=== PATIENT | female | born 1950 | race Caucasian/White ===

== ENCOUNTER → 2020-10-28 | Outpatient (CLI) | payer MEDICARE ==
--- NOTE | 2020-10-29 11:07 | MM ---
Reason for exam: screening (asymptomatic). Last mammogram was performed 16 years and 1 month ago. History: Patient is postmenopausal and history of endometrial cancer. Physical Findings: A clinical breast exam by your physician is recommended on an annual basis and results should be correlated with mammographic findings. MG 3D Screening Mammo W/Cad Bilateral CC and MLO view(s) were taken. No prior studies available for comparison. The breast tissue is heterogeneously dense. This may lower the sensitivity of mammography. There is no discrete abnormality. No significant changes when compared with prior studies. ASSESSMENT: Negative, BI-RAD 1 RECOMMENDATION: Routine screening mammogram of both breasts in 1 year.
== END | disposition home or self-care (01) ==
LOC: RADMAMWWP 13:59
PROVIDERS: ATTEND Family Medicine
DX: Z12.31 Encounter for screening mammogram for malignant neoplasm of breast (principal); Z78.0 Asymptomatic menopausal state
CPT/HCPCS: 77063; 77067

== ENCOUNTER 2021-10-07 08:41 | Emergency (ER) | payer MEDICARE ==
[2021-10-07 08:51] VITALS: BP 156/72; PULSE 71; RESP 20; TEMP 97.8
[2021-10-07] MEDS ORDERED: predniSONE 20 MG TAB PO STA (11:52)
[2021-10-07] MEDS ORDERED: KETOROLAC 15 MG/ML 1 ML VIAL IM STA (11:52)
[2021-10-07] MEDS ORDERED: HYDROmorphone 1 MG/ML 1 ML SYRINGE IM STA (11:52)
--- NOTE | 2021-10-07 12:18 | XR ---
Lumbosacral spine HISTORY: Back pain, trauma 6 views of the lumbosacral spine Comparisons There is a slight spinal curvature convex left centered at L3. Multilevel spondylosis is present. The re is no evident spondylolysis. Lumbar vertebral bodies show preserved height. Bone mineralization is reduced. There is anterolisthesis grade 1 L4-5. Sclerosis is present posterior elements of the lumba r spine. Loss of disc height is greatest at L4-5, L5-S1. Atherosclerotic calcifications present in th e aorta iliac distribution. IMPRESSION: Degenerative disc disease, facet arthropathy, osteopenia, additional findings above
--- NOTE | 2021-10-07 13:00 | ED ---
Back Pain HPI - General Chief Complaint: Back Pain/Injury Stated Complaint: trouble walking Time Seen by Provider: 10/07/21 11:45 Source: patient Limitations: no limitations - History of Present Illness Initial Comments: 71-year-old female presents to the emergency department with back pain. States is going on for the past week. Originally started after she was gardening and doing a lot of lifting and bending. States that the pain was originally on the right side of her lumbar spine. The pain has now progressed and extends into the posterior aspect of her right back and into her thigh. Pain is worse with movement and better with rest. She felt a primary care physician who placed her on Flexeril, Tylenol and Motrin. She denies any relief with the medications. Denies any bowel or bladder incontinence. No saddle anesthesia. No fevers. Denies any additional trauma. No history of previous back surgery. No alleviating, precipitating or modifying factors - Related Data Previous Rx's Medication Instructions Recorded HYDROcodone/APAP 7.5-325MG [[place] 1 tab PO Q4HR PRN 3 Days #18 tab 10/07/21 7.5-325] predniSONE [Deltasone] 20 mg PO BID #10 tab 10/07/21 Allergies Allergy/AdvReac Type Severity Reaction Status Date / Time No Known Allergies Allergy Verified 10/07/21 08:51 Review of Systems ROS Statement: Those systems with pertinent positive or pertinent negative responses have been documented in the HPI. ROS Other: All systems not noted in ROS Statement are negative. Past Medical History Past Medical History: No Reported History History of Any Multi-Drug Resistant Organisms: None Reported Past Surgical History: No Surgical Hx Reported Past Psychological History: No Psychological Hx Reported Smoking Status: Former smoker Past Alcohol Use History: Occasional Past Drug Use History: None Reported General Exam Limitations: no limitations General appearance: alert, in no apparent distress Head exam: Present: atraumatic, normocephalic, normal inspection Eye exam: Present: normal appearance, PERRL, EOMI. Absent: scleral icterus, conjunctival injection, periorbital swelling ENT exam: Present: normal exam, mucous membranes moist Neck exam: Present: normal inspection. Absent: tenderness, meningismus, lymphadenopathy Respiratory exam: Present: normal lung sounds bilaterally. Absent: respiratory distress, wheezes, rales, rhonchi, stridor Cardiovascular Exam: Present: regular rate, normal rhythm, normal heart sounds. Absent: systolic murmur, diastolic murmur, rubs, gallop, clicks GI/Abdominal exam: Present: soft, normal bowel sounds. Absent: distended, tenderness, guarding, rebound, rigid Extremities exam: Present: normal inspection, full ROM, normal capillary refill, other (5/5 muscle strength b/l le). Absent: tenderness, pedal edema, joint swelling, calf tenderness Back exam: Present: other (tenderness right SI joint) Neurological exam: Present: alert, oriented X3, CN II-XII intact Psychiatric exam: Present: normal affect, normal mood Skin exam: Present: warm, dry, intact, normal color. Absent: rash Course Vital Signs 10/07/21 08:48 Temperature 97.8 F Pulse Rate 71 Respiratory 20 Rate Blood Pressure 156/72 O2 Sat by Pulse 97 Oximetry Medical Decision Making - Medical Decision Making Upon arrival the patient is placed into room 31. A thorough history and physical exam was performed. Patient was given 15 mg of IM Toradol, 1 mg of Dilaudid. Lumbar spine x-ray is performed which demonstrates degenerative disc disease facet arthropathy osteopenia. Patient is reevaluated and feels improved in her symptoms. Did discuss changing her treatment from her current regiment over to [place] and prednisone. Patient does agree to this plan. She is given 60 mg of prednisone in the emergency room. Instructed to not take Motrin while taking the steroids. She'll stop taking the muscle relaxer and substitute for the [place]. She is to follow-up with her primary care doctor in 2-4 days and ret urn for any worsening symptoms she was discharged in stable condition Disposition Clinical Impression: Sciatica Disposition: HOME SELF-CARE Condition: Stable Instructions (If sedation given, give patient instructions): Sciatica (ED) Additional Instructions: Please take the [place] and steroids as directed. Follow up with your primary care doctor in 2-4 days and return for any new or worsening symptoms Prescriptions: predniSONE [Deltasone] 20 mg PO BID #10 tab HYDROcodone/APAP 7.5-325MG [[place] 7.5-325] 1 tab PO Q4HR PRN 3 Days #18 tab PRN Reason: Pain Is patient prescribed a controlled substance at d/c from ED?: Yes When asked, does pt state using other controlled substances?: No If prescribed controlled substance>3 days was MAPS reviewed?: Prescribed <3 Days If opioid is for acute pain is fill amount 7 days or less?: Yes Referrals: Lady Briseno MD [Primary Care Provider] - 1-2 days Devon Patel DO [Doctor of Osteopathic Medicine] - 1-2 days Time of Disposition: 13:00
== END 2021-10-07 13:16 | disposition home or self-care (01) ==
LOC: EC 08:41
DX: M54.41 Lumbago with sciatica, right side (principal); Z87.891 Personal history of nicotine dependence
CPT/HCPCS: 72110; 99283; 96372; J1170; J1885; J7512

== ENCOUNTER 2021-11-10 19:21 | Inpatient (IN) | payer MEDICARE, OTHER ==
[2021-11-10] MEDS ORDERED: SODIUM CHLORIDE 0.9% 1,000 ML IV STA ×2 (19:48→20:46)
[2021-11-10] MEDS ORDERED: HYDROmorphone 0.5 MG/0.5 ML SYRINGE IVP STA (19:50)
[2021-11-10] MEDS ORDERED: ONDANSETRON 4 MG/2 ML VIAL IVP STA (19:50)
[2021-11-10 20:04] LABS: Basophils # (A) 0.1 k/uL (0-0.2); Basophils % (A) 0 %; Eosinophils # (A) 0.1 k/uL (0-0.7); Eosinophils % (A) 1 %; HGB 12.2 gm/dL (11.4-16.0); Lymphocytes # (A) 0.5 k/uL (1.0-4.8); Lymphocytes % (A) 3 %; MCH 29.4 pg (25.0-35.0); MCHC 34.9 g/dL (31.0-37.0); Mean Platelet Volume 8.1; Monocytes % (A) 5 %; Neutrophils # (A) 18.2 k/uL (1.3-7.7); Neutrophils % (A) 91 %; Platelet Count 392 k/uL (150-450); RBC 4.16 m/uL (3.80-5.40); RDW 13.4 % (11.5-15.5); WBC 19.9 k/uL (3.8-10.6)
--- NOTE | 2021-11-10 20:16 | XR ---
EXAMINATION TYPE: XR chest 2V DATE OF EXAM: 11/10/2021 COMPARISON: NONE HISTORY: Short of breath TECHNIQUE: 2 views FINDINGS: Heart and mediastinum are normal. Lungs are clear. Diaphragm is normal. Bony thorax is inta ct. Thoracic aorta is atheromatous. IMPRESSION: No active cardiopulmonary disease. Normal heart.
[2021-11-10 20:17] LABS: ALT 15 U/L (4-34); AST 27 U/L (14-36); African American GFR (CKD) 9 (>60 ml/min/1.73 sqM); Albumin 3.5 g/dL (3.5-5.0); Alkaline Phosphatase 121 U/L (38-126); Chloride 99 mmol/L (98-107); Glucose 88 mg/dL (74-99); Magnesium 1.8 mg/dL (1.6-2.3); Non-African American GFR(CKD) 8 (>60 ml/min/1.73 sqM); Potassium 2.9 mmol/L (3.5-5.1); Sodium 130 mmol/L (137-145); Total Bilirubin 0.3 mg/dL (0.2-1.3); Total Protein 6.2 g/dL (6.3-8.2)
[2021-11-10 20:18] LABS: INR 1.2 (<1.2); Partial Thromboplastin Time 29.4 sec (22.0-30.0); Prothrombin Time 12.7 sec (9.0-12.0)
--- NOTE | 2021-11-10 20:20 | ED ---
General Adult HPI - General Source: patient, family, EMS, RN notes reviewed Mode of arrival: EMS Limitations: no limitations <Fallon Haque - Last Filed: 11/11/21 04:54> <Floresita Le - Last Filed: 11/12/21 22:21> - General Chief complaint: Shortness of Breath Stated complaint: Weakness, SOB Time Seen by Provider: 11/10/21 19:43 - History of Present Illness Initial comments: 71-year-old female presents to the emergency department via EMS for evaluation of increasing weakness and shortness of breath, onset today. Patient's spouse explains that patient developed low back pain 2 weeks ago and was diagnosed with a compression fracture at L3 that was likely due to presence of the tumor with concern for metastatic disease. Patient's spouse states they have been giving her [place] 10/325 for pain, but she has become so weak he is unable to transfer her from the bed to the bathroom. He also states she has complained of shortness of breath that has worsened over the past 2 days. Reports lack of appetite and decreased oral intake. Denies fever, chills, chest pain, cough, abdominal pain, nausea, vomiting, diarrhea, dysuria, hematuria, incontinence, or saddle anesthesia. According to her , patient has a PET scan scheduled for Wednesday. She is scheduled to see Dr. Patel next week and is waiting a call back from the oncologist for an appointment. (Fallon Haque) - Related Data Home Medications Medication Instructions Recorded Confirmed HYDROcodone/APAP 10-325MG [[place] 1 tab PO TID PRN 11/10/21 11/10/21 10-325] Ibuprofen [Motrin] 800 mg PO TID PRN 11/11/21 11/11/21 Allergies Allergy/AdvReac Type Severity Reaction Status Date / Time No Known Allergies Allergy Verified 11/10/21 21:17 Review of Systems ROS Other: All systems not noted in ROS Statement are negative. <Fallon Haque - Last Filed: 11/11/21 04:54> ROS Other: All systems not noted in ROS Statement are negative. <Floresita Le - Last Filed: 11/12/21 22:21> ROS Statement: Those systems with pertinent positive or pertinent negative responses have been documented in the HPI. Past Medical History Past Medical History: No Reported History History of Any Multi-Drug Resistant Organisms: None Reported Past Surgical History: No Surgical Hx Reported Past Psychological History: No Psychological Hx Reported Smoking Status: Former smoker Past Alcohol Use History: Occasional Past Drug Use History: None Reported - Past Family History Mother Family Medical History: No Reported History Father Family Medical History: Cancer Additional Family Medical History / Comment(s): skin Brother(s) Family Medical History: No Reported History <Fallon Haque - Last Filed: 11/11/21 04:54> General Exam Limitations: no limitations (Well-developed, well-nourished female in no acute distress.) General appearance: alert, in no apparent distress Head exam: Present: atraumatic, normocephalic, normal inspection Eye exam: Present: normal appearance, PERRL, EOMI. Absent: scleral icterus, conjunctival injection, periorbital swelling ENT exam: Present: mucous membranes dry Neck exam: Present: normal inspection, full ROM. Absent: tenderness, meningismus Respiratory exam: Present: normal lung sounds bilaterally. Absent: respiratory distress, wheezes, rales, rhonchi, stridor, chest wall tenderness Cardiovascular Exam: Present: regular rate, normal rhythm, normal heart sounds. Absent: systolic murmur, diastolic murmur, rubs, gallop, clicks GI/Abdominal exam: Present: soft, normal bowel sounds. Absent: distended, tend erness, guarding, rebound, rigid Right Hip exam: Present: normal inspection Upper Leg exam: Present: normal inspection, tenderness (tenderness upon palpation of the right anteromedial aspect of the mid upper leg; non-localized). Absent: swelling, ecchymosis, deformity, erythema Neurovascular tendon exam: Present: no vascular compromise Gait: unable to bear weight (due to generalized weakness) Back exam: Present: paraspinal tenderness (right sided lumbar spine tenderness upon palption). Absent: vertebral tenderness Neurological exam: Present: alert, oriented X3 Psychiatric exam: Present: flat affect Skin exam: Present: warm, dry, intact, normal color. Absent: rash <Fallon Haque - Last Filed: 11/11/21 04:54> Course <Fallon Haque - Last Filed: 11/11/21 04:54> <Floresita Le - Last Filed: 11/12/21 22:21> Vital Signs 11/10/21 11/10/21 11/10/21 19:25 19:41 20:38 Temperature 97.2 F L Pulse Rate 84 86 Respiratory 22 22 22 Rate Blood Pressure 126/94 110/97 O2 Sat by Pulse 100 99 Oximetry 11/10/21 11/10/21 11/10/21 21:13 21:34 21:45 Temperature Pulse Rate 84 90 92 Respiratory 20 17 19 Rate Blood Pressure 93/74 93/74 94/46 O2 Sat by Pulse 99 100 99 Oximetry 11/10/21 11/10/21 11/10/21 22:00 22:15 22:30 Temperature Pulse Rate 89 87 Respiratory 18 14 Rate Blood Pressure 63/44 75/50 71/49 O2 Sat by Pulse 99 100 Oximetry 11/10/21 11/10/21 11/10/21 23:00 23:15 23:30 Temperature Pulse Rate 89 87 87 Respiratory 20 18 20 Rate Blood Pressure 129/62 123/61 123/90 O2 Sat by Pulse 100 Oximetry 11/10/21 11/11/21 11/11/21 23:45 00:00 00:10 Temperature Pulse Rate 90 88 90 Respiratory 16 15 17 Rate Blood Pressure 138/73 126/76 106/79 O2 Sat by Pulse Oximetry 11/11/21 11/11/21 11/11/21 00:15 00:30 00:45 Temperature Pulse Rate 89 89 90 Respiratory 16 17 16 Rate Blood Pressure 106/79 119/79 113/56 O2 Sat by Pulse Oximetry 11/11/21 11/11/21 11/11/21 01:00 01:15 01:30 Temperature Pulse Rate 91 88 87 Respiratory 20 19 19 Rate Blood Pressure 111/67 106/67 107/64 O2 Sat by Pulse Oximetry 11/11/21 11/11/21 11/11/21 01:45 02:00 02:15 Temperature Pulse Rate 89 89 88 Respiratory 12 15 20 Rate Blood Pressure 114/69 122/52 115/63 O2 Sat by Pulse Oximetry 11/11/21 02:30 Temperature Pulse Rate Respiratory Rate Blood Pressure 108/51 O2 Sat by Pulse Oximetry - Reevaluation(s) Reevaluation #1: 11/10/21 21:00 Notified of several critical labs. I spoke with my attending, Dr. Le, who will assume this patient's care. (Fallon Haque) 11/10/21 23:[address] Obando who would like the patient on a bicarbonate drip. 80 meq kcl. 2 gram calcium gluconate. Labs in the morning (Floresita Le) Reevaluation #2: Spoke with Dr. Sanchez. States that Dr. Patel can consult on the patient tomorrow 11/10/21 23:11 (Floresita Le) Reevaluation #3: Spoke with Dr. Allen 11/10/21 23:17 (Floresita Le) Reevaluation #4: Spoke with Dr. Moya 11/10/21 23:18 (Floresita Le) Medical Decision Making - Lab Data Result diagrams: 11/10/21 19:54 11/10/21 19:54 - EKG Data EKG shows normal: sinus rhythm Rate: normal - Radiology Data Radiology results: report reviewed, image reviewed <GarlandFallon esposito - Last Filed: 11/11/21 04:54> - Lab Data Result diagrams: 11/12/21 03:49 11/12/21 03:49 <Floresita Le - Last Filed: 11/12/21 22:21> - Medical Decision Making Upon arrival patient was placed into room 18. She was originally seen by the PA. Laboratory studies returned and the patient is moved up to room 6 and I do take over care of the patient. Patient sent for CT of her abdomen and pelvis which is done without contrast due to her renal failure which demonstrates multiple lytic lesions concerning for myeloma. Patient was given a 2 L bolus of normal saline. She is also given 2 amp of bicarb. Patient does have potassium replaced. 20 mEq is originally ordered however after speaking with nephrology the patient will be given 80 mEq total to start. Magnesium is replaced. Nephrology also recommends 2 amp of calcium gluconate. Ionized calcium was obtained prior to replacement. CT the head does not demonstrate any concerning lesions. I did call and speak with Dr. Moya, Dr. Sanchez, Dr. Eckert and Dr. Obando. Patient will be admitted to the ICU on a bicarb drip. Patient and family aware of the critical condition. Jean was placed for renal failure and the patient does have immediate output of 800 mL of urine. Patient awaiting a bed on the floor (Floresita Le) - Lab Data Lab Results 11/10/21 11/10/21 11/10/21 Range/Units 19:54 19:54 19:54 WBC 19.9 H (3.8-10.6) k/uL RBC 4.16 (3.80-5.40) m/uL Hgb 12.2 (11.4-16.0) gm/dL Hct 35.0 (34.0-46.0) % MCV 84.0 (80.0-100.0) fL MCH 29.4 (25.0-35.0) pg MCHC 34.9 (31.0-37.0) g/dL RDW 13.4 (11.5-15.5) % Plt Count 392 (150-450) k/uL MPV 8.1 Neutrophils % 91 % Lymphocytes % 3 % Monocytes % 5 % Eosinophils % 1 % Basophils % 0 % Neutrophils # 18.2 H (1.3-7.7) k/uL Lymphocytes # 0.5 L (1.0-4.8) k/uL Monocytes # 1.0 (0-1.0) k/uL Eosinophils # 0.1 (0-0.7) k/uL Basophils # 0.1 (0-0.2) k/uL PT 12.7 H (9.0-12.0) sec INR 1.2 H (<1.2) APTT 29.4 (22.0-30.0) sec D-Dimer 4.28 H (<0.60) mg/L FEU Sodium 130 L (137-145) mmol/L Potassium 2.9 L (3.5-5.1) mmol/L Chloride 99 (98-107) mmol/L Carbon Dioxide <5 L* (22-30) mmol/L Anion Gap mmol/L BUN 166 H* (7-17) mg/dL Creatinine 5.36 H (0.52-1.04) mg/dL Est GFR (CKD-EPI)AfAm 9 (>60 ml/min/1.73 sqM) Est GFR (CKD-EPI)NonAf 8 (>60 ml/min/1.73 sqM) Glucose 88 (74-99) mg/dL Calcium 6.4 L* (8.4-10.2) mg/dL Magnesium 1.8 (1.6-2.3) mg/dL Total Bilirubin 0.3 (0.2-1.3) mg/dL AST 27 (14-36) U/L ALT 15 (4-34) U/L Alkaline Phosphatase 121 (38-126) U/L Troponin I (0.000-0.034) ng/mL NT-Pro-B Natriuret Pep pg/mL Total Protein 6.2 L (6.3-8.2) g/dL Albumin 3.5 (3.5-5.0) g/dL Urine Color Urine Appearance (Clear) Urine pH (5.0-8.0) Ur Specific [place] (1.001-1.035) Urine Protein (Negative) Urine Glucose (UA) (Negative) Urine Ketones (Negative) Urine Blood (Negative) Urine Nitrite (Negative) Urine Bilirubin (Negative) Urine Urobilinogen (<2.0) mg/dL Ur Leukocyte Esterase (Negative) Urine RBC (0-5) /hpf Urine WBC (0-5) /hpf Urine Bacteria (None) /hpf Hyaline Casts (0-2) /lpf Urine Mucus (None) /hpf 11/10/21 11/10/21 11/10/21 Range/Units 19:54 19:54 22:30 WBC (3.8-10.6) k/uL RBC (3.80-5.40) m/uL Hgb (11.4-16.0) gm/dL Hct (34.0-46.0) % MCV (80.0-100.0) fL MCH (25.0-35.0) pg MCHC (31.0-37.0) g/dL RDW (11.5-15.5) % Plt Count (150-450) k/uL MPV Neutrophils % % Lymphocytes % % Monocytes % % Eosinophils % % Basophils % % Neutrophils # (1.3-7.7) k/uL Lymphocytes # (1.0-4.8) k/uL Monocytes # (0-1.0) k/uL Eosinophils # (0-0.7) k/uL Basophils # (0-0.2) k/uL PT (9.0-12.0) sec INR (<1.2) APTT (22.0-30.0) sec D-Dimer (<0.60) mg/L FEU Sodium (137-145) mmol/L Potassium (3.5-5.1) mmol/L Chloride (98-107) mmol/L Carbon Dioxide (22-30) mmol/L Anion Gap mmol/L BUN (7-17) mg/dL Creatinine (0.52-1.04) mg/dL Est GFR (CKD-EPI)AfAm (>60 ml/min/1.73 sqM) Est GFR (CKD-EPI)NonAf (>60 ml/min/1.73 sqM) Glucose (74-99) mg/dL Calcium (8.4-10.2) mg/dL Magnesium (1.6-2.3) mg/dL Total Bilirubin (0.2-1.3) mg/dL AST (14-36) U/L ALT (4-34) U/L Alkaline Phosphatase (38-126) U/L Troponin I <0.012 (0.000-0.034) ng/mL NT-Pro-B Natriuret Pep 1190 pg/mL Total Protein (6.3-8.2) g/dL Albumin (3.5-5.0) g/dL Urine Color Yellow Urine Appearance Clear (Clear) Urine pH 5.5 (5.0-8.0) Ur Specific [place] 1.012 (1.001-1.035) Urine Protein 1+ H (Negative) Urine Glucose (UA) Negative (Negative) Urine Ketones Negative (Negative) Urine Blood Trace H (Negative) Urine Nitrite Negative (Negative) Urine Bilirubin Negative (Negative) Urine Urobilinogen <2.0 (<2.0) mg/dL Ur Leukocyte Esterase Negative (Negative) Urine RBC 2 (0-5) /hpf Urine WBC 4 (0-5) /hpf Urine Bacteria Rare H (None) /hpf Hyaline Casts 7 H (0-2) /lpf Urine Mucus Rare H (None) /hpf - EKG Data EKG Comments: EKG obtained at 2023 shows sinus rhythm with ST deviation and moderate T wave abnormality. Ventricular rate 87, [place] interval 150, QRS duration 104, QT/QTC 369/414. Interpretation abnormal ECG. (Fallon Haque) - Radiology Data Two-view chest x-ray was obtained. Report was reviewed in its entirety. Impression per Dr. Yan is no active cardiopulmonary disease. Normal heart. (Fallon Haque) Critical Care Time Critical Care Time: Yes <Floresita Le - Last Filed: 11/12/21 22:21> Critical Care Time: 32 minutes (Floresita Le) Disposition <Fallon Haque - Last Filed: 11/11/21 04:54> Is patient prescribed a controlled substance at d/c from ED?: No Time of Disposition: 23:45 Decision to Admit Reason: Admit from EC Decision Date: 11/10/21 Decision Time: 23:45 <Floresita Le - Last Filed: 11/12/21 22:21> Clinical Impression: Compression fracture of L3 vertebra, Lytic bone lesions on xray, Hyponatremia, BEBETO (acute kidney injury), Hypokalemia, Acidosis Disposition: ADMITTED IP TO THIS [facility] Condition: Serious
[2021-11-10 20:28] LABS: Calcium 6.4 mg/dL (8.4-10.2); Carbon Dioxide <5 mmol/L (22-30)
[2021-11-10 20:31] LABS: Blood Urea Nitrogen 166 mg/dL (7-17)
[2021-11-10] MEDS ORDERED: HEPARIN SODIUM 1,000 UN/ML (10ML VL) IV ONE (20:34)
[2021-11-10] MEDS ORDERED: HEPARIN SODIUM 1,000 UN/ML (10ML VL) IV PRN (20:34)
[2021-11-10] MEDS ORDERED: HEPARIN SOD,PORK IN 0.45% NACL 25,000 UNIT in 0.45% NACL 1 250ML.BAG IV SCH (20:45)
[2021-11-10] MEDS ORDERED: SODIUM CHLORIDE 0.9% 1,000 ML IV ONE (20:59)
[2021-11-10] MEDS ORDERED: SODIUM BICARB 8.4% 50 ML SYR (1 MEQ/ML) IV STA (21:02)
[2021-11-10] MEDS ORDERED: MAGNESIUM SULFATE-D5W PMX 1 GM in DEXTROSE/WATER 1 100ML.BAG IVPB ONE (21:03)
[2021-11-10] MEDS ORDERED: POTASSIUM CHLORIDE 20 MEQ in WATER FOR INJECTION 1 100ML.BAG IVPB ONE ×2 (21:15→23:40)
--- NOTE | 2021-11-10 22:49 | CT ---
EXAMINATION TYPE: CT ChestAbdPelvis wo con DATE OF EXAM: 11/10/2021 COMPARISON: None HISTORY: c/o body aches, hypotention, difficulty breathing CT DLP: 558.5 mGycm Automated exposure control for dose reduction was used. Images obtained from the thoracic inlet through the floor of the pelvis with no contrast. The lungs are clear of infiltrate. No pleural effusion. Mild subsegmental atelectasis or scarring at the right lung base. Heart size is normal. No pericardial effusion. There is no mediastinal adenopath y. Thoracic aorta is atheromatous. There are no hilar masses. There is dense coronary artery calcific ation. Liver spleen pancreas stomach appear intact. There is large gallbladder that measures 4.2 cm. There i s irregular 2 cm cyst in the inferior right lobe of the liver. There is no adrenal mass. Kidneys have normal size and contour. No hydronephrosis. Ureters are not di lated. Appendix is posterior and appears normal. Urinary bladder is empty. There is Jean catheter in the bladder. No inguinal hernia. No free fluid in the pelvis. No pelvic mass. There are sigmoid dive rticula. No diverticulitis. No mesenteric edema. No ascites or free air. No sign of a bowel obstructi on. There is mild compression fracture of L3 vertebra with some destructive changes in the left-sided pedicle. The sternum is intact. There is severe spinal stenosis at L4-5 due to facet arthropathy and L4-5 mild subluxation. There is severe spinal stenosis at L2-3 related to disc bulging and facet arthropathy. There is probably also some tumor encroachment of the spinal canal on the left side. The shoulder joints are intact. There are destructive lesions in soft tissue mass density involving the posterior left ilium and the lateral aspect left iliac crest. There is a fracture of the left lateral second rib that could be a l ytic lesion. There is fracture posterior left eighth rib that could be a lytic lesion. There is a lyt ic lesion involving the right transverse process of T10. IMPRESSION: Large gallbladder that could relate to gallbladder dysfunction or cholecystitis. Normal appendix. Destructive lesion in the L3 vertebral body suggestive of tumor. Follow-up is recommended. There is m oderately severe spinal stenosis at L2-3 and L4-5. There is a large destructive lesion also in the posterior left iliac bone. There is 2 cm destructive lesion lateral aspect of the left iliac bone. Multiple rib lesions. Right T2 transverse process serafin dong. I would consider myeloma.
--- NOTE | 2021-11-10 22:56 | CT ---
EXAMINATION TYPE: CT brain ruthine wo con DATE OF EXAM: 11/10/2021 COMPARISON: None HISTORY: c/o body aches, hypotention, difficulty breathing CT DLP: 1309.8 mGycm Automated exposure control for dose reduction was used. Images obtained of the brain and cervical spine with no contrast. Ventricles have normal size. There is no mass effect or midline shift. No sign of intracranial hemorr dash. The calvarium is intact. Skull base is intact. The cervical vertebra have normal alignment. No compression fracture. There is degenerative disc spac e narrowing from C5 to T1 with spurring of the endplates. No compression fracture. Prevertebral soft tissues are intact. There is lytic lesion of the right transverse process of t2 vertebra and also fracture of the posteri or right second rib with lytic changes. IMPRESSION: Negative CT scan of the brain. Spondylotic changes in the cervical spine. No fracture. Lytic lesion in the T2 vertebra on the right side consistent with myeloma.
[2021-11-10 23:14] LABS: Appearance,Urine Clear (Clear); Bacteria,Urine Rare /hpf; Bilirubin,Urine Negative (Negative); Blood,Urine Trace (Negative); Color,Urine Yellow; Glucose,Urine (UA) Negative (Negative); Hyaline Casts,Urine 7 /lpf (0-2); Ketones,Urine Negative (Negative); Leukocyte Esterase,Urine Negative (Negative); Mucus,Urine Rare /hpf; Nitrite,Urine Negative (Negative); PH, Urine 5.5 (5.0-8.0); Protein,Urine 1+ (Negative); RBC,Urine 2 /hpf (0-5); Specific Gravity,Urine 1.012 (1.001-1.035); Urobilinogen,Urine <2.0 mg/dL (<2.0); WBC,Urine 4 /hpf (0-5)
[2021-11-10] MEDS ORDERED: POTASSIUM CHLORIDE ER 20 MEQ TAB.ER PO STA (23:40)
[2021-11-10] MEDS ORDERED: CALCIUM GLUCONATE IN NACL 2 GM in SALINE 1 100ML.BAG IVPB ONE (23:43)
[2021-11-10] MEDS ORDERED: ACETAMINOPHEN TAB 325 MG TAB PO PRN (23:45)
[2021-11-10] MEDS ORDERED: NALOXONE 0.4 MG/ML 1 ML VIAL IV PRN (23:45)
[2021-11-10] MEDS ORDERED: ONDANSETRON 4 MG/2 ML VIAL IVP PRN (23:45)
[2021-11-11 02:44] LABS: Glucose,Whole Blood 86 mg/dL (70-110)
[2021-11-11] MEDS: DEXTROSE 5% IN WATER 1,000 ML with SODIUM BICARB (1 MEQ/ML) 150 ML IV SCH ×3 (03:55→13:36)
[2021-11-11 05:32] LABS: Basophils % (A) 0 %; Eosinophils # (A) 0.1 k/uL (0-0.7); Eosinophils % (A) 0 %; HCT 35.2 % (34.0-46.0); HGB 12.1 gm/dL (11.4-16.0); Lymphocytes # (A) 0.4 k/uL (1.0-4.8); Lymphocytes % (A) 3 %; MCH 30.1 pg (25.0-35.0); MCHC 34.3 g/dL (31.0-37.0); MCV 87.8 fL (80.0-100.0); Mean Platelet Volume 7.7; Monocytes # (A) 0.7 k/uL (0-1.0); Monocytes % (A) 4 %; Neutrophils # (A) 14.6 k/uL (1.3-7.7); Neutrophils % (A) 92 %; Platelet Count 339 k/uL (150-450); RBC 4.01 m/uL (3.80-5.40); RDW 14.1 % (11.5-15.5); WBC 15.9 k/uL (3.8-10.6)
[2021-11-11 05:57] LABS: Albumin 3.1 g/dL (3.5-5.0); Calcium 6.6 mg/dL (8.4-10.2); Magnesium 2.1 mg/dL (1.6-2.3); Potassium 3.3 mmol/L (3.5-5.1); Total Bilirubin 0.3 mg/dL (0.2-1.3); Total Protein 5.5 g/dL (6.3-8.2)
[2021-11-11] MEDS ORDERED: CALCIUM GLUCONATE IN NACL 2 GM in SALINE 1 100ML.BAG IVPB ONE (06:56)
[2021-11-11] MEDS ORDERED: POTASSIUM CHLORIDE ER 20 MEQ TAB.ER PO STA (06:56)
[2021-11-11] MEDS: HYDROmorphone 1 MG/ML 1 ML SYRINGE IVP PRN ×3 (07:12→19:46)
[2021-11-11] MEDS: PANTOPRAZOLE 40 MG TABLET PO SCH (07:14)
[2021-11-11] MEDS ORDERED: POTASSIUM CHLORIDE ER 20 MEQ TAB.ER PO ONE (08:00)
[2021-11-11] MEDS ORDERED: SODIUM BICARB 8.4% 50 ML SYR (1 MEQ/ML) IV STA (08:17)
[2021-11-11] MEDS: HEPARIN SODIUM,PORCINE/PF 5,000 UNIT/0.5 ML SYRINGE SQ SCH ×3 (08:33→23:24)
--- NOTE | 2021-11-11 09:26 | P.NPCON ---
History of Present Illness - Reason for Consult acute renal failure - History of Present Illness Reason for consultation: Acute kidney injury and acidosis History of present illness: Vision is a 71-year-old female seen in renal consultation for acute kidney injury and it frightened balance. Patient is resting in bed and is not a reliable historian. Patient presented to the hospital with generalized weakness and poor intake. From the records, it is noted that patient had developed back pain about 2 weeks prior to admission and was noted to have L3 compression fracture. She was also scheduled to get a PET scan done later this week. However the patient felt progressively weaker and short of breath and came to the hospital. No fever or chills. I do see ibuprofen and her home medication list but unsure as to how frequently she was taking this. Patient's baseline creatinine is near 1 from October 2020. His creatinine was elevated at 5.36 on admission and is 3.93 today. She was noted to be severely acidotic with a bicarb level of less than 5 on admission and it is up to 7 this morning. She's currently receiving bicarbonate drip at 1 25 mL an hour. Patient is nonoliguric. Blood pressure was low in the systolic 60s to 70s on admission but improved with IV hydration. She is not on any vasopressor support. Vital signs are stable. General: Awake. HEENT: Head exam is unremarkable. LUNGS: Breath sounds decreased. HEART: Rate and Rhythm are regular. ABDOMEN: Soft, no distention. EXTREMITITES: No edema. Past Medical History Past Medical History: No Reported History History of Any Multi-Drug Resistant Organisms: None Reported Past Surgical History: No Surgical Hx Reported Additional Past Surgical History / Comment(s): cataract surgery Past Psychological History: No Psychological Hx Reported Smoking Status: Former smoker Past Alcohol Use History: Occasional Past Drug Use History: None Reported - Past Family History Mother Family Medical History: No Reported History Father Family Medical History: Cancer Additional Family Medical History / Comment(s): skin Brother(s) Family Medical History: No Reported History Medications and Allergies Home Medications Medication Instructions Recorded Confirmed Type HYDROcodone/APAP 10-325MG [[place] 1 tab PO TID PRN 11/10/21 11/10/21 History 10-325] Ibuprofen [Motrin] 800 mg PO TID PRN 11/11/21 11/11/21 History Allergies Allergy/AdvReac Type Severity Reaction Status Date / Time No Known Allergies Allergy Verified 11/10/21 21:17 Physical Exam Vitals: Vital Signs Temp Pulse Resp BP Pulse Ox 11/11/21 09:00 86 20 116/51 99 11/11/21 08:00 97.6 F 81 20 115/57 99 11/11/21 07:00 89 22 114/76 100 11/11/21 06:00 85 12 124/77 100 11/11/21 05:00 89 14 126/66 99 11/11/21 04:00 90 13 127/56 100 11/11/21 03:09 98 F 89 22 117/49 99 11/11/21 02:30 108/51 11/11/21 02:15 88 20 115/63 11/11/21 02:00 89 15 122/52 11/11/21 01:45 89 12 114/69 11/11/21 01:30 87 19 107/64 11/11/21 01:15 88 19 106/67 11/11/21 01:00 91 20 111/67 11/11/21 00:45 90 16 113/56 11/11/21 00:30 89 17 119/79 11/11/21 00:15 89 16 106/79 11/11/21 00:10 90 17 106/79 11/11/21 00:00 88 15 126/76 11/10/21 23:45 90 16 138/73 11/10/21 23:30 87 20 123/90 11/10/21 23:15 87 18 123/61 11/10/21 23:00 89 20 129/62 100 11/10/21 22:30 87 14 71/49 100 11/10/21 22:15 75/50 11/10/21 22:00 89 18 63/44 99 11/10/21 21:45 92 19 94/46 99 11/10/21 21:34 90 17 93/74 100 11/10/21 21:13 84 20 93/74 99 11/10/21 20:38 86 22 110/97 99 11/10/21 19:41 97.2 F L 84 22 126/94 100 11/10/21 19:25 22 Intake and Output 11/10/21 11/11/21 11/11/21 22:59 06:59 14:59 Intake Total 500 250 Output Total 600 430 575 Balance -600 70 -325 Intake: IV 500 250 Dextrose 5% in Water 1, 500 250 000 ml @ 125 mls/hr IV . Q9H12M AMANDA with Sodium Bicarb (1 Meq/ml) 150 ml Rx#:[id number] Output: Urine 600 430 575 Uretheral (Jean) 600 Other: Voiding Method Indwelling Catheter Weight 67.132 kg 67.585 kg Results - Lab Results Most recent lab results Calcium 6.6 mg/dL (8.4-10.2) L 11/11/21 05:06 Phosphorus 8.0 mg/dL (2.5-4.5) H 11/11/21 05:06 Magnesium 2.1 mg/dL (1.6-2.3) 11/11/21 05:06 11/11/21 05:06 11/11/21 05:06 Assessment and Plan Plan: Assessment: 1. Acute kidney injury mostly prerenal secondary to hypovolemia and ?NSAIDs. Creatinine was 5.36 on admission and is 3.93 today. Creatinine October 2020 was near 1. No hydronephrosis noted on CAT scan. 2. Hypovolemic hyponatremia improved with IV hydration. 3. Metabolic acidosis secondary to acute kidney injury. 4. Pathologic fractures/destructive lesions in the vertebrae and left iliac bone. 5. Hypokalemia from poor intake and intracellular shifting from IV bicarb. Magnesium normal. 6. Hyperphosphatemia secondary to acute kidney injury. Expect improvement with improving renal function. 7. Hypocalcemia secondary to acute kidney injury. Plan: Maintain bicarb drip. Replace potassium. Replace calcium. 4 A of sodium bicarb IV push now. Continue to monitor renal function and urine output. Oncology consulted for possible myeloma. Avoid nephrotoxins. Repeat BMP this evening. Thank you for the consultation. I will continue to follow the patient with you during her hospital stay.
[2021-11-11 11:32] LABS: Appearance,Urine Clear (Clear); Bacteria,Urine Rare /hpf; Bilirubin,Urine Negative (Negative); Blood,Urine Small (Negative); Color,Urine Light Yellow; Glucose,Urine (UA) Negative (Negative); Hyaline Casts,Urine 3 /lpf (0-2); Ketones,Urine Trace (Negative); Leukocyte Esterase,Urine Trace (Negative); Mucus,Urine Rare /hpf; Nitrite,Urine Negative (Negative); Protein,Urine Trace (Negative); RBC,Urine 9 /hpf (0-5); Specific Gravity,Urine 1.012 (1.001-1.035); Urobilinogen,Urine <2.0 mg/dL (<2.0); WBC,Urine 5 /hpf (0-5)
[2021-11-11 11:41] LABS: Creatinine,Urine Random 34.2 mg/dL; Protein/Creatinine Ratio,Urine 0.643
[2021-11-11 13:24] LABS: Uric Acid 11.7 mg/dL (3.7-7.4)
--- NOTE | 2021-11-11 13:39 | P.CNOR ---
History of Present Illness - [facility] Consult date: 11/11/21 Requesting physician: Floresita Le Consult reason: low back pain, other (Evaluate metastatic disease; L3 osseous a bnormality) History of present illness: Patient is a very pleasant 71-year-old female who is seen and examined the bedside for further evaluation of her lumbar spine. She is seen with her family present with her. She is currently undergoing workup for possible metastatic disease. She is previously seen by Dr. Lopez in pain management in the outpatient setting for further evaluation. 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 She was fitted with an LSO brace. Her last appointment was on 11/07/2021. She was scheduled for further evaluation with us in the outpatient setting. Prior to this appointment, she became increasingly weak with shortness of breath over the weekend. She denies specific lower extremity weakness but feels she has significant difficulty with trying to ambulate or perform other regular activities of daily living due to her wea kness. She is brought to [facility] via EMS for further evaluation. Since her admission to the hospital she has undergone multiple imaging modalities. She is currently being seen by multiple medical fibers with multiple providers on consult as well including oncology, pulmonology, medicine, and nephrology. She is currently in the ICU. Patient denies any injuries. She denies any specific lower extremity radicular pain. She does have some lumbar pain. She's currently on a bedpan. She has a Jean catheter and intact. Patient has been discussed in detail with oncology today who is planning to see the patient. We have discussed the possibility of biopsy for diagnosis. She is currently undergoing further evaluation to obtain a diagnosis. She is known to have other degenerative changes in her lumbar spine as well. Family states patient was scheduled for a PET scan. Oncology is planning to obtain thoracic MRI imaging. She denies any difficulty with urination or bowel movements prior to her admission to the hospital. She feels that she has been becoming gener ally weaker over the past several days. Past Medical History Past Medical History: No Reported History History of Any Multi-Drug Resistant Organisms: None Reported Past Surgical History: No Surgical Hx Reported Additional Past Surgical History / Comment(s): cataract surgery Past Psychological History: No Psychological Hx Reported Smoking Status: Former smoker Past Alcohol Use History: Occasional Past Drug Use History: None Reported - Past Family History Mother Family Medical History: No Reported History Father Family Medical History: Cancer Additional Family Medical History / Comment(s): skin Brother(s) Family Medical History: No Reported History Medications and Allergies Home Medications Medication Instructions Recorded Confirmed Type HYDROcodone/APAP 10-325MG [[place] 1 tab PO TID PRN 11/10/21 11/10/21 History 10-325] Ibuprofen [Motrin] 800 mg PO TID PRN 11/11/21 11/11/21 History Allergies Allergy/AdvReac Type Severity Reaction Status Date / Time No Known Allergies Allergy Verified 11/10/21 21:17 Physical Examination Physical exam: Patient is awake, alert, and oriented 3 Vital signs stable Good chest excursion with deep inspiration and expiration Patient is currently lying flat in bed on a bedpan Jean catheter intact Dorsiflexion, plantarflexion, and extensor hallucis longus positive sustained bilaterally Patient does have difficulty performing hip flexion and knee flexion bilaterally and is generally weaker Patellar reflex 2+ bilaterally +3 beats of clonus bilateral lower extremities Straight leg test negative bilateral lower extremities Negative Lasegue's test bilaterally No signs or symptoms of DVT; no calf pain No pain with internal and external rotation of the hips bilaterally Neurovascularly intact Evidence of tattoos or the ankles Results Pertinent studies: CT of the chest, abdomen, and pelvis taken on 11/10/2021: Destructive lesion in the L3 vertebral body with destructive changes to the left pedicle suggestive of tumor; large destructive lesion in the posterior and lateral left iliac bone; multiple rib lesion; right T10 transverse process lesion; L2-3 disc bulging and facet arthropathy and possibly some tumor encroachment resulting in spinal stenosis; L4-5 spondylolisthesis and facet arthropathy resulting in severe spinal stenosis MRI of the lumbar spine taken at [facility] on 10/29/2021: Mild to moderate superior endplate compression fracture at L3 with edema with well-defined signal abnormality within the posterior aspect of the vertebral body with outward bowing of the posterior cortex with retropulsion with extension into the pedicles bilaterally; T1 and T2 signal change within the spinous process of L2; Bony lesions at T12, L1, and L2; Partially visualized lesion within the left ilium with smaller lesions in the right ilium; T12-L1 degenerative disc disease; L1-2 mild bilateral facet arthropathy; L2 to S3 moderate facet arthropathy with right neural foraminal narrowing and some mass effect to the descending right L3 nerve root; L3-4 moderate amount of bilateral facet arthropathy and ligamentum flavum hypertrophy resulting in 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; L4-5 spondylolisthesis, severe bilateral facet arthropathy, ligamentum flavum hypertrophy, and from his disc bulge resulting in severe spinal canal stenosis and moderate right and mild left neural foraminal stenosis; L5-S1 facet arthropathy without significant stenosis; T2 bright lesions within the liver which are incompletely characterized - Labs Labs: Abnormal Lab Results - Last 24 Hours (Table) 11/10/21 11/10/21 11/10/21 Range/Units 19:54 19:54 19:54 WBC 19.9 H (3.8-10.6) k/uL Neutrophils # 18.2 H (1.3-7.7) k/uL Lymphocytes # 0.5 L (1.0-4.8) k/uL PT 12.7 H (9.0-12.0) sec INR 1.2 H (<1.2) D-Dimer 4.28 H (<0.60) mg/L FEU Sodium 130 L (137-145) mmol/L Potassium 2.9 L (3.5-5.1) mmol/L Chloride (98-107) mmol/L Carbon Dioxide <5 L* (22-30) mmol/L BUN 166 H* (7-17) mg/dL Creatinine 5.36 H (0.52-1.04) mg/dL Osmolality (280-301) mosm/kg Calcium 6.4 L* (8.4-10.2) mg/dL Ionized Calcium Ximena (4.5-5.3) mg/dL Phosphorus (2.5-4.5) mg/dL Total Protein 6.2 L (6.3-8.2) g/dL Albumin (3.5-5.0) g/dL Urine Protein (Negative) Urine Ketones (Negative) Urine Blood (Negative) Ur Leukocyte Esterase (Negative) Urine RBC (0-5) /hpf Urine Bacteria (None) /hpf Hyaline Casts (0-2) /lpf Urine Mucus (None) /hpf 11/10/21 11/11/21 11/11/21 Range/Units 22:30 00:40 05:06 WBC 15.9 H (3.8-10.6) k/uL Neutrophils # 14.6 H (1.3-7.7) k/uL Lymphocytes # 0.4 L (1.0-4.8) k/uL PT (9.0-12.0) sec INR (<1.2) D-Dimer (<0.60) mg/L FEU Sodium (137-145) mmol/L Potassium (3.5-5.1) mmol/L Chloride (98-107) mmol/L Carbon Dioxide (22-30) mmol/L BUN (7-17) mg/dL Creatinine (0.52-1.04) mg/dL Osmolality (280-301) mosm/kg Calcium (8.4-10.2) mg/dL Ionized Calcium Ximena 3.5 L* (4.5-5.3) mg/dL Phosphorus (2.5-4.5) mg/dL Total Protein (6.3-8.2) g/dL Albumin (3.5-5.0) g/dL Urine Protein 1+ H (Negative) Urine Ketones (Negative) Urine Blood Trace H (Negative) Ur Leukocyte Esterase (Negative) Urine RBC (0-5) /hpf Urine Bacteria Rare H (None) /hpf Hyaline Casts 7 H (0-2) /lpf Urine Mucus Rare H (None) /hpf 11/11/21 11/11/21 11/11/21 Range/Units 05:06 10:00 12:11 WBC (3.8-10.6) k/uL Neutrophils # (1.3-7.7) k/uL Lymphocytes # (1.0-4.8) k/uL PT (9.0-12.0) sec INR (<1.2) D-Dimer (<0.60) mg/L FEU Sodium (137-145) mmol/L Potassium 3.3 L (3.5-5.1) mmol/L Chloride 109 H (98-107) mmol/L Carbon Dioxide 7 L* (22-30) mmol/L BUN 152 H* (7-17) mg/dL Creatinine 3.93 H (0.52-1.04) mg/dL Osmolality 342 H* (280-301) mosm/kg Calcium 6.6 L (8.4-10.2) mg/dL Ionized Calcium Ximena (4.5-5.3) mg/dL Phosphorus 8.0 H (2.5-4.5) mg/dL Total Protein 5.5 L (6.3-8.2) g/dL Albumin 3.1 L (3.5-5.0) g/dL Urine Protein Trace H (Negative) Urine Ketones Trace H (Negative) Urine Blood Small H (Negative) Ur Leukocyte Esterase Trace H (Negative) Urine RBC 9 H (0-5) /hpf Urine Bacteria Rare H (None) /hpf Hyaline Casts 3 H (0-2) /lpf Urine Mucus Rare H (None) /hpf H & H 11/10/21 11/11/21 Range/Units 19:54 05:06 Hgb 12.2 12.1 (11.4-16.0) gm/dL Hct 35.0 35.2 (34.0-46.0) % Coagulation 11/10/21 Range/Units 19:54 INR 1.2 H (<1.2) Result Diagrams: 11/11/21 05:06 11/11/21 05:06 Assessment and Plan Assessment: Assessment: Low back pain L3 superior endplate pathologic compression fracture deformity with abnormal signal extending into the pedicles bilaterally T1 and T2 signal change within the spinous process of L2 Bony lesions at T12, L1, and L2 Partially visualized lesion within the left ilium with smaller lesions in the right ilium Multiple rib lesions Right T10 transverse process lesion Likely osseous metastatic disease Shortness of breath Generalized weakness Acidosis Hyponatremia Hypokalemia Hypocalcemia Hyperphosphatemia Acute kidney injury L4-5 spondylolisthesis L4-5 severe spinal stenosis and severe bilateral facet arthropathy L4-5 degenerative disc disease L2-3 spinal stenosis and facet arthropathy Lumbar facet arthropathy Lumbar spinal stenosis T12-L1 degenerative disc disease T2 bright lesions within the liver which are incompletely characterized (1) Pathologic fracture Current Visit: Yes Status: Acute Code(s): M84.40XA - PATHOLOGICAL FRACTURE, UNSP SITE, INIT ENCNTR FOR FRACTURE SNOMED Code(s): 191431629 (2) Shortness of breath Current Visit: Yes Status: Acute Code(s): R06.02 - SHORTNESS OF BREATH SNOMED Code(s): 900761936 (3) Generalized weakness Current Visit: Yes Status: Acute Code(s): R53.1 - WEAKNESS SNOMED Code(s): 29890749 (4) Spondylolisthesis at L4-L5 level Current Visit: Yes Status: Acute Code(s): M43.16 - SPONDYLOLISTHESIS, LUMBAR REGION SNOMED Code(s): 948591901666674 (5) Lumbar stenosis Current Visit: Yes Status: Acute Code(s): M48.061 - SPINAL STENOSIS, LUMBAR REGION WITHOUT NEUROGENIC DAVID SNOMED Code(s): 25248439 (6) Lumbar facet arthropathy Current Visit: Yes Status: Acute Code(s): M47.816 - SPONDYLOSIS W/O MYELOPATHY OR RADICULOPATHY, LUMBAR REGION SNOMED Code(s): 958493671 (7) Lumbar degenerative disc disease Current Visit: Yes Status: Acute Code(s): M51.36 - OTHER INTERVERTEBRAL DISC DEGENERATION, LUMBAR REGION SNOMED Code(s): 06480448 (8) BEBETO (acute kidney injury) Current Visit: Yes Status: Acute Code(s): N17.9 - ACUTE KIDNEY FAILURE, UNSPECIFIED SNOMED Code(s): 84137686 (9) Abnormal MRI, lumbar spine Current Visit: Yes Status: Acute Code(s): R93.7 - ABNORMAL FINDINGS ON DIAGN OSTIC IMAGING OF PRT MS SYS SNOMED Code(s): 646273713 (10) Acidosis Current Visit: Yes Status: Acute Code(s): E87.2 - ACIDOSIS SNOMED Code(s): 90301026 (11) Compression fracture of L3 vertebra Current Visit: Yes Status: Acute Code(s): S32.030A - WEDGE COMPRESSION FRACTURE OF THIRD LUMBAR VERTEBRA, INIT SNOMED Code(s): 997427175 (12) Hypocalcemia Current Visit: Yes Status: Acute Code(s): E83.51 - HYPOCALCEMIA SNOMED Code(s): 9311174 (13) Hypokalemia Current Visit: Yes Status: Acute Code(s): E87.6 - HYPOKALEMIA SNOMED Code(s): 05202219 (14) Hyponatremia Current Visit: Yes Status: Acute Code(s): E87.1 - HYPO-OSMOLALITY AND HYPONATREMIA SNOMED Code(s): 39314486 Plan: Plan: 1. Patient is a very pleasant 71-year-old female who is seen and examined at the bedside for further evaluation regards to her lumbar spine. She has undergone multiple imaging modalities with MRI and CT imaging showing s ignificant osseous change compatible with metastatic disease most significant at L3. There is also involvement at the ilium greater on the left than the right, spinous processes of L2, bony lesions at T12, L1, and L2, right T10 transverse process involvement, and multiple rib involvement. We had ordered a nuclear medicine whole body bone scan for further evaluation of possible metastatic disease. MRI of the thoracic spine has been ordered by oncology. Patient is currently undergoing further evaluation to obtain a diagnosis. She is being seen and examined multiple medical providers including oncology, pulmonology, nephrology, and medicine. Laboratory testing has shown multiple abnormalities including hyponatremia, hypokalemia, hypocalcemia, hyperphosphatemia, and acidosis. We did discuss she should continue with further workup and evaluation by multiple medical providers. We did discuss she could be a candidate for an L3 kyphoplasty with biopsy for pain control as well as for diagnosis of her osseous changes. This has been discussed in detail with the patient as well as oncology. Oncology is planning to further evaluate the patient as well. We will currently plan to schedule the patient for an L3 kyphoplasty with biopsy for tomorrow, 11/12/2021. Patient will be nothing by mouth status starting at midnight in anticipation for surgical intervention tomorrow. She is currently lying in bed. We did discuss she may transfer to a bedside commode. She was prescribed an LSO brace which is with her. We did discuss when sitting upright, working with physical therapy, or ambulating farther than a bedside commode she should keep his LSO brace intact. We did discuss her other degenerative changes in her lumbar spine most significant at L4-5. Currently based on her ot her medical lab testing and imaging results, we will plan to focus at L3. We also discussed patient must be cleared by multiple other medical providers prior to surgical intervention. This was discussed in detail with the patient's nurse. We will continue to follow the patient closely. 2. Patient will continue to be seen and examined by multiple other medical providers for further treatment and evaluation Time with Patient: Greater than 30 (Including obtaining history, physical examination, reviewing of imaging, and dictation.)
--- NOTE | 2021-11-11 14:28 | P.CNPUL ---
History of Present Illness Consult date: 11/11/21 Requesting physician: Lisbeth Moya Reason for consult: other (ICU management) Chief complaint: Weakness and low back pain History of present illness: This is a 71-year-old female, with 3 week history of low back pain, patient [facility] on consultation, and she had workup revealing L3 compression fracture, the patient was scheduled to have a PET scan later this week. However over the last few weeks, the patient has been getting weaker and weaker, and should be developing pain in the low back as well as right hip. Patient presented to the ER, and she was noted to have significant metabolic abnormalities and abnormal labs. Her labs revealed leukocytosis with WBC count of 19.9, hemoglobin of 12.2. She had elevated d-dimer of 4.28. Low sodium of 130 potassium of 2.9 bicarb less than 5 anion gap of 21 elevated BUN of 166 elevated creatinine of 5.36, low calcium of 6.4, ionized calcium of 3.5 slightly elevated BNP and low albumin of 3.1. CT of abdomen and pelvis showed this to selective lesion in the L3 vertebral body suggestive of malignancy. And there was moderate severe spinal stenosis L2-L3, and L4-L5. There was also a destructive lesion in the posterior left iliac bone with to see him destructive lesion lateral aspect of the left the bone. Multiple rib lesions were noted. And the differential diagnoses was multiple myeloma on leftover otherwise. Considering the multiple abnormalities and severe anion gap metabolic acidosis as well as acute kidney injury, patient was admitted to the ICU, and this consult was initiated. So far the patient was seen by nephrology on consultation, and the recommendation is to continue bicarb, replace potassium and calcium as per protocol, and to consult oncology for possible myeloma. Patient WAS also seen by orthopedics on consultation, and the recommendation was to continue medical consultations, and the patient will need to be cleared for any surgical intervention. Workup for multiple myeloma is pending and oncology consultation is now pending Review of Systems Constitutional: Weakness fatigue malaise HEENT: Negative Pulmonary: Negative Cardiac: Negative GI: Negative Musculoskeletal: As noted in HPI Hematologic: Negative Neurologic: Negative Psychiatric: Negative Endocrine: Negative Skin: Negative Past Medical History Past Medical History: No Reported History History of Any Multi-Drug Resistant Organisms: None Reported Past Surgical History: No Surgical Hx Reported Additional Past Surgical History / Comment(s): cataract surgery Past Psychological History: No Psychological Hx Reported Smoking Status: Former smoker Past Alcohol Use History: Occasional Past Drug Use History: None Reported - Past Family History Mother Family Medical History: No Reported History Father Family Medical History: Cancer Additional Family Medical History / Comment(s): skin Brother(s) Family Medical History: No Reported History Medications and Allergies Home Medications Medication Instructions Recorded Confirmed Type HYDROcodone/APAP 10-325MG [[place] 1 tab PO TID PRN 11/10/21 11/10/21 History 10-325] Ibuprofen [Motrin] 800 mg PO TID PRN 11/11/21 11/11/21 History Allergies Allergy/AdvReac Type Severity Reaction Status Date / Time No Known Allergies Allergy Verified 11/10/21 21:17 Physical Exam Vitals: Vital Signs Temp Pulse Resp BP Pulse Ox 11/11/21 13:00 86 22 117/51 98 11/11/21 12:00 86 27 H 118/88 97 11/11/21 11:00 87 16 116/61 99 11/11/21 10:00 87 16 114/49 100 11/11/21 09:00 86 20 116/51 99 11/11/21 08:00 97.6 F 81 16 115/57 100 11/11/21 07:00 89 22 114/76 100 11/11/21 06:00 85 12 124/77 100 11/11/21 05:00 89 14 126/66 99 11/11/21 04:00 90 13 127/56 100 11/11/21 03:09 98 F 89 22 117/49 99 11/11/21 02:30 108/51 11/11/21 02:15 88 20 115/63 11/11/21 02:00 89 15 122/52 11/11/21 01:45 89 12 114/69 11/11/21 01:30 87 19 107/64 11/11/21 01:15 88 19 106/67 11/11/21 01:00 91 20 111/67 11/11/21 00:45 90 16 113/56 11/11/21 00:30 89 17 119/79 11/11/21 00:15 89 16 106/79 11/11/21 00:10 90 17 106/79 11/11/21 00:00 88 15 126/76 11/10/21 23:45 90 16 138/73 11/10/21 23:30 87 20 123/90 11/10/21 23:15 87 18 123/61 11/10/21 23:00 89 20 129/62 100 11/10/21 22:30 87 14 71/49 100 11/10/21 22:15 75/50 11/10/21 22:00 89 18 63/44 99 11/10/21 21:45 92 19 94/46 99 11/10/21 21:34 90 17 93/74 100 11/10/21 21:13 84 20 93/74 99 11/10/21 20:38 86 22 110/97 99 11/10/21 19:41 97.2 F L 84 22 126/94 100 11/10/21 19:25 22 Intake and Output 11/10/21 11/11/21 11/11/21 22:59 06:59 14:59 Intake Total 500 950 Output Total 618 279 5083 Balance -600 70 -225 Intake: IV 500 750 Dextrose 5% in Water 1, 500 750 000 ml @ 125 mls/hr IV . Q9H12M AMANDA with Sodium Bicarb (1 Meq/ml) 150 ml Rx#:[id number] Oral 200 Output: Urine 349 470 5557 Uretheral (Jean) 600 Other: Voiding Method Indwelling Catheter Indwelling Catheter # Bowel Movements 1 Weight 67.132 kg 67.585 kg 67.585 kg Physical Exam: Revealed a 71-year-old female in no distress Head: Atraumatic, normocephalic. HEENT:[Neck is supple.] [No neck masses.] [No thyromegaly.] [No JVD.] Chest: [Clear throughout, no crackles, no rhonchi, no wheezes.] Cardiac Exam: [Normal S1 and S2, no S3 gallop, no murmur.] Abdomen: [Soft, nontender, no megaly, no rebound, no guarding, normal bowel sounds.] Extremities: [No clubbing, no edema, no cyanosis.] Neurological Exam: [No focal neurologic deficit.] Alert and oriented 3 Psychiatric: Normal mood affect and normal mental status examination. Skin: No rashes. Musculoskeletal: No deformities and no limitation in range of motion. Results - Laboratory Findings CBC and BMP: 11/11/21 05:06 11/11/21 05:06 PT/INR, D-dimer PT 12.7 sec (9.0-12.0) H 11/10/21 19:54 INR 1.2 (<1.2) H 11/10/21 19:54 D-Dimer 4.28 mg/L FEU (<0.60) H 11/10/21 19:54 Abnormal lab findings: Abnormal Labs 11/10/21 11/10/21 11/10/21 19:54 19:54 19:54 WBC 19.9 H Neutrophils # 18.2 H Lymphocytes # 0.5 L PT 12.7 H INR 1.2 H D-Dimer 4.28 H Sodium 130 L Potassium 2.9 L Chloride Carbon Dioxide <5 L* BUN 166 H* Creatinine 5.36 H Osmolality Uric Acid Calcium 6.4 L* Ionized Calcium Ximena Phosphorus Lactate Dehydrogenase Total Protein 6.2 L Albumin Urine Protein Urine Ketones Urine Blood Ur Leukocyte Esterase Urine RBC Urine Bacteria Hyaline Casts Urine Mucus 11/10/21 11/11/21 11/11/21 22:30 00:40 05:06 WBC 15.9 H Neutrophils # 14.6 H Lymphocytes # 0.4 L PT INR D-Dimer Sodium Potassium Chloride Carbon Dioxide BUN Creatinine Osmolality Uric Acid Calcium Ionized Calcium Ximena 3.5 L* Phosphorus Lactate Dehydrogenase Total Protein Albumin Urine Protein 1+ H Urine Ketones Urine Blood Trace H Ur Leukocyte Esterase Urine RBC Urine Bacteria Rare H Hyaline Casts 7 H Urine Mucus Rare H 11/11/21 11/11/21 11/11/21 05:06 10:00 12:11 WBC Neutrophils # Lymphocytes # PT INR D-Dimer Sodium Potassium 3.3 L Chloride 109 H Carbon Dioxide 7 L* BUN 152 H* Creatinine 3.93 H Osmolality 342 H* Uric Acid 11.7 H Calcium 6.6 L Ionized Calcium Ximena Phosphorus 8.0 H Lactate Dehydrogenase 1115 H Total Protein 5.5 L Albumin 3.1 L Urine Protein Trace H Urine Ketones Trace H Urine Blood Small H Ur Leukocyte Esterase Trace H Urine RBC 9 H Urine Bacteria Rare H Hyaline Casts 3 H Urine Mucus Rare H - Diagnostic Findings Additional studies: CT of the abdomen and pelvis and CT of the cervical spine as noted in HPI Assessment and Plan Assessment: Impression: Acute kidney injury, suspect multiple myeloma Acute hypovolemic hyponatremia Acute metabolic acidosis secondary to acute kidney injury Pathological fracture of L3 and left iliac bone, suggestive of malignancy/multiple myeloma Electrolytes imbalance including hyponatremia and hypokalemia as well as hypocalcemia Hyperphosphatemia secondary to acute kidney injury Recommendation: Continue bicarb drip Continue to address and monitor electrolytes accordingly and treat as per protocol replaced as per protocol Continue to monitor renal status Oncology to see her on consultation Avoid nephrotoxins We'll continue to monitor in the ICU for the next 24 hours Prognosis is guarded at this point. Time with Patient: Greater than 30
--- NOTE | 2021-11-11 14:59 | NM ---
EXAMINATION TYPE: NM bone scan whole body DATE OF EXAM: 11/11/2021 COMPARISON: NONE HISTORY: Static disease Delayed whole-body scanning was performed following the injection of 24.6 mCi Tc 99m MDP. Images acq uired 3 hours post injection. FINDINGS: Enteric there is intense radiotracer accumulation noted to involve the L3 vertebral segment, the ster num, posterior left rib #8 as well as patchy uptake seen within the bilateral ribs. There is also an area of abnormal uptake about the left ilium. Patchy uptake is seen about the proximal femora bilater ally right greater than left. There is also increased uptake noted to involve the upper thoracic spin e. IMPRESSION: Findings as discussed compatible with metastatic disease.
[2021-11-11 18:32] LABS: Calcium 7.3 mg/dL (8.4-10.2)
[2021-11-11 18:45] LABS: Potassium 2.5 mmol/L (3.5-5.1)
[2021-11-11] MEDS: SODIUM CHLORIDE 0.9% 1,000 ML IV SCH (19:03)
[2021-11-11] MEDS: POTASSIUM CHLORIDE ER 20 MEQ TAB.ER PO SCH ×4 (19:05→23:24)
--- NOTE | 2021-11-11 19:52 | P.CONS ---
History of Present Illness - Reason for Consult Consult date: 11/11/21 Concern for myeloma Requesting physician: Floresita Le - History of Present Illness Mrs. Loaiza is a 71 year old female presenting to [facility] and for increasing weakness and shortness of breath, which had apparently started suddenly. She was found to be in Acute Renal Failure, creatinine greater than 5. She is acidotic, leukocytosis with neutrophilia primarily, and hypocalcemia. No fevers however with hypocalcemia and neutrophilia a septic picture must be work-up up. She was seen by ortho spine in office for back pain and MRI of Lumbar spine was performed . Patient's spouse explains that patient developed low back pain 2 weeks ago and was diagnosed with a compression fracture at L3 that was likely due to presence of the tumor with concern for metastatic disease. Patient's spouse states they have been giving her [place] 10/325 for pain, but she has become so weak he is unable to transfer her from the bed to the bathroom. He also states she has complained of shortness of breath that has worsened over the past 2 days. Reports lack of appetite and decreased oral intake. Denies fever, chills, chest pain, cough, abdominal pain, nausea, vomiting, diarrhea, dysuria, hematuria, incontinence, or saddle anesthesia. According to her , patient has a PET scan scheduled for Wednesday. She is scheduled to see Dr. Patel next week and is waiting a call back from the oncologist for an appointment. (Fallon Haque) MRI of Lumbar spine, without contrast. T12-L1 - Small left central disc protrusion with flattening of keft ventral thecal sac. Concern of osseous spinal mets, woth pathologic compressure fracture at L3. ? hypertense lesion in liver. A CT Chest/Abd/Pelvis was performed on admission without obstructive uropathy, hydronephrosis, or renal mass. Re-demonstration of spine lesions, with a left posterior illiac destructive lesion. Imaging without contrast for renal failure. nephrology following. She is currently in care of ICU, sodium bicarb drop CO2 7. Review of Systems ROS unobtainable: due to mental status All systems: negative Past Medical History Past Medical History: No Reported History History of Any Multi-Drug Resistant Organisms: None Reported Past Surgical History: No Surgical Hx Reported Additional Past Surgical History / Comment(s): cataract surgery Past Psychological History: No Psychological Hx Reported Smoking Status: Former smoker Past Alcohol Use History: Occasional Past Drug Use History: None Reported - Past Family History Mother Family Medical History: No Reported History Father Family Medical History: Cancer Additional Family Medical History / Comment(s): skin Brother(s) Family Medical History: No Reported History Medications and Allergies Home Medications Medication Instructions Recorded Confirmed Type HYDROcodone/APAP 10-325MG [[place] 1 tab PO TID PRN 11/10/21 11/10/21 History 10-325] Ibuprofen [Motrin] 800 mg PO TID PRN 11/11/21 11/11/21 History Allergies Allergy/AdvReac Type Severity Reaction Status Date / Time No Known Allergies Allergy Verified 11/10/21 21:17 Physical Exam Vitals: Vital Signs Temp Pulse Resp BP Pulse Ox 11/11/21 10:00 87 16 114/49 100 11/11/21 09:00 86 20 116/51 99 11/11/21 08:00 97.6 F 81 20 115/57 99 11/11/21 07:00 89 22 114/76 100 11/11/21 06:00 85 12 124/77 100 11/11/21 05:00 89 14 126/66 99 11/11/21 04:00 90 13 127/56 100 11/11/21 03:09 98 F 89 22 117/49 99 11/11/21 02:30 108/51 11/11/21 02:15 88 20 115/63 11/11/21 02:00 89 15 122/52 11/11/21 01:45 89 12 114/69 11/11/21 01:30 87 19 107/64 11/11/21 01:15 88 19 106/67 11/11/21 01:00 91 20 111/67 11/11/21 00:45 90 16 113/56 11/11/21 00:30 89 17 119/79 11/11/21 00:15 89 16 106/79 11/11/21 00:10 90 17 106/79 11/11/21 00:00 88 15 126/76 11/10/21 23:45 90 16 138/73 11/10/21 23:30 87 20 123/90 11/10/21 23:15 87 18 123/61 11/10/21 23:00 89 20 129/62 100 11/10/21 22:30 87 14 71/49 100 11/10/21 22:15 75/50 11/10/21 22:00 89 18 63/44 99 11/10/21 21:45 92 19 94/46 99 11/10/21 21:34 90 17 93/74 100 11/10/21 21:13 84 20 93/74 99 11/10/21 20:38 86 22 110/97 99 11/10/21 19:41 97.2 F L 84 22 126/94 100 11/10/21 19:25 22 Intake and Output 11/10/21 11/11/21 11/11/21 22:59 06:59 14:59 Intake Total 500 475 Output Total 600 430 750 Balance -600 70 -275 Intake: IV 500 375 Dextrose 5% in Water 1, 500 375 000 ml @ 125 mls/hr IV . Q9H12M AMANDA with Sodium Bicarb (1 Meq/ml) 150 ml Rx#:[id number] Oral 100 Output: Urine 600 430 750 Uretheral (Jean) 600 Other: Voiding Method Indwelling Catheter Weight 67.132 kg 67.585 kg Poor historian NAD Diminished Reg irr BLE Mild edema Results CBC & Chem 7: 11/11/21 05:06 11/11/21 17:31 Labs: Abnormal Lab Results - Last 24 Hours (Table) 11/10/21 11/10/21 11/10/21 Range/Units 19:54 19:54 19:54 WBC 19.9 H (3.8-10.6) k/uL Neutrophils # 18.2 H (1.3-7.7) k/uL Lymphocytes # 0.5 L (1.0-4.8) k/uL PT 12.7 H (9.0-12.0) sec INR 1.2 H (<1.2) D-Dimer 4.28 H (<0.60) mg/L FEU Sodium 130 L (137-145) mmol/L Potassium 2.9 L (3.5-5.1) mmol/L Chloride (98-107) mmol/L Carbon Dioxide <5 L* (22-30) mmol/L BUN 166 H* (7-17) mg/dL Creatinine 5.36 H (0.52-1.04) mg/dL Calcium 6.4 L* (8.4-10.2) mg/dL Ionized Calcium Ximena (4.5-5.3) mg/dL Phosphorus (2.5-4.5) mg/dL Total Protein 6.2 L (6.3-8.2) g/dL Albumin (3.5-5.0) g/dL Urine Protein (Negative) Urine Blood (Negative) Urine Bacteria (None) /hpf Hyaline Casts (0-2) /lpf Urine Mucus (None) /hpf 11/10/21 11/11/21 11/11/21 Range/Units 22:30 00:40 05:06 WBC 15.9 H (3.8-10.6) k/uL Neutrophils # 14.6 H (1.3-7.7) k/uL Lymphocytes # 0.4 L (1.0-4.8) k/uL PT (9.0-12.0) sec INR (<1.2) D-Dimer (<0.60) mg/L FEU Sodium (137-145) mmol/L Potassium (3.5-5.1) mmol/L Chloride (98-107) mmol/L Carbon Dioxide (22-30) mmol/L BUN (7-17) mg/dL Creatinine (0.52-1.04) mg/dL Calcium (8.4-10.2) mg/dL Ionized Calcium Ximena 3.5 L* (4.5-5.3) mg/dL Phosphorus (2.5-4.5) mg/dL Total Protein (6.3-8.2) g/dL Albumin (3.5-5.0) g/dL Urine Protein 1+ H (Negative) Urine Blood Trace H (Negative) Urine Bacteria Rare H (None) /hpf Hyaline Casts 7 H (0-2) /lpf Urine Mucus Rare H (None) /hpf 11/11/21 Range/Units 05:06 WBC (3.8-10.6) k/uL Neutrophils # (1.3-7.7) k/uL Lymphocytes # (1.0-4.8) k/uL PT (9.0-12.0) sec INR (<1.2) D-Dimer (<0.60) mg/L FEU Sodium (137-145) mmol/L Potassium 3.3 L (3.5-5.1) mmol/L Chloride 109 H (98-107) mmol/L Carbon Dioxide 7 L* (22-30) mmol/L BUN 152 H* (7-17) mg/dL Creatinine 3.93 H (0.52-1.04) mg/dL Calcium 6.6 L (8.4-10.2) mg/dL Ionized Calcium Ximena (4.5-5.3) mg/dL Phosphorus 8.0 H (2.5-4.5) mg/dL Total Protein 5.5 L (6.3-8.2) g/dL Albumin 3.1 L (3.5-5.0) g/dL Urine Protein (Negative) Urine Blood (Negative) Urine Bacteria (None) /hpf Hyaline Casts (0-2) /lpf Urine Mucus (None) /hpf CT scan - abdomen: report reviewed CT scan - chest: report reviewed CT scan - pelvis: report reviewed Assessment and Plan (1) Leukocytosis Narrative/Plan: As per hypocalcemia Current Visit: Yes Status: Acute Code(s): D72.829 - ELEVATED WHITE BLOOD CELL COUNT, UNSPECIFIED SNOMED Code(s): 878092129 (2) Hypocalcemia Narrative/Plan: - More concerning in conjunction with leukocytosis for infectious picture. - Blood cultres x2 - Hypocalcemia work-up pending Current Visit: Yes Status: Acute Code(s): E83.51 - HYPOCALCEMIA SNOMED Code(s): 8875208 (3) Abnormal MRI, lumbar spine Narrative/Plan: - Reviewed with ortho spine, performed last week and more consistent with osseous malignancy, less likely myeloma picture. Further imaging of thoracic to confirm absent cord involvement. - Hope is for tissue biopsy prior to initiation of steroids, as corticosteroids can alter results in patients with malignancies of a hematological nature. Current Visit: Yes Status: Acute Code(s): R93.7 - ABNORMAL FINDINGS ON DIAGNOSTIC IMAGING OF PRT MS SYS SNOMED Code(s): 721150410 (4) BEBETO (acute kidney injury) Narrative/Plan: - Sudden onset renal injury - CT without obvious obstructiove etiology and no hydronephrosis identified. - Nephrology is following - IVF and Bicarb for acisosis per ICU and Nephrology Current Visit: Yes Status: Acute Code(s): N17.9 - ACUTE KIDNEY FAILURE, UNSPECIFIED SNOMED Code(s): 62440814 (5) Acidosis Current Visit: Yes Status: Acute Code(s): E87.2 - ACIDOSIS SNOMED Code(s): 34304975 (6) Compression fracture of L3 vertebra Current Visit: Yes Status: Acute Code(s): S32.030A - WEDGE COMPRESSION FRACTURE OF THIRD LUMBAR VERTEBRA, INIT SNOMED Code(s): 786259298 Plan: We have been consulted for question of multiple myeloma, although clinical findings are concerning for a metastatic picture, less likely MM. Discussed with Ortho spine and MRI Thorax ordered, await infectious work-up, hold off on corticosteroids unless urgent, tissue biopsy needed for deficnitive diagnosis, if unable to obtain with ortho spine, then left iliac destructive lesion with IR. There is a concerning finding that appears to extend near spinal cord, possible spinal mass. This would be best, if a tissue mass, for diagnostic purposes, awit patient to stabilize and await further diagnostic. Discussed with ortho spine agree with procedure plan tomorrow
[2021-11-11] MEDS ORDERED: RASBURICASE 6 MG in SODIUM CHLORIDE 0.9% 46 ML IV ONE (21:00)
[2021-11-11 23:31] LABS: Protein, Total 5.4 g/dL (6.2-8.2)
[2021-11-12] MEDS: HYDROmorphone 1 MG/ML 1 ML SYRINGE IVP PRN ×6 (01:12→21:33)
[2021-11-12 04:19] LABS: Albumin 2.6 g/dL (3.5-5.0); Calcium 6.8 mg/dL (8.4-10.2); Magnesium 1.7 mg/dL (1.6-2.3); Potassium 3.1 mmol/L (3.5-5.1); Total Bilirubin 0.3 mg/dL (0.2-1.3); Total Protein 4.8 g/dL (6.3-8.2)
[2021-11-12 04:42] LABS: Basophils # (A) 0.1 k/uL (0-0.2); Basophils % (A) 0 %; Eosinophils # (A) 0.1 k/uL (0-0.7); Eosinophils % (A) 1 %; HCT 28.6 % (34.0-46.0); HGB 10.2 gm/dL (11.4-16.0); Lymphocytes # (A) 0.8 k/uL (1.0-4.8); Lymphocytes % (A) 7 %; MCH 29.3 pg (25.0-35.0); MCHC 35.6 g/dL (31.0-37.0); Mean Platelet Volume 7.8; Monocytes # (A) 0.6 k/uL (0-1.0); Monocytes % (A) 6 %; Neutrophils # (A) 9.5 k/uL (1.3-7.7); Neutrophils % (A) 86 %; Platelet Count 295 k/uL (150-450); RBC 3.47 m/uL (3.80-5.40); RDW 13.9 % (11.5-15.5); WBC 11.2 k/uL (3.8-10.6)
[2021-11-12 04:47] LABS: MCV 82.5 fL (80.0-100.0)
[2021-11-12] MEDS: SODIUM CHLORIDE 0.9% 1,000 ML IV SCH (05:04)
[2021-11-12] MEDS ORDERED: MAGNESIUM SULFATE-D5W PMX 1 GM in DEXTROSE/WATER 1 100ML.BAG IVPB ONE (05:45)
[2021-11-12] MEDS: POTASSIUM CHLORIDE 10 MEQ in WATER FOR INJECTION 1 100ML.BAG IVPB SCH ×6 (05:47→22:35)
[2021-11-12] MEDS ORDERED: CALCIUM GLUCONATE IN NACL 1 GM in SALINE 1 100ML.BAG IVPB ONE (06:00)
[2021-11-12] MEDS: HEPARIN SODIUM,PORCINE/PF 5,000 UNIT/0.5 ML SYRINGE SQ SCH ×2 (08:51→16:37)
[2021-11-12] MEDS: PANTOPRAZOLE 40 MG TABLET PO SCH (08:51)
[2021-11-12] MEDS: SODIUM CHLORIDE 0.45% 1,000 ML IV SCH (08:53)
--- NOTE | 2021-11-12 09:07 | P.PN ---
Subjective Patient is seen in follow-up for acute kidney injury. Renal function improving with IV fluids. More awake and alert today. present at bedside. No active complaints. Vital signs are stable. General: Awake. No acute distress. HEENT: Head exam is unremarkable. LUNGS: Breath sounds decreased. HEART: Rate and Rhythm are regular. ABDOMEN: Soft, no distention. EXTREMITITES: No edema. Objective - Vital Signs Vital signs: Vital Signs Temp 98.2 F 11/12/21 04:00 Pulse 83 11/12/21 07:00 Resp 14 11/12/21 07:00 BP 102/66 11/12/21 07:00 Pulse Ox 96 11/12/21 07:00 FiO2 Intake & Output 11/11/21 11/12/21 11/12/21 18:59 06:59 18:59 Intake Total 1695 1591 100 Output Total 1925 865 225 Balance -230 726 -125 Weight 67.585 kg 67 kg Intake: IV 1375 1425 100 Dextrose 5% in Water 1, 1375 125 000 ml @ 125 mls/hr IV . Q9H12M AMANDA with Sodium Bicarb (1 Meq/ml) 150 ml Rx#:[id number] Magnesium Sulfate-D5w Pmx 100 0 1 gm In Dextrose/Water 1 100ml.bag @ 100 mls/hr IVPB ONCE ONE Rx#: [id number] Potassium Chloride 10 meq 100 In Water For Injection 1 100ml.bag @ 100 mls/hr IVPB Q1HR AMANDA Rx#: [id number] Sodium Chloride 0.9% 1, 1100 100 000 ml @ 100 mls/hr IV . Q10H AMANDA Rx#:[id number] Intake, IV Titration 46 Amount Rasburicase 6 mg In 46 Sodium Chloride 0.9% 46 ml @ 100 mls/hr IV ONCE ONE Rx#:[id number] Oral 320 120 Output: Urine 1925 865 225 Other: Voiding Method Indwelling Catheter Indwelling Catheter # Bowel Movements 1 - Labs CBC & Chem 7: 11/12/21 03:49 11/12/21 03:49 Labs: Abnormal Lab Results - Last 24 Hours (Table) 11/11/21 11/11/21 11/11/21 Range/Units 10:00 12:11 12:11 WBC (3.8-10.6) k/uL RBC (3.80-5.40) m/uL Hgb (11.4-16.0) gm/dL Hct (34.0-46.0) % Neutrophils # (1.3-7.7) k/uL Lymphocytes # (1.0-4.8) k/uL Potassium (3.5-5.1) mmol/L Chloride (98-107) mmol/L BUN (7-17) mg/dL Creatinine (0.52-1.04) mg/dL Glucose (74-99) mg/dL Osmolality 342 H* (280-301) mosm/kg Uric Acid 11.7 H (3.7-7.4) mg/dL Calcium (8.4-10.2) mg/dL Lactate Dehydrogenase 1115 H (313-618) U/L Total Protein (6.3-8.2) g/dL Total Protein (PEP) (6.2-8.2) g/dL Albumin (3.5-5.0) g/dL Urine Protein Trace H (Negative) Urine Ketones Trace H (Negative) Urine Blood Small H (Negative) Ur Leukocyte Esterase Trace H (Negative) Urine RBC 9 H (0-5) /hpf Urine Bacteria Rare H (None) /hpf Hyaline Casts 3 H (0-2) /lpf Urine Mucus Rare H (None) /hpf IgG 554.0 L (700.0-1600.0) mg/dL 11/11/21 11/11/21 11/12/21 Range/Units 17:31 17:31 03:49 WBC (3.8-10.6) k/uL RBC (3.80-5.40) m/uL Hgb (11.4-16.0) gm/dL Hct (34.0-46.0) % Neutrophils # (1.3-7.7) k/uL Lymphocytes # (1.0-4.8) k/uL Potassium 2.5 L* 3.1 L (3.5-5.1) mmol/L Chloride 109 H (98-107) mmol/L BUN 131 H* 107 H* (7-17) mg/dL Creatinine 2.61 H 1.99 H (0.52-1.04) mg/dL Glucose 176 H 109 H (74-99) mg/dL Osmolality (280-301) mosm/kg Uric Acid (3.7-7.4) mg/dL Calcium 7.3 L 6.8 L (8.4-10.2) mg/dL Lactate Dehydrogenase (313-618) U/L Total Protein 4.8 L (6.3-8.2) g/dL Total Protein (PEP) 5.4 L (6.2-8.2) g/dL Albumin 2.6 L (3.5-5.0) g/dL Urine Protein (Negative) Urine Ketones (Negative) Urine Blood (Negative) Ur Leukocyte Esterase (Negative) Urine RBC (0-5) /hpf Urine Bacteria (None) /hpf Hyaline Casts (0-2) /lpf Urine Mucus (None) /hpf IgG (700.0-1600.0) mg/dL 11/12/21 Range/Units 03:49 WBC 11.2 H (3.8-10.6) k/uL RBC 3.47 L (3.80-5.40) m/uL Hgb 10.2 L (11.4-16.0) gm/dL Hct 28.6 L (34.0-46.0) % Neutrophils # 9.5 H (1.3-7.7) k/uL Lymphocytes # 0.8 L (1.0-4.8) k/uL Potassium (3.5-5.1) mmol/L Chloride (98-107) mmol/L BUN (7-17) mg/dL Creatinine (0.52-1.04) mg/dL Glucose (74-99) mg/dL Osmolality (280-301) mosm/kg Uric Acid (3.7-7.4) mg/dL Calcium (8.4-10.2) mg/dL Lactate Dehydrogenase (313-618) U/L Total Protein (6.3-8.2) g/dL Total Protein (PEP) (6.2-8.2) g/dL Albumin (3.5-5.0) g/dL Urine Protein (Negative) Urine Ketones (Negative) Urine Blood (Negative) Ur Leukocyte Esterase (Negative) Urine RBC (0-5) /hpf Urine Bacteria (None) /hpf Hyaline Casts (0-2) /lpf Urine Mucus (None) /hpf IgG (700.0-1600.0) mg/dL Assessment and Plan Plan: Assessment: 1. Acute kidney injury mostly prerenal secondary to hypovolemia and NSAIDs. Patient states she was taking 800 mg IV Profen up to 4 times a day prior to admission. Creatinine was 5.36 on admission and is 1.99 today. Creatinine October 2020 was near 1. No hydronephrosis noted on CAT scan. 2. Hypovolemic hyponatremia improved with IV hydration. 3. Metabolic acidosis secondary to acute kidney injury. Improved. 4. Pathologic fractures/destructive lesions in the vertebrae and left iliac bone. ?Malignant versus myeloma. 5. Hypokalemia from poor intake and intracellular shifting from IV bicarb. Magnesium normal. Being replaced. 6. Hyperphosphatemia secondary to acute kidney injury. Expect improvement with improving renal function. 7. Hypocalcemia secondary to acute kidney injury. Replaced. Better. Plan: Change normal saline to half normal saline to be run at 100 mL an hour. Potassium, magnesium and calcium being replaced. Continue to monitor renal function and urine output. Avoid nephrotoxins. Scheduled for L3 kyphoplasty with biopsy today.
--- NOTE | 2021-11-12 10:05 | P.HPIM ---
History of Present Illness H&P Date: 11/11/21 Amy Ontiveros, is a 71-year-old female who presented to [facility] emergency room with a chief complaint of generalized weakness, shortness of breath and poor oral intake. Patient started having severe back pain 2 weeks ago, outpatient evaluation revealed evidence of compression fracture at L3, possibility of metastatic disease and pathological fracture was raised, patient was scheduled to have a PET scan and appointment with neurosurgery and oncology, however her clinical condition continued to worsen she started having severe weakness with inability to transfer, she had very poor appetite with very low oral intake and started to have worsening shortness of breath, patient decided to come to emergency room. She was evaluated in the emergency room vital examination on presentation revealed a temperature of 97.2 pulse 84 respiration 22 blood pressure 126/94 pulse ox 100% on room air Laboratory data revealed a white blood count of 19.9 hemoglobin 12.2 platelet count 392 sodium 1:30 potassium 2.9 chloride 99 CO2 less then 5 BUN 166 creatinine 5.36 calcium 6.4 Testing in the emergency room revealed chest x-ray done in the emergency room revealed no active cardiopulmonary disease normal heart, computed tomography scan of the abdomen and pelvis done in the emergency room without contrast revealed large gallbladder that could be related to gallbladder dysfunction or cholecystitis, destructive lesion in the L3 vertebral body suggestive of tumor, moderately severe spinal stenosis at L2-3 and L4-5, large destructive lesion in the posterior left iliac bone, and multiple rib lesions. Computed tomography scan of the head and cervical spine done in the emergency room without contrast, revealed no acute brain abnormality, and a lytic lesion in the T2 vertebral. Patient was admitted to ICU for further evaluation and treatment. Consultation for critical care, oncology, nephrology and neurosurgery were initiated in the emergency room. Past Medical History Past Medical History: No Reported History History of Any Multi-Drug Resistant Organisms: None Reported Past Surgical History: No Surgical Hx Reported Additional Past Surgical History / Comment(s): cataract surgery Past Psychological History: No Psychological Hx Reported Smoking Status: Former smoker Past Alcohol Use History: Occasional Past Drug Use History: None Reported - Past Family History Mother Family Medical History: No Reported History Father Family Medical History: Cancer Additional Family Medical History / Comment(s): skin Brother(s) Family Medical History: No Reported History Medications and Allergies Home Medications Medication Instructions Recorded Confirmed Type HYDROcodone/APAP 10-325MG [Crawford 1 tab PO TID PRN 11/10/21 11/10/21 History 10-325] Ibuprofen [Motrin] 800 mg PO TID PRN 11/11/21 11/11/21 History Allergies Allergy/AdvReac Type Severity Reaction Status Date / Time No Known Allergies Allergy Verified 11/10/21 21:17 Physical Exam Vitals: Vital Signs Temp Pulse Resp BP Pulse Ox 11/11/21 09:00 86 20 116/51 99 11/11/21 08:00 97.6 F 81 20 115/57 99 11/11/21 07:00 89 22 114/76 100 11/11/21 06:00 85 12 124/77 100 11/11/21 05:00 89 14 126/66 99 11/11/21 04:00 90 13 127/56 100 11/11/21 03:09 98 F 89 22 117/49 99 11/11/21 02:30 108/51 11/11/21 02:15 88 20 115/63 11/11/21 02:00 89 15 122/52 11/11/21 01:45 89 12 114/69 11/11/21 01:30 87 19 107/64 11/11/21 01:15 88 19 106/67 11/11/21 01:00 91 20 111/67 11/11/21 00:45 90 16 113/56 11/11/21 00:30 89 17 119/79 11/11/21 00:15 89 16 106/79 11/11/21 00:10 90 17 106/79 11/11/21 00:00 88 15 126/76 11/10/21 23:45 90 16 138/73 11/10/21 23:30 87 20 123/90 11/10/21 23:15 87 18 123/61 11/10/21 23:00 89 20 129/62 100 11/10/21 22:30 87 14 71/49 100 11/10/21 22:15 75/50 11/10/21 22:00 89 18 63/44 99 11/10/21 21:45 92 19 94/46 99 11/10/21 21:34 90 17 93/74 100 11/10/21 21:13 84 20 93/74 99 11/10/21 20:38 86 22 110/97 99 11/10/21 19:41 97.2 F L 84 22 126/94 100 11/10/21 19:25 22 Intake and Output 11/10/21 11/11/21 11/11/21 22:59 06:59 14:59 Intake Total 500 250 Output Total 600 430 575 Balance -600 70 -325 Intake: IV 500 250 Dextrose 5% in Water 1, 500 250 000 ml @ 125 mls/hr IV . Q9H12M AMANDA with Sodium Bicarb (1 Meq/ml) 150 ml Rx#:[id number] Output: Urine 600 430 575 Uretheral (Jean) 600 Other: Voiding Method Indwelling Catheter Weight 67.132 kg 67.585 kg In general patient is alert and oriented ?-3 in no distress HEENT head normocephalic and atraumatic Neck is supple no JVD no goiter no lymphadenopathy no carotid bruit Chest examination is clear to auscultation no crackles no wheezing Cardiac exam reveals regular heart sounds S1 and S2 no gallops no murmurs Abdomen is soft nontender no organomegaly with normal bowel sounds Extremity exam reveals no edema no cyanosis or clubbing Neurological examination reveals no gross focal deficits Results CBC & Chem 7: 11/11/21 05:06 11/11/21 05:06 Labs: Abnormal Lab Results - Last 24 Hours (Table) 11/10/21 11/10/21 11/10/21 Range/Units 19:54 19:54 19:54 WBC 19.9 H (3.8-10.6) k/uL Neutrophils # 18.2 H (1.3-7.7) k/uL Lymphocytes # 0.5 L (1.0-4.8) k/uL PT 12.7 H (9.0-12.0) sec INR 1.2 H (<1.2) D-Dimer 4.28 H (<0.60) mg/L FEU Sodium 130 L (137-145) mmol/L Potassium 2.9 L (3.5-5.1) mmol/L Chloride (98-107) mmol/L Carbon Dioxide <5 L* (22-30) mmol/L BUN 166 H* (7-17) mg/dL Creatinine 5.36 H (0.52-1.04) mg/dL Calcium 6.4 L* (8.4-10.2) mg/dL Ionized Calcium Ximena (4.5-5.3) mg/dL Phosphorus (2.5-4.5) mg/dL Total Protein 6.2 L (6.3-8.2) g/dL Albumin (3.5-5.0) g/dL Urine Protein (Negative) Urine Blood (Negative) Urine Bacteria (None) /hpf Hyaline Casts (0-2) /lpf Urine Mucus (None) /hpf 11/10/21 11/11/21 11/11/21 Range/Units 22:30 00:40 05:06 WBC 15.9 H (3.8-10.6) k/uL Neutrophils # 14.6 H (1.3-7.7) k/uL Lymphocytes # 0.4 L (1.0-4.8) k/uL PT (9.0-12.0) sec INR (<1.2) D-Dimer (<0.60) mg/L FEU Sodium (137-145) mmol/L Potassium (3.5-5.1) mmol/L Chloride (98-107) mmol/L Carbon Dioxide (22-30) mmol/L BUN (7-17) mg/dL Creatinine (0.52-1.04) mg/dL Calcium (8.4-10.2) mg/dL Ionized Calcium Ximena 3.5 L* (4.5-5.3) mg/dL Phosphorus (2.5-4.5) mg/dL Total Protein (6.3-8.2) g/dL Albumin (3.5-5.0) g/dL Urine Protein 1+ H (Negative) Urine Blood Trace H (Negative) Urine Bacteria Rare H (None) /hpf Hyaline Casts 7 H (0-2) /lpf Urine Mucus Rare H (None) /hpf 11/11/21 Range/Units 05:06 WBC (3.8-10.6) k/uL Neutrophils # (1.3-7.7) k/uL Lymphocytes # (1.0-4.8) k/uL PT (9.0-12.0) sec INR (<1.2) D-Dimer (<0.60) mg/L FEU Sodium (137-145) mmol/L Potassium 3.3 L (3.5-5.1) mmol/L Chloride 109 H (98-107) mmol/L Carbon Dioxide 7 L* (22-30) mmol/L BUN 152 H* (7-17) mg/dL Creatinine 3.93 H (0.52-1.04) mg/dL Calcium 6.6 L (8.4-10.2) mg/dL Ionized Calcium Ximena (4.5-5.3) mg/dL Phosphorus 8.0 H (2.5-4.5) mg/dL Total Protein 5.5 L (6.3-8.2) g/dL Albumin 3.1 L (3.5-5.0) g/dL Urine Protein (Negative) Urine Blood (Negative) Urine Bacteria (None) /hpf Hyaline Casts (0-2) /lpf Urine Mucus (None) /hpf Thrombosis Risk Factor Assmnt - Choose All That Apply Any of the Below Risk Factors Present?: No Each Risk Factor Represents 2 Points: Age 61-74 years, Malignancy Other congenital or acquired thrombophilia - If yes, enter type in comment: No Thrombosis Risk Factor Assessment Total Risk Factor Score: 4 Thrombosis Risk Factor Assessment Level: Moderate Risk Assessment and Plan Plan: Acute kidney injury, likely related to dehydration related to poor oral intake, and use of ibuprofen Severe hypovolemia, related to poor oral intake Electrolyte imbalance with hyponatremia and hypokalemia Acute metabolic acidosis Shortness of breath, no evidence of cardiopulmonary disease on chest x-ray Leukocytosis, possibly related to dehydration, will monitor closely, findings related to gallbladder on computed tomography scan without clinical evidence of acute cholecystitis there is no abdominal tenderness, blood culture were ordered Will monitor closely. Severe back pain with evidence of L3 vertebral fracture Multiple vertebral, iliac bone, and ribs lytic lesions, possibly related to multiple myeloma At this time patient is admitted to intensive care units IV fluid and electrolytes correction initiated in the emergency room Consultation for critical care, oncology, nephrology and neurosurgery initiated in the emergency room For DVT prophylaxis patient started on subcu heparin, for GI prophylaxis patient started on Protonix Will follow closely, prognosis is guarded.
[2021-11-12] MEDS ORDERED: LORazepam 1 MG/0.5 ML VIAL IV STA (11:01)
[2021-11-12 11:04] LABS: Glucose,Whole Blood 111 mg/dL (70-110)
[2021-11-12] MEDS ORDERED: PHENYLEPHRINE-0.9% NACL SYG 1,000 MCG/10 ML SYRINGE ONE (11:45)
[2021-11-12] MEDS ORDERED: SUCCINYLCHOLINE CHLORIDE 100 MG/5 ML SYR IV ONE (11:45)
[2021-11-12] MEDS ORDERED: VASOPRESSIN 20 UNIT/ML 1 ML VIAL ONE (11:45)
[2021-11-12] MEDS ORDERED: MIDAZOLAM 2 MG/2 ML VIAL ONE (11:45)
[2021-11-12] MEDS ORDERED: LIDOCAINE 2% INJ 20 MG/ML (2 ML VIAL) ONE (11:45)
[2021-11-12] MEDS ORDERED: ETOMIDATE 2 MG/ML 10 ML VIAL ONE (11:45)
[2021-11-12] MEDS ORDERED: LIDOCAINE 0.5%-EPI 1:200,000 50 ML VIAL SQ ONE (11:50)
[2021-11-12] MEDS ORDERED: IOPAMIDOL M200 10 ML VIAL MISCELLANE ONE (11:50)
[2021-11-12] MEDS ORDERED: SODIUM CHLORIDE 0.9% 1,000 ML IV ONE (11:50)
[2021-11-12] MEDS ORDERED: SODIUM CHLORIDE 0.9% 50 ML with ceFAZolin 2,000 MG IV ONE ×2 (12:37)
[2021-11-12] MEDS ORDERED: LACTATED RINGERS 1,000 ML IV ONE (12:40)
--- NOTE | 2021-11-12 12:58 | P.PN ---
Subjective Progress Note Date: 11/12/21 Principal diagnosis: Acute kidney injury with hypovolemic hyponatremia, and L3 compression fracture This is a 71-year-old female, with 3 week history of low back pain, patient [facility] consultation, and she had workup revealing L3 compression fracture, the patient was scheduled to have a PET scan later this week. However over the last few weeks, the patient has been getting weaker and weaker, and should be developing pain in the low back as well as right hip. Patient presented to the ER, and she was noted to have significant metabolic abnormalities and abnormal labs. Her labs revealed leukocytosis with WBC count of 19.9, hemoglobin of 12.2. She had elevated d-dimer of 4.28. Low sodium of 130 potassium of 2.9 bicarb less than 5 anion gap of 21 elevated BUN of 166 elevated creatinine of 5.36, low calcium of 6.4, ionized calcium of 3.5 slightly elevated BNP and low albumin of 3.1. CT of abdomen and pelvis showed this to selective lesion in the L3 vertebral body suggestive of malignancy. And there was moderate severe spinal stenosis L2-L3, and L4-L5. There was also a destructive lesion in the posterior left iliac bone with to see him destructive lesion lateral aspect of the left the bone. Multiple rib lesions were noted. And the differential diagnoses was multiple myeloma on leftover otherwise. Considering the multiple abnormalities and severe anion gap metabolic acidosis as well as acute kidney injury, patient was admitted to the ICU, and this consult was initiated. So far the patient was seen by nephrology on consul tation, and the recommendation is to continue bicarb, replace potassium and calcium as per protocol, and to consult oncology for possible myeloma. Patient WAS also seen by orthopedics on consultation, and the recommendation was to continue medical consultations, and the patient will need to be cleared for any surgical intervention. Workup for multiple myeloma is pending and oncology consultation is now pending Reevaluated today on 11/13/19, patient remains in the ICU, scheduled to undergo kyphoplasty and biopsy of L3 vertebral body by orthopedics today. In the meantime the patient is doing well, she is on 2 L nasal cannula, O2 sats is 96%, she is on IV fluid in the form of 0.45 at 100 mL per hour. CBC is relatively unremarkable hemoglobin is 10.2, electrolytes are improving with potassium of 3.1 today. Renal profile is much per her today BUN is down to 107 creatinine is down to 1.99. Her admission creatinine was 5.36, and apparently the patient has been taking significant amount of ibuprofen. Patient is obviously improving with hydration. And her metabolic acidosis secondary to acute kidney injury is also improving. Workup for malignancy is in progress, and the patient will likely L3 biopsy/kyphoplasty today. In the meantime on keeping the patient in the ICU for the next 24 hours until after her surgery. Objective - Vital Signs Vital signs: Vital Signs Temp 97.8 F 11/12/21 08:00 Pulse 82 11/12/21 10:00 Resp 17 11/12/21 11:00 BP 112/86 11/12/21 11:00 Pulse Ox 100 11/12/21 11:00 FiO2 Intake & Output 11/11/21 11/12/21 11/12/21 18:59 06:59 18:59 Intake Total 1695 1591 1350 Output Total 1925 865 635 Balance -230 726 715 Weight 67.585 kg 67 kg Intake: IV 1375 1425 1050 Dextrose 5% in Water 1, 1375 125 000 ml @ 125 mls/hr IV . Q9H12M AMANDA with Sodium Bicarb (1 Meq/ml) 150 ml Rx#:[id number] Magnesium Sulfate-D5w Pmx 100 0 1 gm In Dextrose/Water 1 100ml.bag @ 100 mls/hr IVPB ONCE ONE Rx#: [id number] Potassium Chloride 10 meq 100 100 In Water For Injection 1 100ml.bag @ 100 mls/hr IVPB Q1HR AMANDA Rx#: [id number] Sodium Chloride 0.9% 1, 1100 200 000 ml @ 100 mls/hr IV . Q10H AAMNDA Rx#:[id number] Intake, IV Titration 46 300 Amount Rasburicase 6 mg In 46 Sodium Chloride 0.9% 46 ml @ 100 mls/hr IV ONCE ONE Rx#:[id number] Sodium Chloride 0.45% 1, 300 000 ml @ 100 mls/hr IV . Q10H AMANDA Rx#:[id number] Oral 320 120 Output: Urine 1925 865 635 Other: Voiding Method Indwelling Catheter Indwelling Catheter # Bowel Movements 1 - Exam Physical Exam: Revealed a 71-year-old female in no distress Head: Atraumatic, normocephalic. HEENT:[Neck is supple.] [No neck masses.] [No thyromegaly.] [No JVD.] Chest: [Clear throughout, no crackles, no rhonchi, no wheezes.] Cardiac Exam: [Normal S1 and S2, no S3 gallop, no murmur.] Abdomen: [Soft, nontender, no megaly, no rebound, no guarding, normal bowel sounds.] Extremities: [No clubbing, no edema, no cyanosis.] Neurological Exam: [No focal neurologic deficit.] Alert and oriented 3 Psychiatric: Normal mood affect and normal mental status examination. Skin: No rashes. Musculoskeletal: No deformities and no limitation in range of motion. - Labs CBC & Chem 7: 11/12/21 03:49 11/12/21 03:49 Labs: Abnormal Lab Results - Last 24 Hours (Table) 11/11/21 11/11/21 11/11/21 Range/Units 12:11 12:11 17:31 WBC (3.8-10.6) k/uL RBC (3.80-5.40) m/uL Hgb (11.4-16.0) gm/dL Hct (34.0-46.0) % Neutrophils # (1.3-7.7) k/uL Lymphocytes # (1.0-4.8) k/uL Potassium 2.5 L* (3.5-5.1) mmol/L Chloride (98-107) mmol/L BUN 131 H* (7-17) mg/dL Creatinine 2.61 H (0.52-1.04) mg/dL Glucose 176 H (74-99) mg/dL POC Glucose (mg/dL) (70-110) mg/dL Osmolality 342 H* (280-301) mosm/kg Uric Acid 11.7 H (3.7-7.4) mg/dL Calcium 7.3 L (8.4-10.2) mg/dL Lactate Dehydrogenase 1115 H (313-618) U/L Total Protein (6.3-8.2) g/dL Total Protein (PEP) (6.2-8.2) g/dL Albumin (3.5-5.0) g/dL IgG 554.0 L (700.0-1600.0) mg/dL 11/11/21 11/12/21 11/12/21 Range/Units 17:31 03:49 03:49 WBC 11.2 H (3.8-10.6) k/uL RBC 3.47 L (3.80-5.40) m/uL Hgb 10.2 L (11.4-16.0) gm/dL Hct 28.6 L (34.0-46.0) % Neutrophils # 9.5 H (1.3-7.7) k/uL Lymphocytes # 0.8 L (1.0-4.8) k/uL Potassium 3.1 L (3.5-5.1) mmol/L Chloride 109 H (98-107) mmol/L BUN 107 H* (7-17) mg/dL Creatinine 1.99 H (0.52-1.04) mg/dL Glucose 109 H (74-99) mg/dL POC Glucose (mg/dL) (70-110) mg/dL Osmolality (280-301) mosm/kg Uric Acid (3.7-7.4) mg/dL Calcium 6.8 L (8.4-10.2) mg/dL Lactate Dehydrogenase (313-618) U/L Total Protein 4.8 L (6.3-8.2) g/dL Total Protein (PEP) 5.4 L (6.2-8.2) g/dL Albumin 2.6 L (3.5-5.0) g/dL IgG (700.0-1600.0) mg/dL 11/12/21 Range/Units 11:03 WBC (3.8-10.6) k/uL RBC (3.80-5.40) m/uL Hgb (11.4-16.0) gm/dL Hct (34.0-46.0) % Neutrophils # (1.3-7.7) k/uL Lymphocytes # (1.0-4.8) k/uL Potassium (3.5-5.1) mmol/L Chloride (98-107) mmol/L BUN (7-17) mg/dL Creatinine (0.52-1.04) mg/dL Glucose (74-99) mg/dL POC Glucose (mg/dL) 111 H (70-110) mg/dL Osmolality (280-301) mosm/kg Uric Acid (3.7-7.4) mg/dL Calcium (8.4-10.2) mg/dL Lactate Dehydrogenase (313-618) U/L Total Protein (6.3-8.2) g/dL Total Protein (PEP) (6.2-8.2) g/dL Albumin (3.5-5.0) g/dL IgG (700.0-1600.0) mg/dL Assessment and Plan Assessment: Impression: Acute kidney injury, most likely secondary to profound dehydration and hypovolemia upon her initial presentation Acute hypovolemic hyponatremia Acute metabolic acidosis secondary to acute kidney injury Pathological fracture of L3 and left iliac bone, suggestive of malignancy/multiple myeloma, patient is scheduled to undergo kyphoplasty and possibly L3 biopsy for tissue diagnosis Electrolytes imbalance including hyponatremia and hypokalemia as well as hypocalcemia, all are likely related to hypovolemia and acute kidney injury. Hyperphosphatemia secondary to acute kidney injury Recommendation: Continue to monitor in the ICU for now Awaiting tissue diagnosis hopefully from L3 which would be done by orthopedics today. Continue to monitor renal status Avoid nephrotoxins We'll continue to monitor in the ICU for the next 24 hours Prognosis remains guarded Time with Patient: Less than 30
--- NOTE | 2021-11-12 13:09 | P.OP ---
Date of Procedure: 11/12/21 Preoperative Diagnosis: L3 pathologic vertebral compression fracture Low back pain L4 5 spondylolisthesis Postoperative Diagnosis: Same Anesthesia: GETA Pathology: other (L3 vertebral body biopsy sent to pathology, L3 bone marrow as pirate sent) Condition: stable Disposition: ICU Description of Procedure: BRIEF OPERATIVE NOTE Preoperative Diagnosis: L3 pathological compression fracture, low back pain, L3 osteolytic lesion Postoperative Diagnosis: Same Procedure: Kyphoplasty of L3 Vertebral body biopsy of L3 Bone marrow aspirate from L3 vertebral body Use of biplanar fluoroscopic guidance Surgeon: Dr. Patel Injection Molding Operator: Anthony ENRIQUEZ Anesthesia: General anesthesia Estimated blood loss: Less than 10 mL Specimen: Vertebral body biopsy of L3 sent to pathology in formalin, bone marrow aspirate from L3 possibly a 10 mL sent to pathology Complications: None apparent Components implanted: Bone cement approximately 4-1/2 mL Disposition: To recovery room in good stable condition. OPERATIVE INDICATIONS The patient has been having issues in their back over the past several weeks. Patient initially had x-rays without any major findings and presented to pain management for further evaluation. She had further imaging was found have evidence of pathologic change at the L3 vertebral body with evidence of pathologic compression fracture. She also had evidence of spondylolisthesis L4 5 and degenerative changes. The patient and further plans for continued workup for the possible metastasis and pathology at L3 and started conservative treatment for the fracture. However the patient had worsening of her symptoms and some difficulty breathing and presented to the hospital. She had further medical workup and had to be admitted to intensive care unit as she had significantly altered electrolytes and her difficulty breathing. We were involved in the case due to the L3 pathologic compression fracture and her low back pain. She did not have a diagnosis of any cancers or metastasis prior to this admission. We ordered further imaging and a bone scan which showed other multiple areas of bony signal indicative of metastasis. Oncology was also involved in discussions with them as well as with medicine. There are hopeful to get obtain a tissue biopsy particularly at the L3. We felt that we can obtain this and also potentially gives patient some pain relief with cement augmentation. We would be able to get a vertebral body biopsy, bony aspirate and perform cement augmentation of the L3 vertebrae. This may help us with diagnosis as well as treatment. We discussed various treatment options including surgery, and the patient wishes to proceed with surgery We discussed the risk, patient's alternatives and benefits of surgery including but not limited to, risk of bleeding risk of infection, risk of need for further surgery, risk of decreased, loss of motion, loss of function, cement extravasation, nerve damage, paralysis, heart attack, blindness and . OPERATIVE SUMMARY After discussing all the risks, patient alternatives and benefits at length, the patient elected to proceed with surgical intervention, signed informed consent, and presented for their procedure. The patient was seen and examined in the preoperative holding area and the surgical site was marked. The patient was given antibiotics and brought to the operating room. The patient was sedated and intubated by anesthesia in standard fashion. The patient was positioned on to the operating room table in a prone position on the appropriate well-padded and well molded bilateral chest rolls. We were careful to pad any bony prominences and pressure points. We were careful to maintain the patient's cervical spine and good neutral alignment and position throughout. We used 2 C-arm machines to establish biplanar fluoroscopic guidance in AP and lateral positions. We were able to localize the fractures appropriately at L3. The patient was prepped and draped in a normal standard fashion. An appropriate timeout and keystone protocol performed. We were able to proceed with the surgery. The local wound area was infiltrated with local anesthetic. An incision was made over the lateral aspect of the pedicle over the appropriate levels with a small 2 mm stab incision. Intraoperative fluoroscopy was taken which showed a marker at the appropriate level of L3. With the appropriate level positively confirmed, I was able to position a sharp trocar over the lateral aspect of the pedicle. As able to advance the trocar into the pedicle and into the posterior aspect of vertebral body being careful to avoid penetration cephalad caudad or medially. The trocar was placed appropriately into the posterior aspect of vertebral body at the appropriate levels at L3. This was confirmed with C-arm guidance. With the trocar intact I was then able to take a bone biopsy with a biopsy punch or a bony drill. The biopsy specimen was passed off to be sent to pathology in formalin. We also took approximately 10 mL of bone marrow aspirate to be sent to pathology as well. I was then able to place the kyphoplasty balloon within the vertebral body. The position was checked on C-arm. I was able to inflate the balloon under low pressure and visualization with C-arm. The balloon was well enclosed within the vertebral body. The cement was prepared. With the cement at appropriate working condition the balloons were deflated and removed. I was able to place bony cement with trocar with the cement delivery device under low pressure. It had good fill within the vertebral body. There is no evidence of any extravasation of the cement posteriorly toward the canal. The cement was well contained at the appropriate levels. The cement was allowed to cure appropriately. The trochars removed and final images were taken on C-arm. This showed the cement at the appropriate levels at L3 approximately 4-1/2 mL. We were able to proceed with closure. The wound was cleaned and dried and dressed with the appropriate dressing. The drapes were broken down. The patient was gently rolled back onto their hospital bed being careful to maintain their cervical spine and good neutral alignment and position. They were woken up by anesthesia, extubated, and brought to the recovery room in good stable condition. The patient will be admitted to the hospital for observation and for appropriate postoperative care, medical management and monitoring. We will continue to follow them closely about the postoperative course.
[2021-11-12] MEDS ORDERED: HYDROmorphone 0.5 MG/0.5 ML SYRINGE IVP ONE (13:22)
--- NOTE | 2021-11-12 13:48 | FL ---
Fluoroscopy HISTORY: Pain 47 seconds fluoroscopy time supplied to the referring clinician. 3 intraoperative C-arm images docum ent the procedure. See dictated report from orthopedic surgery.
[2021-11-12] MEDS: DEXMEDETOMIDINE/0.9% NACL(PMX) 400 MCG in EMPTY BAG 1 BAG IV SCH (14:11)
[2021-11-12 14:28] LABS: Albumin 2.76 g/dL (3.80-4.90); Gamma Globulin 0.61 g/dL (0.70-1.50)
--- NOTE | 2021-11-12 14:34 | XR ---
Limited lumbar spine HISTORY: Kyphoplasty Single intraoperative C-arm image documents the procedure.
--- NOTE | 2021-11-12 15:34 | CT ---
EXAMINATION TYPE: CT brain wo con DATE OF EXAM: 11/12/2021 COMPARISON: CT 11/10/2021 HISTORY: ams post-op spinal sx CT DLP: 1247.4 mGycm Automated exposure control for dose reduction was used. Helical imaging through the brain. FINDINGS: Some inflammatory changes present within the ethmoid air cells. There is some motion on the exam. Orb its show symmetric appearance. There is no hemorrhage or hydrocephalus. Brain density is stable. Basa l ganglia calcifications are present. IMPRESSION: NO ACUTE BRAIN ABNORMALITIES EVIDENT. BRAIN MRI MAY BE OF BENEFIT
[2021-11-12 15:47] LABS: Free Kappa Lt Chain Qnt, Serum 2.94 mg/dL (0.33-1.94); Free Lambda Lt Chain Qnt, Seru 2.94 mg/dL (0.57-2.63)
--- NOTE | 2021-11-12 17:34 | P.PN ---
Subjective Progress Note Date: 11/12/21 Amy Ontiveros, is a 71-year-old female who presented to [facility] emergency room with a chief complaint of generalized weakness, shortness of breath and poor oral intake. Patient started having severe back pain 2 weeks ago, outpatient evaluation revealed evidence of compression frac ture at L3, possibility of metastatic disease and pathological fracture was raised, patient was scheduled to have a PET scan and appointment with neurosurgery and oncology, however her clinical condition continued to worsen she started having severe weakness with inability to transfer, she had very poor appetite with very low oral intake and started to have worsening shortness of breath, patient decided to come to emergency room. She was evaluated in the emergency room vital examination on presentation revealed a temperature of 97.2 pulse 84 respiration 22 blood pressure 126/94 pulse ox 100% on room air Laboratory data revealed a white blood count of 19.9 hemoglobin 12.2 platelet count 392 sodium 1:30 potassium 2.9 chloride 99 CO2 less then 5 BUN 166 creatinine 5.36 calcium 6.4 Testing in the emergency room revealed chest x-ray done in the emergency room revealed no active cardiopulmonary disease normal heart, computed tomography scan of the abdomen and pelvis done in the emergency room without contrast revealed large gallbladder that could be related to gallbladder dysfunction or cholecystitis, destructive lesion in the L3 vertebral body suggestive of tumor, moderately severe spinal stenosis at L2-3 and L4-5, large destructive lesion in the posterior left iliac bone, and multiple rib lesions. Computed tomography scan of the head and cervical spine done in the emergency room without contrast, revealed no acute brain abnormality, and a lytic lesion in the T2 vertebral. Patient was admitted to ICU for further evaluation and treatment. Consultation for critical care, oncology, nephrology and neurosurgery were initiated in the emergency room. On 11/12/2021 patient was seen and examined in the ICU she is alert and oriented 3 in no apparent distress there is no fever or chills no headache or dizziness no chest pain no shortness of breath no cough no nausea or vomiting no abdominal pain no diarrhea and no urinary symptoms. She underwent kyphoplasty of L3 with vertebral body biopsy of L3 today by Dr. Patel Objective - Vital Signs Vital signs: Vital Signs Temp 97.8 F 11/12/21 08:00 Pulse 82 11/12/21 09:00 Resp 19 11/12/21 09:00 BP 124/48 11/12/21 09:00 Pulse Ox 97 11/12/21 09:00 FiO2 Intake & Output 11/11/21 11/12/21 11/12/21 18:59 06:59 18:59 Intake Total 1695 1591 100 Output Total 1925 865 225 Balance -230 726 -125 Weight 67.585 kg 67 kg Intake: IV 1375 1425 100 Dextrose 5% in Water 1, 1375 125 000 ml @ 125 mls/hr IV . Q9H12M AMANDA with Sodium Bicarb (1 Meq/ml) 150 ml Rx#:[id number] Magnesium Sulfate-D5w Pmx 100 0 1 gm In Dextrose/Water 1 100ml.bag @ 100 mls/hr IVPB ONCE ONE Rx#: [id number] Potassium Chloride 10 meq 100 In Water For Injection 1 100ml.bag @ 100 mls/hr IVPB Q1HR AMANDA Rx#: [id number] Sodium Chloride 0.9% 1, 1100 100 000 ml @ 100 mls/hr IV . Q10H AMANDA Rx#:[id number] Intake, IV Titration 46 Amount Rasburicase 6 mg In 46 Sodium Chloride 0.9% 46 ml @ 100 mls/hr IV ONCE ONE Rx#:[id number] Oral 320 120 Output: Urine 1925 865 225 Other: Voiding Method Indwelling Catheter Indwelling Catheter # Bowel Movements 1 - Exam In general patient is alert and oriented x 3 in no distress HEENT head normocephalic and atraumatic Neck is supple no JVD no goiter no lymphadenopathy no carotid bruit Chest examination is clear to auscultation no crackles no wheezing Cardiac exam reveals regular heart sounds S1 and S2 no gallops no murmurs Abdomen is soft nontender no organomegaly with normal bowel sounds Extremity exam reveals no edema no cyanosis or clubbing Neurological examination reveals no gross focal deficits - Labs CBC & Chem 7: 11/12/21 03:49 11/12/21 03:49 Labs: Abnormal Lab Results - Last 24 Hours (Table) 11/11/21 11/11/21 11/11/21 Range/Units 10:00 12:11 12:11 WBC (3.8-10.6) k/uL RBC (3.80-5.40) m/uL Hgb (11.4-16.0) gm/dL Hct (34.0-46.0) % Neutrophils # (1.3-7.7) k/uL Lymphocytes # (1.0-4.8) k/uL Potassium (3.5-5.1) mmol/L Chloride (98-107) mmol/L BUN (7-17) mg/dL Creatinine (0.52-1.04) mg/dL Glucose (74-99) mg/dL Osmolality 342 H* (280-301) mosm/kg Uric Acid 11.7 H (3.7-7.4) mg/dL Calcium (8.4-10.2) mg/dL Lactate Dehydrogenase 1115 H (313-618) U/L Total Protein (6.3-8.2) g/dL Total Protein (PEP) (6.2-8.2) g/dL Albumin (3.5-5.0) g/dL Urine Protein Trace H (Negative) Urine Ketones Trace H (Negative) Urine Blood Small H (Negative) Ur Leukocyte Esterase Trace H (Negative) Urine RBC 9 H (0-5) /hpf Urine Bacteria Rare H (None) /hpf Hyaline Casts 3 H (0-2) /lpf Urine Mucus Rare H (None) /hpf IgG 554.0 L (700.0-1600.0) mg/dL 11/11/21 11/11/21 11/12/21 Range/Units 17:31 17:31 03:49 WBC (3.8-10.6) k/uL RBC (3.80-5.40) m/uL Hgb (11.4-16.0) gm/dL Hct (34.0-46.0) % Neutrophils # (1.3-7.7) k/uL Lymphocytes # (1.0-4.8) k/uL Potassium 2.5 L* 3.1 L (3.5-5.1) mmol/L Chloride 109 H (98-107) mmol/L BUN 131 H* 107 H* (7-17) mg/dL Creatinine 2.61 H 1.99 H (0.52-1.04) mg/dL Glucose 176 H 109 H (74-99) mg/dL Osmolality (280-301) mosm/kg Uric Acid (3.7-7.4) mg/dL Calcium 7.3 L 6.8 L (8.4-10.2) mg/dL Lactate Dehydrogenase (313-618) U/L Total Protein 4.8 L (6.3-8.2) g/dL Total Protein (PEP) 5.4 L (6.2-8.2) g/dL Albumin 2.6 L (3.5-5.0) g/dL Urine Protein (Negative) Urine Ketones (Negative) Urine Blood (Negative) Ur Leukocyte Esterase (Negative) Urine RBC (0-5) /hpf Urine Bacteria (None) /hpf Hyaline Casts (0-2) /lpf Urine Mucus (None) /hpf IgG (700.0-1600.0) mg/dL 11/12/21 Range/Units 03:49 WBC 11.2 H (3.8-10.6) k/uL RBC 3.47 L (3.80-5.40) m/uL Hgb 10.2 L (11.4-16.0) gm/dL Hct 28.6 L (34.0-46.0) % Neutrophils # 9.5 H (1.3-7.7) k/uL Lymphocytes # 0.8 L (1.0-4.8) k/uL Potassium (3.5-5.1) mmol/L Chloride (98-107) mmol/L BUN (7-17) mg/dL Creatinine (0.52-1.04) mg/dL Glucose (74-99) mg/dL Osmolality (280-301) mosm/kg Uric Acid (3.7-7.4) mg/dL Calcium (8.4-10.2) mg/dL Lactate Dehydrogenase (313-618) U/L Total Protein (6.3-8.2) g/dL Total Protein (PEP) (6.2-8.2) g/dL Albumin (3.5-5.0) g/dL Urine Protein (Negative) Urine Ketones (Negative) Urine Blood (Negative) Ur Leukocyte Esterase (Negative) Urine RBC (0-5) /hpf Urine Bacteria (None) /hpf Hyaline Casts (0-2) /lpf Urine Mucus (None) /hpf IgG (700.0-1600.0) mg/dL Assessment and Plan Plan: Acute kidney injury, likely related to dehydration related to poor oral intake, and use of ibuprofen Severe hypovolemia, related to poor oral intake Electrolyte imbalance with hyponatremia and hypokalemia Acute metabolic acidosis Shortness of breath, no evidence of cardiopulmonary disease on chest x-ray Leukocytosis, possibly related to dehydration, will monitor closely, findings related to gallbladder on computed tomography scan without clinical evidence of acute cholecystitis there is no abdominal tenderness, blood culture were ordered Will monitor closely. Severe back pain with evidence of L3 vertebral fracture Multiple vertebral, iliac bone, and ribs lytic lesions, possibly related to multiple myeloma At this time patient is admitted to intensive care units IV fluid and electrolytes correction initiated in the emergency room Consultation for critical care, oncology, nephrology and neurosurgery initiated in the emergency room For DVT prophylaxis patient started on subcu heparin, for GI prophylaxis patient started on Protonix Will follow closely, prognosis is guarded.
--- NOTE | 2021-11-12 19:59 | P.PN ---
Subjective Progress Note Date: 11/12/21 Principal diagnosis: abnormal bone lesions Patient is status post L3 Kyphoplasty with biopsy, discussed with ortho spine. Will request NGS testing from our office to further identify any targetable mutations. Objective - Vital Signs Vital signs: Vital Signs Temp 97.6 F 11/12/21 16:00 Pulse 82 11/12/21 19:00 Resp 11 L 11/12/21 19:00 BP 101/56 11/12/21 19:00 Pulse Ox 98 11/12/21 19:13 FiO2 Intake & Output 11/12/21 11/12/21 11/13/21 06:59 18:59 06:59 Intake Total 1591 2656.616 200 Output Total 865 3135 85 Balance 726 -478.384 115 Weight 67 kg Intake: IV 1425 1850 100 Dextrose 5% in Water 1, 125 000 ml @ 125 mls/hr IV . Q9H12M AMANDA with Sodium Bicarb (1 Meq/ml) 150 ml Rx#:[id number] Magnesium Sulfate-D5w Pmx 100 0 1 gm In Dextrose/Water 1 100ml.bag @ 100 mls/hr IVPB ONCE ONE Rx#: [id number] Potassium Chloride 10 meq 100 200 100 In Water For Injection 1 100ml.bag @ 100 mls/hr IVPB Q1HR AMANDA Rx#: [id number] Sodium Chloride 0.9% 1, 1100 200 000 ml @ 100 mls/hr IV . Q10H AMANDA Rx#:[id number] Intake, IV Titration 46 806.616 100 Amount Dexmedetomidine/0.9% NaCl 6.616 (Pmx) 400 mcg In Empty Bag 1 bag @ 0.2 MCG/KG/HR 3.35 mls/hr IV .Q24H AMANDA Rx#:[id number] Rasburicase 6 mg In 46 Sodium Chloride 0.9% 46 ml @ 100 mls/hr IV ONCE ONE Rx#:[id number] Sodium Chloride 0.45% 1, 800 100 000 ml @ 100 mls/hr IV . Q10H AMANDA Rx#:[id number] Oral 120 Output: Urine 865 3125 85 Estimated Blood Loss 10 Other: Voiding Method Indwelling Catheter Indwelling Catheter - Exam Poor historian NAD Diminished Reg irr BLE Mild edema - Labs CBC & Chem 7: 11/12/21 03:49 11/12/21 03:49 Labs: Abnormal Lab Results - Last 24 Hours (Table) 11/11/21 11/12/21 11/12/21 Range/Units 17:31 03:49 03:49 WBC 11.2 H (3.8-10.6) k/uL RBC 3.47 L (3.80-5.40) m/uL Hgb 10.2 L (11.4-16.0) gm/dL Hct 28.6 L (34.0-46.0) % Neutrophils # 9.5 H (1.3-7.7) k/uL Lymphocytes # 0.8 L (1.0-4.8) k/uL Potassium 3.1 L (3.5-5.1) mmol/L Chloride 109 H (98-107) mmol/L BUN 107 H* (7-17) mg/dL Creatinine 1.99 H (0.52-1.04) mg/dL Glucose 109 H (74-99) mg/dL POC Glucose (mg/dL) (70-110) mg/dL Calcium 6.8 L (8.4-10.2) mg/dL Total Protein 4.8 L (6.3-8.2) g/dL Total Protein (PEP) 5.4 L (6.2-8.2) g/dL Albumin 2.6 L (3.5-5.0) g/dL Albumin (PEP) 2.76 L (3.80-4.90) g/dL Lynbt-7-Dscvmgufj 0.50 H (0.10-0.40) g/dL Gamma Globulins 0.61 L (0.70-1.50) g/dL Free [place] LC, Quant 2.94 H (0.33-1.94) mg/dL Free Lambda LC, Quant 2.94 H (0.57-2.63) mg/dL 11/12/21 Range/Units 11:03 WBC (3.8-10.6) k/uL RBC (3.80-5.40) m/uL Hgb (11.4-16.0) gm/dL Hct (34.0-46.0) % Neutrophils # (1.3-7.7) k/uL Lymphocytes # (1.0-4.8) k/uL Potassium (3.5-5.1) mmol/L Chloride (98-107) mmol/L BUN (7-17) mg/dL Creatinine (0.52-1.04) mg/dL Glucose (74-99) mg/dL POC Glucose (mg/dL) 111 H (70-110) mg/dL Calcium (8.4-10.2) mg/dL Total Protein (6.3-8.2) g/dL Total Protein (PEP) (6.2-8.2) g/dL Albumin (3.5-5.0) g/dL Albumin (PEP) (3.80-4.90) g/dL Aekip-4-Lavvrwfpz (0.10-0.40) g/dL Gamma Globulins (0.70-1.50) g/dL Free Denio LC, Quant (0.33-1.94) mg/dL Free Lambda LC, Quant (0.57-2.63) mg/dL Microbiology - Last 24 Hours (Table) 11/11/21 12:11 Blood Culture - Preliminary Blood No Growth after 24 hours 11/11/21 12:11 Blood Culture - Preliminary Blood No Growth after 24 hours Assessment and Plan (1) Leukocytosis Narrative/Plan: As per hypocalcemia Current Visit: Yes Status: Acute Code(s): D72.829 - ELEVATED WHITE BLOOD CELL COUNT, UNSPECIFIED SNOMED Code(s): 748129705 (2) Hypocalcemia Narrative/Plan: - More concerning in conjunction with leukocytosis for infectious picture. - Blood cultres x2 - Hypocalcemia work-up pending Current Visit: Yes Status: Acute Code(s): E83.51 - HYPOCALCEMIA SNOMED Code(s): 4571509 (3) Abnormal MRI, lumbar spine Narrative/Plan: - Reviewed with ortho spine, performed last week and more consistent with osseous malignancy, less likely myeloma picture. Further imaging of thoracic to confirm absent cord involvement. - Hope is for tissue biopsy prior to initiation of steroids, as corticosteroids can alter results in patients with malignancies of a hematological nature. Current Visit: Yes Status: Acute Code(s): R93.7 - ABNORMAL FINDINGS ON DIAGNOSTIC IMAGING OF PRT MS SYS SNOMED Code(s): 222803939 (4) BEBETO (acute kidney injury) Narrative/Plan: - Sudden onset renal injury - CT without obvious obstructiove etiology and no hydronephrosis identified. - Nephrology is following - IVF and Bicarb for acisosis per ICU and Nephrology Current Visit: Yes Status: Acute Code(s): N17.9 - ACUTE KIDNEY FAILURE, UNSPECIFIED SNOMED Code(s): 46898521 (5) Acidosis Narrative/Plan: Uric Acid 11.7 - Status post dose Rasburicase Current Visit: Yes Status: Acute Code(s): E87.2 - ACIDOSIS SNOMED Code(s): 64932444 (6) Compression fracture of L3 vertebra Narrative/Plan: Status post kyphplasty today L3 and biopsy NGS will be requested Current Visit: Yes Status: Acute Code(s): S32.030A - WEDGE COMPRESSION FRACTURE OF THIRD LUMBAR VERTEBRA, INIT SNOMED Code(s): 084843881 Plan: We have been consulted for question of multiple myeloma, although clinical findings are concerning for a metastatic picture, less likely MM. There is a concerning finding that appears to extend near spinal cord, possible spinal mass. Discussed with ortho spine Mental status appeared to worsen post op CT without contrast neg. will await improvement in renal functon and further assess with MRI Brain
[2021-11-12] MEDS ORDERED: POTASSIUM CHLORIDE 10 MEQ in WATER FOR INJECTION 1 100ML.BAG IVPB SCH (23:00)
[2021-11-13] MEDS: HEPARIN SODIUM,PORCINE/PF 5,000 UNIT/0.5 ML SYRINGE SQ SCH ×3 (00:37→16:26)
[2021-11-13] MEDS: HYDROmorphone 1 MG/ML 1 ML SYRINGE IVP PRN ×5 (00:38→18:51)
[2021-11-13] MEDS: SODIUM CHLORIDE 0.45% 1,000 ML IV SCH ×3 (00:48→14:11)
[2021-11-13] MEDS: DEXMEDETOMIDINE/0.9% NACL(PMX) 400 MCG in EMPTY BAG 1 BAG IV SCH ×3 (02:18→18:16)
[2021-11-13] MEDS: PANTOPRAZOLE 40 MG TABLET PO SCH (06:42)
[2021-11-13 07:13] LABS: Basophils % (A) 0 %; Eosinophils # (A) 0.2 k/uL (0-0.7); Eosinophils % (A) 2 %; HCT 28.9 % (34.0-46.0); Lymphocytes # (A) 0.7 k/uL (1.0-4.8); Lymphocytes % (A) 6 %; MCHC 34.6 g/dL (31.0-37.0); MCV 86.7 fL (80.0-100.0); Mean Platelet Volume 8.1; Monocytes # (A) 0.6 k/uL (0-1.0); Monocytes % (A) 5 %; Neutrophils % (A) 86 %; Platelet Count 221 k/uL (150-450); RBC 3.34 m/uL (3.80-5.40); RDW 13.8 % (11.5-15.5); WBC 10.5 k/uL (3.8-10.6)
[2021-11-13 07:27] LABS: Calcium 7.8 mg/dL (8.4-10.2); Magnesium 1.6 mg/dL (1.6-2.3); Potassium 3.6 mmol/L (3.5-5.1)
[2021-11-13 07:52] LABS: Ionized Calcium 4.9 mg/dL (4.5-5.3)
[2021-11-13] MEDS ORDERED: Magnesium Replacement Protocol 1 EACH MISC MISCELLANE PRN (08:06)
[2021-11-13] MEDS ORDERED: Potassium Replacement Protocol 1 EACH MISC MISCELLANE PRN (08:06)
--- NOTE | 2021-11-13 08:20 | P.PN ---
Progress Note - Text Progress Note Date: 11/13/21 Postoperative day #1 Patient is seen and examined today at bedside. The patient has some pain around the surgical site as expected. Pain is being controlled with medication. She is slightly confused today but she is cooperative. Physical Exam Afebrile with stable vital signs Abdomen is soft nontender. Chest has good excursion deep and space expiration The incision site is clean dry and intact. No erythema there is no purulence. There is no active drainage. Extremities have not had neurologic change from prior to surgery. She has good motion in her ankle. Toes Calves and thighs were soft nontender without evidence of DVT. Assessment/Plan Postoperative day #1 status post L3 vertebral body biopsy and kyphoplasty Patient is progressing as expected from the surgery. The site appears stable and it is okay for the patient to mobilize and ambulate to tolerance. Surgical site is doing well and she should continue with her dressing for the next 48 hours. It is okay for her to get the area wet and it will be okay to remove the dressing completely after Wednesday. he pathology reports will be pending. Microbiology reports do not show any gross swelling We will continue to increase the patient's mobilization with therapy. We will continue pain control with oral or IV medications. From a spine standpoint the area is stable and she may continue with medical management and mobilization
[2021-11-13] MEDS: MAGNESIUM SULFATE-D5W PMX 1 GM in DEXTROSE/WATER 1 100ML.BAG IVPB SCH ×2 (08:37→11:05)
[2021-11-13] MEDS: POTASSIUM CHLORIDE 10 MEQ in WATER FOR INJECTION 1 100ML.BAG IVPB SCH ×4 (08:42→14:11)
--- NOTE | 2021-11-13 09:31 | P.PN ---
Subjective Patient is seen in follow-up for acute kidney injury. Renal function improving with IV fluids. Receiving IV fluids. Oral intake fair. Hemodynamically stable. Vital signs are stable. General: Awake. No acute distress. HEENT: Head exam is unremarkable. LUNGS: Breath sounds decreased. HEART: Rate and Rhythm are regular. ABDOMEN: Soft, no distention. EXTREMITITES: No edema. Objective - Vital Signs Vital signs: Vital Signs Temp 97.6 F 11/13/21 08:00 Pulse 78 11/13/21 08:00 Resp 21 11/13/21 08:00 BP 130/62 11/13/21 08:00 Pulse Ox 97 11/13/21 08:00 FiO2 Intake & Output 11/12/21 11/13/21 11/13/21 18:59 06:59 18:59 Intake Total 2656.616 1613.819 147.877 Output Total 3135 1060 Balance -478.384 553.819 147.877 Weight 69.2 kg Intake: IV 1850 1300 100 Magnesium Sulfate-D5w Pmx 0 1 gm In Dextrose/Water 1 100ml.bag @ 100 mls/hr IVPB ONCE ONE Rx#: [id number] Potassium Chloride 10 meq 200 200 In Water For Injection 1 100ml.bag @ 100 mls/hr IVPB Q1HR AMANDA Rx#: [id number] Sodium Chloride 0.45% 1, 1100 100 000 ml @ 100 mls/hr IV . Q10H AMANDA Rx#:[id number] Sodium Chloride 0.9% 1, 200 000 ml @ 100 mls/hr IV . Q10H AMANDA Rx#:[id number] Intake, IV Titration 806.616 313.819 47.877 Amount Dexmedetomidine/0.9% NaCl 6.616 113.819 47.877 (Pmx) 400 mcg In Empty Bag 1 bag @ 0.2 MCG/KG/HR 3.35 mls/hr IV .Q24H AMANDA Rx#:[id number] Sodium Chloride 0.45% 1, 800 100 000 ml @ 100 mls/hr IV . Q10H AMANDA Rx#:[id number] ceFAZolin 2 gm In Sodium 100 Chloride 0.9% 50 ml @ 100 mls/hr IVPB Q8HR AMANDA Rx# :[id number] Output: Urine 3125 1060 Estimated Blood Loss 10 Other: Voiding Method Indwelling Catheter Incontinent - Labs CBC & Chem 7: 11/13/21 06:36 11/13/21 06:36 Labs: Abnormal Lab Results - Last 24 Hours (Table) 11/11/21 11/12/21 11/13/21 Range/Units 17:31 11:03 06:36 RBC 3.34 L (3.80-5.40) m/uL Hgb 10.0 L (11.4-16.0) gm/dL Hct 28.9 L (34.0-46.0) % Neutrophils # 9.0 H (1.3-7.7) k/uL Lymphocytes # 0.7 L (1.0-4.8) k/uL Chloride (98-107) mmol/L BUN (7-17) mg/dL Creatinine (0.52-1.04) mg/dL Glucose (74-99) mg/dL POC Glucose (mg/dL) 111 H (70-110) mg/dL Calcium (8.4-10.2) mg/dL Albumin (PEP) 2.76 L (3.80-4.90) g/dL Rscss-2-Vddmzdyfs 0.50 H (0.10-0.40) g/dL Gamma Globulins 0.61 L (0.70-1.50) g/dL Free [place] LC, Quant 2.94 H (0.33-1.94) mg/dL Free Lambda LC, Quant 2.94 H (0.57-2.63) mg/dL 11/13/21 Range/Units 06:36 RBC (3.80-5.40) m/uL Hgb (11.4-16.0) gm/dL Hct (34.0-46.0) % Neutrophils # (1.3-7.7) k/uL Lymphocytes # (1.0-4.8) k/uL Chloride 113 H (98-107) mmol/L BUN 60 H (7-17) mg/dL Creatinine 1.09 H (0.52-1.04) mg/dL Glucose 107 H (74-99) mg/dL POC Glucose (mg/dL) (70-110) mg/dL Calcium 7.8 L (8.4-10.2) mg/dL Albumin (PEP) (3.80-4.90) g/dL Ncnki-1-Nhgyaheqq (0.10-0.40) g/dL Gamma Globulins (0.70-1.50) g/dL Free [place] LC, Quant (0.33-1.94) mg/dL Free Lambda LC, Quant (0.57-2.63) mg/dL Microbiology - Last 24 Hours (Table) 11/11/21 12:11 Blood Culture - Preliminary Blood No Growth after 24 hours 11/11/21 12:11 Blood Culture - Preliminary Blood No Growth after 24 hours Assessment and Plan Plan: Assessment: 1. Acute kidney injury mostly prerenal secondary to hypovolemia and NSAIDs. Patient states she was taking 800 mg IV Profen up to 4 times a day prior to admission. Creatinine was 5.36 on admission and is 1.09 today. Creatinine October 2020 was near 1. No hydronephrosis noted on CAT scan. 2. Hypovolemic hyponatremia improved with IV hydration. 3. Metabolic acidosis secondary to acute kidney injury. Improved. 4. Pathologic fractures/destructive lesions in the vertebrae and left iliac bone. ?Malignant versus myeloma. Status post L3 kyphoplasty with biopsy 11/12/2021. 5. Hypokalemia from poor intake. Being replaced. 6. Hyperphosphatemia secondary to acute kidney injury. Expect improvement with improving renal function. Phosphorus level III.0 dated 11/13/2021. 7. Hypocalcemia secondary to acute kidney injury. Replaced. Better. 8. Hypomagnesemia from poor intake. Plan: Maintain half-normal saline. Encouraged oral intake. Replace potassium and magnesium. Continue to monitor renal function and urine output. Avoid nephrotoxins.
[2021-11-13] MEDS: QUEtiapine 25 MG TAB PO SCH ×2 (10:39→21:46)
[2021-11-13 11:24] LABS: Glucose,Whole Blood 130 mg/dL (70-110)
--- NOTE | 2021-11-13 12:14 | P.PN ---
Subjective Progress Note Date: 11/13/21 Principal diagnosis: Acute kidney injury with hypovolemic hyponatremia, and L3 compression fracture This is a 71-year-old female, with 3 week history of low back pain, [facility], and she had workup revealing L3 compression fracture, the patient was scheduled to have a PET scan later this week. However over the last few weeks, the patient has been getting weaker and weaker, and should be developing pain in the low back as well as right hip. Patient presented to the ER, and she was noted to have significant metabolic abnormalities and abnormal labs. Her labs revealed leukocytosis with WBC count of 19.9, hemoglobin of 12.2. She had elevated d-dimer of 4.28. Low sodium of 130 potassium of 2.9 bicarb less than 5 anion gap of 21 elevated BUN of 166 elevated creatinine of 5.36, low calcium of 6.4, ionized calcium of 3.5 slightly elevated BNP and low albumin of 3.1. CT of abdomen and pelvis showed this to selective lesion in the L3 vertebral body suggestive of malignancy. And there was moderate severe spinal stenosis L2-L3, and L4-L5. There was also a destructive lesion in the posterior left iliac bone with to see him destructive lesion lateral aspect of the left the bone. Multiple rib lesions were noted. And the differential diagnoses was multiple myeloma on leftover otherwise. Considering the multiple abnormalities and severe anion gap metabolic acidosis as well as acute kidney injury, patient was admitted to the ICU, and this consult was initiated. So far the patient was seen by nephrology on consul tation, and the recommendation is to continue bicarb, replace potassium and calcium as per protocol, and to consult oncology for possible myeloma. Patient WAS also seen by orthopedics on consultation, and the recommendation was to continue medical consultations, and the patient will need to be cleared for any surgical intervention. Workup for multiple myeloma is pending and oncology consultation is now pending Reevaluated today on 11/13/19, patient remains in the ICU, scheduled to undergo kyphoplasty and biopsy of L3 vertebral body by orthopedics today. In the meantime the patient is doing well, she is on 2 L nasal cannula, O2 sats is 96%, she is on IV fluid in the form of 0.45 at 100 mL per hour. CBC is relatively unremarkable hemoglobin is 10.2, electrolytes are improving with potassium of 3.1 today. Renal profile is much per her today BUN is down to 107 creatinine is down to 1.99. Her admission creatinine was 5.36, and apparently the patient has been taking significant amount of ibuprofen. Patient is obviously improving with hydration. And her metabolic acidosis secondary to acute kidney injury is also improving. Workup for malignancy is in progress, and the patient will likely L3 biopsy/kyphoplasty today. In the meantime on keeping the patient in the ICU for the next 24 hours until after her surgery. Reevaluated today on 11/13/2021, patient remains in the ICU, on 2 L nasal cannula with O2 sat showed 97%. Post surgery the patient came back to the ICU and she was quite agitated and restless, and I recommended starting the patient on Precedex. Remains on Precedex, she is on IV fluid at 100 mL of 0.9 normal saline an hour. Patient is calm, cooperative, and I went ahead and recommended stopping the Precedex and starting the patient on Seroquel 25 mg orally twice a day. CT of the brain done yesterday was negative for any metastatic lesions, however the patient will eventually require MRI of the brain. Patient underwent uneventful kyphoplasty of L3 vertebral body, and biopsy. This was done by Dr. Patel. Biopsy report is pending. Labs today showed relatively normal CBC hemoglobin is 10 electrolytes are normal BUN is 60 down from 107 yesterday, and creatinine is down to 1.09 from 1.99 yesterday. Patient had elevated free kappa and lambda chains. No monoclonal paraprotein recognize Objective - Vital Signs Vital signs: Vital Signs Temp 97.6 F 11/13/21 08:00 Pulse 85 11/13/21 11:00 Resp 19 11/13/21 11:00 BP 131/63 11/13/21 11:00 Pulse Ox 96 11/13/21 11:00 FiO2 Intake & Output 11/12/21 11/13/21 11/13/21 18:59 06:59 18:59 Intake Total 2656.616 1613.819 578.139 Output Total 3135 1060 450 Balance -478.384 553.819 128.139 Weight 69.2 kg Intake: IV 1850 1300 500 Magnesium Sulfate-D5w Pmx 0 1 gm In Dextrose/Water 1 100ml.bag @ 100 mls/hr IVPB ONCE ONE Rx#: [id number] Potassium Chloride 10 meq 200 200 In Water For Injection 1 100ml.bag @ 100 mls/hr IVPB Q1HR AMANDA Rx#: [id number] Sodium Chloride 0.45% 1, 1100 500 000 ml @ 100 mls/hr IV . Q10H AMANDA Rx#:[id number] Sodium Chloride 0.9% 1, 200 000 ml @ 100 mls/hr IV . Q10H AMANDA Rx#:[id number] Intake, IV Titration 806.616 313.819 78.139 Amount Dexmedetomidine/0.9% NaCl 6.616 113.819 78.139 (Pmx) 400 mcg In Empty Bag 1 bag @ 0.2 MCG/KG/HR 3.35 mls/hr IV .Q24H AMANDA Rx#:[id number] Sodium Chloride 0.45% 1, 800 100 000 ml @ 100 mls/hr IV . Q10H AMANDA Rx#:[id number] ceFAZolin 2 gm In Sodium 100 Chloride 0.9% 50 ml @ 100 mls/hr IVPB Q8HR AMANDA Rx# :[id number] Output: Urine 3125 1060 450 Estimated Blood Loss 10 Other: Voiding Method Indwelling Catheter Incontinent - Exam Physical Exam: Revealed a 71-year-old female in no distress, on 2 L nasal cannula and she is on Precedex drip at present Head: Atraumatic, normocephalic. HEENT:[Neck is supple.] [No neck masses.] [No thyromegaly.] [No JVD.] Chest: [Clear throughout, no crackles, no rhonchi, no wheezes.] Cardiac Exam: [Normal S1 and S2, no S3 gallop, no murmur.] Abdomen: [Soft, nontender, no megaly, no rebound, no guarding, normal bowel so unds.] Extremities: [No clubbing, no edema, no cyanosis.] Neurological Exam: [No focal neurologic deficit.] Alert and oriented 3 Psychiatric: Normal mood affect and normal mental status examination. Skin: No rashes. Musculoskeletal: No deformities and no limitation in range of motion. - Labs CBC & Chem 7: 11/13/21 06:36 11/13/21 06:36 Labs: Abnormal Lab Results - Last 24 Hours (Table) 07/05/22 07/07/22 07/07/22 Range/Units 17:31 06:36 06:36 RBC 3.34 L (3.80-5.40) m/uL Hgb 10.0 L (11.4-16.0) gm/dL Hct 28.9 L (34.0-46.0) % Neutrophils # 9.0 H (1.3-7.7) k/uL Lymphocytes # 0.7 L (1.0-4.8) k/uL Chloride 113 H (98-107) mmol/L BUN 60 H (7-17) mg/dL Creatinine 1.09 H (0.52-1.04) mg/dL Glucose 107 H (74-99) mg/dL POC Glucose (mg/dL) (70-110) mg/dL Calcium 7.8 L (8.4-10.2) mg/dL Albumin (PEP) 2.76 L (3.80-4.90) g/dL Csbjw-1-Dgaxjeede 0.50 H (0.10-0.40) g/dL Gamma Globulins 0.61 L (0.70-1.50) g/dL Free [place] LC, Quant 2.94 H (0.33-1.94) mg/dL Free Lambda LC, Quant 2.94 H (0.57-2.63) mg/dL 11/13/21 Range/Units 11:24 RBC (3.80-5.40) m/uL Hgb (11.4-16.0) gm/dL Hct (34.0-46.0) % Neutrophils # (1.3-7.7) k/uL Lymphocytes # (1.0-4.8) k/uL Chloride (98-107) mmol/L BUN (7-17) mg/dL Creatinine (0.52-1.04) mg/dL Glucose (74-99) mg/dL POC Glucose (mg/dL) 130 H (70-110) mg/dL Calcium (8.4-10.2) mg/dL Albumin (PEP) (3.80-4.90) g/dL Jjbgu-5-Kubgoeccc (0.10-0.40) g/dL Gamma Globulins (0.70-1.50) g/dL Free [place] LC, Quant (0.33-1.94) mg/dL Free Lambda LC, Quant (0.57-2.63) mg/dL Microbiology - Last 24 Hours (Table) 11/11/21 12:11 Blood Culture - Preliminary Blood No Growth after 24 hours 11/11/21 12:11 Blood Culture - Preliminary Blood No Growth after 24 hours Assessment and Plan Assessment: Impression: Acute kidney injury, most likely secondary to profound dehydration and hypovolemia upon her initial presentation, her renal profile is improving and her electrolytes are improving since admission. Acute hypovolemic hyponatremia, improving Acute metabolic acidosis secondary to acute kidney injury Pathological fracture of L3 and left iliac bone, suggestive of malignancy/multiple myeloma, report on L3 biopsy is pending Electrolytes imbalance including hyponatremia and hypokalemia as well as hypocalcemia, all are likely related to hypovolemia and acute kidney injury. Hyperphosphatemia secondary to acute kidney injury Recommendation: Discontinue Precedex Start patient on Seroquel Consider transfer to oncology Final pathology is pending Continue to monitor renal status Avoid nephrotoxins Prognosis remains guarded Time with Patient: Less than 30
[2021-11-13] MEDS: HYDROcodone/APAP 5-325MG 1 EACH TAB PO PRN ×2 (14:47→22:01)
[2021-11-14] MEDS: HEPARIN SODIUM,PORCINE/PF 5,000 UNIT/0.5 ML SYRINGE SQ SCH ×4 (00:46→23:31)
[2021-11-14] MEDS: SODIUM CHLORIDE 0.45% 1,000 ML IV SCH (00:50)
[2021-11-14] MEDS: HYDROcodone/APAP 5-325MG 1 EACH TAB PO PRN (03:30)
[2021-11-14 06:07] LABS: HCT 29.9 % (34.0-46.0); HGB 9.9 gm/dL (11.4-16.0); MCH 29.3 pg (25.0-35.0); MCHC 33.2 g/dL (31.0-37.0); MCV 88.2 fL (80.0-100.0); Mean Platelet Volume 8.1; Platelet Count 197 k/uL (150-450); RBC 3.39 m/uL (3.80-5.40); RDW 13.6 % (11.5-15.5); WBC 13.4 k/uL (3.8-10.6)
[2021-11-14 06:35] LABS: Calcium 8.4 mg/dL (8.4-10.2); Magnesium 1.7 mg/dL (1.6-2.3); Potassium 4.1 mmol/L (3.5-5.1)
[2021-11-14] MEDS: PANTOPRAZOLE 40 MG TABLET PO SCH (07:01)
[2021-11-14] MEDS: HYDROcodone/APAP 7.5-325MG 1 EACH TAB PO PRN ×4 (08:15→23:34)
--- NOTE | 2021-11-14 09:10 | P.PN ---
Progress Note - Text Progress Note Date: 11/14/21 Orthopedic spine: History of present illness: Patient is a very pleasant 71-year-old female who is seen and examined at bedside for follow up evaluation of her lumbar spine. She is status post L3 kyphoplasty with biopsy performed on 11/12/2021. Pathology reports continued to be pending. Patient states in regards to her lumbar spine her pain is significantly improved. She is experiencing generalized pain in her lower extremities bilaterally without specific pattern. She states his pain is present at all times and nothing specifically makes it better or worse. She was having some difficulty with medications and confusion. Nursing states patient was removing IVs yesterday as well as her Jean catheter. Medicine has been changed to Seroquel and the patient has had less confusion. She is having difficulty with pain control. Her oral [place] has been adjusted by medicine. She has been able to transfer to a bedside chair. She continues to be seen by multiple medical providers. She continues with workup for metastatic disease. Physical exam: Patient is awake, alert, and oriented 3 Vital signs stable Good chest excursion with deep inspiration and expiration Dorsiflexion, plantarflexion, and extensor hallucis longus positive sustained bilaterally Examination of the lumbar spine shows dressing intact at the L3 kyphoplasty surgical site with one dry spot of blood with no active drainage No significant pain with palpation over the kyphoplasty location of L3 Patient does have difficulty performing hip flexion and knee flexion bilaterally and is generally weaker Patellar reflex 2+ bilaterally +3 beats of clonus bilateral lower extremities Straight leg test negative bilateral lower extremities Negative Lasegue's test bilaterally No signs or symptoms of DVT; no calf pain No pain with internal and external rotation of the hips bilaterally Neurovascularly intact Evidence of tattoos or the ankles Pertinent studies: Nuclear medicine whole body bone scan taken on 11/11/2021: Intense radiotracer accumulation noted within the L3 vertebral segment, sternum, posterior left rib #8, patchy uptake within the bilateral ribs, abnormal uptake in the left ilium, and increased uptake in the upper thoracic spine. CT of the chest, abdomen, and pelvis taken on 11/10/2021: Destructive lesion in the L3 vertebral body with destructive changes to the left pedicle suggestive of tumor; large destructive lesion in the posterior and lateral left iliac bone; multiple rib lesion; right T10 transverse process lesion; L2-3 disc bulging and facet arthropathy and possibly some tumor encroachment resulting in spinal stenosis; L4-5 spondylolisthesis and facet arthropathy resulting in severe spinal stenosis MRI of the lumbar spine taken at [facility] on 10/29/2021: Mild to moderate superior endplate compression fracture at L3 with edema with well-defined signal abnormality within the posterior aspect of the vertebral body with outward bowing of the posterior cortex with retropulsion with extension into the pedicles bilaterally; T1 and T2 signal change within the spinous process of L2; Bony lesions at T12, L1, and L2; Partially visualized lesion within the left ilium with smaller lesions in the right ilium; T12-L1 degenerative disc disease; L1-2 mild bilateral facet arthropathy; L2 to S3 moderate facet arthropathy with right neural foraminal narrowing and some mass effect to the descending right L3 nerve root; L3-4 moderate amount of bilateral facet arthropathy and ligamentum flavum hypertrophy resulting in [id number] central stenosis on a congenital basis; L4-5 spondylolisthesis, severe bilateral facet arthropathy, ligamentum flavum hypertrophy, and from his disc bulge resulting in severe spinal canal stenosis and moderate right and mild left neural foraminal stenosis; L5-S1 facet arthropathy without significant stenosis; T2 bright lesions within the liver which are incompletely characterized Assessment: Low back pain L3 superior endplate pathologic compression fracture deformity with abnormal signal extending into the pedicles bilaterally T1 and T2 signal change within the spinous process of L2 Bony lesions at T12, L1, and L2 Partially visualized lesion within the left ilium with smaller lesions in the right ilium Multiple rib lesions Right T10 transverse process lesion Increased uptake at the sternum Likely osseous metastatic disease Shortness of breath Generalized weakness Acidosis Hyponatremia Hypokalemia Hypocalcemia Hyperphosphatemia Acute kidney injury L4-5 spondylolisthesis L4-5 severe spinal stenosis and severe bilateral facet arthropathy L4-5 degenerative disc disease L2-3 spinal stenosis and facet arthropathy Lumbar facet arthropathy Lumbar spinal stenosis T12-L1 degenerative disc disease T2 bright lesions within the liver which are incompletely characterized Plan: 1. Patient is status post L3 kyphoplasty with biopsy performed on 11/12/2021. Following surgical intervention her lumbar pain has significantly improved. She received prescribed LSO bracing. We did discuss she may wear this brace for comfort support only as needed. This brace is not currently required. She may continue to utilize a walker to aid in ambulation. She is encouraged to continue working with physical therapy to increase mobility and ambulation. She is having some generalized lower extremity leg pain which is present at all times. It is difficult to determine the exact cause of her leg pain is or is not a specific radicular pattern. We did discuss she has significant degenerative changes at L4-5 with spondylolisthesis, degenerative disc disease, facet arthropathy, and severe spinal stenosis. She is also known have some stenosis at L2-3. Currently, we will plan to continue conservative treatment in regards to her lumbar spine do not currently have any plans for further acute surgical intervention. Patient is currently undergoing extensive evaluation and treatment with multiple medical providers including oncology, pulmonology, nephrology, and medicine. We did discuss she should continue with treatment and evaluation with these other medical providers. We discussed from an orthopedic spine standpoint, patient will be cleared for discharge. We will plan to have her follow-up in the outpatient setting. Patient may follow-up with Anthony Luciano PA-C or Dr. Jarred Patel at [facility] in 2-3 weeks following discharge. 2. Continue pain control with medications as prescribed and managed by medicine
[2021-11-14] MEDS: MAGNESIUM SULFATE-D5W PMX 1 GM in DEXTROSE/WATER 1 100ML.BAG IVPB SCH ×2 (09:13→10:17)
[2021-11-14] MEDS: QUEtiapine 25 MG TAB PO SCH ×2 (09:14→20:02)
--- NOTE | 2021-11-14 09:27 | P.PN ---
Subjective Patient is seen in follow-up for acute kidney injury. Renal function improving with IV fluids. Receiving IV fluids. Oral intake fair. Hemodynamically stable. Denies any active complaints. Vital signs are stable. General: Awake. No acute distress. HEENT: Head exam is unremarkable. LUNGS: Breath sounds decreased. HEART: Rate and Rhythm are regular. ABDOMEN: Soft, no distention. EXTREMITITES: No edema. Objective - Vital Signs Vital signs: Vital Signs Temp 98.1 F 11/14/21 04:00 Pulse 85 11/14/21 07:00 Resp 14 11/14/21 07:00 BP 137/65 11/14/21 07:00 Pulse Ox 98 11/14/21 07:00 FiO2 Intake & Output 11/13/21 11/14/21 11/14/21 18:59 06:59 18:59 Intake Total 8375.031 0568.403 100 Output Total 450 1088 Balance 887.714 187.403 100 Weight 73.8 kg Intake: IV 1200 1200 100 Sodium Chloride 0.45% 1, 1200 1200 100 000 ml @ 100 mls/hr IV . Q10H AMANDA Rx#:[id number] Intake, IV Titration 137.714 75.403 Amount Dexmedetomidine/0.9% NaCl 137.714 75.403 (Pmx) 400 mcg In Empty Bag 1 bag @ 0.2 MCG/KG/HR 3.35 mls/hr IV .Q24H AMANDA Rx#:[id number] Output: Urine 450 925 Post Void Residual 163 Other: Voiding Method Bedside Commode Bedside Commode # Voids 1 1 - Labs CBC & Chem 7: 11/14/21 05:41 11/14/21 05:41 Labs: Abnormal Lab Results - Last 24 Hours (Table) 11/13/21 11/14/21 11/14/21 Range/Units 11:24 05:41 05:41 WBC 13.4 H (3.8-10.6) k/uL RBC 3.39 L (3.80-5.40) m/uL Hgb 9.9 L (11.4-16.0) gm/dL Hct 29.9 L (34.0-46.0) % Sodium 136 L (137-145) mmol/L Chloride 110 H (98-107) mmol/L BUN 37 H (7-17) mg/dL POC Glucose (mg/dL) 130 H (70-110) mg/dL Microbiology - Last 24 Hours (Table) 11/11/21 12:11 Blood Culture - Preliminary Blood No Growth after 48 hours 11/11/21 12:11 Blood Culture - Preliminary Blood No Growth after 48 hours Assessment and Plan Plan: Assessment: 1. Acute kidney injury mostly prerenal secondary to hypovolemia and NSAIDs. Patient states she was taking 800 mg ibuprofen up to 4 times a day prior to admission. Creatinine was 5.36 on admission and is 0.84 today. Creatinine October 2020 was near 1. No hydronephrosis noted on CAT scan. 2. Hypovolemic hyponatremia improved with IV hydration. Currently on half- normal saline. Sodium level 136 today. 3. Metabolic acidosis secondary to acute kidney injury and IV fluids. 4. Pathologic fractures/destructive lesions in the vertebrae and left iliac bone. ?Malignant versus myeloma. Status post L3 kyphoplasty with biopsy 11/12/2021. 5. Hypokalemia from poor intake. Replaced. Better. 6. Hyperphosphatemia secondary to acute kidney injury. Expect improvement with improving renal function. Phosphorus level 3.0 dated 11/13/2021. 7. Hypocalcemia secondary to acute kidney injury. Replaced. Better. 8. Hypomagnesemia from poor intake. Being replaced. Plan: Stop half-normal saline. Start normal saline at 50 mL an hour for maintenance fluids. Encouraged oral intake. Replace potassium and magnesium per protocol. Continue to monitor renal function and urine output. Avoid nephrotoxins. I will sign off. Please call me with any questions or concerns.
[2021-11-14] MEDS: SODIUM CHLORIDE 0.9% 1,000 ML IV SCH (10:17)
[2021-11-14 10:54] VITALS: BMI 27.1
--- NOTE | 2021-11-14 12:54 | P.PN ---
Subjective Progress Note Date: 11/14/21 Principal diagnosis: Acute kidney injury with hypovolemic hyponatremia, and L3 compression fracture This is a 71-year-old female, with 3 week history of low back pain, patient [facility] on consultation, and she had workup revealing L3 compression fracture, the patient was scheduled to have a PET scan later this week. However over the last few weeks, the patient has been getting weaker and weaker, and should be developing pain in the low back as well as right hip. Patient presented to the ER, and she was noted to have significant metabolic abnormalities and abnormal labs. Her labs revealed leukocytosis with WBC count of 19.9, hemoglobin of 12.2. She had elevated d-dimer of 4.28. Low sodium of 130 potassium of 2.9 bicarb less than 5 anion gap of 21 elevated BUN of 166 elevated creatinine of 5.36, low calcium of 6.4, ionized calcium of 3.5 slightly elevated BNP and low albumin of 3.1. CT of abdomen and pelvis showed this to selective lesion in the L3 vertebral body suggestive of malignancy. And there was moderate severe spinal stenosis L2-L3, and L4-L5. There was also a destructive lesion in the posterior left iliac bone with to see him destructive lesion lateral aspect of the left the bone. Multiple rib lesions were noted. And the differential diagnoses was multiple myeloma on leftover otherwise. Considering the multiple abnormalities and severe anion gap metabolic acidosis as well as acute kidney injury, patient was admitted to the ICU, and this consult was initiated. So far the patient was seen by nephrology on consul tation, and the recommendation is to continue bicarb, replace potassium and calcium as per protocol, and to consult oncology for possible myeloma. Patient WAS also seen by orthopedics on consultation, and the recommendation was to continue medical consultations, and the patient will need to be cleared for any surgical intervention. Workup for multiple myeloma is pending and oncology consultation is now pending Reevaluated today on 11/13/19, patient remains in the ICU, scheduled to undergo kyphoplasty and biopsy of L3 vertebral body by orthopedics today. In the meantime the patient is doing well, she is on 2 L nasal cannula, O2 sats is 96%, she is on IV fluid in the form of 0.45 at 100 mL per hour. CBC is relatively unremarkable hemoglobin is 10.2, electrolytes are improving with potassium of 3.1 today. Renal profile is much per her today BUN is down to 107 creatinine is down to 1.99. Her admission creatinine was 5.36, and apparently the patient has been taking significant amount of ibuprofen. Patient is obviously improving with hydration. And her metabolic acidosis secondary to acute kidney injury is also improving. Workup for malignancy is in progress, and the patient will likely L3 biopsy/kyphoplasty today. In the meantime on keeping the patient in the ICU for the next 24 hours until after her surgery. Reevaluated today on 11/13/2021, patient remains in the ICU, on 2 L nasal cannula with O2 sat showed 97%. Post surgery the patient came back to the ICU and she was quite agitated and restless, and I recommended starting the patient on Precedex. Remains on Precedex, she is on IV fluid at 100 mL of 0.9 normal saline an hour. Patient is calm, cooperative, and I went ahead and recommended stopping the Precedex and starting the patient on Seroquel 25 mg orally twice a day. CT of the brain done yesterday was negative for any metastatic lesions, however the patient will eventually require MRI of the brain. Patient underwent uneventful kyphoplasty of L3 vertebral body, and biopsy. This was done by Dr. Patel. Biopsy report is pending. Labs today showed relatively normal CBC hemoglobin is 10 electrolytes are normal BUN is 60 down from 107 yesterday, and creatinine is down to 1.09 from 1.99 yesterday. Patient had elevated free kappa and lambda chains. No monoclonal paraprotein noted Reevaluated today on 11/15/19, patient remains in the ICU, doing much better, has no specific complaints, she is presently actually an overflow. Intermittently the patient has been confused, but not agitated, remains off Precedex, patient is on Seroquel. CBC today is relatively normal hemoglobin 0.9. Normal renal profile is back to normal, L3 biopsy is pending. Objective - Vital Signs Vital signs: Vital Signs Temp 98.1 F 11/14/21 12:00 Pulse 89 11/14/21 12:00 Resp 42 H 11/14/21 12:00 BP 143/62 11/14/21 12:00 Pulse Ox 97 11/14/21 12:00 FiO2 Intake & Output 11/13/21 11/14/21 11/14/21 18:59 06:59 18:59 Intake Total 6900.813 5649.403 700 Output Total 450 1088 Balance 887.714 187.403 700 Weight 73.8 kg 73.8 kg Intake: IV 1200 1200 400 Sodium Chloride 0.45% 1, 1200 1200 400 000 ml @ 100 mls/hr IV . Q10H [facility] Rx#:[id number] Intake, IV Titration 137.714 75.403 300 Amount Dexmedetomidine/0.9% NaCl 137.714 75.403 (Pmx) 400 mcg In Empty Bag 1 bag @ 0.2 MCG/KG/HR 3.35 mls/hr IV .Q24H [facility] Rx#:[id number] Magnesium Sulfate-D5w Pmx 200 1 gm In Dextrose/Water 1 100ml.bag @ 100 mls/hr IVPB Q1H [facility] Rx#: [id number] Sodium Chloride 0.9% 1, 100 000 ml @ 50 mls/hr IV . Q20H [facility] Rx#:[id number] Output: Urine 450 925 Post Void Residual 163 Other: Voiding Method Bedside Commode Bedside Commode Bedside Commode # Voids 1 1 1 - Exam Physical Exam: Revealed a 71-year-old female in no distress, on room air Head: Atraumatic, normocephalic. HEENT:[Neck is supple.] [No neck masses.] [No thyromegaly.] [No JVD.] Chest: [Clear throughout, no crackles, no rhonchi, no wheezes.] Cardiac Exam: [Normal S1 and S2, no S3 gallop, no murmur.] Abdomen: [Soft, nontender, no megaly, no rebound, no guarding, normal bowel sounds.] Extremities: [No clubbing, no edema, no cyanosis.] Neurological Exam: [No focal neurologic deficit.] Alert and oriented 3 Psychiatric: Normal mood affect and normal mental status examination. Skin: No rashes. Musculoskeletal: No deformities and no limitation in range of motion. - Labs CBC & Chem 7: 11/14/21 05:41 11/14/21 05:41 Labs: Abnormal Lab Results - Last 24 Hours (Table) 11/14/21 11/14/21 Range/Units 05:41 05:41 WBC 13.4 H (3.8-10.6) k/uL RBC 3.39 L (3.80-5.40) m/uL Hgb 9.9 L (11.4-16.0) gm/dL Hct 29.9 L (34.0-46.0) % Sodium 136 L (137-145) mmol/L Chloride 110 H (98-107) mmol/L BUN 37 H (7-17) mg/dL Microbiology - Last 24 Hours (Table) 11/11/21 12:11 Blood Culture - Preliminary Blood No Growth after 48 hours 11/11/21 12:11 Blood Culture - Preliminary Blood No Growth after 48 hours Assessment and Plan Assessment: Impression: Acute kidney injury, most likely secondary to profound dehydration and hypovole vitor upon her initial presentation, renal status is back to normal Acute hypovolemic hyponatremia, resolved Acute metabolic acidosis secondary to acute kidney injury, resolved Pathological fracture of L3 and left iliac bone, suggestive of malignancy/multiple myeloma, report on L3 biopsy is pending Electrolytes imbalance including hyponatremia and hypokalemia as well as hypocalcemia, all are likely related to hypovolemia and acute kidney injury. Hyperphosphatemia secondary to acute kidney injury Recommendation: Continue Seroquel transfer to oncology Final pathology is pending Continue to monitor renal status Prognosis remains guarded Will follow as needed. Time with Patient: Less than 30
--- NOTE | 2021-11-14 14:25 | MR ---
EXAMINATION TYPE: MR brain wo con DATE OF EXAM: 11/14/2021 COMPARISON: CT brain 2 days ago HISTORY: Newly suspected neoplasm. Recent abnormal CT. Staging study. TECHNIQUE: Multiplanar, multisequence imaging of the brain and brainstem is performed without IV cont rast. FINDINGS: Diffusion weighted images demonstrate small 4 x 3 mm right frontal subcortical focus of increased sig nal on diffusion weighted images with diminished signal ADC mapping axial image 152. Acute lacunar in farct cannot be excluded. After DWI/ADC mapping and sagittal T1 sequences patient could not perform m ore evaluation. Midline structures demonstrate normal morphology. Craniocervical junction is maintain ed. Exam was terminated prior to completion. IMPRESSION: As above. Markedly suboptimal study.
--- NOTE | 2021-11-14 16:34 | P.PN ---
Subjective Progress Note Date: 11/13/21 Amy Ontiveros, is a 71-year-old female who presented to [facility] emergency room with a chief complaint of generalized weakness, shortness of breath and poor oral intake. Patient started having severe back pain 2 weeks ago, outpatient evaluation revealed evidence of compression frac ture at L3, possibility of metastatic disease and pathological fracture was raised, patient was scheduled to have a PET scan and appointment with neurosurgery and oncology, however her clinical condition continued to worsen she started having severe weakness with inability to transfer, she had very poor appetite with very low oral intake and started to have worsening shortness of breath, patient decided to come to emergency room. She was evaluated in the emergency room vital examination on presentation revealed a temperature of 97.2 pulse 84 respiration 22 blood pressure 126/94 pulse ox 100% on room air Laboratory data revealed a white blood count of 19.9 hemoglobin 12.2 platelet count 392 sodium 1:30 potassium 2.9 chloride 99 CO2 less then 5 BUN 166 creatinine 5.36 calcium 6.4 Testing in the emergency room revealed chest x-ray done in the emergency room revealed no active cardiopulmonary disease normal heart, computed tomography scan of the abdomen and pelvis done in the emergency room without contrast revealed large gallbladder that could be related to gallbladder dysfunction or cholecystitis, destructive lesion in the L3 vertebral body suggestive of tumor, moderately severe spinal stenosis at L2-3 and L4-5, large destructive lesion in the posterior left iliac bone, and multiple rib lesions. Computed tomography scan of the head and cervical spine done in the emergency room without contrast, revealed no acute brain abnormality, and a lytic lesion in the T2 vertebral. Patient was admitted to ICU for further evaluation and treatment. Consultation for critical care, oncology, nephrology and neurosurgery were initiated in the emergency room. On 11/12/2021 patient was seen and examined in the ICU she is alert and oriented 3 in no apparent distress there is no fever or chills no headache or dizziness no chest pain no shortness of breath no cough no nausea or vomiting no abdominal pain no diarrhea and no urinary symptoms. She underwent kyphoplasty of L3 with vertebral body biopsy of L3 today by Dr. Patel On 11/13/2021 patient was seen and examined in the ICU she is alert and oriented 3 in no apparent distress she is complaining of back pain otherwise she denies any complaints there is no fever or chills no headache or dizziness no chest pain no shortness of breath no cough no nausea or vomiting no abdominal pain no diarrhea and no urinary symptoms Objective - Vital Signs Vital signs: Vital Signs Temp 97.6 F 11/13/21 08:00 Pulse 70 11/13/21 09:00 Resp 12 11/13/21 09:00 BP 121/67 11/13/21 09:00 Pulse Ox 96 11/13/21 09:00 FiO2 Intake & Output 11/12/21 11/13/21 11/13/21 18:59 06:59 18:59 Intake Total 2656.616 1613.819 347.877 Output Total 3135 1060 Balance -478.384 553.819 347.877 Weight 69.2 kg Intake: IV 1850 1300 300 Magnesium Sulfate-D5w Pmx 0 1 gm In Dextrose/Water 1 100ml.bag @ 100 mls/hr IVPB ONCE ONE Rx#: [id number] Potassium Chloride 10 meq 200 200 In Water For Injection 1 100ml.bag @ 100 mls/hr IVPB Q1HR [facility] Rx#: [id number] Sodium Chloride 0.45% 1, 1100 300 000 ml @ 100 mls/hr IV . Q10H [facility] Rx#:[id number] Sodium Chloride 0.9% 1, 200 000 ml @ 100 mls/hr IV . Q10H [facility] Rx#:[id number] Intake, IV Titration 806.616 313.819 47.877 Amount Dexmedetomidine/0.9% NaCl 6.616 113.819 47.877 (Pmx) 400 mcg In Empty Bag 1 bag @ 0.2 MCG/KG/HR 3.35 mls/hr IV .Q24H [facility] Rx#:[id number] Sodium Chloride 0.45% 1, 800 100 000 ml @ 100 mls/hr IV . Q10H [facility] Rx#:[id number] ceFAZolin 2 gm In Sodium 100 Chloride 0.9% 50 ml @ 100 mls/hr IVPB Q8HR [facility] Rx# :[id number] Output: Urine 3125 1060 Estimated Blood Loss 10 Other: Voiding Method Indwelling Catheter Incontinent Incontinent - Exam In general patient is alert and oriented x 3 in no distress HEENT head normocephalic and atraumatic Neck is supple no JVD no goiter no lymphadenopathy no carotid bruit Chest examination is clear to auscultation no crackles no wheezing Cardiac exam reveals regular heart sounds S1 and S2 no gallops no murmurs Abdomen is soft nontender no organomegaly with normal bowel sounds Extremity exam reveals no edema no cyanosis or clubbing Neurological examination reveals no gross focal deficits - Labs CBC & Chem 7: 11/14/21 05:41 11/14/21 05:41 Labs: Abnormal Lab Results - Last 24 Hours (Table) 11/11/21 11/12/21 11/13/21 Range/Units 17:31 11:03 06:36 RBC 3.34 L (3.80-5.40) m/uL Hgb 10.0 L (11.4-16.0) gm/dL Hct 28.9 L (34.0-46.0) % Neutrophils # 9.0 H (1.3-7.7) k/uL Lymphocytes # 0.7 L (1.0-4.8) k/uL Chloride (98-107) mmol/L BUN (7-17) mg/dL Creatinine (0.52-1.04) mg/dL Glucose (74-99) mg/dL POC Glucose (mg/dL) 111 H (70-110) mg/dL Calcium (8.4-10.2) mg/dL Albumin (PEP) 2.76 L (3.80-4.90) g/dL [id number] 0.50 H (0.10-0.40) g/dL Gamma Globulins 0.61 L (0.70-1.50) g/dL Free Rodriguez Hevia LC, Quant 2.94 H (0.33-1.94) mg/dL Free Lambda LC, Quant 2.94 H (0.57-2.63) mg/dL 11/13/21 Range/Units 06:36 RBC (3.80-5.40) m/uL Hgb (11.4-16.0) gm/dL Hct (34.0-46.0) % Neutrophils # (1.3-7.7) k/uL Lymphocytes # (1.0-4.8) k/uL Chloride 113 H (98-107) mmol/L BUN 60 H (7-17) mg/dL Creatinine 1.09 H (0.52-1.04) mg/dL Glucose 107 H (74-99) mg/dL POC Glucose (mg/dL) (70-110) mg/dL Calcium 7.8 L (8.4-10.2) mg/dL Albumin (PEP) (3.80-4.90) g/dL Scsnx-5-Xnwrxpyhk (0.10-0.40) g/dL Gamma Globulins (0.70-1.50) g/dL Free Rodriguez Hevia LC, Quant (0.33-1.94) mg/dL Free Lambda LC, Quant (0.57-2.63) mg/dL Microbiology - Last 24 Hours (Table) 11/11/21 12:11 Blood Culture - Preliminary Blood No Growth after 24 hours 11/11/21 12:11 Blood Culture - Preliminary Blood No Growth after 24 hours Assessment and Plan Plan: Acute kidney injury, likely related to dehydration related to poor oral intake, and use of ibuprofen Severe hypovolemia, related to poor oral intake Electrolyte imbalance with hyponatremia and hypokalemia Acute metabolic acidosis Shortness of breath, no evidence of cardiopulmonary disease on chest x-ray Leukocytosis, possibly related to dehydration, will monitor closely, findings related to gallbladder on computed tomography scan without clinical evidence of acute cholecystitis there is no abdominal tenderness, blood culture were ordered Will monitor closely. Severe back pain with evidence of L3 vertebral fracture Multiple vertebral, iliac bone, and ribs lytic lesions, possibly related to multiple myeloma At this time patient is admitted to intensive care units IV fluid and electrolytes correction initiated in the emergency room Consultation for critical care, oncology, nephrology and neurosurgery initiated in the emergency room For DVT prophylaxis patient started on subcu heparin, for GI prophylaxis patient started on Protonix Will follow closely, prognosis is guarded.
--- NOTE | 2021-11-14 16:37 | P.PN ---
Subjective Progress Note Date: 11/14/21 Amy Ontiveros, is a 71-year-old female who presented to [facility] emergency room with a chief complaint of generalized weakness, shortness of breath and poor oral intake. Patient started having severe back pain 2 weeks ago, outpatient evaluation revealed evidence of compression frac ture at L3, possibility of metastatic disease and pathological fracture was raised, patient was scheduled to have a PET scan and appointment with neurosurgery and oncology, however her clinical condition continued to worsen she started having severe weakness with inability to transfer, she had very poor appetite with very low oral intake and started to have worsening shortness of breath, patient decided to come to emergency room. She was evaluated in the emergency room vital examination on presentation revealed a temperature of 97.2 pulse 84 respiration 22 blood pressure 126/94 pulse ox 100% on room air Laboratory data revealed a white blood count of 19.9 hemoglobin 12.2 platelet count 392 sodium 1:30 potassium 2.9 chloride 99 CO2 less then 5 BUN 166 creatinine 5.36 calcium 6.4 Testing in the emergency room revealed chest x-ray done in the emergency room revealed no active cardiopulmonary disease normal heart, computed tomography scan of the abdomen and pelvis done in the emergency room without contrast revealed large gallbladder that could be related to gallbladder dysfunction or cholecystitis, destructive lesion in the L3 vertebral body suggestive of tumor, moderately severe spinal stenosis at L2-3 and L4-5, large destructive lesion in the posterior left iliac bone, and multiple rib lesions. Computed tomography scan of the head and cervical spine done in the emergency room without contrast, revealed no acute brain abnormality, and a lytic lesion in the T2 vertebral. Patient was admitted to ICU for further evaluation and treatment. Consultation for critical care, oncology, nephrology and neurosurgery were initiated in the emergency room. On 11/12/2021 patient was seen and examined in the ICU she is alert and oriented 3 in no apparent distress there is no fever or chills no headache or dizziness no chest pain no shortness of breath no cough no nausea or vomiting no abdominal pain no diarrhea and no urinary symptoms. She underwent kyphoplasty of L3 with vertebral body biopsy of L3 today by Dr. Patel On 11/13/2021 patient was seen and examined in the ICU she is alert and oriented 3 in no apparent distress she is complaining of back pain otherwise she denies any complaints there is no fever or chills no headache or dizziness no chest pain no shortness of breath no cough no nausea or vomiting no abdominal pain no diarrhea and no urinary symptoms. On 11/14/2021 patient was seen and examined in the ICU, she is alert and oriented 3 in no apparent distress she is complaining of low back pain otherwise she denies any complaints there is no fever or chills no headache or dizziness no chest pain no shortness of breath no cough no nausea or vomiting no abdominal pain no diarrhea no burning with urination no frequency or urgency no hematuria, plan is to transfer to medical floor today, will continue to follow Objective - Vital Signs Vital signs: Vital Signs Temp 98.1 F 11/14/21 12:00 Pulse 93 11/14/21 13:00 Resp 17 11/14/21 13:00 BP 127/51 11/14/21 13:00 Pulse Ox 99 11/14/21 13:00 FiO2 Intake & Output 11/13/21 11/14/21 11/14/21 18:59 06:59 18:59 Intake Total 8131.668 8072.403 800 Output Total 450 1088 Balance 887.714 187.403 800 Weight 73.8 kg 73.8 kg Intake: IV 1200 1200 400 Sodium Chloride 0.45% 1, 1200 1200 400 000 ml @ 100 mls/hr IV . Q10H [facility] Rx#:[id number] Intake, IV Titration 137.714 75.403 400 Amount Dexmedetomidine/0.9% NaCl 137.714 75.403 (Pmx) 400 mcg In Empty Bag 1 bag @ 0.2 MCG/KG/HR 3.35 mls/hr IV .Q24H [facility] Rx#:[id number] Magnesium Sulfate-D5w Pmx 200 1 gm In Dextrose/Water 1 100ml.bag @ 100 mls/hr IVPB Q1H [facility] Rx#: [id number] Sodium Chloride 0.9% 1, 200 000 ml @ 50 mls/hr IV . Q20H [facility] Rx#:[id number] Output: Urine 450 925 Post Void Residual 163 Other: Voiding Method Bedside Commode Bedside Commode Bedside Commode # Voids 1 1 1 - Exam In general patient is alert and oriented x 3 in no distress HEENT head normocephalic and atraumatic Neck is supple no JVD no goiter no lymphadenopathy no carotid bruit Chest examination is clear to auscultation no crackles no wheezing Cardiac exam reveals regular heart sounds S1 and S2 no gallops no murmurs Abdomen is soft nontender no organomegaly with normal bowel sounds Extremity exam reveals no edema no cyanosis or clubbing Neurological examination reveals no gross focal deficits - Labs CBC & Chem 7: 11/14/21 05:41 11/14/21 05:41 Labs: Abnormal Lab Results - Last 24 Hours (Table) 11/14/21 11/14/21 Range/Units 05:41 05:41 WBC 13.4 H (3.8-10.6) k/uL RBC 3.39 L (3.80-5.40) m/uL Hgb 9.9 L (11.4-16.0) gm/dL Hct 29.9 L (34.0-46.0) % Sodium 136 L (137-145) mmol/L Chloride 110 H (98-107) mmol/L BUN 37 H (7-17) mg/dL Microbiology - Last 24 Hours (Table) 11/11/21 12:11 Blood Culture - Preliminary Blood No Growth after 72 hours 11/11/21 12:11 Blood Culture - Preliminary Blood No Growth after 72 hours Assessment and Plan Plan: Acute kidney injury, likely related to dehydration related to poor oral intake, and use of ibuprofen Severe hypovolemia, related to poor oral intake Electrolyte imbalance with hyponatremia and hypokalemia Acute metabolic acidosis Shortness of breath, no evidence of cardiopulmonary disease on chest x-ray Leukocytosis, possibly related to dehydration, will monitor closely, findings related to gallbladder on computed tomography scan without clinical evidence of acute cholecystitis there is no abdominal tenderness, blood culture were ordered Will monitor closely. Severe back pain with evidence of L3 vertebral fracture Multiple vertebral, iliac bone, and ribs lytic lesions, possibly related to multiple myeloma At this time patient is admitted to intensive care units IV fluid and electrolytes correction initiated in the emergency room Consultation for critical care, oncology, nephrology and neurosurgery initiated in the emergency room For DVT prophylaxis patient started on subcu heparin, for GI prophylaxis patient started on Protonix Will follow closely, prognosis is guarded.
--- NOTE | 2021-11-14 17:16 | P.PN ---
Subjective Progress Note Date: 11/14/21 Principal diagnosis: abnormal bone lesions Path is pending, Renal function improved, MRI brain ordered for staging Objective - Vital Signs Vital signs: Vital Signs Temp 97.8 F 11/14/21 08:00 Pulse 88 11/14/21 11:00 Resp 14 11/14/21 11:00 BP 149/68 11/14/21 11:00 Pulse Ox 98 11/14/21 11:00 FiO2 Intake & Output 11/13/21 11/14/21 11/14/21 18:59 06:59 18:59 Intake Total 3153.561 6433.403 700 Output Total 450 1088 Balance 887.714 187.403 700 Weight 73.8 kg 73.8 kg Intake: IV 1200 1200 400 Sodium Chloride 0.45% 1, 1200 1200 400 000 ml @ 100 mls/hr IV . Q10H [facility] Rx#:[id number] Intake, IV Titration 137.714 75.403 300 Amount Dexmedetomidine/0.9% NaCl 137.714 75.403 (Pmx) 400 mcg In Empty Bag 1 bag @ 0.2 MCG/KG/HR 3.35 mls/hr IV .Q24H [facility] Rx#:[id number] Magnesium Sulfate-D5w Pmx 200 1 gm In Dextrose/Water 1 100ml.bag @ 100 mls/hr IVPB Q1H [facility]DA Rx#: [id number] Sodium Chloride 0.9% 1, 100 000 ml @ 50 mls/hr IV . Q20H [facility]ANDA Rx#:[id number] Output: Urine 450 925 Post Void Residual 163 Other: Voiding Method Bedside Commode Bedside Commode Bedside Commode # Voids 1 1 1 - Exam Poor historian NAD Diminished Reg irr BLE Mild edema - Labs CBC & Chem 7: 11/14/21 05:41 11/14/21 05:41 Labs: Abnormal Lab Results - Last 24 Hours (Table) 11/14/21 11/14/21 Range/Units 05:41 05:41 WBC 13.4 H (3.8-10.6) k/uL RBC 3.39 L (3.80-5.40) m/uL Hgb 9.9 L (11.4-16.0) gm/dL Hct 29.9 L (34.0-46.0) % Sodium 136 L (137-145) mmol/L Chloride 110 H (98-107) mmol/L BUN 37 H (7-17) mg/dL Microbiology - Last 24 Hours (Table) 11/11/21 12:11 Blood Culture - Preliminary Blood No Growth after 48 hours 11/11/21 12:11 Blood Culture - Preliminary Blood No Growth after 48 hours Assessment and Plan (1) Leukocytosis Narrative/Plan: As per hypocalcemia Current Visit: Yes Status: Acute Code(s): D72.829 - ELEVATED WHITE BLOOD CELL COUNT, UNSPECIFIED SNOMED Code(s): 795528372 (2) Hypocalcemia Narrative/Plan: - More concerning in conjunction with leukocytosis for infectious picture. - Blood cultres x2 - Hypocalcemia work-up pending Current Visit: Yes Status: Acute Code(s): E83.51 - HYPOCALCEMIA SNOMED Code(s): 4752350 (3) Abnormal MRI, lumbar spine Narrative/Plan: - Reviewed with ortho spine, performed last week and more consistent with osseous malignancy, less likely myeloma picture. Further imaging of thoracic to confirm absent cord involvement. -Status post biopsy and path pending, discussed with ortho Current Visit: Yes Status: Acute Code(s): R93.7 - ABNORMAL FINDINGS ON DIAGNOSTIC IMAGING OF PRT MS SYS SNOMED Code(s): 605520840 (4) BEBETO (acute kidney injury) Narrative/Plan: - Sudden onset renal injury - CT without obvious obstructiove etiology and no hydronephrosis identified. - Nephrology is following - IVF and Bicarb for acisosis per ICU and Nephrology Resolved Current Visit: Yes Status: Acute Code(s): N17.9 - ACUTE KIDNEY FAILURE, UNSPECIFIED SNOMED Code(s): 70351181 (5) Acidosis Narrative/Plan: Uric Acid 11.7 - Status post dose Rasburicase on 11/11/21 This is resolving Nephrology following Current Visit: Yes Status: Acute Code(s): E87.2 - ACIDOSIS SNOMED Code(s): 52040586 (6) Compression fracture of L3 vertebra Narrative/Plan: Status post kyphplasty today L3 and biopsy NGS will be requested Current Visit: Yes Status: Acute Code(s): S32.030A - WEDGE COMPRESSION FRACTURE OF THIRD LUMBAR VERTEBRA, INIT SNOMED Code(s): 409051671 Plan: MRI pending with renal function improved Planning to move to medical floor Path pending Further recs when above are resulted
[2021-11-15] MEDS: HYDROcodone/APAP 7.5-325MG 1 EACH TAB PO PRN ×5 (03:56→20:33)
[2021-11-15] MEDS: SODIUM CHLORIDE 0.9% 1,000 ML IV SCH (05:24)
[2021-11-15] MEDS: PANTOPRAZOLE 40 MG TABLET PO SCH (08:16)
[2021-11-15] MEDS: QUEtiapine 25 MG TAB PO SCH ×2 (08:16→20:33)
[2021-11-15] MEDS: HEPARIN SODIUM,PORCINE/PF 5,000 UNIT/0.5 ML SYRINGE SQ SCH ×2 (08:17→15:58)
[2021-11-15 08:47] LABS: HCT 27.9 % (37.2-46.3); HGB 8.8 g/dL (12.0-15.0); MCH 27.6 pg (27.0-32.0); MCHC 31.5 g/dL (32.0-37.0); MCV 87.5 fL (80.0-97.0); Mean Platelet Volume 10.8 fL (9.5-12.2); NRBC Per 100 WBC 0 /100 WBCS (0.0-0.0); Platelet Count 190 X 10*3/uL (140-440); RBC 3.19 X 10*6/uL (4.10-5.20); RDW 14.3 % (11.5-14.5); WBC 16.86 X 10*3/uL (4.50-10.00)
[2021-11-15 09:28] LABS: African American GFR (CKD) 87.2 (60.0-200.0); Anion Gap 10.1 mmol/L (10.00-18.00); BUN/Creat Ratio 23.63 Ratio (12.00-20.00); Blood Urea Nitrogen 18.9 mg/dL (9.0-27.0); Calcium 8.8 mg/dL (8.7-10.3); Carbon Dioxide 22.9 mmol/L (20.0-27.5); Magnesium 1.6 mg/dL (1.5-2.4); Non-African American GFR(CKD) 75.2 (60.0-200.0); Potassium 3.8 mmol/L (3.5-5.5)
--- NOTE | 2021-11-15 11:02 | P.PN ---
Subjective Progress Note Date: 11/15/21 Principal diagnosis: Acute kidney injury, hypovolemic hyponatremia, L3 compression fracture This is a 71-year-old female, with 3 week history of low back pain, patient [facility], and she had workup revealing L3 compression fracture, the patient was scheduled to have a PET scan later this week. However over the last few weeks, the patient has been getting weaker and weaker, and should be developing pain in the low back as well as right hip. Patient presented to the ER, and she was noted to have significant metabolic abnormalities and abnormal labs. Her labs revealed leukocytosis with WBC count of 19.9, hemoglobin of 12.2. She had elevated d-dimer of 4.28. Low sodium of 130 potassium of 2.9 bicarb less than 5 anion gap of 21 elevated BUN of 166 elevated creatinine of 5.36, low calcium of 6.4, ionized calcium of 3.5 slightly elevated BNP and low albumin of 3.1. CT of abdomen and pelvis showed this to selective lesion in the L3 vertebral body suggestive of malignancy. And there was moderate severe spinal stenosis L2-L3, and L4-L5. There was also a destructive lesion in the posterior left iliac bone with to see him destructive lesion lateral aspect of the left the bone. Multiple rib lesions were noted. And the differential diagnoses was multiple myeloma on leftover otherwise. Considering the multiple abnormalities and severe anion gap metabolic acidosis as well as acute kidney injury, patient was admitted to the ICU, and this consult was initiated. So far the patient was seen by nephrology on consultation, and the recommendation is to continue bicarb, replace potassium and calcium as per protocol, and to consult oncology for possible myeloma. Patient WAS also seen by orthopedics on consultation, and the recommendation was to continue medical consultations, and the patient will need to be cleared for any surgical intervention. Workup for multiple myeloma is pending and oncology consultation is now pending Reevaluated today on 11/13/19, patient remains in the ICU, scheduled to undergo kyphoplasty and biopsy of L3 vertebral body by orthopedics today. In the meantime the patient is doing well, she is on 2 L nasal cannula, O2 sats is 96%, she is on IV fluid in the form of 0.45 at 100 mL per hour. CBC is relatively unremarkable hemoglobin is 10.2, electrolytes are improving with potassium of 3. 1 today. Renal profile is much per her today BUN is down to 107 creatinine is down to 1.99. Her admission creatinine was 5.36, and apparently the patient has been taking significant amount of ibuprofen. Patient is obviously improving with hydration. And her metabolic acidosis secondary to acute kidney injury is also improving. Workup for malignancy is in progress, and the patient will likely L3 biopsy/kyphoplasty today. In the meantime on keeping the patient in the ICU for the next 24 hours until after her surgery. Reevaluated today on 11/13/2021, patient remains in the ICU, on 2 L nasal cannula with O2 sat showed 97%. Post surgery the patient came back to the ICU and she was quite agitated and restless, and I recommended starting the patient on Precedex. Remains on Precedex, she is on IV fluid at 100 mL of 0.9 normal saline an hour. Patient is calm, cooperative, and I went ahead and recommended stopping the Precedex and starting the patient on Seroquel 25 mg orally twice a day. CT of the brain done yesterday was negative for any metastatic lesions, however the patient will eventually require MRI of the brain. Patient underwent uneventful kyphoplasty of L3 vertebral body, and biopsy. This was done by Dr. Patel. Biopsy report is pending. Labs today showed relatively normal CBC hemoglobin is 10 electrolytes are normal BUN is 60 down from 107 yesterday, and creatinine is down to 1.09 from 1.99 yesterday. Patient had elevated free kappa and lambda chains. No monoclonal paraprotein noted Reevaluated today on 11/15/19, patient remains in the ICU, doing much better, has no specific complaints, she is presently actually an overflow. Intermittently the patient has been confused, but not agitated, remains off Precedex, patient is on Seroquel. CBC today is relatively normal hemoglobin 0.9. Normal renal profile is back to normal, L3 biopsy is pending. On 11/15/2021 patient seen in follow-up on medical surgical floor, she is awake and alert, in no acute distress, breathing comfortably, no agitation or confusion, she is cooperative. She continues on Seroquel, Precedex have been discontinued, vital signs have been stable, brain MRI was completed with the possibility of an acute lacunar infarct however this was a markedly suboptimal study. A bone biopsy of the L3 vertebral body was positive for metastatic adenocarcinoma with the possibility of primary origin in the upper gastrointestinal or pancreatic or biliary tract versus lung. Medical oncology is following, CT of the abdomen and pelvis showed large gallbladder that could relate to gallbladder dysfunction or cholecystitis. Today's labs have been reviewed showing white blood cell count of 16.8, hemoglobin of 8.8, platelet count of 190, electrolytes and renal profile were unremarkable. Patient remains on IV 0.9 normal saline at a rate of 50 ML per hour. Objective - Vital Signs Vital signs: Vital Signs Temp 98.4 F 11/15/21 04:05 Pulse 96 11/15/21 04:05 Resp 18 11/15/21 04:05 BP 141/55 11/15/21 04:05 Pulse Ox 93 L 11/15/21 08:23 FiO2 Intake & Output 11/14/21 11/15/21 11/15/21 18:59 06:59 18:59 Intake Total 800 1100 Balance 800 1100 Weight 73.8 kg Intake: IV 400 Sodium Chloride 0.45% 1, 400 000 ml @ 100 mls/hr IV . Q10H [facility] Rx#:[id number] Intake, IV Titration 400 600 Amount Magnesium Sulfate-D5w Pmx 200 1 gm In Dextrose/Water 1 100ml.bag @ 100 mls/hr IVPB Q1H [facility] Rx#: [id number] Sodium Chloride 0.9% 1, 200 600 000 ml @ 50 mls/hr IV . Q20H [facility] Rx#:[id number] Oral 500 Other: Voiding Method Bedside Commode Bedside Commode Toilet # Voids 1 2 1 - Exam GENERAL EXAM: Alert, very pleasant 71-year-old white female, on room air with pulse ox of 93% comfortable in no apparent distress. HEAD: Normocephalic/atraumatic. EYES: Normal reaction of pupils, equal size. Conjunctiva pink, sclera white. NOSE: Clear with pink turbinates. THROAT: No erythema or exudates. NECK: No masses, no JVD, no thyroid enlargement, no adenopathy. CHEST: No chest wall deformity. Symmetrical expansion. LUNGS: Equal air entry with no crackles, wheeze, rhonchi or dullness. CVS: Regular rate and rhythm, normal S1 and S2, no gallops, no murmurs, no rubs ABDOMEN: Soft, nontender. No hepatosplenomegaly, normal bowel sounds, no guard ing or rigidity. EXTREMITIES: No clubbing, no edema, no cyanosis, 2+ pulses and upper and lower extremities. MUSCULOSKELETAL: Muscle strength and tone normal. SPINE: No scoliosis or deformity SKIN: No rashes CENTRAL NERVOUS SYSTEM: Alert and oriented -3. No focal deficits, tone is normal in all 4 extremities. PSYCHIATRIC: Alert and oriented -3. Appropriate affect. Intact judgment and insight. - Labs CBC & Chem 7: 11/15/21 06:25 11/15/21 06:25 Labs: Abnormal Lab Results - Last 24 Hours (Table) 11/15/21 11/15/21 Range/Units 06:25 06:25 WBC 16.86 H (4.50-10.00) X 10*3/uL RBC 3.19 L (4.10-5.20) X 10*6/uL Hgb 8.8 L (12.0-15.0) g/dL Hct 27.9 L (37.2-46.3) % MCHC 31.5 L (32.0-37.0) g/dL BUN/Creatinine Ratio 23.63 H (12.00-20.00) Ratio Microbiology - Last 24 Hours (Table) 11/11/21 12:11 Blood Culture - Preliminary Blood No Growth after 72 hours 11/11/21 12:11 Blood Culture - Preliminary Blood No Growth after 72 hours Assessment and Plan Plan: Assessment: #1. Acute kidney injury most likely related to profound dehydration and hypovolemia upon her initial presentation, and renal status has recovered and back to normal #2. Acute hypovolemic hyponatremia, resolved #3. A new diagnosis of metastatic adenocarcinoma, diagnosed via bone biopsy of the L3 vertebral body, with the possible origin of the upper GI tract or possibly lone #4. Pathologic fracture of the L3 and left iliac bone related to metastatic adenocarcinoma #5. Electrolyte imbalance including hyponatremia, hypokalemia and hypocalcemia, improved, and this was related to hypovolemia and acute kidney injury Plan: Bone biopsy results have been reviewed Clinically patient is stable, Vital signs are stable, breathing comfortably Further recommendations from medical oncology No active pulmonary/critical care issues at this time I have personally seen and examined the patient, performed the documentation and the assessment and plan as written. Number of minutes spent on the visit: [15] Time with Patient: Less than 30
[2021-11-15] MEDS ORDERED: Magnesium Replacement Protocol 1 EACH MISC MISCELLANE PRN (11:08)
[2021-11-15] MEDS ORDERED: MAGNESIUM SULFATE-D5W PMX 1 GM in DEXTROSE/WATER 1 100ML.BAG IVPB SCH (11:15)
[2021-11-15] MEDS: MAGNESIUM OXIDE 400 MG TAB PO SCH (11:37)
--- NOTE | 2021-11-15 14:54 | P.PN ---
Subjective Progress Note Date: 11/15/21 Amy Ontiveros, is a 71-year-old female who presented to [facility] emergency room with a chief complaint of generalized weakness, shortness of breath and poor oral intake. Patient started having severe back pain 2 weeks ago, outpatient evaluation revealed evidence of compression frac ture at L3, possibility of metastatic disease and pathological fracture was raised, patient was scheduled to have a PET scan and appointment with neurosurgery and oncology, however her clinical condition continued to worsen she started having severe weakness with inability to transfer, she had very poor appetite with very low oral intake and started to have worsening shortness of breath, patient decided to come to emergency room. She was evaluated in the emergency room vital examination on presentation revealed a temperature of 97.2 pulse 84 respiration 22 blood pressure 126/94 pulse ox 100% on room air Laboratory data revealed a white blood count of 19.9 hemoglobin 12.2 platelet count 392 sodium 1:30 potassium 2.9 chloride 99 CO2 less then 5 BUN 166 creatinine 5.36 calcium 6.4 Testing in the emergency room revealed chest x-ray done in the emergency room revealed no active cardiopulmonary disease normal heart, computed tomography scan of the abdomen and pelvis done in the emergency room without contrast revealed large gallbladder that could be related to gallbladder dysfunction or cholecystitis, destructive lesion in the L3 vertebral body suggestive of tumor, moderately severe spinal stenosis at L2-3 and L4-5, large destructive lesion in the posterior left iliac bone, and multiple rib lesions. Computed tomography scan of the head and cervical spine done in the emergency room without contrast, revealed no acute brain abnormality, and a lytic lesion in the T2 vertebral. Patient was admitted to ICU for further evaluation and treatment. Consultation for critical care, oncology, nephrology and neurosurgery were initiated in the emergency room. On 11/12/2021 patient was seen and examined in the ICU she is alert and oriented 3 in no apparent distress there is no fever or chills no headache or dizziness no chest pain no shortness of breath no cough no nausea or vomiting no abdominal pain no diarrhea and no urinary symptoms. She underwent kyphoplasty of L3 with vertebral body biopsy of L3 today by Dr. Patel On 11/13/2021 patient was seen and examined in the ICU she is alert and oriented 3 in no apparent distress she is complaining of back pain otherwise she denies any complaints there is no fever or chills no headache or dizziness no chest pain no shortness of breath no cough no nausea or vomiting no abdominal pain no diarrhea and no urinary symptoms. On 11/14/2021 patient was seen and examined in the ICU, she is alert and oriented 3 in no apparent distress she is complaining of low back pain otherwise she denies any complaints there is no fever or chills no headache or dizziness no chest pain no shortness of breath no cough no nausea or vomiting no abdominal pain no diarrhea no burning with urination no frequency or urgency no hematuria, plan is to transfer to medical floor today, will continue to follow On 11/15/2021 patient was seen and examined on the medical floor she is alert and oriented 3 in no apparent distress she is complaining of back pain otherwise she denies any complaints, there is no fever or chills no headache or dizziness no chest pain no shortness of breath no cough no nausea or vomiting no abdominal pain no diarrhea and no urinary symptoms. At blood count increased up to 16.86 there is evidence of urinary tract infection, urine culture ordered patient is started on IV Rocephin infectious disease consultation requested, temperature is 98.3 pulse 90 respiration 18 blood pressure 121/58 pulse ox 94% on room air blood culture 2 are negative Objective - Vital Signs Vital signs: Vital Signs Temp 98.4 F 11/15/21 04:05 Pulse 96 11/15/21 04:05 Resp 18 11/15/21 04:05 BP 141/55 11/15/21 04:05 Pulse Ox 93 L 11/15/21 08:23 FiO2 Intake & Output 11/14/21 11/15/21 11/15/21 18:59 06:59 18:59 Intake Total 800 1100 Balance 800 1100 Weight 73.8 kg Intake: IV 400 Sodium Chloride 0.45% 1, 400 000 ml @ 100 mls/hr IV . Q10H [facility]ANDA Rx#:[id number] Intake, IV Titration 400 600 Amount Magnesium Sulfate-D5w Pmx 200 1 gm In Dextrose/Water 1 100ml.bag @ 100 mls/hr IVPB Q1H [facility]ANDA Rx#: [id number] Sodium Chloride 0.9% 1, 200 600 000 ml @ 50 mls/hr IV . Q20H [facility]ANDA Rx#:[id number] Oral 500 Other: Voiding Method Bedside Commode Bedside Commode Toilet # Voids 1 2 1 - Exam In general patient is alert and oriented x 3 in no distress HEENT head normocephalic and atraumatic Neck is supple no JVD no goiter no lymphadenopathy no carotid bruit Chest examination is clear to auscultation no crackles no wheezing Cardiac exam reveals regular heart sounds S1 and S2 no gallops no murmurs Abdomen is soft nontender no organomegaly with normal bowel sounds Extremity exam reveals no edema no cyanosis or clubbing Neurological examination reveals no gross focal deficits - Labs CBC & Chem 7: 11/15/21 06:25 11/15/21 06:25 Labs: Abnormal Lab Results - Last 24 Hours (Table) 11/15/21 11/15/21 Range/Units 06:25 06:25 WBC 16.86 H (4.50-10.00) X 10*3/uL RBC 3.19 L (4.10-5.20) X 10*6/uL Hgb 8.8 L (12.0-15.0) g/dL Hct 27.9 L (37.2-46.3) % MCHC 31.5 L (32.0-37.0) g/dL BUN/Creatinine Ratio 23.63 H (12.00-20.00) Ratio Microbiology - Last 24 Hours (Table) 11/11/21 12:11 Blood Culture - Preliminary Blood No Growth after 72 hours 11/11/21 12:11 Blood Culture - Preliminary Blood No Growth after 72 hours Assessment and Plan Plan: Acute kidney injury, likely related to dehydration related to poor oral intake, and use of ibuprofen Severe hypovolemia, related to poor oral intake Electrolyte imbalance with hyponatremia and hypokalemia Acute metabolic acidosis Shortness of breath, no evidence of cardiopulmonary disease on chest x-ray Leukocytosis, possibly related to dehydration, will monitor closely, findings related to gallbladder on computed tomography scan without clinical evidence of acute cholecystitis there is no abdominal tenderness, blood culture were ordered Will monitor closely. Severe back pain with evidence of L3 vertebral fracture Multiple vertebral, iliac bone, and ribs lytic lesions, possibly related to multiple myeloma At this time patient is admitted to intensive care units IV fluid and electrolytes correction initiated in the emergency room Consultation for critical care, oncology, nephrology and neurosurgery initiated in the emergency room For DVT prophylaxis patient started on subcu heparin, for GI prophylaxis patient started on Protonix Will follow closely, prognosis is guarded.
--- NOTE | 2021-11-15 22:05 | P.PN ---
Subjective Progress Note Date: 11/15/21 Principal diagnosis: abnormal bone lesions Pathology resulted with adneocarcinoma felt to be GI pancreaobiliary. Unknown GI evaluation, have asked General surgery to further eval for primary Patient has never had colonoscopy Objective - Vital Signs Vital signs: Vital Signs Temp 98.3 F 11/15/21 11:07 Pulse 90 11/15/21 11:07 Resp 18 11/15/21 11:07 BP 121/58 11/15/21 11:07 Pulse Ox 94 L 11/15/21 11:07 FiO2 Intake & Output 11/14/21 11/15/21 11/15/21 18:59 06:59 18:59 Intake Total 800 1100 Balance 800 1100 Weight 73.8 kg Intake: IV 400 Sodium Chloride 0.45% 1, 400 000 ml @ 100 mls/hr IV . Q10H AMANDA Rx#:[id number] Intake, IV Titration 400 600 Amount Magnesium Sulfate-D5w Pmx 200 1 gm In Dextrose/Water 1 100ml.bag @ 100 mls/hr IVPB Q1H AMANDA Rx#: [id number] Sodium Chloride 0.9% 1, 200 600 000 ml @ 50 mls/hr IV . Q20H AMANDA Rx#:[id number] Oral 500 Other: Voiding Method Bedside Commode Bedside Commode Toilet # Voids 1 2 1 - Exam Poor historian NAD Diminished Reg irr BLE Mild edema - Labs CBC & Chem 7: 11/15/21 06:25 11/15/21 06:25 Labs: Abnormal Lab Results - Last 24 Hours (Table) 11/15/21 11/15/21 Range/Units 06:25 06:25 WBC 16.86 H (4.50-10.00) X 10*3/uL RBC 3.19 L (4.10-5.20) X 10*6/uL Hgb 8.8 L (12.0-15.0) g/dL Hct 27.9 L (37.2-46.3) % MCHC 31.5 L (32.0-37.0) g/dL BUN/Creatinine Ratio 23.63 H (12.00-20.00) Ratio Microbiology - Last 24 Hours (Table) 11/11/21 12:11 Blood Culture - Preliminary Blood No Growth after 96 hours 11/11/21 12:11 Blood Culture - Preliminary Blood No Growth after 96 hours Assessment and Plan (1) Leukocytosis Narrative/Plan: As per hypocalcemia Current Visit: Yes Status: Acute Code(s): D72.829 - ELEVATED WHITE BLOOD CELL COUNT, UNSPECIFIED SNOMED Code(s): 686973814 (2) Hypocalcemia Narrative/Plan: - More concerning in conjunction with leukocytosis for infectious picture. - Blood cultres x2 - Hypocalcemia work-up pending Current Visit: Yes Status: Acute Code(s): E83.51 - HYPOCALCEMIA SNOMED Code(s): 2585750 (3) Abnormal MRI, lumbar spine Narrative/Plan: - Reviewed with ortho spine, performed last week and more consistent with osseo us malignancy, less likely myeloma picture. Further imaging of thoracic to confirm absent cord involvement. -Status post biopsy and path pending, discussed with ortho Current Visit: Yes Status: Acute Code(s): R93.7 - ABNORMAL FINDINGS ON DIAGNOSTIC IMAGING OF PRT MS SYS SNOMED Code(s): 404207091 (4) BEBETO (acute kidney injury) Narrative/Plan: - Sudden onset renal injury - CT without obvious obstructiove etiology and no hydronephrosis identified. - Nephrology is following - IVF and Bicarb for acisosis per ICU and Nephrology Resolved Current Visit: Yes Status: Acute Code(s): N17.9 - ACUTE KIDNEY FAILURE, UNSPECIFIED SNOMED Code(s): 62587454 (5) Acidosis Narrative/Plan: Uric Acid 11.7 - Status post dose Rasburicase on 11/11/21 This is resolving Nephrology following Current Visit: Yes Status: Acute Code(s): E87.2 - ACIDOSIS SNOMED Code(s): 19680389 (6) Compression fracture of L3 vertebra Narrative/Plan: Status post kyphplasty today L3 and biopsy NGS will be requested Current Visit: Yes Status: Acute Code(s): S32.030A - WEDGE COMPRESSION FRACTURE OF THIRD LUMBAR VERTEBRA, INIT SNOMED Code(s): 656755208 Plan: MRI pending with renal function improved Planning to move to medical floor Path resulted with adenocarcinoma most consistent hepatobiliary versus GI GI evaluation to be performed COnsult for General Surgery Further recs when above are resulted
[2021-11-16] MEDS: HYDROcodone/APAP 7.5-325MG 1 EACH TAB PO PRN ×5 (00:44→22:01)
[2021-11-16] MEDS: HEPARIN SODIUM,PORCINE/PF 5,000 UNIT/0.5 ML SYRINGE SQ SCH ×4 (00:44→23:27)
[2021-11-16 01:21] LABS: Appearance,Urine Clear (Clear); Bacteria,Urine Rare /hpf; Bilirubin,Urine Negative (Negative); Blood,Urine Trace (Negative); Color,Urine Light Yellow; Glucose,Urine (UA) Negative (Negative); Hyaline Casts,Urine 11 /lpf (0-2); Ketones,Urine Negative (Negative); Leukocyte Esterase,Urine Large (Negative); Mucus,Urine Rare /hpf; Nitrite,Urine Negative (Negative); PH, Urine 5.5 (5.0-8.0); Protein,Urine Negative (Negative); RBC,Urine 3 /hpf (0-5); Specific Gravity,Urine 1.012 (1.001-1.035); Squamous Epithelial Cell,Urine 1 /hpf (0-4); Urobilinogen,Urine <2.0 mg/dL (<2.0); WBC,Urine 115 /hpf (0-5)
[2021-11-16] MEDS: SODIUM CHLORIDE 0.9% 1,000 ML IV SCH ×3 (02:28→20:04)
[2021-11-16] MEDS: PANTOPRAZOLE 40 MG TABLET PO SCH (07:58)
[2021-11-16] MEDS: QUEtiapine 25 MG TAB PO SCH ×2 (07:59→20:03)
[2021-11-16] MEDS: MAGNESIUM OXIDE 400 MG TAB PO SCH (07:59)
--- NOTE | 2021-11-16 08:29 | XR ---
EXAMINATION TYPE: XR chest 2V DATE OF EXAM: 11/16/2021 COMPARISON: Chest x-ray and CT November 10, 2021 HISTORY: Fever. TECHNIQUE: Frontal and lateral views of the chest are obtained. FINDINGS: There is no suspicious focal air space opacity or pneumothorax seen. The cardiac silhouet te size remains within normal limits with atherosclerotic change aortic knob. New small bilateral pl eural effusions. The osseous structures are intact. IMPRESSION: New small bilateral pleural effusions. No new focal infiltrate.
[2021-11-16] MEDS ORDERED: PEG 3350 (236 GM/BTL) + LYTES 4,000 ML BOTTLE PO ONE (09:51)
--- NOTE | 2021-11-16 09:53 | P.GSCN ---
History of Present Illness Consult date: 11/16/21 Reason for Consult: Anemia, new diagnosis of cancer History of present illness: 71-year-old female during this hospitalization found to have metastatic bony lesions. Pathology suggesting GI or hepatobiliary primary. Patient had a CT abdomen and pelvis that did not show any definite abnormalities. No prior colonoscopy. Denies rectal bleeding or melena. Patient is anemic as well. Review of Systems The patient denies any acute changes in vision or hearing, no dysphagia or odynophagia, no chest pain or shortness of breath, no dysuria or hematuria, no headache, no runny nose, no rectal bleeding or melena, no unexplained weight loss Past Medical History Past Medical History: No Reported History History of Any Multi-Drug Resistant Organisms: None Reported Past Surgical History: No Surgical Hx Reported Additional Past Surgical History / Comment(s): cataract surgery Past Psychological History: No Psychological Hx Reported Smoking Status: Former smoker Past Alcohol Use History: Occasional Past Drug Use History: None Reported - Past Family History Mother Family Medical History: No Reported History Father Family Medical History: Cancer Additional Family Medical History / Comment(s): skin Brother(s) Family Medical History: No Reported History Medications and Allergies Home Medications Medication Instructions Recorded Confirmed Type HYDROcodone/APAP 10-325MG [[place] 1 tab PO TID PRN 11/10/21 11/10/21 History 10-325] Ibuprofen [Motrin] 800 mg PO TID PRN 11/11/21 11/11/21 History Allergies Allergy/AdvReac Type Severity Reaction Status Date / Time No Known Allergies Allergy Verified 11/10/21 21:17 Surgical - Exam Vital Signs Resp 22 11/10/21 19:25 Physical exam: General: Well-developed, well-nourished HEENT: Normocephalic, sclerae nonicteric Abdomen: Nontender, nondistended Extremities: No edema Neuro: Alert and oriented Results - Labs 11/15/21 06:25 11/15/21 06:25 Abnormal Lab Results - Last 24 Hours (Table) 11/16/21 Range/Units 00:36 Urine Blood Trace H (Negative) Ur Leukocyte Esterase Large H (Negative) Urine WBC 115 H (0-5) /hpf Urine WBC Clumps Occasional H (None) /hpf Urine Bacteria Rare H (None) /hpf Hyaline Casts 11 H (0-2) /lpf Urine Mucus Rare H (None) /hpf Microbiology - Last 24 Hours (Table) 11/15/21 13:00 Urine Culture - Preliminary Urine,Clean Catch 11/11/21 12:11 Blood Culture - Preliminary Blood No Growth after 96 hours 11/11/21 12:11 Blood Culture - Preliminary Blood No Growth after 96 hours Assessment and Plan (1) Metastatic adenocarcinoma Narrative/Plan: 71-year-old female with metastatic malignancy. We'll proceed with upper and lower endoscopy tomorrow. Begin bowel prep today. Current Visit: Yes Status: Acute Code(s): C79.9 - SECONDARY MALIGNANT NEOPLASM OF UNSPECIFIED SITE SNOMED Code(s): 639636862622947
[2021-11-16 09:54] LABS: Basophils # (A) 0.06 X 10*3/uL (0.00-0.10); Basophils % (A) 0.4 %; Eosinophils # (A) 0.19 X 10*3/uL (0.04-0.35); Eosinophils % (A) 1.1 %; HCT 29.2 % (37.2-46.3); HGB 9.1 g/dL (12.0-15.0); Immature Grans, Automated 4.2 %; Lymphocytes # (A) 1.63 X 10*3/uL (0.90-5.00); Lymphocytes % (A) 9.7 %; MCH 27.8 pg (27.0-32.0); MCHC 31.2 g/dL (32.0-37.0); MCV 89.3 fL (80.0-97.0); Mean Platelet Volume 11.2 fL (9.5-12.2); Monocytes # (A) 1.28 X 10*3/uL (0.20-1.00); Monocytes % (A) 7.6 %; NRBC Per 100 WBC 0 /100 WBCS (0.0-0.0); Platelet Count 162 X 10*3/uL (140-440); RBC 3.27 X 10*6/uL (4.10-5.20); RDW 14.4 % (11.5-14.5); WBC 16.77 X 10*3/uL (4.50-10.00)
[2021-11-16 11:13] LABS: C Reactive Protein 9.8 mg/dL (0.00-0.80); Magnesium 1.2 mg/dL (1.5-2.4)
[2021-11-16 11:20] LABS: African American GFR (CKD) 97.6 (60.0-200.0); Albumin 2.2 g/dL (3.8-4.9); Albumin/Globulin Ratio 1.16 (1.60-3.17); Anion Gap 9.8 mmol/L (10.00-18.00); BUN/Creat Ratio 20.16 Ratio (12.00-20.00); Blood Urea Nitrogen 14.7 mg/dL (9.0-27.0); Calcium 8.8 mg/dL (8.7-10.3); Carbon Dioxide 23.6 mmol/L (20.0-27.5); Globulin 1.9 g/dL (1.6-3.3); Non-African American GFR(CKD) 84.2 (60.0-200.0); Potassium 3.7 mmol/L (3.5-5.5); Total Bilirubin 0.2 mg/dL (0.30-1.20); Total Protein 4.1 g/dL (6.2-8.2)
[2021-11-16] MEDS ORDERED: MAGNESIUM SULFATE-D5W PMX 1 GM in DEXTROSE/WATER 1 100ML.BAG IVPB ONE (15:20)
--- NOTE | 2021-11-16 15:36 | P.PN ---
Subjective Progress Note Date: 11/16/21 Amy Ontiveros, is a 71-year-old female who presented to [facility] emergency room with a chief complaint of generalized weakness, shortness of breath and poor oral intake. Patient started having severe back pain 2 weeks ago, outpatient evaluation revealed evidence of compression frac ture at L3, possibility of metastatic disease and pathological fracture was raised, patient was scheduled to have a PET scan and appointment with neurosurgery and oncology, however her clinical condition continued to worsen she started having severe weakness with inability to transfer, she had very poor appetite with very low oral intake and started to have worsening shortness of breath, patient decided to come to emergency room. She was evaluated in the emergency room vital examination on presentation revealed a temperature of 97.2 pulse 84 respiration 22 blood pressure 126/94 pulse ox 100% on room air Laboratory data revealed a white blood count of 19.9 hemoglobin 12.2 platelet count 392 sodium 1:30 potassium 2.9 chloride 99 CO2 less then 5 BUN 166 creatinine 5.36 calcium 6.4 Testing in the emergency room revealed chest x-ray done in the emergency room revealed no active cardiopulmonary disease normal heart, computed tomography scan of the abdomen and pelvis done in the emergency room without contrast revealed large gallbladder that could be related to gallbladder dysfunction or cholecystitis, destructive lesion in the L3 vertebral body suggestive of tumor, moderately severe spinal stenosis at L2-3 and L4-5, large destructive lesion in the posterior left iliac bone, and multiple rib lesions. Computed tomography scan of the head and cervical spine done in the emergency room without contrast, revealed no acute brain abnormality, and a lytic lesion in the T2 vertebral. Patient was admitted to ICU for further evaluation and treatment. Consultation for critical care, oncology, nephrology and neurosurgery were initiated in the emergency room. On 11/12/2021 patient was seen and examined in the ICU she is alert and oriented 3 in no apparent distress there is no fever or chills no headache or dizziness no chest pain no shortness of breath no cough no nausea or vomiting no abdominal pain no diarrhea and no urinary symptoms. She underwent kyphoplasty of L3 with vertebral body biopsy of L3 today by Dr. Patel On 11/13/2021 patient was seen and examined in the ICU she is alert and oriented 3 in no apparent distress she is complaining of back pain otherwise she denies any complaints there is no fever or chills no headache or dizziness no chest pain no shortness of breath no cough no nausea or vomiting no abdominal pain no diarrhea and no urinary symptoms. On 11/14/2021 patient was seen and examined in the ICU, she is alert and oriented 3 in no apparent distress she is complaining of low back pain otherwise she denies any complaints there is no fever or chills no headache or dizziness no chest pain no shortness of breath no cough no nausea or vomiting no abdominal pain no diarrhea no burning with urination no frequency or urgency no hematuria, plan is to transfer to medical floor today, will continue to follow On 11/15/2021 patient was seen and examined on the medical floor she is alert and oriented 3 in no apparent distress she is complaining of back pain otherwise she denies any complaints, there is no fever or chills no headache or dizziness no chest pain no shortness of breath no cough no nausea or vomiting no abdominal pain no diarrhea and no urinary symptoms. At blood count increased up to 16.86 there is evidence of urinary tract infection, urine culture ordered patient is started on IV Rocephin infectious disease consultation requested, temperature is 98.3 pulse 90 respiration 18 blood pressure 121/58 pulse ox 94% on room air blood culture 2 are negative On 11/16/2021 patient was seen and examined in the ICU, she is alert and oriented 3 in no apparent distress she is complaining of low back pain, improving gradually, otherwise she denies any complaints there is no fever or chills no headache or dizziness no chest pain no shortness of breath no cough no nausea or vomiting no abdominal pain no diarrhea no burning with urination no frequency or urgency no hematuria, plan is to transfer to medical floor today, will continue to follow Objective - Vital Signs Vital signs: Vital Signs Temp 98.4 F 11/16/21 11:20 Pulse 91 11/16/21 11:20 Resp 16 11/16/21 11:20 BP 141/65 11/16/21 11:20 Pulse Ox 93 L 11/16/21 11:20 FiO2 Intake & Output 11/15/21 11/16/21 11/16/21 18:59 06:59 18:59 Intake Total 3230 600 Balance 3230 600 Intake: Intake, IV Titration 650 600 Amount Magnesium Sulfate-D5w Pmx 600 1 gm In Dextrose/Water 1 100ml.bag @ 100 mls/hr IVPB Q1H [facility] Rx#: [id number] Sodium Chloride 0.9% 1, 600 000 ml @ 50 mls/hr IV . Q20H [facility] Rx#:[id number] cefTRIAXone 1 gm In 50 Sodium Chloride 0.9% 50 ml @ 100 mls/hr IVPB Q24HR [facility] Rx#:[id number] Oral 2580 Other: Voiding Method Toilet Toilet Toilet # Voids 1 1 - Exam In general patient is alert and oriented x 3 in no distress HEENT head normocephalic and atraumatic Neck is supple no JVD no goiter no lymphadenopathy no carotid bruit Chest examination is clear to auscultation no crackles no wheezing Cardiac exam reveals regular heart sounds S1 and S2 no gallops no murmurs Abdomen is soft nontender no organomegaly with normal bowel sounds Extremity exam reveals no edema no cyanosis or clubbing Neurological examination reveals no gross focal deficits - Labs CBC & Chem 7: 11/16/21 05:47 11/16/21 05:47 Labs: Abnormal Lab Results - Last 24 Hours (Table) 11/16/21 11/16/21 11/16/21 Range/Units 00:36 05:47 05:47 WBC 16.77 H (4.50-10.00) X 10*3/uL RBC 3.27 L (4.10-5.20) X 10*6/uL Hgb 9.1 L (12.0-15.0) g/dL Hct 29.2 L (37.2-46.3) % MCHC 31.2 L (32.0-37.0) g/dL Immature Gran # 0.71 H (0.00-0.04) X 10*3/uL Neutrophils # 12.90 H (1.80-7.70) X 10*3/uL Monocytes # 1.28 H (0.20-1.00) X 10*3/uL Anion Gap (10.00-18.00) mmol/L BUN/Creatinine Ratio (12.00-20.00) Ratio Magnesium (1.5-2.4) mg/dL Total Bilirubin (0.30-1.20) mg/dL C-Reactive Protein (0.00-0.80) mg/dL Total Protein (6.2-8.2) g/dL Albumin (3.8-4.9) g/dL Albumin/Globulin Ratio (1.60-3.17) g/dL Procalcitonin 0.34 H (0.02-0.09) ng/mL Urine Blood Trace H (Negative) Ur Leukocyte Esterase Large H (Negative) Urine WBC 115 H (0-5) /hpf Urine WBC Clumps Occasional H (None) /hpf Urine Bacteria Rare H (None) /hpf Hyaline Casts 11 H (0-2) /lpf Urine Mucus Rare H (None) /hpf 11/16/21 Range/Units 05:47 WBC (4.50-10.00) X 10*3/uL RBC (4.10-5.20) X 10*6/uL Hgb (12.0-15.0) g/dL Hct (37.2-46.3) % MCHC (32.0-37.0) g/dL Immature Gran # (0.00-0.04) X 10*3/uL Neutrophils # (1.80-7.70) X 10*3/uL Monocytes # (0.20-1.00) X 10*3/uL Anion Gap 9.80 L (10.00-18.00) mmol/L BUN/Creatinine Ratio 20.16 H (12.00-20.00) Ratio Magnesium 1.2 L (1.5-2.4) mg/dL Total Bilirubin 0.20 L (0.30-1.20) mg/dL C-Reactive Protein 9.80 H (0.00-0.80) mg/dL Total Protein 4.1 L (6.2-8.2) g/dL Albumin 2.2 L (3.8-4.9) g/dL Albumin/Globulin Ratio 1.16 L (1.60-3.17) g/dL Procalcitonin (0.02-0.09) ng/mL Urine Blood (Negative) Ur Leukocyte Esterase (Negative) Urine WBC (0-5) /hpf Urine WBC Clumps (None) /hpf Urine Bacteria (None) /hpf Hyaline Casts (0-2) /lpf Urine Mucus (None) /hpf Microbiology - Last 24 Hours (Table) 11/11/21 12:11 Blood Culture - Preliminary Blood No Growth after 120 hours 11/11/21 12:11 Blood Culture - Preliminary Blood No Growth after 120 hours 11/15/21 13:00 Urine Culture - Preliminary Urine,Clean Catch Gram Neg Bacilli Assessment and Plan Plan: Acute kidney injury, likely related to dehydration related to poor oral intake, and use of ibuprofen Severe hypovolemia, related to poor oral intake Electrolyte imbalance with hyponatremia and hypokalemia Acute metabolic acidosis Shortness of breath, no evidence of cardiopulmonary disease on chest x-ray Leukocytosis, possibly related to dehydration, will monitor closely, findings related to gallbladder on computed tomography scan without clinical evidence of acute cholecystitis there is no abdominal tenderness, blood culture were ordered Will monitor closely. Severe back pain with evidence of L3 vertebral fracture Multiple vertebral, iliac bone, and ribs lytic lesions, possibly related to multiple myeloma At this time patient is admitted to intensive care units IV fluid and electrolytes correction initiated in the emergency room Consultation for critical care, oncology, nephrology and neurosurgery initiated in the emergency room For DVT prophylaxis patient started on subcu heparin, for GI prophylaxis patient started on Protonix Will follow closely, prognosis is guarded.
--- NOTE | 2021-11-16 23:24 | P.CONS ---
History of Present Illness - Reason for Consult Consult date: 11/16/21 - History of Present Illness Patient is a 71-year female presented to the hospital 11/10/2021 for evaluation of increasing weakness and shortness of breath patient also complaining of worsening low back pain getting worse for 2 weeks and this patient apparently did have a compression fracture at L3 that was likely due to metastatic disease patient has been evaluated by oncology and orthopedic surgery and the patient did have a biopsy obtained on 11/12/2021 that was positive for metastatic adenocarcinoma patient has been afebrile throughout her hospital stay, patient did have white count of 19.9 initially on admission and subsequent normalized however white count has been trending up over the last 3 days and t hat has prompted this infectious disease consultation, patient mention feeling slightly better patient denies having any URI symptoms no chest pain or shortness of breath or cough no abdominal pain no diarrhea patient mentioned her lower back pain seem to improve however now complaining of pain in the lower extremity but no bowel or bladder problem patient did have a UA and there was positive with large ascites that is 115 WBC cultures are showing gram-negative patient has been started on Rocephin infectious he was consulted for further management of antibiotic given mild elevated white count patient did have a chest x-ray new small bilateral effusion no focal infiltrate, general surgery has been consulted for upper and lower GI Past Medical History Past Medical History: No Reported History History of Any Multi-Drug Resistant Organisms: None Reported Past Surgical History: No Surgical Hx Reported Additional Past Surgical History / Comment(s): cataract surgery Past Psychological History: No Psychological Hx Reported Smoking Status: Former smoker Past Alcohol Use History: Occasional Past Drug Use History: None Reported - Past Family History Mother Family Medical History: No Reported History Father Family Medical History: Cancer Additional Family Medical History / Comment(s): skin Brother(s) Family Medical History: No Reported History Medications and Allergies Home Medications Medication Instructions Recorded Confirmed Type HYDROcodone/APAP 10-325MG [[place] 1 tab PO TID PRN 11/10/21 11/10/21 History 10-325] Ibuprofen [Motrin] 800 mg PO TID PRN 11/11/21 11/11/21 History Allergies Allergy/AdvReac Type Severity Reaction Status Date / Time No Known Allergies Allergy Verified 11/10/21 21:17 Physical Exam Vitals: Vital Signs Temp Pulse Resp BP BP Pulse Ox 11/16/21 11:20 98.4 F 91 16 141/65 93 L 11/16/21 05:00 98.5 F 69 16 154/69 93 L 11/15/21 19:19 98.9 F 91 16 149/72 93 L Intake and Output 11/16/21 11/16/21 11/16/21 06:59 14:59 22:59 Intake Total 600 Balance 600 Intake: Intake, IV Titration 600 Amount Magnesium Sulfate-D5w Pmx 600 1 gm In Dextrose/Water 1 100ml.bag @ 100 mls/hr IVPB Q1H [facility] Rx#: [id number] Other: Voiding Method Toilet # Voids 1 1 # Bowel Movements 1 Results CBC & Chem 7: 11/16/21 05:47 11/16/21 05:47 Labs: Abnormal Lab Results - Last 24 Hours (Table) 11/16/21 11/16/21 11/16/21 Range/Units 00:36 05:47 05:47 WBC 16.77 H (4.50-10.00) X 10*3/uL RBC 3.27 L (4.10-5.20) X 10*6/uL Hgb 9.1 L (12.0-15.0) g/dL Hct 29.2 L (37.2-46.3) % MCHC 31.2 L (32.0-37.0) g/dL Immature Gran # 0.71 H (0.00-0.04) X 10*3/uL Neutrophils # 12.90 H (1.80-7.70) X 10*3/uL Monocytes # 1.28 H (0.20-1.00) X 10*3/uL Anion Gap (10.00-18.00) mmol/L BUN/Creatinine Ratio (12.00-20.00) Ratio Magnesium (1.5-2.4) mg/dL Total Bilirubin (0.30-1.20) mg/dL C-Reactive Protein (0.00-0.80) mg/dL Total Protein (6.2-8.2) g/dL Albumin (3.8-4.9) g/dL Albumin/Globulin Ratio (1.60-3.17) g/dL Procalcitonin 0.34 H (0.02-0.09) ng/mL Urine Blood Trace H (Negative) Ur Leukocyte Esterase Large H (Negative) Urine WBC 115 H (0-5) /hpf Urine WBC Clumps Occasional H (None) /hpf Urine Bacteria Rare H (None) /hpf Hyaline Casts 11 H (0-2) /lpf Urine Mucus Rare H (None) /hpf 11/16/21 Range/Units 05:47 WBC (4.50-10.00) X 10*3/uL RBC (4.10-5.20) X 10*6/uL Hgb (12.0-15.0) g/dL Hct (37.2-46.3) % MCHC (32.0-37.0) g/dL Immature Gran # (0.00-0.04) X 10*3/uL Neutrophils # (1.80-7.70) X 10*3/uL Monocytes # (0.20-1.00) X 10*3/uL Anion Gap 9.80 L (10.00-18.00) mmol/L BUN/Creatinine Ratio 20.16 H (12.00-20.00) Ratio Magnesium 1.2 L (1.5-2.4) mg/dL Total Bilirubin 0.20 L (0.30-1.20) mg/dL C-Reactive Protein 9.80 H (0.00-0.80) mg/dL Total Protein 4.1 L (6.2-8.2) g/dL Albumin 2.2 L (3.8-4.9) g/dL Albumin/Globulin Ratio 1.16 L (1.60-3.17) g/dL Procalcitonin (0.02-0.09) ng/mL Urine Blood (Negative) Ur Leukocyte Esterase (Negative) Urine WBC (0-5) /hpf Urine WBC Clumps (None) /hpf Urine Bacteria (None) /hpf Hyaline Casts (0-2) /lpf Urine Mucus (None) /hpf Microbiology - Last 24 Hours (Table) 11/11/21 12:11 Blood Culture - Preliminary Blood No Growth after 120 hours 11/11/21 12:11 Blood Culture - Preliminary Blood No Growth after 120 hours 11/15/21 13:00 Urine Culture - Preliminary Urine,Clean Catch Gram Neg Bacilli Assessment and Plan Plan: 1patient with a leukocytosis in this patient presented to hospital with a low back pain and has been diagnosed with a metastatic adenocarcinoma patient did not have any fever during this admission did have a positive UA concerning for possible symptomatic UTI versus reactive to her underlying malignancy. 2patient to continue with the Rocephin while waiting for the culture to finalize. 3we will check inflammatory markers. We will follow on clinical condition and cultures to further adjust medication if needed Thank you for this consultation will follow this patient along with you Time with Patient: Greater than 30
[2021-11-17] MEDS: HYDROcodone/APAP 7.5-325MG 1 EACH TAB PO PRN ×5 (02:58→21:17)
[2021-11-17] MEDS: QUEtiapine 25 MG TAB PO SCH ×2 (08:59→19:42)
[2021-11-17] MEDS: PANTOPRAZOLE 40 MG TABLET PO SCH (08:59)
[2021-11-17] MEDS: MAGNESIUM OXIDE 400 MG TAB PO SCH (08:59)
[2021-11-17] MEDS: HEPARIN SODIUM,PORCINE/PF 5,000 UNIT/0.5 ML SYRINGE SQ SCH ×3 (09:01→23:47)
[2021-11-17 10:39] LABS: Basophils # (A) 0.08 X 10*3/uL (0.00-0.10); Basophils % (A) 0.5 %; Eosinophils # (A) 0.19 X 10*3/uL (0.04-0.35); Eosinophils % (A) 1.3 %; HCT 27.3 % (37.2-46.3); HGB 8.5 g/dL (12.0-15.0); Lymphocytes # (A) 1.39 X 10*3/uL (0.90-5.00); Lymphocytes % (A) 9.2 %; MCH 28.1 pg (27.0-32.0); MCHC 31.1 g/dL (32.0-37.0); MCV 90.1 fL (80.0-97.0); Mean Platelet Volume 11.6 fL (9.5-12.2); Monocytes # (A) 1.09 X 10*3/uL (0.20-1.00); Monocytes % (A) 7.2 %; NRBC Per 100 WBC 0 /100 WBCS (0.0-0.0); Neutrophils % (A) 77.8 %; Platelet Count 156 X 10*3/uL (140-440); RBC 3.03 X 10*6/uL (4.10-5.20); RDW 14.1 % (11.5-14.5); WBC 15.16 X 10*3/uL (4.50-10.00)
[2021-11-17 10:53] LABS: ALT 20 U/L (8-44); AST 39 U/L (13-35); African American GFR (CKD) 104.6 (60.0-200.0); Albumin 2.1 g/dL (3.8-4.9); Albumin/Globulin Ratio 1.14 (1.60-3.17); Alkaline Phosphatase 131 U/L (41-126); BUN/Creat Ratio 14.35 Ratio (12.00-20.00); Blood Urea Nitrogen 9.4 mg/dL (9.0-27.0); Calcium 8.7 mg/dL (8.7-10.3); Carbon Dioxide 26.6 mmol/L (20.0-27.5); Chloride 106 mmol/L (96-109); Globulin 1.9 g/dL (1.6-3.3); Glucose 73 mg/dL (70-110); Non-African American GFR(CKD) 90.2 (60.0-200.0); Potassium 3.9 mmol/L (3.5-5.5); Sodium 142 mmol/L (135-145); Total Bilirubin <0.15 mg/dL (0.30-1.20)
--- NOTE | 2021-11-17 12:55 | P.PN ---
Subjective Progress Note Date: 11/17/21 Principal diagnosis: abnormal bone lesions Plan for GI evaluation I have also sent patho for NGS and PDL1 through office Objective - Vital Signs Vital signs: Vital Signs Temp 98.6 F 11/17/21 11:37 Pulse 89 11/17/21 11:37 Resp 16 11/17/21 11:37 BP 142/57 11/17/21 11:37 Pulse Ox 93 L 11/17/21 11:37 FiO2 Intake & Output 11/16/21 11/17/21 11/17/21 18:59 06:59 18:59 Intake Total 750 Balance 750 Intake: Intake, IV Titration 650 Amount Magnesium Sulfate-D5w Pmx 100 1 gm In Dextrose/Water 1 100ml.bag @ 100 mls/hr IVPB [facility] Rx#: [id number] Sodium Chloride 0.9% 1, 500 000 ml @ 50 mls/hr IV . Q20H [facility] Rx#:[id number] cefTRIAXone 1 gm In 50 Sodium Chloride 0.9% 50 ml @ 100 mls/hr IVPB Q24HR [facility] Rx#:[id number] Oral 100 Other: Voiding Method Toilet Toilet # Voids 0 1 1 # Bowel Movements 1 4 - Exam Poor historian NAD Diminished Reg irr BLE Mild edema - Labs CBC & Chem 7: 11/17/21 05:55 11/17/21 05:55 Labs: Abnormal Lab Results - Last 24 Hours (Table) 11/15/21 11/17/21 11/17/21 Range/Units 06:25 05:55 05:55 WBC 15.16 H (4.50-10.00) X 10*3/uL RBC 3.03 L (4.10-5.20) X 10*6/uL Hgb 8.5 L (12.0-15.0) g/dL Hct 27.3 L (37.2-46.3) % MCHC 31.1 L (32.0-37.0) g/dL Immature Gran # 0.61 H (0.00-0.04) X 10*3/uL Neutrophils # 11.80 H (1.80-7.70) X 10*3/uL Monocytes # 1.09 H (0.20-1.00) X 10*3/uL Anion Gap 9.70 L (10.00-18.00) mmol/L Total Bilirubin <0.15 L (0.30-1.20) mg/dL AST 39 H (13-35) U/L Alkaline Phosphatase 131 H (41-126) U/L C-Reactive Protein 8.50 H (0.00-0.80) mg/dL Total Protein 4.0 L (6.2-8.2) g/dL Albumin 2.1 L (3.8-4.9) g/dL Albumin/Globulin Ratio 1.14 L (1.60-3.17) g/dL Carcinoembryonic Ag 523.0 H (0.0-4.9) ng/mL CA 19-9 Antigen 366.0 H (0.0-34.9) U/mL Procalcitonin (0.02-0.09) ng/mL 11/17/21 Range/Units 05:55 WBC (4.50-10.00) X 10*3/uL RBC (4.10-5.20) X 10*6/uL Hgb (12.0-15.0) g/dL Hct (37.2-46.3) % MCHC (32.0-37.0) g/dL Immature Gran # (0.00-0.04) X 10*3/uL Neutrophils # (1.80-7.70) X 10*3/uL Monocytes # (0.20-1.00) X 10*3/uL Anion Gap (10.00-18.00) mmol/L Total Bilirubin (0.30-1.20) mg/dL AST (13-35) U/L Alkaline Phosphatase (41-126) U/L C-Reactive Protein (0.00-0.80) mg/dL Total Protein (6.2-8.2) g/dL Albumin (3.8-4.9) g/dL Albumin/Globulin Ratio (1.60-3.17) g/dL Carcinoembryonic Ag (0.0-4.9) ng/mL CA 19-9 Antigen (0.0-34.9) U/mL Procalcitonin 0.24 H (0.02-0.09) ng/mL Microbiology - Last 24 Hours (Table) 11/15/21 13:00 Urine Culture - Final Urine,Clean Catch Escherichia coli 11/11/21 12:11 Blood Culture - Preliminary Blood No Growth after 120 hours 11/11/21 12:11 Blood Culture - Preliminary Blood No Growth after 120 hours Assessment and Plan (1) Leukocytosis Narrative/Plan: As per hypocalcemia Current Visit: Yes Status: Acute Code(s): D72.829 - ELEVATED WHITE BLOOD CELL COUNT, UNSPECIFIED SNOMED Code(s): 546245249 (2) Hypocalcemia Narrative/Plan: - More concerning in conjunction with leukocytosis for infectious picture. - Blood cultres x2 - Hypocalcemia work-up pending Current Visit: Yes Status: Acute Code(s): E83.51 - HYPOCALCEMIA SNOMED Code(s): 5396368 (3) Abnormal MRI, lumbar spine Narrative/Plan: - Reviewed with ortho spine, performed last week and more consistent with osseous malignancy, less likely myeloma picture. Further imaging of thoracic to confirm absent cord involvement. -Status post biopsy and path pending, discussed with ortho Current Visit: Yes Status: Acute Code(s): R93.7 - ABNORMAL FINDINGS ON DIAGNOSTIC IMAGING OF PRT MS SYS SNOMED Code(s): 487456564 (4) BEBETO (acute kidney injury) Narrative/Plan: - Sudden onset renal injury - CT without obvious obstructiove etiology and no hydronephrosis identified. - Nephrology is following - IVF and Bicarb for acisosis per ICU and Nephrology Resolved Current Visit: Yes Status: Acute Code(s): N17.9 - ACUTE KIDNEY FAILURE, UNSPECIFIED SNOMED Code(s): 94693403 (5) Acidosis Narrative/Plan: Uric Acid 11.7 - Status post dose Rasburicase on 11/11/21 This is resolving Nephrology following Current Visit: Yes Status: Acute Code(s): E87.2 - ACIDOSIS SNOMED Code(s): 56524232 (6) Compression fracture of L3 vertebra Narrative/Plan: Status post kyphplasty today L3 and biopsy NGS will be requested Current Visit: Yes Status: Acute Code(s): S32.030A - WEDGE COMPRESSION FRACTURE OF THIRD LUMBAR VERTEBRA, INIT SNOMED Code(s): 812031537 Plan: MRI dano Brain without obvious metastatic disease Adenocarcinoma possiblt Pancreat or GI Ed Hector has seen patient and plan on GI eval
[2021-11-17] MEDS ORDERED: PROPOFOL 10 MG/ML 20 ML VIAL IV ONE (14:11)
[2021-11-17] MEDS ORDERED: LIDOCAINE 2% INJ 20 MG/ML (2 ML VIAL) ONE (14:11)
[2021-11-17] MEDS ORDERED: KETAMINE 10 MG/ML 20 ML VIAL ONE (14:11)
[2021-11-17] MEDS ORDERED: SODIUM CHLORIDE 0.9% 100 ML IV ONE (14:14)
--- NOTE | 2021-11-17 14:24 | P.OP ---
Date of Procedure: 11/17/21 Preoperative Diagnosis: Anemia Postoperative Diagnosis: Antral gastritis Procedure(s) Performed: EGD Anesthesia: MAC Surgeon: Alejandro Shah Pathology: other (Antrum) Condition: stable Disposition: PACU Description of Procedure: The patient's placed on the endoscopy table in the lateral position. She received IV sedation. The gastro-/oropharynx passed in the esophagus and the stomach. Scope some placed through the pylorus. The first second portion of the duodenum appeared normal. Scope was then brought back the antrum this. Mildly inflamed. A biopsies performed. Scope was then retroflexed and the remainder the stomach appeared normal. There is no significant hiatal hernia. The GE junction was at 40 cm. The distal esophagus appeared normal. The proximal esophagus. Normal. Scope withdrawn for patient. There is no incision any GI bleed. His presumed patient may have had some bleeding from gastritis.
[2021-11-17] MEDS ORDERED: ALPRAZolam 0.5 MG TAB PO PRN (16:43)
--- NOTE | 2021-11-17 16:47 | P.PN ---
Subjective Progress Note Date: 11/17/21 Amy Ontiveros, is a 71-year-old female who presented to [facility] emergency room with a chief complaint of generalized weakness, shortness of breath and poor oral intake. Patient started having severe back pain 2 weeks ago, outpatient evaluation revealed evidence of compression frac ture at L3, possibility of metastatic disease and pathological fracture was raised, patient was scheduled to have a PET scan and appointment with neurosurgery and oncology, however her clinical condition continued to worsen she started having severe weakness with inability to transfer, she had very poor appetite with very low oral intake and started to have worsening shortness of breath, patient decided to come to emergency room. She was evaluated in the emergency room vital examination on presentation revealed a temperature of 97.2 pulse 84 respiration 22 blood pressure 126/94 pulse ox 100% on room air Laboratory data revealed a white blood count of 19.9 hemoglobin 12.2 platelet count 392 sodium 1:30 potassium 2.9 chloride 99 CO2 less then 5 BUN 166 creatinine 5.36 calcium 6.4 Testing in the emergency room revealed chest x-ray done in the emergency room revealed no active cardiopulmonary disease normal heart, computed tomography scan of the abdomen and pelvis done in the emergency room without contrast revealed large gallbladder that could be related to gallbladder dysfunction or cholecystitis, destructive lesion in the L3 vertebral body suggestive of tumor, moderately severe spinal stenosis at L2-3 and L4-5, large destructive lesion in the posterior left iliac bone, and multiple rib lesions. Computed tomography scan of the head and cervical spine done in the emergency room without contrast, revealed no acute brain abnormality, and a lytic lesion in the T2 vertebral. Patient was admitted to ICU for further evaluation and treatment. Consultation for critical care, oncology, nephrology and neurosurgery were initiated in the emergency room. On 11/12/2021 patient was seen and examined in the ICU she is alert and oriented 3 in no apparent distress there is no fever or chills no headache or dizziness no chest pain no shortness of breath no cough no nausea or vomiting no abdominal pain no diarrhea and no urinary symptoms. She underwent kyphoplasty of L3 with vertebral body biopsy of L3 today by Dr. Patel On 11/13/2021 patient was seen and examined in the ICU she is alert and oriented 3 in no apparent distress she is complaining of back pain otherwise she denies any complaints there is no fever or chills no headache or dizziness no chest pain no shortness of breath no cough no nausea or vomiting no abdominal pain no diarrhea and no urinary symptoms. On 11/14/2021 patient was seen and examined in the ICU, she is alert and oriented 3 in no apparent distress she is complaining of low back pain otherwise she denies any complaints there is no fever or chills no headache or dizziness no chest pain no shortness of breath no cough no nausea or vomiting no abdominal pain no diarrhea no burning with urination no frequency or urgency no hematuria, plan is to transfer to medical floor today, will continue to follow On 11/15/2021 patient was seen and examined on the medical floor she is alert and oriented 3 in no apparent distress she is complaining of back pain otherwise she denies any complaints, there is no fever or chills no headache or dizziness no chest pain no shortness of breath no cough no nausea or vomiting no abdominal pain no diarrhea and no urinary symptoms. At blood count increased up to 16.86 there is evidence of urinary tract infection, urine culture ordered patient is started on IV Rocephin infectious disease consultation requested, temperature is 98.3 pulse 90 respiration 18 blood pressure 121/58 pulse ox 94% on room air blood culture 2 are negative On 11/16/2021 patient was seen and examined in the ICU, she is alert and oriented 3 in no apparent distress she is complaining of low back pain, improving gradually, otherwise she denies any complaints there is no fever or chills no headache or dizziness no chest pain no shortness of breath no cough no nausea or vomiting no abdominal pain no diarrhea no burning with urination no frequency or urgency no hematuria, plan is to transfer to medical floor today, will continue to follow On 11/17/2021 patient was seen and examined on the medical floor she is alert and oriented 3 in no distress she is complaining of anxiety she wants to be discharged home however, she is undergoing evaluation for cancer, she is still having significant leukocytosis, and is maintained on IV antibiotics, she was counseled that it is not hobbs to be discharged home at this time. Xanax 0.5 mg 4 times daily when necessary was added to her regimen in regards to anxiety, patient underwent EGD today, we are awaiting further evaluation by oncology and infectious disease. Otherwise patient denies any symptoms there is no fever or chills no headache or dizziness no chest pain no shortness of breath no cough no nausea or vomiting no abdominal pain no diarrhea and no urinary symptoms. She has evidence of urinary tract infection, she is maintained on IV Rocephin, urine culture from 11/15/2021 was positive for E. coli, white blood count is slightly down today to 15,000 Objective - Vital Signs Vital signs: Vital Signs Temp 98.2 F 11/17/21 05:00 Pulse 87 11/17/21 05:00 Resp 18 11/17/21 05:00 BP 148/72 11/17/21 05:00 Pulse Ox 92 L 11/17/21 05:00 FiO2 Intake & Output 11/16/21 11/17/21 11/17/21 18:59 06:59 18:59 Intake Total 750 Balance 750 Intake: Intake, IV Titration 650 Amount Magnesium Sulfate-D5w Pmx 100 1 gm In Dextrose/Water 1 100ml.bag @ 100 mls/hr IVPB ONCE ONE Rx#: [id number] Sodium Chloride 0.9% 1, 500 000 ml @ 50 mls/hr IV . Q20H [facility] Rx#:[id number] cefTRIAXone 1 gm In 50 Sodium Chloride 0.9% 50 ml @ 100 mls/hr IVPB Q24HR [facility] Rx#:[id number] Oral 100 Other: Voiding Method Toilet Toilet # Voids 0 1 # Bowel Movements 1 4 - Exam In general patient is alert and oriented x 3 in no distress HEENT head normocephalic and atraumatic Neck is supple no JVD no goiter no lymphadenopathy no carotid bruit Chest examination is clear to auscultation no crackles no wheezing Cardiac exam reveals regular heart sounds S1 and S2 no gallops no murmurs Abdomen is soft nontender no organomegaly with normal bowel sounds Extremity exam reveals no edema no cyanosis or clubbing Neurological examination reveals no gross focal deficits - Labs CBC & Chem 7: 11/17/21 05:55 11/17/21 05:55 Labs: Abnormal Lab Results - Last 24 Hours (Table) 11/15/21 11/16/21 11/16/21 Range/Units 06:25 05:47 05:47 Anion Gap 9.80 L (10.00-18.00) mmol/L BUN/Creatinine Ratio 20.16 H (12.00-20.00) Ratio Magnesium 1.2 L (1.5-2.4) mg/dL Total Bilirubin 0.20 L (0.30-1.20) mg/dL C-Reactive Protein 9.80 H (0.00-0.80) mg/dL Total Protein 4.1 L (6.2-8.2) g/dL Albumin 2.2 L (3.8-4.9) g/dL Albumin/Globulin Ratio 1.16 L (1.60-3.17) g/dL Carcinoembryonic Ag 523.0 H (0.0-4.9) ng/mL CA 19-9 Antigen 366.0 H (0.0-34.9) U/mL Procalcitonin 0.34 H (0.02-0.09) ng/mL Microbiology - Last 24 Hours (Table) 11/15/21 13:00 Urine Culture - Final Urine,Clean Catch Escherichia coli 11/11/21 12:11 Blood Culture - Preliminary Blood No Growth after 120 hours 11/11/21 12:11 Blood Culture - Preliminary Blood No Growth after 120 hours Assessment and Plan Plan: Acute kidney injury, likely related to dehydration related to poor oral intake, and use of ibuprofen Severe hypovolemia, related to poor oral intake Electrolyte imbalance with hyponatremia and hypokalemia Acute metabolic acidosis Shortness of breath, no evidence of cardiopulmonary disease on chest x-ray Leukocytosis, possibly related to dehydration, will monitor closely, findings related to gallbladder on computed tomography scan without clinical evidence of acute cholecystitis there is no abdominal tenderness, blood culture were ordered Will monitor closely. Severe back pain with evidence of L3 vertebral fracture Multiple vertebral, iliac bone, and ribs lytic lesions, possibly related to multiple myeloma At this time patient is admitted to intensive care units IV fluid and electrolytes correction initiated in the emergency room Consultation for critical care, oncology, nephrology and neurosurgery initiated in the emergency room For DVT prophylaxis patient started on subcu heparin, for GI prophylaxis patient started on Protonix Will follow closely, prognosis is guarded.
[2021-11-17] MEDS ORDERED: Magnesium Replacement Protocol 1 EACH MISC MISCELLANE PRN (17:07)
[2021-11-17] MEDS: SODIUM CHLORIDE 0.9% 1,000 ML IV SCH (17:50)
[2021-11-17] MEDS: MAGNESIUM SULFATE-D5W PMX 1 GM in DEXTROSE/WATER 1 100ML.BAG IVPB SCH ×3 (17:51→21:00)
[2021-11-18] MEDS: HYDROcodone/APAP 7.5-325MG 1 EACH TAB PO PRN ×4 (03:14→15:06)
[2021-11-18] MEDS: QUEtiapine 25 MG TAB PO SCH (07:18)
[2021-11-18] MEDS: PANTOPRAZOLE 40 MG TABLET PO SCH (07:18)
[2021-11-18] MEDS: HEPARIN SODIUM,PORCINE/PF 5,000 UNIT/0.5 ML SYRINGE SQ SCH ×2 (07:19→16:15)
[2021-11-18] MEDS: MAGNESIUM OXIDE 400 MG TAB PO SCH (07:19)
--- NOTE | 2021-11-18 07:22 | P.PN ---
Subjective Progress Note Date: 11/17/21 Principal diagnosis: Leukocytosis Patient is a 71 year old female presented to the hospital worsening low back pain with evidence of compression fracture status post biopsy of the L3 vertebra positive for metastatic adenocarcinoma. On today's evaluation that is 11/17/2021, patient denies having any fever or chills, the patient is breathing comfortably no chest pain shortness of breath or cough no abdominal pain or any worsening pain to the Lower back Objective - Vital Signs Vital signs: Vital Signs Temp 98.6 F 11/17/21 11:37 Pulse 89 11/17/21 11:37 Resp 16 11/17/21 11:37 BP 142/57 11/17/21 11:37 Pulse Ox 93 L 11/17/21 11:37 FiO2 Intake & Output 11/16/21 11/17/21 11/17/21 18:59 06:59 18:59 Intake Total 750 Balance 750 Intake: Intake, IV Titration 650 Amount Magnesium Sulfate-D5w Pmx 100 1 gm In Dextrose/Water 1 100ml.bag @ 100 mls/hr IVPB ONCE ONE Rx#: [id number] Sodium Chloride 0.9% 1, 500 000 ml @ 50 mls/hr IV . Q20H [facility] Rx#:[id number] cefTRIAXone 1 gm In 50 Sodium Chloride 0.9% 50 ml @ 100 mls/hr IVPB Q24HR [facility] Rx#:[id number] Oral 100 Other: Voiding Method Toilet Toilet # Voids 0 1 1 # Bowel Movements 1 4 - Exam GENERAL DESCRIPTION: An elderly female lying in bed in no distress RESPIRATORY SYSTEM: Unlabored breathing , decreased breath sounds at bases HEART: S1 S2 regular rate and rhythm , ABDOMEN: Soft , no tenderness EXTREMITIES: No edema feet - Labs CBC & Chem 7: 11/17/21 05:55 11/17/21 05:55 Labs: Abnormal Lab Results - Last 24 Hours (Table) 11/15/21 11/17/21 11/17/21 Range/Units 06:25 05:55 05:55 WBC 15.16 H (4.50-10.00) X 10*3/uL RBC 3.03 L (4.10-5.20) X 10*6/uL Hgb 8.5 L (12.0-15.0) g/dL Hct 27.3 L (37.2-46.3) % MCHC 31.1 L (32.0-37.0) g/dL Immature Gran # 0.61 H (0.00-0.04) X 10*3/uL Neutrophils # 11.80 H (1.80-7.70) X 10*3/uL Monocytes # 1.09 H (0.20-1.00) X 10*3/uL Anion Gap 9.70 L (10.00-18.00) mmol/L Total Bilirubin <0.15 L (0.30-1.20) mg/dL AST 39 H (13-35) U/L Alkaline Phosphatase 131 H (41-126) U/L C-Reactive Protein 8.50 H (0.00-0.80) mg/dL Total Protein 4.0 L (6.2-8.2) g/dL Albumin 2.1 L (3.8-4.9) g/dL Albumin/Globulin Ratio 1.14 L (1.60-3.17) g/dL Carcinoembryonic Ag 523.0 H (0.0-4.9) ng/mL CA 19-9 Antigen 366.0 H (0.0-34.9) U/mL Procalcitonin (0.02-0.09) ng/mL 11/17/21 Range/Units 05:55 WBC (4.50-10.00) X 10*3/uL RBC (4.10-5.20) X 10*6/uL Hgb (12.0-15.0) g/dL Hct (37.2-46.3) % MCHC (32.0-37.0) g/dL Immature Gran # (0.00-0.04) X 10*3/uL Neutrophils # (1.80-7.70) X 10*3/uL Monocytes # (0.20-1.00) X 10*3/uL Anion Gap (10.00-18.00) mmol/L Total Bilirubin (0.30-1.20) mg/dL AST (13-35) U/L Alkaline Phosphatase (41-126) U/L C-Reactive Protein (0.00-0.80) mg/dL Total Protein (6.2-8.2) g/dL Albumin (3.8-4.9) g/dL Albumin/Globulin Ratio (1.60-3.17) g/dL Carcinoembryonic Ag (0.0-4.9) ng/mL CA 19-9 Antigen (0.0-34.9) U/mL Procalcitonin 0.24 H (0.02-0.09) ng/mL Microbiology - Last 24 Hours (Table) 11/15/21 13:00 Urine Culture - Final Urine,Clean Catch Escherichia coli 11/11/21 12:11 Blood Culture - Preliminary Blood No Growth after 120 hours 11/11/21 12:11 Blood Culture - Preliminary Blood No Growth after 120 hours Assessment and Plan (1) Leukocytosis Current Visit: Yes Status: Acute Code(s): D72.829 - ELEVATED WHITE BLOOD CELL COUNT, UNSPECIFIED SNOMED Code(s): 427099689 Plan: 1patient with a leukocytosis in this patient presented to hospital with a low back pain and has been diagnosed with a metastatic adenocarcinoma patient did not have any fever during this admission did have a positive UA concerning for possible symptomatic UTI versus reactive to her underlying malignancy. 2patient to continue with the Rocephin while waiting for the culture to finalize. 3 CRP and pro-calcitonin mildly elevated and trending down Time with Patient: Less than 30
[2021-11-18 10:41] LABS: Basophils # (A) 0.06 X 10*3/uL (0.00-0.10); Basophils % (A) 0.4 %; Eosinophils # (A) 0.16 X 10*3/uL (0.04-0.35); Eosinophils % (A) 1.1 %; HCT 28.1 % (37.2-46.3); HGB 8.7 g/dL (12.0-15.0); Lymphocytes # (A) 1.21 X 10*3/uL (0.90-5.00); Lymphocytes % (A) 8.5 %; MCH 28.1 pg (27.0-32.0); MCV 90.6 fL (80.0-97.0); Monocytes # (A) 0.94 X 10*3/uL (0.20-1.00); Monocytes % (A) 6.6 %; NRBC Per 100 WBC 0 /100 WBCS (0.0-0.0); Neutrophils # (A) 11.63 X 10*3/uL (1.80-7.70); Neutrophils % (A) 81.4 %; Platelet Count 158 X 10*3/uL (140-440); WBC 14.28 X 10*3/uL (4.50-10.00)
[2021-11-18 11:02] LABS: African American GFR (CKD) 105.3 (60.0-200.0); Albumin 2.2 g/dL (3.8-4.9); Albumin/Globulin Ratio 1.22 (1.60-3.17); Anion Gap 9.8 mmol/L (10.00-18.00); BUN/Creat Ratio 10.74 Ratio (12.00-20.00); Blood Urea Nitrogen 6.9 mg/dL (9.0-27.0); Calcium 8.8 mg/dL (8.7-10.3); Carbon Dioxide 26.1 mmol/L (20.0-27.5); Globulin 1.8 g/dL (1.6-3.3); Magnesium 1.9 mg/dL (1.5-2.4); Non-African American GFR(CKD) 90.8 (60.0-200.0); Potassium 3.9 mmol/L (3.5-5.5); Total Bilirubin 0.2 mg/dL (0.30-1.20); Total Protein 4.1 g/dL (6.2-8.2)
[2021-11-18 12:26] VITALS: BP 152/74; PULSE 85; RESP 17; TEMP 98.1
--- NOTE | 2021-11-18 12:26 | P.CONS ---
History of Present Illness - Reason for Consult Consult date: 11/18/21 lower back pain, bone mets Requesting physician: Marizol Mcneill - Chief Complaint low back/hip pain - History of Present Illness The patient is a 71-year-old female with a history of recently diagnosed adenocarcinoma of unknown primary, presenting with low back pain secondary to metastatic disease involving the bone. The patient reports that over the past few weeks she had developed increasing low back pain. She was undergoing an outpatient workup, and had been seen by Dr. Patel. Ultimately the patient became increasingly weak and presented to the ER on November 10. She was found at the time to have a markedly elevated creatinine above 5, and was found to be in acute kidney injury secondary to dehydration. She had a CT scan of the chest, abdomen and pelvis secondary to this lower back pain. This did reveal tumor involving the L3 vertebral body, a destructive left iliac mass, as well as a couple of lytic rib lesions. Note was also made of an enlarged gallbladder. CT scan of the brain and C-spine were largely unremarkable except for a lesion involving the T2 vertebral body. The patient had a bone scan on November 11, which revealed intense uptake at the L3 level, as well as disease involving the sternum, bilateral ribs and left ilium. The patient was taken to the OR on November [address] Patel for kyphoplasty plus biopsy of L3. Pathology was consistent with upper GI cancer versus lung primary. The patient also underwent an MRI of the brain on November 14, which although was unremarkable was a suboptimal examination. At this time, the patient reports that her lower back pain seems slightly improved following her kyphoplasty. She reports pain in the bilateral hips, which is exacerbated by activity or movement. She is unable to lie on her side to sleep. The pain can be up to 10 out of 10 at times, but is better controlled now that she is in the hospital. She is able to ambulate with a walker, but does note pain shortly after this activity. Of note, the patient underwent an upper GI exam yesterday, which was unremarkable. She was plan for colonoscopy but unable to tolerate that the same day. Review of Systems Constitutional: Denies chills, Denies fever Eyes: denies blurred vision Ears, nose, mouth and throat: Denies headache Cardiovascular: Denies chest pain Respiratory: Denies cough, Denies hemoptysis Gastrointestinal: Denies abdominal pain, Denies change in bowel habits Genitourinary: Denies flank pain Integumentary: Denies rash Neurological: Denies confusion Psychiatric: Denies anxiety Past Medical History Past Medical History: No Reported History History of Any Multi-Drug Resistant Organisms: None Reported Past Surgical History: No Surgical Hx Reported, Hysterectomy Additional Past Surgical History / Comment(s): cataract surgery, Hysterectomy age 27 Past Psychological History: No Psychological Hx Reported Smoking Status: Former smoker Past Alcohol Use History: Occasional Past Drug Use History: None Reported - Past Family History Mother Family Medical History: No Reported History Father Family Medical History: Cancer Additional Family Medical History / Comment(s): skin Brother(s) Family Medical History: No Reported History Medications and Allergies Home Medications Medication Instructions Recorded Confirmed Type HYDROcodone/APAP 10-325MG [[place] 1 tab PO TID PRN 11/10/21 11/10/21 History 10-325] Ibuprofen [Motrin] 800 mg PO TID PRN 11/11/21 11/11/21 History Allergies Allergy/AdvReac Type Severity Reaction Status Date / Time No Known Allergies Allergy Verified 11/10/21 21:17 Physical Exam Vitals: Vital Signs Temp Pulse Resp BP Pulse Ox 11/18/21 05:00 98.3 F 87 16 146/68 92 L 11/17/21 20:20 98.6 F 88 16 132/72 92 L 11/17/21 15:39 88 157/72 91 L 11/17/21 15:24 89 152/72 93 L 11/17/21 15:09 88 154/72 93 L 11/17/21 14:40 98.3 F 91 16 160/74 95 Intake and Output 11/17/21 11/18/21 11/18/21 22:59 06:59 14:59 Intake Total 550 590 Balance 550 590 Intake: Intake, IV Titration 550 Amount Sodium Chloride 0.9% 1, 500 000 ml @ 50 mls/hr IV . Q20H [facility] Rx#:[id number] cefTRIAXone 1 gm In 50 Sodium Chloride 0.9% 50 ml @ 100 mls/hr IVPB Q24HR [facility] Rx#:[id number] Oral 590 Other: # Voids 1 1 # Bowel Movements 1 - Constitutional General appearance: no acute distress - EENT Eyes: EOMI, PERRLA ENT: hearing grossly normal - Neck Neck: no lymphadenopathy - Respiratory Respiratory: bilateral: CTA - Cardiovascular Rhythm: regular - Gastrointestinal General gastrointestinal: soft, no tenderness - Integumentary Integumentary: pale - Neurologic Neurologic: CNII-XII intact - Musculoskeletal Musculoskeletal: strength equal bilaterally - Psychiatric Psychiatric: A&O x's 3, appropriate affect, intact judgment & insight Results CBC & Chem 7: 11/18/21 06:34 11/18/21 06:34 Labs: Abnormal Lab Results - Last 24 Hours (Table) 11/17/21 11/18/21 11/18/21 Range/Units 05:55 06:34 06:34 WBC 14.28 H (4.50-10.00) X 10*3/uL RBC 3.10 L (4.10-5.20) X 10*6/uL Hgb 8.7 L (12.0-15.0) g/dL Hct 28.1 L (37.2-46.3) % MCHC 31.0 L (32.0-37.0) g/dL Immature Gran # 0.28 H (0.00-0.04) X 10*3/uL Neutrophils # 11.63 H (1.80-7.70) X 10*3/uL Anion Gap 9.80 L (10.00-18.00) mmol/L BUN 6.9 L (9.0-27.0) mg/dL BUN/Creatinine Ratio 10.74 L (12.00-20.00) Ratio Magnesium 1.3 L (1.5-2.4) mg/dL Total Bilirubin 0.20 L (0.30-1.20) mg/dL AST 41 H (13-35) U/L Alkaline Phosphatase 135 H (41-126) U/L Total Protein 4.1 L (6.2-8.2) g/dL Albumin 2.2 L (3.8-4.9) g/dL Albumin/Globulin Ratio 1.22 L (1.60-3.17) g/dL Microbiology - Last 24 Hours (Table) 11/11/21 12:11 Blood Culture - Final Blood No Growth after 144 hours 11/11/21 12:11 Blood Culture - Final Blood No Growth after 144 hours 11/15/21 13:00 Urine Culture - Final Urine,Clean Catch Escherichia coli CT scan - abdomen: report reviewed, image reviewed CT scan - chest: report reviewed, image reviewed CT Scan - head: report reviewed, image reviewed CT scan - pelvis: report reviewed, image reviewed Assessment and Plan Assessment: The patient is a 71-year-old female with a history of recently diagnosed adenocarcinoma of unknown primary, presenting with low back pain secondary to metastatic disease involving the bone. Plan: 1. Lower back/hip pain: As noted above, the patient's imaging shows disease involving the L3, and sacrum in particular left iliac. It is likely from these lesions with the patient has significant discomfort in the bilateral hips. I discussed with the patient that a palliative course of radiotherapy may be beneficial to help improve this pain. It may also help improve her ambulation, and she is currently requiring a walker but was not just a few weeks prior. I explained she would first undergo CT simulation for treatment planning. Treatment to be delivered over approximately 1 week. I explained potential side effects of this treatment include, but is not limited to; fatigue, skin irritation, alteration in bowel habits, loose stools, and low risk of long-term toxicity considering palliative dosing. The patient was agreeable for CT simulation, and was brought down earlier today at 11:30. 2. Metastatic adenocarcinoma of unknown primary: As noted, the patient was u nable to tolerate a colonoscopy yesterday. She discussed this with Dr. Clark and he will likely arrange for an outpatient exam. I recommend the patient undergo an outpatient PET CT, as this may also help to localize her primary disease. From my standpoint, the patient is OK for discharge. We will likely initiate her radiation in the next couple of days, which she can certainly come to as an outpatient. Time with Patient: Greater than 30
[2021-11-18] MEDS: MAGNESIUM SULFATE-D5W PMX 1 GM in DEXTROSE/WATER 1 100ML.BAG IVPB SCH ×2 (13:19→14:24)
--- NOTE | 2021-11-18 14:24 | P.PN ---
Subjective Progress Note Date: 11/18/21 CHIEF COMPLAINT: Anemia HISTORY OF PRESENT ILLNESS: Patient status post EGD revealing antral gastritis. Patient did not complete colonoscopy prep. Therefore colonoscopy was canceled yesterday. Patient tolerating clear liquids. She's asking for advancement of diet. Patient denies any nausea vomiting. Afebrile. WBC 14.28 Hgb 8.7 plt 158 Patient seen and examined with Dr. Shah PHYSICAL EXAM: VITAL SIGNS: Reviewed. GENERAL: Well-developed in no acute distress. HEENT: No sclera icterus. Extraocular movements grossly intact. Moist buccal mucosa. Head is atraumatic, normocephalic. ABDOMEN: Soft. Nondistended. Nontender. NEUROLOGIC: Alert and oriented. Cranial nerves II through XII grossly intact. ASSESSMENT: 1. Metastatic adenocarcinoma 2. Status post EGD with antral gastritis PLAN: -Continue oncology workup -Patient's diet can be advanced to regular -Recommend colonoscopy outpatient Physician [employer] note has been reviewed by physician. Signing provider agrees with the documented findings, assessment, and plan of care. Objective - Vital Signs Vital signs: Vital Signs Temp 98.1 F 11/18/21 12:19 Pulse 85 11/18/21 12:19 Resp 17 11/18/21 12:19 BP 152/74 11/18/21 12:19 Pulse Ox 93 L 11/18/21 12:19 FiO2 Intake & Output 11/17/21 11/18/21 11/18/21 18:59 06:59 18:59 Intake Total 600 590 Balance 600 590 Intake: IV 50 Intake, IV Titration 550 Amount Sodium Chloride 0.9% 1, 500 000 ml @ 50 mls/hr IV . Q20H [facility] Rx#:[id number] cefTRIAXone 1 gm In 50 Sodium Chloride 0.9% 50 ml @ 100 mls/hr IVPB Q24HR [facility] Rx#:[id number] Oral 590 Other: Voiding Method Toilet # Voids 1 1 # Bowel Movements 1 - Labs CBC & Chem 7: 11/18/21 06:34 11/18/21 06:34 Labs: Abnormal Lab Results - Last 24 Hours (Table) 11/17/21 11/18/21 11/18/21 Range/Units 05:55 06:34 06:34 WBC 14.28 H (4.50-10.00) X 10*3/uL RBC 3.10 L (4.10-5.20) X 10*6/uL Hgb 8.7 L (12.0-15.0) g/dL Hct 28.1 L (37.2-46.3) % MCHC 31.0 L (32.0-37.0) g/dL Immature Gran # 0.28 H (0.00-0.04) X 10*3/uL Neutrophils # 11.63 H (1.80-7.70) X 10*3/uL Anion Gap 9.80 L (10.00-18.00) mmol/L BUN 6.9 L (9.0-27.0) mg/dL BUN/Creatinine Ratio 10.74 L (12.00-20.00) Ratio Magnesium 1.3 L (1.5-2.4) mg/dL Total Bilirubin 0.20 L (0.30-1.20) mg/dL AST 41 H (13-35) U/L Alkaline Phosphatase 135 H (41-126) U/L Total Protein 4.1 L (6.2-8.2) g/dL Albumin 2.2 L (3.8-4.9) g/dL Albumin/Globulin Ratio 1.22 L (1.60-3.17) g/dL Microbiology - Last 24 Hours (Table) 11/11/21 12:11 Blood Culture - Final Blood No Growth after 144 hours 11/11/21 12:11 Blood Culture - Final Blood No Growth after 144 hours
[2021-11-18] MEDS: SODIUM CHLORIDE 0.9% 1,000 ML IV SCH (17:58)
== END 2021-11-18 19:34 | disposition home health service (06) | DRG 477 ==
LOC: EC 19:21 → 2SICU 23:45 → 5NMEDONC 11-14 15:57
PROVIDERS: ADMIT Internal Medicine; ATTEND Internal Medicine
PROC: 05HF33Z Insertion of Infusion Device into Left Cephalic Vein, Percutaneous Approach (ICD-10-PCS; 2021-11-12)
PROC: 0DB78ZX Excision of Stomach, Pylorus, Via Natural or Artificial Opening Endoscopic, Diagnostic (ICD-10-PCS; 2021-11-17)
PROC: 079T3ZX Drainage of Bone Marrow, Percutaneous Approach, Diagnostic (ICD-10-PCS; principal; 2021-11-17 07:30)
PROC: 0QS03ZZ Reposition Lumbar Vertebra, Percutaneous Approach (ICD-10-PCS; principal; 2021-11-17 07:30)
PROC: 0QU03JZ Supplement Lumbar Vertebra with Synthetic Substitute, Percutaneous Approach (ICD-10-PCS; principal; 2021-11-17 07:30)
PROC: 0QB00ZX Excision of Lumbar Vertebra, Open Approach, Diagnostic (ICD-10-PCS; principal; 2021-11-17 07:30)
DX: M84.58XA Pathological fracture in neoplastic disease, other specified site, initial encounter for fracture (principal); K29.71 Gastritis, unspecified, with bleeding; C79.51 Secondary malignant neoplasm of bone; N17.9 Acute kidney failure, unspecified; E87.2 Acidosis; E87.1 Hypo-osmolality and hyponatremia; R18.8 Other ascites; N39.0 Urinary tract infection, site not specified; E83.51 Hypocalcemia; E83.39 Other disorders of phosphorus metabolism; C80.1 Malignant (primary) neoplasm, unspecified; E86.0 Dehydration; E86.1 Hypovolemia; G89.3 Neoplasm related pain (acute) (chronic); T39.315A Adverse effect of propionic acid derivatives, initial encounter; D63.0 Anemia in neoplastic disease; E87.6 Hypokalemia; B96.20 Unspecified Escherichia coli [E. coli] as the cause of diseases classified elsewhere; E83.42 Hypomagnesemia; K82.8 Other specified diseases of gallbladder; F41.9 Anxiety disorder, unspecified; M47.816 Spondylosis without myelopathy or radiculopathy, lumbar region; M51.35 Other intervertebral disc degeneration, thoracolumbar region; M48.061 Spinal stenosis, lumbar region without neurogenic claudication; M43.16 Spondylolisthesis, lumbar region; R32 Unspecified urinary incontinence; Z87.891 Personal history of nicotine dependence
CPT/HCPCS: 36410; 36415; 43239; 70450; 70551; 71046; 71250; 72100; 72125; 74176; 76937; 77307; 77334; 78306; 80048; 80053; 81001; 82330; 82378; 82533; 82570; 82784; 83605; 83615; 83735; 83880; 83883; 83930; 83935; 84100; 84145; 84156; 84165; 84300; 84484; 84550; 85025; 85027; 85379; 85610; 85730; 86140; 86301; 86334; 86335; 87040; 87077; 87086; 87186; 88305; 88307; 88311; 88341; 88342; 93005; 96361; 96365; 96366; 96367; 96368; 96375; 99291

== ENCOUNTER 2021-11-24 10:31 | Inpatient (IN) | payer MEDICARE, OTHER ==
[2021-11-24] MEDS ORDERED: SODIUM CHLORIDE 0.9% 1,000 ML IV ONE ×3 (11:24→15:24)
[2021-11-24] MEDS ORDERED: SODIUM CHLORIDE 0.9% 1,000 ML IV STA (11:24)
--- NOTE | 2021-11-24 12:03 | ED ---
Altered Mental Status HPI - General Chief Complaint: Altered Mental Status Stated Complaint: Altered mental status Time Seen by Provider: 11/24/21 10:42 Source: EMS Mode of arrival: EMS Limitations: altered mental status - History of Present Illness Initial Comments: 71-year-old female presents emergency Department with abdominal pain and dehydration. 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 states that since discharge home she hasn't been eating or drinking. She only urinated once yesterday. Began having altered mental status and extreme weakness to where she can no longer stand on her own. She was discharged home on magnesium and antibiotics. states he has been getting medications in her as directed. She had a bone scan and with marking completed for radiation however has not received any treatments as of yet. Patient also has not started any type of chemotherapy. She cannot provide any history therefore HPI is limited - Related Data Home Medications Medication Instructions Recorded Confirmed HYDROcodone/APAP 10-325MG [[place] 1 tab PO TID PRN 11/10/21 11/24/21 10-325] Ibuprofen [Motrin] 800 mg PO TID PRN 11/11/21 11/24/21 Previous Rx's Medication Instructions Recorded ALPRAZolam [Xanax] 0.5 mg PO QID PRN tab 11/18/21 Magnesium Oxide [Mag-Ox] 400 mg PO DAILY tab 11/18/21 Pantoprazole [Protonix] 40 mg PO AC-BRKFST tab 11/18/21 QUEtiapine [SEROquel] 25 mg PO BID tab 11/18/21 cefUROXime axetiL [Cefuroxime] 500 mg PO BID 7 Days #14 tab 11/18/21 Allergies Allergy/AdvReac Type Severity Reaction Status Date / Time No Known Allergies Allergy Verified 11/24/21 13:42 Review of Systems ROS Statement: Those systems with pertinent positive or pertinent negative responses have been documented in the HPI. ROS Other: All systems not noted in ROS Statement are negative. Past Medical History Past Medical History: No Reported History History of Any Multi-Drug Resistant Organisms: None Reported Past Surgical History: No Surgical Hx Reported, Hysterectomy Additional Past Surgical History / Comment(s): cataract surgery, Hysterectomy age 27 Past Psychological History: No Psychological Hx Reported Smoking Status: Former smoker Past Alcohol Use History: Occasional Past Drug Use History: None Reported - Past Family History Mother Family Medical History: No Reported History Father Family Medical History: Cancer Additional Family Medical History / Comment(s): skin Brother(s) Family Medical History: No Reported History General Exam Limitations: altered mental status General appearance: lethargic Head exam: Present: atraumatic, normocephalic, normal inspection Eye exam: Present: normal appearance, PERRL, EOMI. Absent: scleral icterus, conjunctival injection, periorbital swelling ENT exam: Present: mucous membranes dry Respiratory exam: Present: rales, other (tachypnia) Cardiovascular Exam: Present: regular rate, normal rhythm, normal heart sounds. Absent: systolic murmur, diastolic murmur, rubs, gallop, clicks GI/Abdominal exam: Present: tenderness, guarding Extremities exam: Present: other (anasarca) Neurological exam: Present: altered Skin exam: Present: warm, dry, intact, normal color. Absent: rash Course Vital Signs 11/24/21 11/24/21 11/24/21 10:46 12:00 12:17 Temperature 99.1 F Pulse Rate 95 90 89 Respiratory 20 31 H Rate Blood Pressure 80/38 71/42 78/34 O2 Sat by Pulse 999 H 93 L Oximetry 11/24/21 11/24/21 11/24/21 12:30 13:00 13:30 Temperature Pulse Rate 88 92 Respiratory 29 H 24 18 Rate Blood Pressure 80/34 76/40 O2 Sat by Pulse 93 L 93 L Oximetry 11/24/21 11/24/21 11/24/21 13:36 14:00 14:30 Temperature Pulse Rate 92 91 92 Respiratory 20 18 29 H Rate Blood Pressure 84/48 95/44 86/41 O2 Sat by Pulse 94 L Oximetry 11/24/21 11/24/21 11/24/21 15:00 15:30 16:00 Temperature Pulse Rate 92 93 95 Respiratory 25 H 31 H 32 H Rate Blood Pressure 83/40 109/59 105/42 O2 Sat by Pulse Oximetry 11/24/21 11/24/21 16:30 17:00 Temperature Pulse Rate 98 99 Respiratory 28 H 25 H Rate Blood Pressure 100/57 113/92 O2 Sat by Pulse 93 L 93 L Oximetry Procedures - Central Line Placement Right IJ Consent Obtained: written consent Patient Placed on Monitor/Pulse Ox: Yes Prep: mask, gown, gloves Central Line Prep: Chlorhexidine scrub, sterile drapes applied Local Anesthesia Used: Lidocaine 1% Amount of Anesthesia Used (mls): 3 Ultrasound Used for Placement: Yes Central Line Lumen Inserted: triple Bloods Obtained for Lab: Yes Central Line Position: good blood return, all ports aspirated, flushed, capped, sutured in place with nylon Dressing Applied: Tegaderm Post Procedure X-Ray: tip of catheter in good position Patient Tolerated Procedure: well, no complications Medical Decision Making - Medical Decision Making Upon arrival the patient is placed in room 7. A thorough history is obtained from family. IV is established. We did give the patient 3 L of normal saline via IV. Laboratory studies are obtained. Review a white count of 14.7. Hemoglobin has dropped to 7.7. Lactic acid 5.7. Liver enzymes are elevated. Troponin elevated. Urinalysis demonstrates some white blood cells with rare bacteria. CT of the brain demonstrates no acute process. Chest x-ray demonstrates questionable multifocal pneumonia. CT of the abdomen and pelvis is performed due to the patient's abdominal pain which demonstrates possible colitis with superimposed diverticulitis. Continue destruction of the left iliac bone and other osseous lesions. Hydropic appearing gallbladder. Small the moderate bilateral pleural effusions. After reevaluation of the patient's a fter 3 L of fluid she continues to be hypotensive and therefore a right central line is placed. Patient is placed on vasopressors after x-ray confirms appropriate placement. I did discuss CODE STATUS with family and they are requesting full code. I spoke with Dr. Allen who did evaluate the patient emergency department. Patient remains in the ER as an ICU hold - Lab Data Result diagrams: 11/27/21 05:46 11/27/21 05:56 Lab Results 11/24/21 11/24/21 11/24/21 Range/Units 11:37 11:37 11:37 WBC 14.7 H (3.8-10.6) k/uL RBC 2.74 L (3.80-5.40) m/uL Hgb 7.9 L D (11.4-16.0) gm/dL Hct 25.0 L (34.0-46.0) % MCV 91.5 (80.0-100.0) fL MCH 28.9 (25.0-35.0) pg MCHC 31.6 (31.0-37.0) g/dL RDW 13.8 (11.5-15.5) % Plt Count 412 D (150-450) k/uL MPV 10.3 Neutrophils % (Manual) 83 % Band Neuts % (Manual) 8 % Lymphocytes % (Manual) 5 % Monocytes % (Manual) 3 % Eosinophils % (Manual) 1 % Metamyelocytes % 1 % Myelocytes % 1 % Neutrophils # (Manual) 13.30 H (1.3-7.7) k/uL Lymphocytes # (Manual) 0.74 L (1.0-4.8) k/uL Monocytes # (Manual) 0.44 (0-1.0) k/uL Eosinophils # (Manual) 0.15 (0-0.7) k/uL Metamyelocytes # (Man) 0.15 H (0) k/uL Myelocytes # (Manual) 0.15 H (0) k/uL Nucleated RBCs 0 (0-0) /100 WBC Manual Slide Review Performed Toxic Vacuolation Present Hypochromasia Slight PT 14.4 H (9.0-12.0) sec INR 1.4 H (<1.2) APTT 29.1 (22.0-30.0) sec Sodium (137-145) mmol/L Potassium (3.5-5.1) mmol/L Chloride (98-107) mmol/L Carbon Dioxide (22-30) mmol/L Anion Gap mmol/L BUN (7-17) mg/dL Creatinine (0.52-1.04) mg/dL Est GFR (CKD-EPI)AfAm (>60 ml/min/1.73 sqM) Est GFR (CKD-EPI)NonAf (>60 ml/min/1.73 sqM) Glucose (74-99) mg/dL Lactic Ac Sepsis Rflx Plasma Lactic Acid Julio Cesar (0.7-2.0) mmol/L Calcium (8.4-10.2) mg/dL Total Bilirubin (0.2-1.3) mg/dL Conjugated Bilirubin (0.0-0.3) mg/dL Unconjugated Bilirubin (0.0-1.1) mg/dL Delta Bilirubin (0.0-0.2) mg/dL AST (14-36) U/L ALT (4-34) U/L Alkaline Phosphatase (38-126) U/L Ammonia (<30) umol/L Troponin I (0.000-0.034) ng/mL Total Protein (6.3-8.2) g/dL Albumin (3.5-5.0) g/dL Urine Color Urine Appearance (Clear) Urine pH (5.0-8.0) Ur Specific [place] (1.001-1.035) Urine Protein (Negative) Urine Glucose (UA) (Negative) Urine Ketones (Negative) Urine Blood (Negative) Urine Nitrite (Negative) Urine Bilirubin (Negative) Urine Urobilinogen (<2.0) mg/dL Ur Leukocyte Esterase (Negative) Urine RBC (0-5) /hpf Urine WBC (0-5) /hpf Ur Squamous Epith Cells (0-4) /hpf Calcium Oxalate Crystal (None) /hpf Amorphous Sediment (None) /hpf Urine Bacteria (None) /hpf Urine Mucus (None) /hpf Urine Opiates Screen Detected H (NotDetected) Ur Oxycodone Screen Detected H (NotDetected) Urine Methadone Screen Not Detected (NotDetected) Ur Propoxyphene Screen Not Detected (NotDetected) Ur Barbiturates Screen Not Detected (NotDetected) U Tricyclic Antidepress Detected H (NotDetected) Ur Phencyclidine Scrn Not Detected (NotDetected) Ur Amphetamines Screen Not Detected (NotDetected) U Methamphetamines Scrn Not Detected (NotDetected) U Benzodiazepines Scrn Detected H (NotDetected) Urine Cocaine Screen Not Detected (NotDetected) U Marijuana (THC) Screen Not Detected (NotDetected) 11/24/21 11/24/21 11/24/21 Range/Units 11:37 11:37 11:37 WBC (3.8-10.6) k/uL RBC (3.80-5.40) m/uL Hgb (11.4-16.0) gm/dL Hct (34.0-46.0) % MCV (80.0-100.0) fL MCH (25.0-35.0) pg MCHC (31.0-37.0) g/dL RDW (11.5-15.5) % Plt Count (150-450) k/uL MPV Neutrophils % (Manual) % Band Neuts % (Manual) % Lymphocytes % (Manual) % Monocytes % (Manual) % Eosinophils % (Manual) % Metamyelocytes % % Myelocytes % % Neutrophils # (Manual) (1.3-7.7) k/uL Lymphocytes # (Manual) (1.0-4.8) k/uL Monocytes # (Manual) (0-1.0) k/uL Eosinophils # (Manual) (0-0.7) k/uL Metamyelocytes # (Man) (0) k/uL Myelocytes # (Manual) (0) k/uL Nucleated RBCs (0-0) /100 WBC Manual Slide Review Toxic Vacuolation Hypochromasia PT (9.0-12.0) sec INR (<1.2) APTT (22.0-30.0) sec Sodium 132 L (137-145) mmol/L Potassium 4.5 (3.5-5.1) mmol/L Chloride 96 L (98-107) mmol/L Carbon Dioxide 26 (22-30) mmol/L Anion Gap 10 mmol/L BUN 33 H (7-17) mg/dL Creatinine 2.77 H (0.52-1.04) mg/dL Est GFR (CKD-EPI)AfAm 19 (>60 ml/min/1.73 sqM) Est GFR (CKD-EPI)NonAf 17 (>60 ml/min/1.73 sqM) Glucose 88 (74-99) mg/dL Lactic Ac Sepsis Rflx Plasma Lactic Acid Julio Cesar (0.7-2.0) mmol/L Calcium 12.2 H (8.4-10.2) mg/dL Total Bilirubin 0.4 (0.2-1.3) mg/dL Conjugated Bilirubin 0.0 (0.0-0.3) mg/dL Unconjugated Bilirubin 0.0 (0.0-1.1) mg/dL Delta Bilirubin 0.4 H (0.0-0.2) mg/dL AST 620 H (14-36) U/L ALT 131 H (4-34) U/L Alkaline Phosphatase 117 (38-126) U/L Ammonia (<30) umol/L Troponin I 1.150 H* (0.000-0.034) ng/mL Total Protein 4.3 L (6.3-8.2) g/dL Albumin 2.1 L (3.5-5.0) g/dL Urine Color Yellow Urine Appearance Turbid H (Clear) Urine pH 5.5 (5.0-8.0) Ur Specific [place] 1.026 (1.001-1.035) Urine Protein 2+ H (Negative) Urine Glucose (UA) Trace H (Negative) Urine Ketones Trace H (Negative) Urine Blood Small H (Negative) Urine Nitrite Negative (Negative) Urine Bilirubin Negative (Negative) Urine Urobilinogen <2.0 (<2.0) mg/dL Ur Leukocyte Esterase Trace H (Negative) Urine RBC 8 H (0-5) /hpf Urine WBC 90 H (0-5) /hpf Ur Squamous Epith Cells 2 (0-4) /hpf Calcium Oxalate Crystal Rare H (None) /hpf Amorphous Sediment Rare H (None) /hpf Urine Bacteria Rare H (None) /hpf Urine Mucus Occasional H (None) /hpf Urine Opiates Screen (NotDetected) Ur Oxycodone Screen (NotDetected) Urine Methadone Screen (NotDetected) Ur Propoxyphene Screen (NotDetected) Ur Barbiturates Screen (NotDetected) U Tricyclic Antidepress (NotDetected) Ur Phencyclidine Scrn (NotDetected) Ur Amphetamines Screen (NotDetected) U Methamphetamines Scrn (NotDetected) U Benzodiazepines Scrn (NotDetected) Urine Cocaine Screen (NotDetected) U Marijuana (THC) Screen (NotDetected) 11/24/21 11/24/21 11/24/21 Range/Units 11:37 11:37 13:51 WBC (3.8-10.6) k/uL RBC (3.80-5.40) m/uL Hgb (11.4-16.0) gm/dL Hct (34.0-46.0) % MCV (80.0-100.0) fL MCH (25.0-35.0) pg MCHC (31.0-37.0) g/dL RDW (11.5-15.5) % Plt Count (150-450) k/uL MPV Neutrophils % (Manual) % Band Neuts % (Manual) % Lymphocytes % (Manual) % Monocytes % (Manual) % Eosinophils % (Manual) % Metamyelocytes % % Myelocytes % % Neutrophils # (Manual) (1.3-7.7) k/uL Lymphocytes # (Manual) (1.0-4.8) k/uL Monocytes # (Manual) (0-1.0) k/uL Eosinophils # (Manual) (0-0.7) k/uL Metamyelocytes # (Man) (0) k/uL Myelocytes # (Manual) (0) k/uL Nucleated RBCs (0-0) /100 WBC Manual Slide Review Toxic Vacuolation Hypochromasia PT (9.0-12.0) sec INR (<1.2) APTT (22.0-30.0) sec Sodium (137-145) mmol/L Potassium (3.5-5.1) mmol/L Chloride (98-107) mmol/L Carbon Dioxide (22-30) mmol/L Anion Gap mmol/L BUN (7-17) mg/dL Creatinine (0.52-1.04) mg/dL Est GFR (CKD-EPI)AfAm (>60 ml/min/1.73 sqM) Est GFR (CKD-EPI)NonAf (>60 ml/min/1.73 sqM) Glucose (74-99) mg/dL Lactic Ac Sepsis Rflx Y Plasma Lactic Acid Julio Cesar 5.7 H* (0.7-2.0) mmol/L Calcium (8.4-10.2) mg/dL Total Bilirubin (0.2-1.3) mg/dL Conjugated Bilirubin (0.0-0.3) mg/dL Unconjugated Bilirubin (0.0-1.1) mg/dL Delta Bilirubin (0.0-0.2) mg/dL AST (14-36) U/L ALT (4-34) U/L Alkaline Phosphatase (38-126) U/L Ammonia <9 (<30) umol/L Troponin I (0.000-0.034) ng/mL Total Protein (6.3-8.2) g/dL Albumin (3.5-5.0) g/dL Urine Color Urine Appearance (Clear) Urine pH (5.0-8.0) Ur Specific [place] (1.001-1.035) Urine Protein (Negative) Urine Glucose (UA) (Negative) Urine Ketones (Negative) Urine Blood (Negative) Urine Nitrite (Negative) Urine Bilirubin (Negative) Urine Urobilinogen (<2.0) mg/dL Ur Leukocyte Esterase (Negative) Urine RBC (0-5) /hpf Urine WBC (0-5) /hpf Ur Squamous Epith Cells (0-4) /hpf Calcium Oxalate Crystal (None) /hpf Amorphous Sediment (None) /hpf Urine Bacteria (None) /hpf Urine Mucus (None) /hpf Urine Opiates Screen (NotDetected) Ur Oxycodone Screen (NotDetected) Urine Methadone Screen (NotDetected) Ur Propoxyphene Screen (NotDetected) Ur Barbiturates Screen (NotDetected) U Tricyclic Antidepress (NotDetected) Ur Phencyclidine Scrn (NotDetected) Ur Amphetamines Screen (NotDetected) U Methamphetamines Scrn (NotDetected) U Benzodiazepines Scrn (NotDetected) Urine Cocaine Screen (NotDetected) U Marijuana (THC) Screen (NotDetected) - EKG Data EKG Comments: EKG demonstrates sinus rhythm with a rate of 96. ND interval 131. QRS 80. QTC of 418. No acute ST segment elevations or depressions Critical Care Time Critical Care Time: Yes Critical Care Time: 45 minutes Disposition Clinical Impression: Pathologic fracture, Metastatic adenocarcinoma, Lytic bone lesions on xray, BEBETO (acute kidney injury), Acidosis, Leukocytosis Disposition: ADMITTED IP TO THIS [facility] Condition: Critical Is patient prescribed a controlled substance at d/c from ED?: No Time of Disposition: 14:49 Decision to Admit Reason: Admit from EC Decision Date: 11/24/21 Decision Time: 14:49
[2021-11-24 12:05] LABS: Hypochromasia Slight; MCH 28.9 pg (25.0-35.0); MCHC 31.6 g/dL (31.0-37.0); MCV 91.5 fL (80.0-100.0); Mean Platelet Volume 10.3; RBC 2.74 m/uL (3.80-5.40); RDW 13.8 % (11.5-15.5); WBC 14.7 k/uL (3.8-10.6)
[2021-11-24] MEDS ORDERED: NOREPINEPHRINE 32 MG in SODIUM CHLORIDE 0.9% 218 ML IV ONE (12:16)
[2021-11-24 12:19] LABS: Albumin 2.1 g/dL (3.5-5.0); Bilirubin, Delta 0.4 mg/dL (0.0-0.2); Calcium 12.2 mg/dL (8.4-10.2); Total Bilirubin 0.4 mg/dL (0.2-1.3); Total Protein 4.3 g/dL (6.3-8.2)
--- NOTE | 2021-11-24 12:20 | XR ---
EXAMINATION TYPE: XR chest 2V DATE OF EXAM: 11/24/2021 12:11 PM COMPARISON: CT chest from same date TECHNIQUE: XR chest 2V Frontal and lateral views of the chest. CLINICAL INDICATION:Female, 71 years old with history of altered mental status; FINDINGS: Lungs/Pleura: Multifocal airspace opacities which are better characterized on CT same day. There is t race/small pleural effusions bilaterally. There is no evidence of or pneumothorax. Pulmonary vascularity: Unremarkable. Heart/mediastinum: Cardiomediastinal silhouette is prominent in size. Musculoskeletal: No acute osseous pathology. IMPRESSION: 1. Multifocal pneumonia better characterized on CT same day. 2. Trace/spinal pleural effusions bilaterally.
[2021-11-24 12:23] LABS: INR 1.4 (<1.2); Partial Thromboplastin Time 29.1 sec (22.0-30.0); Prothrombin Time 14.4 sec (9.0-12.0)
[2021-11-24 12:25] LABS: Potassium 4.5 mmol/L (3.5-5.1)
[2021-11-24 12:35] LABS: HGB 7.9 gm/dL (11.4-16.0); Platelet Count 412 k/uL (150-450)
--- NOTE | 2021-11-24 13:37 | CT ---
EXAMINATION TYPE: CT brain wo con CT DLP: 1099.4 mGycm, Automated exposure control for dose reduction was used. DATE OF EXAM: 11/24/2021 1:30 PM COMPARISON: 11/12/2021. CLINICAL INDICATION:Female, 71 years old with history of Altered mental status. TECHNIQUE: Brain: Multiple axial CT images of the brain were obtained without IV contrast. FINDINGS: Brain: Extra-axial spaces: No abnormal extra-axial fluid collections. Ventricular system: Dilatation in proportion to cerebral atrophy. Cerebral parenchyma: No acute intraparenchymal hemorrhage or mass effect. The rosas-white junction is well differentiated. Scattered hypoattenuating areas are seen within the white matter. Cerebellum: Unremarkable. Mass effect: No evidence of midline shift. Intracranial vasculature: Atherosclerotic calcifications of the intracranial vessels. Soft tissues: Normal. Calvarium/osseous structures: No depressed skull fracture. Paranasal sinuses and mastoid air cells: Mild scattered paranasal sinus disease. Visualized orbits: Bilateral aphakia IMPRESSION: 1. No acute intracranial process. 2. Nonspecific white matter changes, likely secondary to chronic small vessel ischemic disease.
[2021-11-24 13:45] LABS: Amorphous Sediment,Urine Rare /hpf; Appearance,Urine Turbid (Clear); Bacteria,Urine Rare /hpf; Bilirubin,Urine Negative (Negative); Blood,Urine Small (Negative); Calcium Oxalate Crystals,Urine Rare /hpf; Color,Urine Yellow; Glucose,Urine (UA) Trace (Negative); Ketones,Urine Trace (Negative); Leukocyte Esterase,Urine Trace (Negative); Mucus,Urine Occasional /hpf; Nitrite,Urine Negative (Negative); PH, Urine 5.5 (5.0-8.0); Protein,Urine 2+ (Negative); RBC,Urine 8 /hpf (0-5); Specific Gravity,Urine 1.026 (1.001-1.035); Squamous Epithelial Cell,Urine 2 /hpf (0-4); Urobilinogen,Urine <2.0 mg/dL (<2.0); WBC,Urine 90 /hpf (0-5)
[2021-11-24 13:46] LABS: Cocaine Screen,Urine Not Detected (NotDetected); Phencyclidine Screen,Urine Not Detected (NotDetected); Urn Cannabinoid Scrn Not Detected (NotDetected)
[2021-11-24 13:47] LABS: Amphetamine Screen,Urine Not Detected (NotDetected); Barbiturate Screen,Urine Not Detected (NotDetected); Benzodiazepines Screen,Urine Detected (NotDetected); Methadone Screen, Urine Not Detected (NotDetected); Opiate Screen,Urine Detected (NotDetected); Oxycodone Screen, Urine Detected (NotDetected); Tricyclic Antidepressant,Urine Detected (NotDetected)
--- NOTE | 2021-11-24 13:56 | CT ---
EXAMINATION TYPE: CT abdomen pelvis wo con CT DLP: 710.4 mGycm, Automated exposure control for dose reduction was used. DATE OF EXAM: 11/24/2021 1:33 PM COMPARISON: Abdomen pelvis 11/10/2021, nuclear medicine bone scan 11/11/2021. CLINICAL INDICATION:Female, 71 years old with history of abd pain; Abdominal pain, AMS TECHNIQUE: Axial CT of the abdomen and pelvis . Sagittal and coronal reformats were created on a [employer] workstation. Contrast used: none. Oral contrast used: without Oral Contrast FINDINGS: LOWER CHEST: Small to moderate bilateral pleural effusions with associated atelectasis changes. ABDOMEN LIVER: Diffusely hypoattenuating parenchyma. GALLBLADDER AND BILE DUCTS: The gallbladder remains distended measuring up to 9.4 x 4.6 cm. PANCREAS: Unremarkable. SPLEEN: Unremarkable. ADRENAL GLANDS: Unremarkable. KIDNEYS AND URETERS: No evidence of hydronephrosis or renal calculus. The ureters are unremarkable. PELVIS BLADDER: Nondistended with Jean catheter in place. REPRODUCTIVE: Unremarkable. ABDOMEN & PELVIS STOMACH AND BOWEL: Sigmoid colon bowel wall thickening suggested measuring up to 6 mm. Multiple cloni c diverticula in this region. There is mild fat stranding changes around the colon. PERITONEUM: No evidence of pneumoperitoneum. Trace free fluid within the abdomen. VASCULATURE: No evidence of aortic aneurysm. MUSCULOSKELETAL: Reconstruction of destructive osseous mass within the left iliac bone adjacent to th e sacroiliac joint. Additional destructive lesion in the iliac crest is also present and similar to p rior 11/10/2021. The areas measured approximately 5.2 x 3.4 x 6.3 cm and in the iliac crests measuring 3.6 x 2.2 x 1.9 cm. The lesions appear to have extension outside the expected boundary of the osseous structures with suspected invasion into the adjacent tissues. Suspected post vertebroplasty changes to L3. There is mild grade 1 anterolisthesis of L4 and L5. LYMPH NODES: No gross evidence for lymphadenopathy. SOFT TISSUE/ABDOMINAL WALL: Unremarkable IMPRESSION: 1. Sigmoid colon colitis suggested with superimposed diverticulitis not entirely excluded. Evaluation slightly limited given lack of contrast. Findings are worse/new compared to 11/10/2021. 2. Redemonstration of destructive osseous lesions within the left iliac bone adjacent to the left SI joint and iliac crests affected invasion into the adjacent soft tissues. 3. Hydropic appearing gallbladder which could be due to lack of recent meal. 4. Hepatic steatosis. 5. Small to moderate bilateral pleural effusions
[2021-11-24] MEDS ORDERED: cefTRIAXone IN SWFI 1,000 MG/10 ML SYRINGE IVP STA (14:04)
[2021-11-24] MEDS ORDERED: diazePAM 5 MG/ML 1 ML VIAL IVP STA (14:44)
[2021-11-24] MEDS ORDERED: NALOXONE 0.4 MG/ML 1 ML VIAL IV PRN (14:50)
[2021-11-24 14:51] LABS: Band Neutrophils % 8 %; Eosinophils # (M) 0.15 k/uL (0-0.7); Lymphocytes # (M) 0.74 k/uL (1.0-4.8); Metamyelocytes # (M) 0.15 k/uL (0); Metamyelocytes % 1 %; Monocytes # (M) 0.44 k/uL (0-1.0); Myelocytes # (M) 0.15 k/uL (0); Myelocytes % 1 %; Neutrophils % (M) 83 %; Nucleated Red Blood Cells 0 /100 WBC (0-0); Total Cells Counted 200
[2021-11-24 14:52] LABS: Toxic Vacuolation Present
[2021-11-24] MEDS ORDERED: metroNIDAZOLE-NS PMX 500 MG in SALINE 1 100ML.BAG IVPB STA (14:55)
--- NOTE | 2021-11-24 15:06 | XR ---
EXAMINATION TYPE: XR chest 1V confirm line [facility] DATE OF EXAM: 11/24/2021 2:57 PM COMPARISON: Chest radiographs from 11/10/2021. TECHNIQUE: XR chest 1V confirm line plcny Portable AP radiograph of the chest. CLINICAL INDICATION:Female, 71 years old with history of line placement; FINDINGS: Lungs/Pleura: There is no evidence of pleural effusion, focal consolidation, or pneumothorax. There is increased lucency through the lung apices as seen on CT chest. Pulmonary vascularity: Pulmonary vascular congestion. Heart/mediastinum: Cardiomediastinal silhouette is prominent in size. Musculoskeletal: Multiple level degenerative disc disease changes seen throughout the spine. Lines/Tubes: Right internal jugular central venous catheter with distal tip at the cavoatrial junction. IMPRESSION: 1. Right IJ central venous catheter with tip terminating at the superior vena cava. 2. Pulmonary vascular congestion. 3. COPD changes.
--- NOTE | 2021-11-24 15:48 | P.CNPUL ---
History of Present Illness Consult date: 11/24/21 Chief complaint: altered mental status History of present illness: 71-year-old female patient who currently has a diagnosis of metastatic adenoca rcinoma, who was recently in the hospital after the patient was found to have tumor involving the L3 vertebral body and a destructive left iliac mass as well as a couple of lytic rib lesions. At that time, the patient was seen by the spine surgeon and the patient underwent kyphoplasty and a biopsy of the L3. The pathology was adenocarcinoma consistent with upper GI cancer versus lung primary. The patient was supposed to start radiation therapy on outpatient basis. The patient was discharged home and the patient within a week of being discharged, came into the hospital with a worsening condition as the patient became more lethargic, weak, unable to eat or drink, low urine output almost ab sent over the past 24 hours, altered mentation, generalized weakness, increased edema and third spacing all 4 extremities. At that point, the patient came into the emergency and the patient was given a total of 3 L of IV fluids. The patient remained hypotensive with a systolic blood pressure ranging between 70 and 80 and she was started on Levofed which is running at 0.05 mg/kg/m. Her T- max is 99.1F. Mild tachypnea. No significant tachycardia. The white cell count 14.7 with hemoglobin of 7.9. BNP is a 33 with a creatinine of 2.7 consistent with an acute kidney injury in the sodium level is at 132 and a serum bicarbonate of 26. Regulation profile is within normal. Urine drug screen is positive for opiates, oxycodone, tricyclic antidepressant and benzodiazepine. The patient also had an ALT of 131 with an AST of 620 and alkaline phosphatase of 117. Bilirubin is at 0.4. Troponin was at 1.1. UA showed +2 protein. At the same time, a repeat CAT scan of the abdomen and pelvis was done that showed bilateral pleural effusions and enlarged gallbladder without evidence of any hannah iary obstruction. There was stable sigmoid colon colitis suspected. There was redemonstration of the osseous lesions in the left iliac bone and adjacent left sacroiliac joint and iliac crest with invasion. The gallbladder was hydropic. I saw the patient emergency care I was unable to communicate with her. Her mental status was altered. She was moving all 4 extremities without limitation. CAT scan of the brain was done showing no acute process. A triple lumen catheter was also inserted in the emergency that showed adequate positioning of the right IJ triple THERAPY of this pulmonary asked congestion and pleural effusion lung base bilaterally. Jean catheter in place. no significant urine output. Review of Systems ROS unobtainable: due to mental status Past Medical History Past Medical History: No Reported History Additional Past Medical History / Comment(s): metastatic adenocarcinoma History of Any Multi-Drug Resistant Organisms: None Reported Past Surgical History: No Surgical Hx Reported, Hysterectomy Additional Past Surgical History / Comment(s): cataract surgery, Hysterectomy age 27 Past Psychological History: No Psychological Hx Reported Smoking Status: Former smoker Past Alcohol Use History: Occasional Past Drug Use History: None Reported - Past Family History Mother Family Medical History: No Reported History Father Family Medical History: Cancer Additional Family Medical History / Comment(s): skin Brother(s) Family Medical History: No Reported History Medications and Allergies Home Medications Medication Instructions Recorded Confirmed Type HYDROcodone/APAP 10-325MG [[place] 1 tab PO TID PRN 11/10/21 11/24/21 History 10-325] Ibuprofen [Motrin] 800 mg PO TID PRN 11/11/21 11/24/21 History ALPRAZolam [Xanax] 0.5 mg PO QID PRN tab 11/18/21 11/24/21 Rx Magnesium Oxide [Mag-Ox] 400 mg PO DAILY tab 11/18/21 11/24/21 Rx Pantoprazole [Protonix] 40 mg PO AC-BRKFST tab 11/18/21 11/24/21 Rx QUEtiapine [SEROquel] 25 mg PO BID tab 11/18/21 11/24/21 Rx cefUROXime axetiL [Cefuroxime] 500 mg PO BID 7 Days #14 tab 11/18/21 11/24/21 Rx Allergies Allergy/AdvReac Type Severity Reaction Status Date / Time No Known Allergies Allergy Verified 11/24/21 13:42 Physical Exam Vitals: Vital Signs Temp Pulse Resp BP Pulse Ox 11/24/21 13:36 92 20 84/48 94 L 11/24/21 13:00 92 24 93 L 11/24/21 12:30 88 29 H 80/34 93 L 11/24/21 12:17 89 78/34 11/24/21 12:00 90 31 H 71/42 93 L 11/24/21 10:46 99.1 F 95 20 80/38 999 H Intake and Output 11/24/21 11/24/21 11/24/21 06:59 14:59 22:59 Other: Weight 76.748 kg GENERAL EXAM: Alert, very pleasant 71-year-old white female, on 4 liters with pulse ox of 93% comfortable in no apparent distress.extremely dry mucous membranes of the mouth and throat HEAD: Normocephalic/atraumatic. EYES: Normal reaction of pupils, equal size. Conjunctiva pink, sclera white. NOSE: Clear with pink turbinates. THROAT: No erythema or exudates. NECK: No masses, no JVD, no thyroid enlargement, no adenopathy. CHEST: No chest wall deformity. Symmetrical expansion. LUNGS: Equal air entry with no crackles, wheeze, rhonchi or dullness.diminished breath on the lung bases bilaterally CVS: Regular rate and rhythm, normal S1 and S2, no gallops, no murmurs, no rubs ABDOMEN: Soft, nontender. No hepatosplenomegaly, normal bowel sounds, no guarding or rigidity. EXTREMITIES: No clubbing,trace edema lower extremity is bilaterally, no cyanosis, 2+ pulses and upper and lower extremities. MUSCULOSKELETAL: Muscle strength and tone normal. SPINE: No scoliosis or deformity SKIN: No rashes CENTRAL NERVOUS SYSTEM: the patient is encephalopathic,she was also painful stimulation extremities. Pupils are equal and reactive to light. Reflexes are diminished. Motor function sensitive function cannot be accurately assessed. No facial asymmetry. PSYCHIATRIC: Alert and oriented -3. Appropriate affect. Intact judgment and insight. Results - Laboratory Findings CBC and BMP: 11/24/21 11:37 11/24/21 11:37 PT/INR, D-dimer PT 14.4 sec (9.0-12.0) H 11/24/21 11:37 INR 1.4 (<1.2) H 11/24/21 11:37 Abnormal lab findings: Abnormal Labs 11/24/21 11/24/21 11/24/21 11:37 11:37 11:37 WBC 14.7 H RBC 2.74 L Hgb 7.9 L D Hct 25.0 L Neutrophils # (Manual) 13.30 H Lymphocytes # (Manual) 0.74 L Metamyelocytes # (Man) 0.15 H Myelocytes # (Manual) 0.15 H PT 14.4 H INR 1.4 H Sodium Chloride BUN Creatinine Plasma Lactic Acid Julio Cesar Calcium Delta Bilirubin AST ALT Troponin I Total Protein Albumin Urine Appearance Urine Protein Urine Glucose (UA) Urine Ketones Urine Blood Ur Leukocyte Esterase Urine RBC Urine WBC Calcium Oxalate Crystal Amorphous Sediment Urine Bacteria Urine Mucus Urine Opiates Screen Detected H Ur Oxycodone Screen Detected H U Tricyclic Antidepress Detected H U Benzodiazepines Scrn Detected H 11/24/21 11/24/21 11/24/21 11:37 11:37 11:37 WBC RBC Hgb Hct Neutrophils # (Manual) Lymphocytes # (Manual) Metamyelocytes # (Man) Myelocytes # (Manual) PT INR Sodium 132 L Chloride 96 L BUN 33 H Creatinine 2.77 H Plasma Lactic Acid Julio Cesar Calcium 12.2 H Delta Bilirubin 0.4 H AST 620 H ALT 131 H Troponin I 1.150 H* Total Protein 4.3 L Albumin 2.1 L Urine Appearance Turbid H Urine Protein 2+ H Urine Glucose (UA) Trace H Urine Ketones Trace H Urine Blood Small H Ur Leukocyte Esterase Trace H Urine RBC 8 H Urine WBC 90 H Calcium Oxalate Crystal Rare H Amorphous Sediment Rare H Urine Bacteria Rare H Urine Mucus Occasional H Urine Opiates Screen Ur Oxycodone Screen U Tricyclic Antidepress U Benzodiazepines Scrn 11/24/21 11:37 WBC RBC Hgb Hct Neutrophils # (Manual) Lymphocytes # (Manual) Metamyelocytes # (Man) Myelocytes # (Manual) PT INR Sodium Chloride BUN Creatinine Plasma Lactic Acid Julio Cesar 5.7 H* Calcium Delta Bilirubin AST ALT Troponin I Total Protein Albumin Urine Appearance Urine Protein Urine Glucose (UA) Urine Ketones Urine Blood Ur Leukocyte Esterase Urine RBC Urine WBC Calcium Oxalate Crystal Amorphous Sediment Urine Bacteria Urine Mucus Urine Opiates Screen Ur Oxycodone Screen U Tricyclic Antidepress U Benzodiazepines Scrn - Diagnostic Findings Chest x-ray: image reviewed Assessment and Plan Plan: metastatic adenocarcinoma of an unknown primary, likely of a gastrointestinal source. I reviewed the CAT scan of the chest and the patient has a tiny right middle lobe pulmonary spiculated lesion in addition based on lymphadenopathy. As such, the possibility of a primary lung cancer which is visiting at this point cannot be completely excluded although other possibilities such as a GI source of a malignancy cannot be also excluded. Skeletal metastases involving the L3 spine in addition to the sacrum particularly the left iliac Acute hypovolemic shock, currently on pressors and fluids Acute hypercalcemia, could be related to skeletal metastases versus intravascular volume depletion/dehydration Altered mentation related to metabolic encephalopathy acute kidney injury secondary to intravascular volume depletion Anemia of chronic disease, normocytic Acute lactic acidosis secondary to above Abnormal LFTs with a hydropic gallbladder. This is not a cholestatic picture and the patient has normal bilirubin and normal alkaline phosphatase Abnormal troponin secondary to above, doubt any acute coronary event Bilateral pleural effusion and increased edema in the legs and third spacing Plan We'll admit the patient to the intensive care unit We'll start the patient with IV fluids. The patient will receive a total of 3 L. We'll give another liter of normal saline and continue with our maintenance at the rate of 130 mL an hour of normal saline. We'll use also pressors and norepinephrine is currently running at 0.05 macrovascular kilogram per minute Monitor the calcium level Monitor urine output Keep the Jean catheter in place Monitor lactic acid level IV Zosyn emperic coverage' Oncology consultation Very poor prognosis based of metastatic adenocarcinoma Heparin subcu 40 prophylaxis Full code for now. The triple-lumen catheter has been inserted. We'll continue to follow Time with Patient: Greater than 30
[2021-11-24] MEDS ORDERED: ALPRAZolam 0.5 MG TAB PO PRN (15:52)
[2021-11-24] MEDS: HEPARIN SODIUM,PORCINE/PF 5,000 UNIT/0.5 ML SYRINGE SQ SCH (17:05)
--- NOTE | 2021-11-24 19:29 | P.HPIM ---
History of Present Illness H&P Date: 11/24/21 Amy Loaiza, he is a 71-year-old female who was recently discharged from [facility] after a new diagnosis of metastatic adenocarcinoma, at that time patient presented with back pain she had evidence of L3 vertebral body abnormality biopsy revealed evidence of metastatic adenocarcinoma patient was [place] eyes 10 was discharged home, with plan to follow-up with oncology and radiation oncology as outpatient however her general medical condition worsen significantly over the last few days she started having severe weakness and poor oral intake she was evaluated in the emergency room and had evidence of hypotension she received IV fluid bolus without significant improvement, she had a central line placed in the emergency room, she was started on levofed and was admitted to intensive care unit critical care consultation was requested. Vital examination on presentation reveals a temperature of 99.1 pulse 95 respiration 20 blood pressure 80/38 pulse ox 93% on 2 L nasal cannula. Laboratory data revealed a white blood count of 14.7 hemoglobin 7.9 platelet count 412 sodium 132 potassium 4.5 chloride 96 CO2 26 BUN 33 creatinine 2.77 lactic acid was 5.7 troponin 1.150 urine analysis revealed evidence of urinary tract infection with 90 white blood cells in high power field Past Medical History Past Medical History: No Reported History Additional Past Medical History / Comment(s): metastatic adenocarcinoma History of Any Multi-Drug Resistant Organisms: None Reported Past Surgical History: No Surgical Hx Reported, Hysterectomy Additional Past Surgical History / Comment(s): cataract surgery, Hysterectomy age 27 Past Psychological History: No Psychological Hx Reported Smoking Status: Former smoker Past Alcohol Use History: Occasional Past Drug Use History: None Reported - Past Family History Mother Family Medical History: No Reported History Father Family Medical History: Cancer Additional Family Medical History / Comment(s): skin Brother(s) Family Medical History: No Reported History Medications and Allergies Home Medications Medication Instructions Recorded Confirmed Type HYDROcodone/APAP 10-325MG [[place] 1 tab PO TID PRN 11/10/21 11/24/21 History 10-325] Ibuprofen [Motrin] 800 mg PO TID PRN 11/11/21 11/24/21 History ALPRAZolam [Xanax] 0.5 mg PO QID PRN tab 11/18/21 11/24/21 Rx Magnesium Oxide [Mag-Ox] 400 mg PO DAILY tab 11/18/21 11/24/21 Rx Pantoprazole [Protonix] 40 mg PO AC-BRKFST tab 11/18/21 11/24/21 Rx QUEtiapine [SEROquel] 25 mg PO BID tab 11/18/21 11/24/21 Rx cefUROXime axetiL [Cefuroxime] 500 mg PO BID 7 Days #14 tab 11/18/21 11/24/21 Rx Allergies Allergy/AdvReac Type Severity Reaction Status Date / Time No Known Allergies Allergy Verified 11/24/21 13:42 Physical Exam Vitals: Vital Signs Temp Pulse Resp BP Pulse Ox 11/24/21 17:00 99 25 H 113/92 93 L 11/24/21 16:30 98 28 H 100/57 93 L 11/24/21 16:00 95 30 H 105/42 11/24/21 15:30 93 31 H 109/59 11/24/21 15:00 92 25 H 83/40 11/24/21 14:30 92 29 H 86/41 11/24/21 14:00 91 18 95/44 11/24/21 13:36 92 20 84/48 94 L 11/24/21 13:30 18 76/40 11/24/21 13:00 92 24 93 L 11/24/21 12:30 88 29 H 80/34 93 L 11/24/21 12:17 89 78/34 11/24/21 12:00 90 31 H 71/42 93 L 11/24/21 10:46 99.1 F 95 20 80/38 999 H Intake and Output 11/24/21 11/24/21 11/24/21 06:59 14:59 22:59 Intake Total 2.639 Output Total 10 Balance -7.361 Intake: Intake, IV Titration 2.639 Amount Norepinephrine 32 mg In 2.639 Sodium Chloride 0.9% 218 ml @ 0.05 MCG/KG/MIN 1. 799 mls/hr IV .Q24H ONE Rx#:[id number] Output: Urine 10 Uretheral (Jean) 10 Other: Weight 76.748 kg Patient is alert and oriented in no apparent distress HEENT head normocephalic and atraumatic Neck is supple no JVD no goiter no lymphadenopathy Chest exam reveals clear respiratory sounds no crackles no wheezing Cardiac exam reveals regular heart sounds S1 and S2 no gallops no murmurs Abdomen is soft nontender no organomegaly with normal bowel sounds Extremity exam reveals minimal edema no cyanosis or clubbing with normal pulses Neurological examination reveals no gross focal deficit Results CBC & Chem 7: 11/24/21 11:37 11/24/21 11:37 Labs: Abnormal Lab Results - Last 24 Hours (Table) 11/24/21 11/24/21 11/24/21 Range/Units 11:37 11:37 11:37 WBC 14.7 H (3.8-10.6) k/uL RBC 2.74 L (3.80-5.40) m/uL Hgb 7.9 L D (11.4-16.0) gm/dL Hct 25.0 L (34.0-46.0) % Neutrophils # (Manual) 13.30 H (1.3-7.7) k/uL Lymphocytes # (Manual) 0.74 L (1.0-4.8) k/uL Metamyelocytes # (Man) 0.15 H (0) k/uL Myelocytes # (Manual) 0.15 H (0) k/uL PT 14.4 H (9.0-12.0) sec INR 1.4 H (<1.2) Sodium (137-145) mmol/L Chloride (98-107) mmol/L BUN (7-17) mg/dL Creatinine (0.52-1.04) mg/dL Plasma Lactic Acid Julio Cesar (0.7-2.0) mmol/L Calcium (8.4-10.2) mg/dL Delta Bilirubin (0.0-0.2) mg/dL AST (14-36) U/L ALT (4-34) U/L Troponin I (0.000-0.034) ng/mL Total Protein (6.3-8.2) g/dL Albumin (3.5-5.0) g/dL Urine Appearance (Clear) Urine Protein (Negative) Urine Glucose (UA) (Negative) Urine Ketones (Negative) Urine Blood (Negative) Ur Leukocyte Esterase (Negative) Urine RBC (0-5) /hpf Urine WBC (0-5) /hpf Calcium Oxalate Crystal (None) /hpf Amorphous Sediment (None) /hpf Urine Bacteria (None) /hpf Urine Mucus (None) /hpf Urine Opiates Screen Detected H (NotDetected) Ur Oxycodone Screen Detected H (NotDetected) U Tricyclic Antidepress Detected H (NotDetected) U Benzodiazepines Scrn Detected H (NotDetected) 11/24/21 11/24/21 11/24/21 Range/Units 11:37 11:37 11:37 WBC (3.8-10.6) k/uL RBC (3.80-5.40) m/uL Hgb (11.4-16.0) gm/dL Hct (34.0-46.0) % Neutrophils # (Manual) (1.3-7.7) k/uL Lymphocytes # (Manual) (1.0-4.8) k/uL Metamyelocytes # (Man) (0) k/uL Myelocytes # (Manual) (0) k/uL PT (9.0-12.0) sec INR (<1.2) Sodium 132 L (137-145) mmol/L Chloride 96 L (98-107) mmol/L BUN 33 H (7-17) mg/dL Creatinine 2.77 H (0.52-1.04) mg/dL Plasma Lactic Acid Julio Cesar (0.7-2.0) mmol/L Calcium 12.2 H (8.4-10.2) mg/dL Delta Bilirubin 0.4 H (0.0-0.2) mg/dL AST 620 H (14-36) U/L ALT 131 H (4-34) U/L Troponin I 1.150 H* (0.000-0.034) ng/mL Total Protein 4.3 L (6.3-8.2) g/dL Albumin 2.1 L (3.5-5.0) g/dL Urine Appearance Turbid H (Clear) Urine Protein 2+ H (Negative) Urine Glucose (UA) Trace H (Negative) Urine Ketones Trace H (Negative) Urine Blood Small H (Negative) Ur Leukocyte Esterase Trace H (Negative) Urine RBC 8 H (0-5) /hpf Urine WBC 90 H (0-5) /hpf Calcium Oxalate Crystal Rare H (None) /hpf Amorphous Sediment Rare H (None) /hpf Urine Bacteria Rare H (None) /hpf Urine Mucus Occasional H (None) /hpf Urine Opiates Screen (NotDetected) Ur Oxycodone Screen (NotDetected) U Tricyclic Antidepress (NotDetected) U Benzodiazepines Scrn (NotDetected) 11/24/21 11/24/21 Range/Units 11:37 17:21 WBC (3.8-10.6) k/uL RBC (3.80-5.40) m/uL Hgb (11.4-16.0) gm/dL Hct (34.0-46.0) % Neutrophils # (Manual) (1.3-7.7) k/uL Lymphocytes # (Manual) (1.0-4.8) k/uL Metamyelocytes # (Man) (0) k/uL Myelocytes # (Manual) (0) k/uL PT (9.0-12.0) sec INR (<1.2) Sodium (137-145) mmol/L Chloride (98-107) mmol/L BUN (7-17) mg/dL Creatinine (0.52-1.04) mg/dL Plasma Lactic Acid Julio Cesar 5.7 H* 4.1 H* (0.7-2.0) mmol/L Calcium (8.4-10.2) mg/dL Delta Bilirubin (0.0-0.2) mg/dL AST (14-36) U/L ALT (4-34) U/L Troponin I (0.000-0.034) ng/mL Total Protein (6.3-8.2) g/dL Albumin (3.5-5.0) g/dL Urine Appearance (Clear) Urine Protein (Negative) Urine Glucose (UA) (Negative) Urine Ketones (Negative) Urine Blood (Negative) Ur Leukocyte Esterase (Negative) Urine RBC (0-5) /hpf Urine WBC (0-5) /hpf Calcium Oxalate Crystal (None) /hpf Amorphous Sediment (None) /hpf Urine Bacteria (None) /hpf Urine Mucus (None) /hpf Urine Opiates Screen (NotDetected) Ur Oxycodone Screen (NotDetected) U Tricyclic Antidepress (NotDetected) U Benzodiazepines Scrn (NotDetected) Assessment and Plan Plan: Acute shock, likely related to acute hypovolemic shock and acute septic shock Sepsis as evidenced by low grade fever on presentation, elevated white blood count at 14.7, elevated lactic acid at 5.7 and evidence of urinary tract infection, also possible source of infection is in the sigmoid colon as computed tomography scan is revealing evidence of colitis with possible superimposed diverticulitis, findings are new as compared to computed tomography scan from 11/10/2021 Acute renal failure likely related to prerenal azotemia Recent diagnosis of metastatic adenocarcinoma, with metastatic disease to the L3 vertebrae and to the left iliac area Elevated troponin level, patient denies chest pain, doubt cardiac ischemia Will monitor closely Evidence of bilateral pleural effusion Elevated liver enzymes AST and ALT likely related to hypotension At this time patient was admitted to intensive care unit She was started on IV fluid and IV levofed in the emergency room She was also started on IV Zosyn For DVT prophylaxis subcu heparin for GI prophylaxis IV Protonix At this time will add consultation for infectious disease and oncology Patient is improving gradually however prognosis remains very guarded Will follow closely
[2021-11-24 19:53] LABS: Glucose,Whole Blood 58 mg/dL (70-110)
[2021-11-24] MEDS ORDERED: DEXTROSE 50% SYRINGE 50 ML IVP ONE (19:53)
[2021-11-24] MEDS: ALBUMIN HUMAN 25% 50 ML in EMPTY BAG 1 BAG IVPB SCH ×2 (20:11→22:17)
[2021-11-24 20:20] LABS: Glucose,Whole Blood 86 mg/dL (70-110)
[2021-11-24] MEDS: PIPERACILLIN-TAZOBACTAM 3.375 GM in SODIUM CHLORIDE 0.9% 100 ML IVPB SCH (20:24)
[2021-11-24 22:41] LABS: Albumin 2.4 g/dL (3.5-5.0); Calcium 12.1 mg/dL (8.4-10.2); Potassium 4.2 mmol/L (3.5-5.1); Total Bilirubin 0.2 mg/dL (0.2-1.3); Total Protein 4.6 g/dL (6.3-8.2)
[2021-11-24 23:53] LABS: Glucose,Whole Blood 77 mg/dL (70-110)
[2021-11-25] MEDS: HEPARIN SODIUM,PORCINE/PF 5,000 UNIT/0.5 ML SYRINGE SQ SCH ×3 (00:03→15:16)
[2021-11-25 03:44] LABS: Albumin 2.2 g/dL (3.5-5.0); Calcium 11.7 mg/dL (8.4-10.2); Potassium 5.5 mmol/L (3.5-5.1); Total Bilirubin 0.4 mg/dL (0.2-1.3); Total Protein 4.4 g/dL (6.3-8.2)
[2021-11-25 03:45] LABS: HCT 26.9 % (34.0-46.0); HGB 8.3 gm/dL (11.4-16.0); Hypochromasia Marked; MCH 28.9 pg (25.0-35.0); MCHC 30.8 g/dL (31.0-37.0); Mean Platelet Volume 10.4; Platelet Count 426 k/uL (150-450); RBC 2.86 m/uL (3.80-5.40); RDW 13.9 % (11.5-15.5)
[2021-11-25 04:14] LABS: Band Neutrophils % 15 %; Metamyelocytes % 4 %; Myelocytes % 2 %; Neutrophils % (M) 66 %; Nucleated Red Blood Cells 6 /100 WBC (0-0); Total Cells Counted 200
[2021-11-25 04:15] LABS: Dohle Bodies Present; Eosinophils # (M) 0.18 k/uL (0-0.7); Large Platelets Present; Lymphocytes # (M) 1.61 k/uL (1.0-4.8); Metamyelocytes # (M) 0.72 k/uL (0); Monocytes # (M) 0.72 k/uL (0-1.0); Myelocytes # (M) 0.36 k/uL (0); Polychromasia Present; Toxic Vacuolation Present; WBC 17.9 k/uL (3.8-10.6)
[2021-11-25 04:16] LABS: Poikilocytosis (M) Present
[2021-11-25 05:01] LABS: Glucose,Whole Blood 63 mg/dL (70-110)
[2021-11-25] MEDS ORDERED: DEXTROSE 50% SYRINGE 50 ML IVP ONE ×2 (05:03→11:50)
[2021-11-25 05:17] LABS: Glucose,Whole Blood 115 mg/dL (70-110)
[2021-11-25] MEDS: PANTOPRAZOLE 40 MG/10 ML VIAL IVP SCH (06:35)
[2021-11-25] MEDS ORDERED: PANTOPRAZOLE 40 MG TABLET PO SCH (07:30)
[2021-11-25] MEDS: PIPERACILLIN-TAZOBACTAM 3.375 GM in SODIUM CHLORIDE 0.9% 100 ML IVPB SCH ×2 (08:14→22:51)
[2021-11-25] MEDS ORDERED: SODIUM CHLORIDE 0.9% 1,000 ML IV ONE (08:50)
[2021-11-25] MEDS ORDERED: SODIUM CHLORIDE 0.9% 250 ML with PAMIDRONATE 60 MG IV ONE ×2 (09:15)
--- NOTE | 2021-11-25 09:21 | XR ---
EXAMINATION TYPE: XR chest 1V DATE OF EXAM: 11/25/2021 9:15 AM COMPARISON: Chest radiographs from 11/24/2021 TECHNIQUE: XR chest 1V Frontal view of the chest. CLINICAL INDICATION:Female, 71 years old with history of dyspnea; FINDINGS: Lungs/Pleura: No pneumothorax. Small bilateral pleural effusions with associated atelectasis. Mild pu lmonary vascular congestion. Heart/mediastinum: Cardiomediastinal silhouette is stable. Atherosclerotic calcifications are seen i n the aorta. Musculoskeletal: Multiple level degenerative disc disease changes seen throughout the spine. Lines/Tubes: Right internal jugular central venous catheter with distal tip high SVC in unchanged position. IMPRESSION: Pulmonary vascular congestion with small bilateral pleural effusions.
--- NOTE | 2021-11-25 09:26 | XR ---
EXAMINATION TYPE: XR abdomen 1V DATE OF EXAM: 11/25/2021 9:15 AM INDICATION: Patient age:Female; 71 years old; Reason for study: abd pain; PHH. COMPARISON: CT abdomen pelvis 11/24/2021 TECHNIQUE: One radiographic view of the abdomen and pelvis with 2 radiograph. FINDINGS: Nonobstructive bowel gas pattern with gas-filled nondilated large bowel. Curvilinear calcif ications in the left upper quadrant represent calcified splenic artery. Vertebroplasty changes involv ing the L3 vertebral body. Known left iliac bone destructive lesions are appreciated on recent CT. IMPRESSION: Nonobstructive bowel gas pattern.
[2021-11-25 09:43] LABS: Glucose,Whole Blood 70 mg/dL (70-110)
[2021-11-25] MEDS: SODIUM CHLORIDE 0.9% 1,000 ML IV SCH ×3 (10:07→15:05)
[2021-11-25 10:39] LABS: Glucose,Whole Blood 70 mg/dL (70-110)
[2021-11-25 11:43] LABS: Glucose,Whole Blood 65 mg/dL (70-110)
[2021-11-25] MEDS ORDERED: DEXTROSE 5% IN WATER 1,000 ML IV SCH (12:00)
--- NOTE | 2021-11-25 12:01 | P.PN ---
Subjective Progress Note Date: 11/25/21 71-year-old female patient who currently has a diagnosis of metastatic adenocarcinoma, who was recently in the hospital after the patient was found to have tumor involving the L3 vertebral body and a destructive left iliac mass as well as a couple of lytic rib lesions. At that time, the patient was seen by the spine surgeon and the patient underwent kyphoplasty and a biopsy of the L3. The pathology was adenocarcinoma consistent with upper GI cancer versus lung primary. The patient was supposed to start radiation therapy on outpatient basis. The patient was discharged home and the patient within a week of being discharged, came into the hospital with a worsening condition as the patient became more lethargic, weak, unable to eat or drink, low urine output almost absent over the past 24 hours, altered mentation, generalized weakness, increased edema and third spacing all 4 extremities. At that point, the patient came into the emergency and the patient was given a total of 3 L of IV fluids. The patient remained hypotensive with a systolic blood pressure ranging between 70 and 80 and she was started on Levofed which is running at 0.05 mg/kg/m. Her T-max is 99.1F. Mild tachypnea. No significant tachycardia. The white cell count 14.7 with hemoglobin of 7.9. BNP is a 33 with a creatinine of 2.7 consistent with an acute kidney injury in the sodium level is at 132 and a serum bicarbonate of 26. Regulation profile is within normal. Urine drug screen is positive for opiates, oxycodone, tricyclic antidepressant and benzodiazepine. The patient also had an ALT of 131 with an AST of 620 and alkaline phosphatase of 117. Bilirubin is at 0.4. Troponin was at 1.1. UA showed +2 protein. At the same time, a repeat CAT scan of the abdomen and pelvis was done that showed bilateral pleural effusions and enlarged gallbladder without evidence of any biliary obstruction. There was stable sigmoid colon colitis suspected. There was redemonstration of the osseous lesions in the left iliac bone and adjacent left sacroiliac joint and iliac crest with invasion. The gallbladder was hydropic. I saw the patient emergency care I was unable to communicate with her. Her mental status was altered. She was moving all 4 extremities without limitation. CAT scan of the brain was done showing no acute process. A triple lumen catheter was also inserted in the emergency that showed adequate positioning of the right IJ triple THERAPY of this pulmonary asked congestion and pleural effusion lung base bilaterally. Jean catheter in place. no significant urine output. On today's evaluation of 11/25/2021, the patient's condition essentially unchanged. She is still very encephalopathic and lethargic. The patient was severely dehydrated and the patient received a total of 4 L of IV fluid in the form of normal saline, 2 doses of 25% albumin and she was maintained on normal s darien at the rate of 130 mL an hour. On today's evaluation, I noted some improvement in urine output. The patient is producing approximately 25 mL an hour of urine output. I also noted that the patient is membranes are still dry. On today's evaluation, the BUN is at 35 with a creatinine of 2.7. Sodium is at 134. White cell count of 75, hemoglobin 8.3. The calcium level still elevated although slight improvement compared to yesterday and the patient's abdomen continues to be somewhat tender to palpation. The lactic acid level has been fluctuating. After peaking at around 5.0 and improving, the most recent level is down to 4.3. The calcium level is at 11.7. At the same time, the patient has improvement in the LFTs and AST is down to 432 and ALT is down to 111 with an alkaline phosphatase of 122. Bilirubin is 0.4. Flat film of the abdomen was done today showed a nonobstructive gas pattern and the patient also had a chest x-ray that shows small bilateral pleural effusion and some mild pulmonary vascular congestion. The patient remains on oxygen at 4 L per minute nasal cannula. She remains on empiric antibiotic coverage with IV Zosyn. Objective - Vital Signs Vital signs: Vital Signs Temp 99.6 F 11/25/21 08:00 Pulse 92 11/25/21 08:30 Resp 45 H 11/25/21 08:30 BP 129/54 11/25/21 08:30 Pulse Ox 97 11/25/21 08:30 FiO2 Intake & Output 11/24/21 11/25/21 11/25/21 18:59 06:59 18:59 Intake Total 2.639 1201.069 280.988 Output Total 20 207 50 Balance -17.361 994.069 230.988 Weight 76.748 kg 80.4 kg Intake: IV 1175 260 Albumin Human 25% 50 ml 100 In Empty Bag 1 bag @ 50 mls/hr IVPB Q1H [facility] Rx#: [id number] Piperacillin-Tazobactam 3 100 .375 gm In Sodium Chloride 0.9% 100 ml @ 25 mls/hr IVPB Q12HR [facility] Rx #:[id number] Sodium Chloride 0.9% 1, 975 260 000 ml @ 130 mls/hr IV . Q7H42M [facility] Rx#:[id number] Intake, IV Titration 2.639 26.069 20.988 Amount Norepinephrine 32 mg In 2.639 26.069 20.988 Sodium Chloride 0.9% 218 ml @ 0.05 MCG/KG/MIN 1. 799 mls/hr IV .Q24H [facility] Rx#:[id number] Output: Urine 20 207 50 Uretheral (Jean) 10 Other: Voiding Method Indwelling Catheter Indwelling Catheter - Exam GENERAL EXAM: Alert, very pleasant 71-year-old white female, on 5 liters with pulse ox of 93% comfortable in no apparent distress.extremely dry mucous membranes of the mouth and throat HEAD: Normocephalic/atraumatic. EYES: Normal reaction of pupils, equal size. Conjunctiva pink, sclera white. NOSE: Clear with pink turbinates. THROAT: No erythema or exudates. NECK: No masses, no JVD, no thyroid enlargement, no adenopathy. CHEST: No chest wall deformity. Symmetrical expansion. LUNGS: Equal air entry with no crackles, wheeze, rhonchi or dullness.diminished breath on the lung bases bilaterally CVS: Regular rate and rhythm, normal S1 and S2, no gallops, no murmurs, no rubs ABDOMEN: Soft, direct tenderness on examination. No rebound tenderness. No guarding.. No hepatosplenomegaly, normal bowel sounds, no guarding or rigidity. EXTREMITIES: No clubbing,trace edema lower extremity is bilaterally, no cyanosis, 2+ pulses and upper and lower extremities. MUSCULOSKELETAL: Muscle strength and tone normal. SPINE: No scoliosis or deformity SKIN: No rashes CENTRAL NERVOUS SYSTEM: the patient is encephalopathic,she was also painful stimulation extremities. Pupils are equal and reactive to light. Reflexes are diminished. Motor function sensitive function cannot be accurately assessed. No facial asymmetry. PSYCHIATRIC: Unable to perform due to above - Labs CBC & Chem 7: 11/25/21 03:11/25/21 03:01 Labs: Abnormal Lab Results - Last 24 Hours (Table) 11/24/21 11/24/21 11/24/21 Range/Units 11:37 11:37 11:37 WBC 14.7 H (3.8-10.6) k/uL RBC 2.74 L (3.80-5.40) m/uL Hgb 7.9 L D (11.4-16.0) gm/dL Hct 25.0 L (34.0-46.0) % MCHC (31.0-37.0) g/dL Neutrophils # (Manual) 13.30 H (1.3-7.7) k/uL Lymphocytes # (Manual) 0.74 L (1.0-4.8) k/uL Metamyelocytes # (Man) 0.15 H (0) k/uL Myelocytes # (Manual) 0.15 H (0) k/uL Nucleated RBCs (0-0) /100 WBC PT 14.4 H (9.0-12.0) sec INR 1.4 H (<1.2) Sodium (137-145) mmol/L Potassium (3.5-5.1) mmol/L Chloride (98-107) mmol/L Carbon Dioxide (22-30) mmol/L BUN (7-17) mg/dL Creatinine (0.52-1.04) mg/dL Glucose (74-99) mg/dL POC Glucose (mg/dL) (70-110) mg/dL Plasma Lactic Acid Julio Cesar (0.7-2.0) mmol/L Calcium (8.4-10.2) mg/dL Delta Bilirubin (0.0-0.2) mg/dL AST (14-36) U/L ALT (4-34) U/L Alkaline Phosphatase (38-126) U/L Troponin I (0.000-0.034) ng/mL Total Protein (6.3-8.2) g/dL Albumin (3.5-5.0) g/dL Urine Appearance (Clear) Urine Protein (Negative) Urine Glucose (UA) (Negative) Urine Ketones (Negative) Urine Blood (Negative) Ur Leukocyte Esterase (Negative) Urine RBC (0-5) /hpf Urine WBC (0-5) /hpf Calcium Oxalate Crystal (None) /hpf Amorphous Sediment (None) /hpf Urine Bacteria (None) /hpf Urine Mucus (None) /hpf Urine Opiates Screen Detected H (NotDetected) Ur Oxycodone Screen Detected H (NotDetected) U Tricyclic Antidepress Detected H (NotDetected) U Benzodiazepines Scrn Detected H (NotDetected) 11/24/21 11/24/21 11/24/21 Range/Units 11:37 11:37 11:37 WBC (3.8-10.6) k/uL RBC (3.80-5.40) m/uL Hgb (11.4-16.0) gm/dL Hct (34.0-46.0) % MCHC (31.0-37.0) g/dL Neutrophils # (Manual) (1.3-7.7) k/uL Lymphocytes # (Manual) (1.0-4.8) k/uL Metamyelocytes # (Man) (0) k/uL Myelocytes # (Manual) (0) k/uL Nucleated RBCs (0-0) /100 WBC PT (9.0-12.0) sec INR (<1.2) Sodium 132 L (137-145) mmol/L Potassium (3.5-5.1) mmol/L Chloride 96 L (98-107) mmol/L Carbon Dioxide (22-30) mmol/L BUN 33 H (7-17) mg/dL Creatinine 2.77 H (0.52-1.04) mg/dL Glucose (74-99) mg/dL POC Glucose (mg/dL) (70-110) mg/dL Plasma Lactic Acid Julio Cesar (0.7-2.0) mmol/L Calcium 12.2 H (8.4-10.2) mg/dL Delta Bilirubin 0.4 H (0.0-0.2) mg/dL AST 620 H (14-36) U/L ALT 131 H (4-34) U/L Alkaline Phosphatase (38-126) U/L Troponin I 1.150 H* (0.000-0.034) ng/mL Total Protein 4.3 L (6.3-8.2) g/dL Albumin 2.1 L (3.5-5.0) g/dL Urine Appearance Turbid H (Clear) Urine Protein 2+ H (Negative) Urine Glucose (UA) Trace H (Negative) Urine Ketones Trace H (Negative) Urine Blood Small H (Negative) Ur Leukocyte Esterase Trace H (Negative) Urine RBC 8 H (0-5) /hpf Urine WBC 90 H (0-5) /hpf Calcium Oxalate Crystal Rare H (None) /hpf Amorphous Sediment Rare H (None) /hpf Urine Bacteria Rare H (None) /hpf Urine Mucus Occasional H (None) /hpf Urine Opiates Screen (NotDetected) Ur Oxycodone Screen (NotDetected) U Tricyclic Antidepress (NotDetected) U Benzodiazepines Scrn (NotDetected) 11/24/21 11/24/21 11/24/21 Range/Units 11:37 17:21 19:51 WBC (3.8-10.6) k/uL RBC (3.80-5.40) m/uL Hgb (11.4-16.0) gm/dL Hct (34.0-46.0) % MCHC (31.0-37.0) g/dL Neutrophils # (Manual) (1.3-7.7) k/uL Lymphocytes # (Manual) (1.0-4.8) k/uL Metamyelocytes # (Man) (0) k/uL Myelocytes # (Manual) (0) k/uL Nucleated RBCs (0-0) /100 WBC PT (9.0-12.0) sec INR (<1.2) Sodium (137-145) mmol/L Potassium (3.5-5.1) mmol/L Chloride (98-107) mmol/L Carbon Dioxide (22-30) mmol/L BUN (7-17) mg/dL Creatinine (0.52-1.04) mg/dL Glucose (74-99) mg/dL POC Glucose (mg/dL) 58 L (70-110) mg/dL Plasma Lactic Acid Julio Cesar 5.7 H* 4.1 H* (0.7-2.0) mmol/L Calcium (8.4-10.2) mg/dL Delta Bilirubin (0.0-0.2) mg/dL AST (14-36) U/L ALT (4-34) U/L Alkaline Phosphatase (38-126) U/L Troponin I (0.000-0.034) ng/mL Total Protein (6.3-8.2) g/dL Albumin (3.5-5.0) g/dL Urine Appearance (Clear) Urine Protein (Negative) Urine Glucose (UA) (Negative) Urine Ketones (Negative) Urine Blood (Negative) Ur Leukocyte Esterase (Negative) Urine RBC (0-5) /hpf Urine WBC (0-5) /hpf Calcium Oxalate Crystal (None) /hpf Amorphous Sediment (None) /hpf Urine Bacteria (None) /hpf Urine Mucus (None) /hpf Urine Opiates Screen (NotDetected) Ur Oxycodone Screen (NotDetected) U Tricyclic Antidepress (NotDetected) U Benzodiazepines Scrn (NotDetected) 11/24/21 11/24/21 11/24/21 Range/Units 20:17 22:11 23:37 WBC (3.8-10.6) k/uL RBC (3.80-5.40) m/uL Hgb (11.4-16.0) gm/dL Hct (34.0-46.0) % MCHC (31.0-37.0) g/dL Neutrophils # (Manual) (1.3-7.7) k/uL Lymphocytes # (Manual) (1.0-4.8) k/uL Metamyelocytes # (Man) (0) k/uL Myelocytes # (Manual) (0) k/uL Nucleated RBCs (0-0) /100 WBC PT (9.0-12.0) sec INR (<1.2) Sodium 134 L (137-145) mmol/L Potassium (3.5-5.1) mmol/L Chloride (98-107) mmol/L Carbon Dioxide 21 L (22-30) mmol/L BUN 32 H (7-17) mg/dL Creatinine 3.14 H (0.52-1.04) mg/dL Glucose (74-99) mg/dL POC Glucose (mg/dL) (70-110) mg/dL Plasma Lactic Acid Julio Cesar 4.6 H* 3.7 H* (0.7-2.0) mmol/L Calcium 12.1 H (8.4-10.2) mg/dL Delta Bilirubin (0.0-0.2) mg/dL AST 503 H (14-36) U/L ALT 120 H (4-34) U/L Alkaline Phosphatase 141 H (38-126) U/L Troponin I (0.000-0.034) ng/mL Total Protein 4.6 L (6.3-8.2) g/dL Albumin 2.4 L (3.5-5.0) g/dL Urine Appearance (Clear) Urine Protein (Negative) Urine Glucose (UA) (Negative) Urine Ketones (Negative) Urine Blood (Negative) Ur Leukocyte Esterase (Negative) Urine RBC (0-5) /hpf Urine WBC (0-5) /hpf Calcium Oxalate Crystal (None) /hpf Amorphous Sediment (None) /hpf Urine Bacteria (None) /hpf Urine Mucus (None) /hpf Urine Opiates Screen (NotDetected) Ur Oxycodone Screen (NotDetected) U Tricyclic Antidepress (NotDetected) U Benzodiazepines Scrn (NotDetected) 11/25/21 11/25/21 11/25/21 Range/Units 03:01 03:01 03:01 WBC 17.9 H (3.8-10.6) k/uL RBC 2.86 L (3.80-5.40) m/uL Hgb 8.3 L (11.4-16.0) gm/dL Hct 26.9 L (34.0-46.0) % MCHC 30.8 L (31.0-37.0) g/dL Neutrophils # (Manual) 14.40 H (1.3-7.7) k/uL Lymphocytes # (Manual) (1.0-4.8) k/uL Metamyelocytes # (Man) 0.72 H (0) k/uL Myelocytes # (Manual) 0.36 H (0) k/uL Nucleated RBCs 6 H (0-0) /100 WBC PT (9.0-12.0) sec INR (<1.2) Sodium 134 L (137-145) mmol/L Potassium 5.5 H (3.5-5.1) mmol/L Chloride (98-107) mmol/L Carbon Dioxide (22-30) mmol/L BUN 35 H (7-17) mg/dL Creatinine 2.75 H (0.52-1.04) mg/dL Glucose 66 L (74-99) mg/dL POC Glucose (mg/dL) (70-110) mg/dL Plasma Lactic Acid Julio Cesar 3.3 H* (0.7-2.0) mmol/L Calcium 11.7 H (8.4-10.2) mg/dL Delta Bilirubin (0.0-0.2) mg/dL AST 432 H (14-36) U/L ALT 111 H (4-34) U/L Alkaline Phosphatase (38-126) U/L Troponin I (0.000-0.034) ng/mL Total Protein 4.4 L (6.3-8.2) g/dL Albumin 2.2 L (3.5-5.0) g/dL Urine Appearance (Clear) Urine Protein (Negative) Urine Glucose (UA) (Negative) Urine Ketones (Negative) Urine Blood (Negative) Ur Leukocyte Esterase (Negative) Urine RBC (0-5) /hpf Urine WBC (0-5) /hpf Calcium Oxalate Crystal (None) /hpf Amorphous Sediment (None) /hpf Urine Bacteria (None) /hpf Urine Mucus (None) /hpf Urine Opiates Screen (NotDetected) Ur Oxycodone Screen (NotDetected) U Tricyclic Antidepress (NotDetected) U Benzodiazepines Scrn (NotDetected) 11/25/21 11/25/21 11/25/21 Range/Units 04:59 05:15 07:27 WBC (3.8-10.6) k/uL RBC (3.80-5.40) m/uL Hgb (11.4-16.0) gm/dL Hct (34.0-46.0) % MCHC (31.0-37.0) g/dL Neutrophils # (Manual) (1.3-7.7) k/uL Lymphocytes # (Manual) (1.0-4.8) k/uL Metamyelocytes # (Man) (0) k/uL Myelocytes # (Manual) (0) k/uL Nucleated RBCs (0-0) /100 WBC PT (9.0-12.0) sec INR (<1.2) Sodium (137-145) mmol/L Potassium (3.5-5.1) mmol/L Chloride (98-107) mmol/L Carbon Dioxide (22-30) mmol/L BUN (7-17) mg/dL Creatinine (0.52-1.04) mg/dL Glucose (74-99) mg/dL POC Glucose (mg/dL) 63 L 115 H (70-110) mg/dL Plasma Lactic Acid Julio Cesar 4.3 H* (0.7-2.0) mmol/L Calcium (8.4-10.2) mg/dL Delta Bilirubin (0.0-0.2) mg/dL AST (14-36) U/L ALT (4-34) U/L Alkaline Phosphatase (38-126) U/L Troponin I (0.000-0.034) ng/mL Total Protein (6.3-8.2) g/dL Albumin (3.5-5.0) g/dL Urine Appearance (Clear) Urine Protein (Negative) Urine Glucose (UA) (Negative) Urine Ketones (Negative) Urine Blood (Negative) Ur Leukocyte Esterase (Negative) Urine RBC (0-5) /hpf Urine WBC (0-5) /hpf Calcium Oxalate Crystal (None) /hpf Amorphous Sediment (None) /hpf Urine Bacteria (None) /hpf Urine Mucus (None) /hpf Urine Opiates Screen (NotDetected) Ur Oxycodone Screen (NotDetected) U Tricyclic Antidepress (NotDetected) U Benzodiazepines Scrn (NotDetected) Microbiology - Last 24 Hours (Table) 11/24/21 11:37 Urine Culture - Preliminary Urine,Voided Assessment and Plan Plan: metastatic adenocarcinoma of an unknown primary, likely of a gastrointestinal source. I reviewed the CAT scan of the chest and the patient has a tiny right middle lobe pulmonary spiculated lesion in addition based on lymphadenopathy. As such, the possibility of a primary lung cancer which is visiting at this point cannot be completely excluded although other possibilities such as a GI source of a malignancy cannot be also excluded. Skeletal metastases involving the L3 spine in addition to the sacrum particularly the left iliac Acute hypovolemic shock, currently on pressors and fluids, . The possibility of a septic shock also needs to be considered as the patient has some diffuse abdominal tenderness, rule out sigmoid diverticulitis/colitis Acute hypercalcemia, could be related to skeletal metastases versus intravascular volume depletion/dehydration, slightly improved with a calcium level is down to 11.7 Altered mentation related to metabolic encephalopathy, unchanged acute kidney injury secondary to intravascular volume depletion improving and the creatinine is down to 2.75 in the urine output is also improving Questionable sigmoid colitis/diverticulitis and currently the patient on IV Zosyn. Anemia of chronic disease, normocytic Acute lactic acidosis secondary to above the lactic acid level peaked at 5.7 at time of admission and it has been fluctuating in the most recent level is down to 4.3. Abnormal LFTs with a hydropic gallbladder. This is not a cholestatic picture and the patient has normal bilirubin and normal alkaline phosphatase, improved Abnormal troponin secondary to above, doubt any acute coronary event Bilateral pleural effusion and increased edema in the legs and third spacing Plan The patient has already received a total of 4 L of IV fluids and 25 g of IV albumin. We'll give the patient additional 1 L and increase the maintenance up to 200 mL an hour. Give the patient Aredia 60 mg IV 1 and monitor the calcium level Check another set of electrolytes by around 1400 Continue IV Zosyn and the patient continues to have some abdominal tenderness, consider diverticulitis Recheck if left of the abdomen and the chest x-ray Keep the Jean catheter in place norepinephrine is currently running at 0.07 mcg kilogram per minute Monitor the calcium level Monitor urine output Keep the Jean catheter in place Monitor lactic acid level Oncology consultation Very poor prognosis based of metastatic adenocarcinoma Heparin subcu 40 prophylaxis Full code for now. The triple-lumen catheter has been inserted. We'll continue to follow
[2021-11-25 12:29] LABS: Glucose,Whole Blood 106 mg/dL (70-110)
[2021-11-25] MEDS ORDERED: SODIUM ZIRCONIUM CYCLOSILICATE 10 GM PACKET PO ONE (13:31)
[2021-11-25] MEDS ORDERED: FUROSEMIDE 10 MG/ML 4 ML VIAL IV STA (13:33)
--- NOTE | 2021-11-25 13:34 | P.NPCON ---
History of Present Illness - Reason for Consult acute renal failure - History of Present Illness Reason for consultation: Acute kidney injury History of present illness: Patient is a 71-year-old female seen in renal consultation for acute kidney injury. Patient's creatinine peaked at 3.1 for this admission and is 2.75 today. Baseline creatinine 0.6-0.7 from November 2021. Patient was admitted with acute renal failure in November 2021 and improved with IV hydration. She underwent kyphoplasty with biopsy and was diagnosed with adenocarcinoma. Primary thought to be either GI versus lung. Patient was subsequently discharged and was scheduled to start chemotherapy and radiation this week. However she became unresponsive, lethargic with poor intake and brought her to the hospital. She is currently on Levophed. Urine output has been 25-35 mL an hour. She did receive 5 L of normal saline bolus and is currently receiving D5W as her blood sugars are low as well as normal saline. Calcium level was high at 12.1 and is 11.7 today. She did receive a dose of IV pamidronate today. I do see Motrin and her home medication list but unsure if she was actually taking this or not. I don't see any calcium or vitamin D supplements. Patient did have a fever of high as 101F this admission and her white count is also elevated. She is receiving IV antibiotics. Vital signs are stable. on Levophed. General: Resting in bed. Lethargic. HEENT: On nasal cannula. LUNGS: Breath sounds decreased. HEART: Rate and Rhythm are regular. ABDOMEN: Soft, mild distention. EXTREMITITES: 1+ edema. Past Medical History Past Medical History: No Reported History, Cancer Additional Past Medical History / Comment(s): metastatic adenocarcinoma History of Any Multi-Drug Resistant Organisms: None Reported Past Surgical History: No Surgical Hx Reported, Hysterectomy Additional Past Surgical History / Comment(s): cataract surgery, Hysterectomy age 27, bone biopsy Past Anesthesia/Blood Transfusion Reactions: No Reported Reaction Past Psychological History: No Psychological Hx Reported Smoking Status: Former smoker Past Alcohol Use History: Occasional Past Drug Use History: None Reported - Past Family History Mother Family Medical History: No Reported History Father Family Medical History: Cancer Additional Family Medical History / Comment(s): skin Brother(s) Family Medical History: No Reported History Medications and Allergies Home Medications Medication Instructions Recorded Confirmed Type HYDROcodone/APAP 10-325MG [[place] 1 tab PO TID PRN 11/10/21 11/24/21 History 10-325] Ibuprofen [Motrin] 800 mg PO TID PRN 11/11/21 11/24/21 History ALPRAZolam [Xanax] 0.5 mg PO QID PRN tab 11/18/21 11/24/21 Rx Magnesium Oxide [Mag-Ox] 400 mg PO DAILY tab 11/18/21 11/24/21 Rx Pantoprazole [Protonix] 40 mg PO AC-BRKFST tab 11/18/21 11/24/21 Rx QUEtiapine [SEROquel] 25 mg PO BID tab 11/18/21 11/24/21 Rx cefUROXime axetiL [Cefuroxime] 500 mg PO BID 7 Days #14 tab 11/18/21 11/24/21 Rx Allergies Allergy/AdvReac Type Severity Reaction Status Date / Time No Known Allergies Allergy Verified 11/24/21 13:42 Physical Exam Vitals: Vital Signs Temp Pulse Resp BP Pulse Ox 11/25/21 13:00 90 17 105/93 85 L 11/25/21 12:30 91 31 H 118/50 90 L 11/25/21 12:00 99.0 F 90 31 H 113/51 91 L 11/25/21 11:30 90 30 H 119/56 88 L 11/25/21 11:00 90 29 H 111/62 90 L 11/25/21 10:30 90 35 H 111/58 89 L 11/25/21 10:00 90 19 103/61 92 L 11/25/21 09:30 90 17 115/49 87 L 11/25/21 09:00 90 26 H 123/46 93 L 11/25/21 08:30 92 45 H 129/54 97 11/25/21 08:00 99.6 F 92 31 H 127/55 95 11/25/21 07:30 92 29 H 135/57 99 11/25/21 07:00 93 33 H 124/51 94 L 11/25/21 06:30 99.5 F 93 37 H 127/49 95 11/25/21 06:00 93 19 131/48 94 L 11/25/21 05:30 95 27 H 121/53 98 11/25/21 05:00 96 25 H 133/44 90 L 11/25/21 04:30 95 30 H 114/67 93 L 11/25/21 04:00 101.1 F H 100 24 91 L 11/25/21 03:30 96 29 H 118/47 94 L 11/25/21 03:00 93 22 117/47 96 11/25/21 02:30 96 13 114/74 94 L 11/25/21 02:00 94 32 H 120/45 94 L 11/25/21 01:30 96 12 135/41 94 L 11/25/21 01:00 95 39 H 116/40 94 L 11/25/21 00:30 94 29 H 108/42 94 L 11/25/21 00:00 99.8 F H 93 31 H 111/55 91 L 1822 23:30 95 20 92 L 22 23:18 96 27 H 106/70 93 L 11/24/21 23:00 96 30 H 112/57 95 11/24/21 22:30 100 18 114/44 88 L 22 22:00 95 35 H 96/82 94 L 1822 21:30 93 32 H 106/45 96 18/22 21:00 94 31 H 99/49 96 18/22 20:30 96 33 H 113/49 96 18/22 20:00 98.7 F 96 24 103/72 93 L 0718/22 19:00 96 30 H 102/48 92 L 18/22 18:40 98 15 93 L 11/24/22 18:00 101 H 34 H 111/41 93 L 18/22 17:30 100.2 F H 97 31 H 106/45 92 L 0718/22 17:00 99 25 H 113/92 93 L /18/22 16:30 98 28 H 100/57 93 L 0718/22 16:00 95 32 H 105/42 18/22 15:30 93 31 H 109/59 18/22 15:00 92 25 H 83/40 18/22 14:30 92 29 H 86/41 18/22 14:00 91 18 95/44 1822 13:36 92 20 84/48 94 L 1822 13:30 18 76/40 Intake and Output 11/24/21 11/25/21 11/25/21 22:59 06:59 14:59 Intake Total 412.915 966.259 3768.626 Output Total 56 171 218 Balance 356.915 254.068 6027.626 Intake: IV 595 862 2016 Albumin Human 25% 50 ml 100 In Empty Bag 1 bag @ 50 mls/hr IVPB Q[facility]H [facility] Rx#: [id number] Piperacillin-Tazobactam 3 100 .375 gm In Sodium Chloride 0.9% 100 ml @ 25 mls/hr IVPB Q12HR [facility] Rx #:[id number] Sodium Chloride 0.9% 1, 350 848 9725 000 ml @ 130 mls/hr IV . Q7H42M [facility] Rx#:[id number] Intake, IV Titration 17.915 10.793 173.626 Amount Dextrose 5% in Water 1, 150 000 ml @ 75 mls/hr IV . Q99C31V [facility] Rx#:[id number] Norepinephrine 32 mg In 17.915 10.793 23.626 Sodium Chloride 0.9% 218 ml @ 0.05 MCG/KG/MIN 1. 799 mls/hr IV .Q24H [facility] Rx#:[id number] Output: Urine 56 171 218 Uretheral (Jean) 10 Other: Voiding Method Indwelling Catheter Indwelling Catheter Indwelling Catheter Weight 76.748 kg 80.4 kg Results - Lab Results Most recent lab results Calcium 11.7 mg/dL (8.4-10.2) H 11/25/21 03:01 11/25/21 03:01 11/25/21 03:01 Assessment and Plan Plan: Assessment: 1. Acute kidney injury secondary to ATN secondary to hypotension/sepsis and hypercalcemia. Creatinine peaked at 3.1 for this admission and is 2.75 today. Baseline creatinine 0.6-0.8 from November 2021. No hydronephrosis noted on CAT scan. 2. Hypercalcemia secondary to underlying malignancy and volume contraction. Calcium 12.1 on admission and is 11.7 today. 3. Septic shock on antibiotics and Levophed. 4. Metastatic adenocarcinoma with unclear primary. Oncology following. 5. Hyperkalemia secondary to acute kidney injury. 6. Edema partially related to third spacing. Plan: Stop D5W. Start D5 0.9 saline to be run at 150 mL an hour. Lasix 40 mg IV once today. Status post IV albumin given 11/24/2021. Status post IV pamidronate given today. Check further workup for hypercalcemia. Follow-up cultures. Wean FiO2 and vasopressors. 10 g lokelma once today. Repeat potassium level this evening. Continue to monitor renal function and urine output. Thank you for the consultation. I will continue to follow the patient with you during her hospital stay.
[2021-11-25 14:41] LABS: Glucose,Whole Blood 86 mg/dL (70-110)
[2021-11-25 14:50] LABS: HCT 30.7 % (34.0-46.0); Hypochromasia Marked; MCH 27.7 pg (25.0-35.0); MCHC 29.3 g/dL (31.0-37.0); MCV 94.5 fL (80.0-100.0); Mean Platelet Volume 9.9; Platelet Count 523 k/uL (150-450); RBC 3.25 m/uL (3.80-5.40); RDW 13.5 % (11.5-15.5)
[2021-11-25 15:07] LABS: Band Neutrophils % 17 %; Eosinophils # (M) 0.26 k/uL (0-0.7); Lymphocytes # (M) 2.37 k/uL (1.0-4.8); Metamyelocytes # (M) 2.37 k/uL (0); Metamyelocytes % 9 %; Monocytes # (M) 1.58 k/uL (0-1.0); Myelocytes # (M) 0.79 k/uL (0); Myelocytes % 3 %; Neutrophils % (M) 57 %; Nucleated Red Blood Cells 2 /100 WBC (0-0); Total Cells Counted 200; WBC 26.3 k/uL (3.8-10.6)
[2021-11-25 15:08] LABS: Polychromasia Present; Rouleaux Present
[2021-11-25] MEDS: POTASSIUM CHLORIDE 20 MEQ in WATER FOR INJECTION 1 100ML.BAG IVPB ONE ×2 (15:16→15:18)
[2021-11-25 15:34] LABS: Calcium 11.3 mg/dL (8.4-10.2); Potassium 3.8 mmol/L (3.5-5.1); Total Bilirubin 0.1 mg/dL (0.2-1.3)
[2021-11-25] MEDS: NOREPINEPHRINE 32 MG in SODIUM CHLORIDE 0.9% 218 ML IV SCH (16:12)
[2021-11-25] MEDS: DEXTROSE 5%-0.9% NACL 1,000 ML IV SCH ×2 (16:13→22:55)
[2021-11-25 16:17] LABS: Glucose,Whole Blood 97 mg/dL (70-110)
[2021-11-25 17:59] LABS: Glucose,Whole Blood 101 mg/dL (70-110)
[2021-11-25] MEDS: HYDROmorphone 0.5 MG/0.5 ML SYRINGE IVP PRN (17:59)
--- NOTE | 2021-11-25 18:06 | P.CONS ---
History of Present Illness - Reason for Consult Consult date: 11/25/21 Recent diagnosis of adenocarcinoma, unknown origin Requesting physician: Floresita Le - Chief Complaint AMS, abd pain - History of Present Illness Patient is seen in the ICU, she is unable to give any history she is lethargic, and and out of alertness, not following commands. She is brought in by the family for altered mental status and abdominal pain. She was seen recently in consult for lytic lesions on the bone, iliac crest biopsy positive for adenocarcinoma, upper GI/pancreaticobiliary primary suspected. She has not had a chance to follow-up with Oncology. Admit lactic acid elevated, LFTs elevated, temp max 101.1, increased respiratory rate. She is on vasopressors, IV fluids and antibiotics. Pancultures pending. 71 year old female seen in consult 11/11/21, she presented to [facility] c/o increasing weakness and sudden onset SOB. She also had develooped low back pain in the previous 2 weeks. Work up revealed ARF, creatinine greater than 5. CBC showed leukocytosis with neutrophilia, and hypocalcemia. She was seen by Ortho spine in office for back pain and MRI of Lumbar spine was performed. T12-L1, left central disc protrusion, flattening of ventral thecal sac, concern of osseous spinal mets with pathologic compressure fracture at L3. CT CAP was performed on admission without obstructive uropathy, hydronephrosis, or renal mass. Re-demonstration of spine lesions, with a left posterior illiac destructive lesion. Spouse was no longer able to help pt transfer. She was pending appt with Other spine and Onc on DC. . Review of Systems ROS unobtainable: due to mental status Past Medical History Past Medical History: No Reported History, Cancer Additional Past Medical History / Comment(s): metastatic adenocarcinoma History of Any Multi-Drug Resistant Organisms: None Reported Past Surgical History: No Surgical Hx Reported, Hysterectomy Additional Past Surgical History / Comment(s): cataract surgery, Hysterectomy age 27, bone biopsy Past Anesthesia/Blood Transfusion Reactions: No Reported Reaction Past Psychological History: No Psychological Hx Reported Smoking Status: Former smoker Past Alcohol Use History: Occasional Past Drug Use History: None Reported - Past Family History Mother Family Medical History: No Reported History Father Family Medical History: Cancer Additional Family Medical History / Comment(s): skin Brother(s) Family Medical History: No Reported History Medications and Allergies Home Medications Medication Instructions Recorded Confirmed Type HYDROcodone/APAP 10-325MG [[place] 1 tab PO TID PRN 11/10/21 11/24/21 History 10-325] Ibuprofen [Motrin] 800 mg PO TID PRN 11/11/21 11/24/21 History ALPRAZolam [Xanax] 0.5 mg PO QID PRN tab 11/18/21 11/24/21 Rx Magnesium Oxide [Mag-Ox] 400 mg PO DAILY tab 11/18/21 11/24/21 Rx Pantoprazole [Protonix] 40 mg PO AC-BRKFST tab 11/18/21 11/24/21 Rx QUEtiapine [SEROquel] 25 mg PO BID tab 11/18/21 11/24/21 Rx cefUROXime axetiL [Cefuroxime] 500 mg PO BID 7 Days #14 tab 11/18/21 11/24/21 Rx Allergies Allergy/AdvReac Type Severity Reaction Status Date / Time No Known Allergies Allergy Verified 11/24/21 13:42 Physical Exam Vitals: Vital Signs Temp Pulse Resp BP Pulse Ox 11/25/21 10:00 90 19 103/61 92 L 11/25/21 09:30 90 17 115/49 87 L 11/25/21 09:00 90 26 H 123/46 93 L 11/25/21 08:30 92 45 H 129/54 97 11/25/21 08:00 99.6 F 92 31 H 127/55 95 11/25/21 07:30 92 29 H 135/57 99 11/25/21 07:00 93 33 H 124/51 94 L 11/25/21 06:30 99.5 F 93 37 H 127/49 95 11/25/21 06:00 93 19 131/48 94 L 11/25/21 05:30 95 27 H 121/53 98 11/25/21 05:00 96 25 H 133/44 90 L 11/25/21 04:30 95 30 H 114/67 93 L 11/25/21 04:00 101.1 F H 100 24 91 L 11/25/21 03:30 96 29 H 118/47 94 L 11/25/21 03:00 93 22 117/47 96 11/25/21 02:30 96 13 114/74 94 L 11/25/21 02:00 94 32 H 120/45 94 L 11/25/21 01:30 96 12 135/41 94 L 11/25/21 01:00 95 39 H 116/40 94 L 11/25/21 00:30 94 29 H 108/42 94 L 11/25/21 00:00 99.8 F H 93 31 H 111/55 91 L 18 23:30 95 20 92 L 11/24/21 23:18 96 27 H 106/70 93 L 11/24/21 23:00 96 30 H 112/57 95 1822 22:30 100 18 114/44 88 L 18 22:00 95 35 H 96/82 94 L 11/24/21 21:30 93 32 H 106/45 96 11/24/21 21:00 94 31 H 99/49 96 11/24/21 20:30 96 33 H 113/49 96 18 20:00 98.7 F 96 24 103/72 93 L 11/24/21 19:00 96 30 H 102/48 92 L 11/24/21 18:40 98 15 93 L 11/24/21 18:00 101 H 34 H 111/41 93 L 1822 17:30 100.2 F H 97 31 H 106/45 92 L 11/24/21 17:00 99 25 H 113/92 93 L 22 16:30 98 28 H 100/57 93 L 22 16:00 95 32 H 105/42 18 15:30 93 31 H 109/59 11/24/21 15:00 92 25 H 83/40 1822 14:30 92 29 H 86/41 18 14:00 91 18 95/44 1822 13:36 92 20 84/48 94 L 1822 13:30 18 76/40 1822 13:00 92 24 93 L 1822 12:30 88 29 H 80/34 93 L 1822 12:17 89 78/34 22 12:00 90 31 H 71/42 93 L Intake and Output 11/24/21 11/25/21 11/25/21 22:59 06:59 14:59 Intake Total 412.915 790.793 683.626 Output Total 56 171 105 Balance 356.915 619.793 578.626 Intake: IV 395 780 660 Albumin Human 25% 50 ml 100 In Empty Bag 1 bag @ 50 mls/hr IVPB Q1H [facility] Rx#: [id number] Piperacillin-Tazobactam 3 100 .375 gm In Sodium Chloride 0.9% 100 ml @ 25 mls/hr IVPB Q12HR [facility] Rx #:[id number] Sodium Chloride 0.9% 1, 195 780 660 000 ml @ 130 mls/hr IV . Q7H42M [facility] Rx#:[id number] Intake, IV Titration 17.915 10.793 23.626 Amount Norepinephrine 32 mg In 17.915 10.793 23.626 Sodium Chloride 0.9% 218 ml @ 0.05 MCG/KG/MIN 1. 799 mls/hr IV .Q24H [facility] Rx#:[id number] Output: Urine 56 171 105 Uretheral (Jean) 10 Other: Voiding Method Indwelling Catheter Indwelling Catheter Indwelling Catheter Weight 76.748 kg 80.4 kg - Constitutional General appearance: average body habitus, no acute distress - EENT Eyes: anicteric sclerae, EOMI - Neck Neck: no lymphadenopathy - Respiratory Respiratory: bilateral: diminished - Cardiovascular Heart sounds: normal: S1, S2 Abnormal Heart Sounds: no systolic murmur, no diastolic murmur, no rub, no S3 Gallop, no S4 Gallop, no click, no other foot Peripheral Edema: bilateral: 1+ - Gastrointestinal Distant bowel sounds, abdomen is firm to the touch General gastrointestinal: no absent bowel sounds, no decreased bowel sounds, distended, no hepatomegaly, no hyperactive bowel sounds, no normal bowel sounds, no organomegaly, no rigid, no scaphoid, no soft, no splenomegaly, tenderness (Palpation of the abdomen did elicit response from the patient), no umbilical hernia, no ventral hernia - Integumentary Integumentary: pale - Musculoskeletal Musculoskeletal: no gait normal, no generalized weakness, no strength equal bilaterally, no right sided weakness, no left sided weakness - Psychiatric Psychiatric: no A&O x's 3, no appropriate affect, no intact judgment & insight Results CBC & Chem 7: 11/25/21 14:10 11/25/21 14:10 Labs: Abnormal Lab Results - Last 24 Hours (Table) 11/24/21 11/24/21 11/24/21 Range/Units 11:37 11:37 11:37 WBC 14.7 H (3.8-10.6) k/uL RBC 2.74 L (3.80-5.40) m/uL Hgb 7.9 L D (11.4-16.0) gm/dL Hct 25.0 L (34.0-46.0) % MCHC (31.0-37.0) g/dL Neutrophils # (Manual) 13.30 H (1.3-7.7) k/uL Lymphocytes # (Manual) 0.74 L (1.0-4.8) k/uL Metamyelocytes # (Man) 0.15 H (0) k/uL Myelocytes # (Manual) 0.15 H (0) k/uL Nucleated RBCs (0-0) /100 WBC PT 14.4 H (9.0-12.0) sec INR 1.4 H (<1.2) Sodium (137-145) mmol/L Potassium (3.5-5.1) mmol/L Chloride (98-107) mmol/L Carbon Dioxide (22-30) mmol/L BUN (7-17) mg/dL Creatinine (0.52-1.04) mg/dL Glucose (74-99) mg/dL POC Glucose (mg/dL) (70-110) mg/dL Plasma Lactic Acid Julio Cesar (0.7-2.0) mmol/L Calcium (8.4-10.2) mg/dL Delta Bilirubin (0.0-0.2) mg/dL AST (14-36) U/L ALT (4-34) U/L Alkaline Phosphatase (38-126) U/L Troponin I (0.000-0.034) ng/mL Total Protein (6.3-8.2) g/dL Albumin (3.5-5.0) g/dL Urine Appearance (Clear) Urine Protein (Negative) Urine Glucose (UA) (Negative) Urine Ketones (Negative) Urine Blood (Negative) Ur Leukocyte Esterase (Negative) Urine RBC (0-5) /hpf Urine WBC (0-5) /hpf Calcium Oxalate Crystal (None) /hpf Amorphous Sediment (None) /hpf Urine Bacteria (None) /hpf Urine Mucus (None) /hpf Urine Opiates Screen Detected H (NotDetected) Ur Oxycodone Screen Detected H (NotDetected) U Tricyclic Antidepress Detected H (NotDetected) U Benzodiazepines Scrn Detected H (NotDetected) 11/24/21 11/24/21 11/24/21 Range/Units 11:37 11:37 11:37 WBC (3.8-10.6) k/uL RBC (3.80-5.40) m/uL Hgb (11.4-16.0) gm/dL Hct (34.0-46.0) % MCHC (31.0-37.0) g/dL Neutrophils # (Manual) (1.3-7.7) k/uL Lymphocytes # (Manual) (1.0-4.8) k/uL Metamyelocytes # (Man) (0) k/uL Myelocytes # (Manual) (0) k/uL Nucleated RBCs (0-0) /100 WBC PT (9.0-12.0) sec INR (<1.2) Sodium 132 L (137-145) mmol/L Potassium (3.5-5.1) mmol/L Chloride 96 L (98-107) mmol/L Carbon Dioxide (22-30) mmol/L BUN 33 H (7-17) mg/dL Creatinine 2.77 H (0.52-1.04) mg/dL Glucose (74-99) mg/dL POC Glucose (mg/dL) (70-110) mg/dL Plasma Lactic Acid Julio Cesar (0.7-2.0) mmol/L Calcium 12.2 H (8.4-10.2) mg/dL Delta Bilirubin 0.4 H (0.0-0.2) mg/dL AST 620 H (14-36) U/L ALT 131 H (4-34) U/L Alkaline Phosphatase (38-126) U/L Troponin I 1.150 H* (0.000-0.034) ng/mL Total Protein 4.3 L (6.3-8.2) g/dL Albumin 2.1 L (3.5-5.0) g/dL Urine Appearance Turbid H (Clear) Urine Protein 2+ H (Negative) Urine Glucose (UA) Trace H (Negative) Urine Ketones Trace H (Negative) Urine Blood Small H (Negative) Ur Leukocyte Esterase Trace H (Negative) Urine RBC 8 H (0-5) /hpf Urine WBC 90 H (0-5) /hpf Calcium Oxalate Crystal Rare H (None) /hpf Amorphous Sediment Rare H (None) /hpf Urine Bacteria Rare H (None) /hpf Urine Mucus Occasional H (None) /hpf Urine Opiates Screen (NotDetected) Ur Oxycodone Screen (NotDetected) U Tricyclic Antidepress (NotDetected) U Benzodiazepines Scrn (NotDetected) 11/24/21 11/24/21 11/24/21 Range/Units 11:37 17:21 19:51 WBC (3.8-10.6) k/uL RBC (3.80-5.40) m/uL Hgb (11.4-16.0) gm/dL Hct (34.0-46.0) % MCHC (31.0-37.0) g/dL Neutrophils # (Manual) (1.3-7.7) k/uL Lymphocytes # (Manual) (1.0-4.8) k/uL Metamyelocytes # (Man) (0) k/uL Myelocytes # (Manual) (0) k/uL Nucleated RBCs (0-0) /100 WBC PT (9.0-12.0) sec INR (<1.2) Sodium (137-145) mmol/L Potassium (3.5-5.1) mmol/L Chloride (98-107) mmol/L Carbon Dioxide (22-30) mmol/L BUN (7-17) mg/dL Creatinine (0.52-1.04) mg/dL Glucose (74-99) mg/dL POC Glucose (mg/dL) 58 L (70-110) mg/dL Plasma Lactic Acid Julio Cesar 5.7 H* 4.1 H* (0.7-2.0) mmol/L Calcium (8.4-10.2) mg/dL Delta Bilirubin (0.0-0.2) mg/dL AST (14-36) U/L ALT (4-34) U/L Alkaline Phosphatase (38-126) U/L Troponin I (0.000-0.034) ng/mL Total Protein (6.3-8.2) g/dL Albumin (3.5-5.0) g/dL Urine Appearance (Clear) Urine Protein (Negative) Urine Glucose (UA) (Negative) Urine Ketones (Negative) Urine Blood (Negative) Ur Leukocyte Esterase (Negative) Urine RBC (0-5) /hpf Urine WBC (0-5) /hpf Calcium Oxalate Crystal (None) /hpf Amorphous Sediment (None) /hpf Urine Bacteria (None) /hpf Urine Mucus (None) /hpf Urine Opiates Screen (NotDetected) Ur Oxycodone Screen (NotDetected) U Tricyclic Antidepress (NotDetected) U Benzodiazepines Scrn (NotDetected) 11/24/21 11/24/21 11/24/21 Range/Units 20:17 22:11 23:37 WBC (3.8-10.6) k/uL RBC (3.80-5.40) m/uL Hgb (11.4-16.0) gm/dL Hct (34.0-46.0) % MCHC (31.0-37.0) g/dL Neutrophils # (Manual) (1.3-7.7) k/uL Lymphocytes # (Manual) (1.0-4.8) k/uL Metamyelocytes # (Man) (0) k/uL Myelocytes # (Manual) (0) k/uL Nucleated RBCs (0-0) /100 WBC PT (9.0-12.0) sec INR (<1.2) Sodium 134 L (137-145) mmol/L Potassium (3.5-5.1) mmol/L Chloride (98-107) mmol/L Carbon Dioxide 21 L (22-30) mmol/L BUN 32 H (7-17) mg/dL Creatinine 3.14 H (0.52-1.04) mg/dL Glucose (74-99) mg/dL POC Glucose (mg/dL) (70-110) mg/dL Plasma Lactic Acid Julio Cesar 4.6 H* 3.7 H* (0.7-2.0) mmol/L Calcium 12.1 H (8.4-10.2) mg/dL Delta Bilirubin (0.0-0.2) mg/dL AST 503 H (14-36) U/L ALT 120 H (4-34) U/L Alkaline Phosphatase 141 H (38-126) U/L Troponin I (0.000-0.034) ng/mL Total Protein 4.6 L (6.3-8.2) g/dL Albumin 2.4 L (3.5-5.0) g/dL Urine Appearance (Clear) Urine Protein (Negative) Urine Glucose (UA) (Negative) Urine Ketones (Negative) Urine Blood (Negative) Ur Leukocyte Esterase (Negative) Urine RBC (0-5) /hpf Urine WBC (0-5) /hpf Calcium Oxalate Crystal (None) /hpf Amorphous Sediment (None) /hpf Urine Bacteria (None) /hpf Urine Mucus (None) /hpf Urine Opiates Screen (NotDetected) Ur Oxycodone Screen (NotDetected) U Tricyclic Antidepress (NotDetected) U Benzodiazepines Scrn (NotDetected) 11/25/21 11/25/21 11/25/21 Range/Units 03:01 03:01 03:01 WBC 17.9 H (3.8-10.6) k/uL RBC 2.86 L (3.80-5.40) m/uL Hgb 8.3 L (11.4-16.0) gm/dL Hct 26.9 L (34.0-46.0) % MCHC 30.8 L (31.0-37.0) g/dL Neutrophils # (Manual) 14.40 H (1.3-7.7) k/uL Lymphocytes # (Manual) (1.0-4.8) k/uL Metamyelocytes # (Man) 0.72 H (0) k/uL Myelocytes # (Manual) 0.36 H (0) k/uL Nucleated RBCs 6 H (0-0) /100 WBC PT (9.0-12.0) sec INR (<1.2) Sodium 134 L (137-145) mmol/L Potassium 5.5 H (3.5-5.1) mmol/L Chloride (98-107) mmol/L Carbon Dioxide (22-30) mmol/L BUN 35 H (7-17) mg/dL Creatinine 2.75 H (0.52-1.04) mg/dL Glucose 66 L (74-99) mg/dL POC Glucose (mg/dL) (70-110) mg/dL Plasma Lactic Acid Julio Cesar 3.3 H* (0.7-2.0) mmol/L Calcium 11.7 H (8.4-10.2) mg/dL Delta Bilirubin (0.0-0.2) mg/dL AST 432 H (14-36) U/L ALT 111 H (4-34) U/L Alkaline Phosphatase (38-126) U/L Troponin I (0.000-0.034) ng/mL Total Protein 4.4 L (6.3-8.2) g/dL Albumin 2.2 L (3.5-5.0) g/dL Urine Appearance (Clear) Urine Protein (Negative) Urine Glucose (UA) (Negative) Urine Ketones (Negative) Urine Blood (Negative) Ur Leukocyte Esterase (Negative) Urine RBC (0-5) /hpf Urine WBC (0-5) /hpf Calcium Oxalate Crystal (None) /hpf Amorphous Sediment (None) /hpf Urine Bacteria (None) /hpf Urine Mucus (None) /hpf Urine Opiates Screen (NotDetected) Ur Oxycodone Screen (NotDetected) U Tricyclic Antidepress (NotDetected) U Benzodiazepines Scrn (NotDetected) 11/25/21 11/25/21 11/25/21 Range/Units 04:59 05:15 07:27 WBC (3.8-10.6) k/uL RBC (3.80-5.40) m/uL Hgb (11.4-16.0) gm/dL Hct (34.0-46.0) % MCHC (31.0-37.0) g/dL Neutrophils # (Manual) (1.3-7.7) k/uL Lymphocytes # (Manual) (1.0-4.8) k/uL Metamyelocytes # (Man) (0) k/uL Myelocytes # (Manual) (0) k/uL Nucleated RBCs (0-0) /100 WBC PT (9.0-12.0) sec INR (<1.2) Sodium (137-145) mmol/L Potassium (3.5-5.1) mmol/L Chloride (98-107) mmol/L Carbon Dioxide (22-30) mmol/L BUN (7-17) mg/dL Creatinine (0.52-1.04) mg/dL Glucose (74-99) mg/dL POC Glucose (mg/dL) 63 L 115 H (70-110) mg/dL Plasma Lactic Acid Julio Cesar 4.3 H* (0.7-2.0) mmol/L Calcium (8.4-10.2) mg/dL Delta Bilirubin (0.0-0.2) mg/dL AST (14-36) U/L ALT (4-34) U/L Alkaline Phosphatase (38-126) U/L Troponin I (0.000-0.034) ng/mL Total Protein (6.3-8.2) g/dL Albumin (3.5-5.0) g/dL Urine Appearance (Clear) Urine Protein (Negative) Urine Glucose (UA) (Negative) Urine Ketones (Negative) Urine Blood (Negative) Ur Leukocyte Esterase (Negative) Urine RBC (0-5) /hpf Urine WBC (0-5) /hpf Calcium Oxalate Crystal (None) /hpf Amorphous Sediment (None) /hpf Urine Bacteria (None) /hpf Urine Mucus (None) /hpf Urine Opiates Screen (NotDetected) Ur Oxycodone Screen (NotDetected) U Tricyclic Antidepress (NotDetected) U Benzodiazepines Scrn (NotDetected) Microbiology - Last 24 Hours (Table) 11/24/21 11:37 Urine Culture - Preliminary Urine,Voided Chest x-ray: report reviewed (Pulmonary vascular congestion with small bilateral pleural effusions) Abdominal x-ray: report reviewed (Report reads nonobstructive gas pattern) CT scan - abdomen: report reviewed (Colitis, superimposed diverticulitis) CT Scan - head: report reviewed CT scan - pelvis: report reviewed Assessment and Plan (1) Metastatic adenocarcinoma Current Visit: Yes Status: Acute Priority: High Code(s): C79.9 - SECONDARY MALIGNANT NEOPLASM OF UNSPECIFIED SITE SNOMED Code(s): [id number] Plan: Clinical picture of sepsis. Possibly abd in origin based in scans and presentation. Defer mgmt to Critical Care Team. ID and Nephrology consulted. Based on how pt progresses we will plan for a meet with the family and pt once she is feeling better, to discuss plans for treatment of cancer. Recommend colonoscopy once stable. Specimen requested to be sent for NGS, PD- L1. Might consider Cancer type ID in outpt setting. Doctor attests: I performed a history and physical examination of this patient, developed impression and plan of care. Discussed with dictator. I agree with dictators note, documented as a scribe.
--- NOTE | 2021-11-25 19:04 | P.PN ---
Subjective Progress Note Date: 11/25/21 Amy Loaiza, he is a 71-year-old female who was recently discharged from [facility] after a new diagnosis of metastatic adenocarcinoma, at that time patient presented with back pain she had evidence of L3 vertebral body abnormality biopsy revealed evidence of metastatic adenocarcinoma patient was [facility] eyes 10 was discharged home, with plan to follow-up with oncology and radiation oncology as outpatient however her general medical condition worsen significantly over the last few days she started having severe weakness and poor oral intake she was evaluated in the emergency room and had evidence of hypotension she received IV fluid bolus without significant improvement, she had a central line placed in the emergency room, she was started on levofed and was admitted to intensive care unit critical care consultation was requested. Vital examination on presentation reveals a temperature of 99.1 pulse 95 respiration 20 blood pressure 80/38 pulse ox 93% on 2 L nasal cannula. Laboratory data revealed a white blood count of 14.7 hemoglobin 7.9 platelet count 412 sodium 132 potassium 4.5 chloride 96 CO2 26 BUN 33 creatinine 2.77 lactic acid was 5.7 troponin 1.150 urine analysis revealed evidence of urinary tract infection with 90 white blood cells in high power field. On 11/25/2021 patient was seen and examined in the intensive care unit she is somnolent, responsive in no apparent distress, vital exam reveals a temperature of 99.6 pulse 91 respiration 30 blood pressure 130/49 pulse ox 93% on 6 L nasal cannula, white blood count is 26.3 hemoglobin 9.0 platelet count 523 BUN 35 creatinine 2.88 lactic acid 3.6, she is receiving IV fluids , IV levo fed , IV antibiotics , she also received IV albumin, patient is receiving for medical care by pulmonary critical care, nephrology, infectious disease, and oncology, prognosis remains very guarded, will follow closely. Objective - Vital Signs Vital signs: Vital Signs Temp 99.6 F 11/25/21 16:00 Pulse 88 11/25/21 18:30 Resp 24 11/25/21 18:30 BP 110/55 11/25/21 18:30 Pulse Ox 94 L 11/25/21 18:30 FiO2 Intake & Output 11/24/21 11/25/21 11/25/21 18:59 06:59 18:59 Intake Total 2.639 1180.417 7624.328 Output Total 20 207 853 Balance -17.361 148.176 5620.328 Weight 76.748 kg 80.4 kg Intake: IV 1175 1410 Albumin Human 25% 50 ml 100 In Empty Bag 1 bag @ 50 mls/hr IVPB Q1H [facility] Rx#: [id number] Dextrose 5% in Water 1, 75 000 ml @ 75 mls/hr IV . [id number] [facility] Rx#:[id number] Piperacillin-Tazobactam 3 100 100 .375 gm In Sodium Chloride 0.9% 100 ml @ 25 mls/hr IVPB Q12HR [facility] Rx #:[id number] Sodium Chloride 0.9% 1, 125 000 ml @ 125 mls/hr IV . Q8H [facility] Rx#:[id number] Sodium Chloride 0.9% 1, 975 1110 000 ml @ 130 mls/hr IV . Q7H42M [facility] Rx#:[id number] Intake, IV Titration 2.639 26.069 780.328 Amount Dextrose 5% in Water 1, 150 000 ml @ 75 mls/hr IV . [id number] [facility] Rx#:[id number] Dextrose 5%-0.9% NaCl 1, 600 000 ml @ 150 mls/hr IV . Q6H40M [facility] Rx#:[id number] Norepinephrine 32 mg In 2.639 26.069 29.292 Sodium Chloride 0.9% 218 ml @ 0.05 MCG/KG/MIN 1. 799 mls/hr IV .Q24H [facility] Rx#:[id number] Norepinephrine 32 mg In 1.036 Sodium Chloride 0.9% 218 ml @ 0.05 MCG/KG/MIN 1. 884 mls/hr IV .Q24H [facility] Rx#:[id number] Output: Urine 20 207 853 Uretheral (Jean) 10 Other: Voiding Method Indwelling Catheter Indwelling Catheter Indwelling Catheter - Exam Patient is somnolent, responsive in no apparent distress HEENT head normocephalic and atraumatic Neck is supple no JVD no goiter no lymphadenopathy Chest exam reveals clear respiratory sounds no crackles no wheezing Cardiac exam reveals regular heart sounds S1 and S2 no gallops no murmurs Abdomen is soft nontender no organomegaly with normal bowel sounds Extremity exam reveals minimal edema no cyanosis or clubbing with normal pulses Neurological examination reveals no gross focal deficit - Labs CBC & Chem 7: 11/25/21 14:10 11/25/21 14:10 Labs: Abnormal Lab Results - Last 24 Hours (Table) 11/24/21 11/24/21 11/24/21 Range/Units 19:51 20:17 22:11 WBC (3.8-10.6) k/uL RBC (3.80-5.40) m/uL Hgb (11.4-16.0) gm/dL Hct (34.0-46.0) % MCHC (31.0-37.0) g/dL Plt Count (150-450) k/uL Neutrophils # (Manual) (1.3-7.7) k/uL Monocytes # (Manual) (0-1.0) k/uL Metamyelocytes # (Man) (0) k/uL Myelocytes # (Manual) (0) k/uL Nucleated RBCs (0-0) /100 WBC Sodium 134 L (137-145) mmol/L Potassium (3.5-5.1) mmol/L Carbon Dioxide 21 L (22-30) mmol/L BUN 32 H (7-17) mg/dL Creatinine 3.14 H (0.52-1.04) mg/dL Glucose (74-99) mg/dL POC Glucose (mg/dL) 58 L (70-110) mg/dL Plasma Lactic Acid Julio Cesar 4.6 H* (0.7-2.0) mmol/L Calcium 12.1 H (8.4-10.2) mg/dL Total Bilirubin (0.2-1.3) mg/dL AST 503 H (14-36) U/L ALT 120 H (4-34) U/L Alkaline Phosphatase 141 H (38-126) U/L Total Protein 4.6 L (6.3-8.2) g/dL Total Protein (PEP) (6.2-8.2) g/dL Albumin 2.4 L (3.5-5.0) g/dL Vitamin D 25-Hydroxy (30.0-100.0) ng/mL PTH Intact (14.0-72.0) pg/mL 11/24/21 11/25/21 11/25/21 Range/Units 23:37 03:01 03:01 WBC 17.9 H (3.8-10.6) k/uL RBC 2.86 L (3.80-5.40) m/uL Hgb 8.3 L (11.4-16.0) gm/dL Hct 26.9 L (34.0-46.0) % MCHC 30.8 L (31.0-37.0) g/dL Plt Count (150-450) k/uL Neutrophils # (Manual) 14.40 H (1.3-7.7) k/uL Monocytes # (Manual) (0-1.0) k/uL Metamyelocytes # (Man) 0.72 H (0) k/uL Myelocytes # (Manual) 0.36 H (0) k/uL Nucleated RBCs 6 H (0-0) /100 WBC Sodium 134 L (137-145) mmol/L Potassium 5.5 H (3.5-5.1) mmol/L Carbon Dioxide (22-30) mmol/L BUN 35 H (7-17) mg/dL Creatinine 2.75 H (0.52-1.04) mg/dL Glucose 66 L (74-99) mg/dL POC Glucose (mg/dL) (70-110) mg/dL Plasma Lactic Acid Julio Cesar 3.7 H* (0.7-2.0) mmol/L Calcium 11.7 H (8.4-10.2) mg/dL Total Bilirubin (0.2-1.3) mg/dL AST 432 H (14-36) U/L ALT 111 H (4-34) U/L Alkaline Phosphatase (38-126) U/L Total Protein 4.4 L (6.3-8.2) g/dL Total Protein (PEP) (6.2-8.2) g/dL Albumin 2.2 L (3.5-5.0) g/dL Vitamin D 25-Hydroxy (30.0-100.0) ng/mL PTH Intact (14.0-72.0) pg/mL 11/25/21 11/25/21 11/25/21 Range/Units 03:01 04:59 05:15 WBC (3.8-10.6) k/uL RBC (3.80-5.40) m/uL Hgb (11.4-16.0) gm/dL Hct (34.0-46.0) % MCHC (31.0-37.0) g/dL Plt Count (150-450) k/uL Neutrophils # (Manual) (1.3-7.7) k/uL Monocytes # (Manual) (0-1.0) k/uL Metamyelocytes # (Man) (0) k/uL Myelocytes # (Manual) (0) k/uL Nucleated RBCs (0-0) /100 WBC Sodium (137-145) mmol/L Potassium (3.5-5.1) mmol/L Carbon Dioxide (22-30) mmol/L BUN (7-17) mg/dL Creatinine (0.52-1.04) mg/dL Glucose (74-99) mg/dL POC Glucose (mg/dL) 63 L 115 H (70-110) mg/dL Plasma Lactic Acid Julio Cesar 3.3 H* (0.7-2.0) mmol/L Calcium (8.4-10.2) mg/dL Total Bilirubin (0.2-1.3) mg/dL AST (14-36) U/L ALT (4-34) U/L Alkaline Phosphatase (38-126) U/L Total Protein (6.3-8.2) g/dL Total Protein (PEP) (6.2-8.2) g/dL Albumin (3.5-5.0) g/dL Vitamin D 25-Hydroxy (30.0-100.0) ng/mL PTH Intact (14.0-72.0) pg/mL 11/25/21 11/25/21 11/25/21 Range/Units 07:27 11:41 14:10 WBC 26.3 H (3.8-10.6) k/uL RBC 3.25 L (3.80-5.40) m/uL Hgb 9.0 L (11.4-16.0) gm/dL Hct 30.7 L (34.0-46.0) % MCHC 29.3 L (31.0-37.0) g/dL Plt Count 523 H (150-450) k/uL Neutrophils # (Manual) 19.40 H (1.3-7.7) k/uL Monocytes # (Manual) 1.58 H (0-1.0) k/uL Metamyelocytes # (Man) 2.37 H (0) k/uL Myelocytes # (Manual) 0.79 H (0) k/uL Nucleated RBCs 2 H (0-0) /100 WBC Sodium (137-145) mmol/L Potassium (3.5-5.1) mmol/L Carbon Dioxide (22-30) mmol/L BUN (7-17) mg/dL Creatinine (0.52-1.04) mg/dL Glucose (74-99) mg/dL POC Glucose (mg/dL) 65 L (70-110) mg/dL Plasma Lactic Acid Julio Cesar 4.3 H* (0.7-2.0) mmol/L Calcium (8.4-10.2) mg/dL Total Bilirubin (0.2-1.3) mg/dL AST (14-36) U/L ALT (4-34) U/L Alkaline Phosphatase (38-126) U/L Total Protein (6.3-8.2) g/dL Total Protein (PEP) (6.2-8.2) g/dL Albumin (3.5-5.0) g/dL Vitamin D 25-Hydroxy (30.0-100.0) ng/mL PTH Intact (14.0-72.0) pg/mL 11/25/21 11/25/21 11/25/21 Range/Units 14:10 14:10 14:10 WBC (3.8-10.6) k/uL RBC (3.80-5.40) m/uL Hgb (11.4-16.0) gm/dL Hct (34.0-46.0) % MCHC (31.0-37.0) g/dL Plt Count (150-450) k/uL Neutrophils # (Manual) (1.3-7.7) k/uL Monocytes # (Manual) (0-1.0) k/uL Metamyelocytes # (Man) (0) k/uL Myelocytes # (Manual) (0) k/uL Nucleated RBCs (0-0) /100 WBC Sodium 136 L (137-145) mmol/L Potassium (3.5-5.1) mmol/L Carbon Dioxide (22-30) mmol/L BUN 35 H (7-17) mg/dL Creatinine 2.88 H (0.52-1.04) mg/dL Glucose 101 H (74-99) mg/dL POC Glucose (mg/dL) (70-110) mg/dL Plasma Lactic Acid Julio Cesar 3.6 H* (0.7-2.0) mmol/L Calcium 11.3 H (8.4-10.2) mg/dL Total Bilirubin 0.1 L (0.2-1.3) mg/dL AST 248 H (14-36) U/L ALT 95 H (4-34) U/L Alkaline Phosphatase 176 H (38-126) U/L Total Protein 4.0 L (6.3-8.2) g/dL Total Protein (PEP) 4.0 L (6.2-8.2) g/dL Albumin 2.0 L (3.5-5.0) g/dL Vitamin D 25-Hydroxy 19.9 L (30.0-100.0) ng/mL PTH Intact (14.0-72.0) pg/mL 11/25/21 Range/Units 14:10 WBC (3.8-10.6) k/uL RBC (3.80-5.40) m/uL Hgb (11.4-16.0) gm/dL Hct (34.0-46.0) % MCHC (31.0-37.0) g/dL Plt Count (150-450) k/uL Neutrophils # (Manual) (1.3-7.7) k/uL Monocytes # (Manual) (0-1.0) k/uL Metamyelocytes # (Man) (0) k/uL Myelocytes # (Manual) (0) k/uL Nucleated RBCs (0-0) /100 WBC Sodium (137-145) mmol/L Potassium (3.5-5.1) mmol/L Carbon Dioxide (22-30) mmol/L BUN (7-17) mg/dL Creatinine (0.52-1.04) mg/dL Glucose (74-99) mg/dL POC Glucose (mg/dL) (70-110) mg/dL Plasma Lactic Acid Julio Cesar (0.7-2.0) mmol/L Calcium (8.4-10.2) mg/dL Total Bilirubin (0.2-1.3) mg/dL AST (14-36) U/L ALT (4-34) U/L Alkaline Phosphatase (38-126) U/L Total Protein (6.3-8.2) g/dL Total Protein (PEP) (6.2-8.2) g/dL Albumin (3.5-5.0) g/dL Vitamin D 25-Hydroxy (30.0-100.0) ng/mL PTH Intact 8.1 L (14.0-72.0) pg/mL Microbiology - Last 24 Hours (Table) 11/24/21 11:37 Urine Culture - Final Urine,Voided 11/24/21 14:31 Blood Culture - Preliminary Blood No Growth after 24 hours Assessment and Plan Plan: Acute shock, likely related to acute hypovolemic shock and acute septic shock Sepsis as evidenced by low grade fever on presentation, elevated white blood count at 14.7, elevated lactic acid at 5.7 and evidence of urinary tract infection, also possible source of infection is in the sigmoid colon as computed tomography scan is revealing evidence of colitis with possible superimposed div erticulitis, findings are new as compared to computed tomography scan from 11/10/2021 Acute renal failure likely related to prerenal azotemia Recent diagnosis of metastatic adenocarcinoma, with metastatic disease to the L3 vertebrae and to the left iliac area Elevated troponin level, patient denies chest pain, doubt cardiac ischemia Will monitor closely Evidence of bilateral pleural effusion Elevated liver enzymes AST and ALT likely related to hypotension At this time patient was admitted to intensive care unit She was started on IV fluid and IV levofed in the emergency room She was also started on IV Zosyn For DVT prophylaxis subcu heparin for GI prophylaxis IV Protonix At this time will add consultation for infectious disease and oncology Patient is improving gradually however prognosis remains very guarded Will follow closely
[2021-11-25 21:16] LABS: Glucose,Whole Blood 119 mg/dL (70-110)
--- NOTE | 2021-11-25 22:40 | P.CONS ---
History of Present Illness - Reason for Consult Consult date: 11/25/21 - History of Present Illness Patient is a 71-year female with a recent diagnosis of metastatic adenocarcinoma in this patient who was recently admitted to this facility and patient did have L3 vertebral body abnormality which was biopsied with evidence of metastatic adenocarcinoma patient was supposed to follow-up with radiation oncology in the outpatient setting however the patient condition has gotten worse over the last few days patient becoming more weak and did have decreased oral intake no clear history of any vomiting abdominal pain or diarrhea reported by the family the bedside patient was brought into the ER patient was noted to be hypertensive regarding fluid boluses and subsequently has been admitted to ICU on arrival to the ER the patient was running a low-grade fever subsequently she did spike a fever this morning of 101 F patient did have white count of 14.7 which is up to 26.3 today with a left shift did have elevated lactic acid elevated BUN and creatinine as well as liver enzymes patient did have a positive UA urine has been positive for opiates oxycodone tricyclic and benzo blood cultures obtained which are currently pending patient did have a chest x-ray multifocal pneumonia better characterize on CT also have a CT of abdominal pelvis sigmoid colon colitis suggestive of superimposed diverticulitis not excluded destructive lesion to the left iliac bone atrophy gallbladder patient was started on Zosyn infectious he was consulted for further management most of the vomiting has been obtained from review the chart and talking to nursing staff and the patient cannot provide any history patient is currently on pressor support and on nasal cannula oxygen Past Medical History Past Medical History: No Reported History Additional Past Medical History / Comment(s): metastatic adenocarcinoma History of Any Multi-Drug Resistant Organisms: None Reported Past Surgical History: No Surgical Hx Reported, Hysterectomy Additional Past Surgical History / Comment(s): cataract surgery, Hysterectomy age 27 Past Anesthesia/Blood Transfusion Reactions: No Reported Reaction Past Psychological History: No Psychological Hx Reported Smoking Status: Former smoker Past Alcohol Use History: Occasional Past Drug Use History: None Reported - Past Family History Mother Family Medical History: No Reported History Father Family Medical History: Cancer Additional Family Medical History / Comment(s): skin Brother(s) Family Medical History: No Reported History Medications and Allergies Home Medications Medication Instructions Recorded Confirmed Type HYDROcodone/APAP 10-325MG [[place] 1 tab PO TID PRN 11/10/21 11/24/21 History 10-325] Ibuprofen [Motrin] 800 mg PO TID PRN 11/11/21 11/24/21 History ALPRAZolam [Xanax] 0.5 mg PO QID PRN tab 11/18/21 11/24/21 Rx Magnesium Oxide [Mag-Ox] 400 mg PO DAILY tab 11/18/21 11/24/21 Rx Pantoprazole [Protonix] 40 mg PO AC-BRKFST tab 11/18/21 11/24/21 Rx QUEtiapine [SEROquel] 25 mg PO BID tab 11/18/21 11/24/21 Rx cefUROXime axetiL [Cefuroxime] 500 mg PO BID 7 Days #14 tab 11/18/21 11/24/21 Rx Allergies Allergy/AdvReac Type Severity Reaction Status Date / Time No Known Allergies Allergy Verified 11/24/21 13:42 Physical Exam Vitals: Vital Signs Temp Pulse Resp BP Pulse Ox 11/25/21 10:00 90 19 103/61 92 L 11/25/21 09:30 90 17 115/49 87 L 11/25/21 09:00 90 26 H 123/46 93 L 11/25/21 08:30 92 45 H 129/54 97 11/25/21 08:00 99.6 F 92 31 H 127/55 95 11/25/21 07:30 92 29 H 135/57 99 11/25/21 07:00 93 33 H 124/51 94 L 11/25/21 06:30 99.5 F 93 37 H 127/49 95 11/25/21 06:00 93 19 131/48 94 L 11/25/21 05:30 95 27 H 121/53 98 11/25/21 05:00 96 25 H 133/44 90 L 11/25/21 04:30 95 30 H 114/67 93 L 11/25/21 04:00 101.1 F H 100 24 91 L 11/25/21 03:30 96 29 H 118/47 94 L 11/25/21 03:00 93 22 117/47 96 11/25/21 02:30 96 13 114/74 94 L 11/25/21 02:00 94 32 H 120/45 94 L 11/25/21 01:30 96 12 135/41 94 L 11/25/21 01:00 95 39 H 116/40 94 L 11/25/21 00:30 94 29 H 108/42 94 L 11/25/21 00:00 99.8 F H 93 31 H 111/55 91 L 18 23:30 95 20 92 L 11/24/21 23:18 96 27 H 106/70 93 L 11/24/21 23:00 96 30 H 112/57 95 1822 22:30 100 18 114/44 88 L 11/24/21 22:00 95 35 H 96/82 94 L 18 21:30 93 32 H 106/45 96 18 21:00 94 31 H 99/49 96 1822 20:30 96 33 H 113/49 96 11/24/21 20:00 98.7 F 96 24 103/72 93 L 11/24/21 19:00 96 30 H 102/48 92 L 11/24/21 18:40 98 15 93 L 11/24/21 18:00 101 H 34 H 111/41 93 L 11/24/21 17:30 100.2 F H 97 31 H 106/45 92 L 11/24/21 17:00 99 25 H 113/92 93 L 11/24/21 16:30 98 28 H 100/57 93 L 11/24/21 16:00 95 32 H 105/42 11/24/21 15:30 93 31 H 109/59 11/24/21 15:00 92 25 H 83/40 11/24/21 14:30 92 29 H 86/41 11/24/21 14:00 91 18 95/44 11/24/21 13:36 92 20 84/48 94 L 11/24/21 13:30 18 76/40 1822 13:00 92 24 93 L 11/24/21 12:30 88 29 H 80/34 93 L 1822 12:17 89 78/34 18 12:00 90 31 H 71/42 93 L 18 10:46 99.1 F 95 20 80/38 999 H Intake and Output 11/24/21 11/25/21 11/25/21 22:59 06:59 14:59 Intake Total 412.915 790.793 683.626 Output Total 56 171 105 Balance 356.915 619.793 578.626 Intake: IV 395 780 660 Albumin Human 25% 50 ml 100 In Empty Bag 1 bag @ 50 mls/hr IVPB Q1H [facility] Rx#: [id number] Piperacillin-Tazobactam 3 100 .375 gm In Sodium Chloride 0.9% 100 ml @ 25 mls/hr IVPB Q12HR [facility] Rx #:[id number] Sodium Chloride 0.9% 1, 195 780 660 000 ml @ 130 mls/hr IV . Q7H42M [facility] Rx#:[id number] Intake, IV Titration 17.915 10.793 23.626 Amount Norepinephrine 32 mg In 17.915 10.793 23.626 Sodium Chloride 0.9% 218 ml @ 0.05 MCG/KG/MIN 1. 799 mls/hr IV .Q24H [facility] Rx#:[id number] Output: Urine 56 171 105 Uretheral (Jean) 10 Other: Voiding Method Indwelling Catheter Indwelling Catheter Weight 76.748 kg 80.4 kg Results CBC & Chem 7: 11/25/21 14:10 11/25/21 14:10 Labs: Abnormal Lab Results - Last 24 Hours (Table) 11/24/21 11/24/21 11/24/21 Range/Units 11:37 11:37 11:37 WBC 14.7 H (3.8-10.6) k/uL RBC 2.74 L (3.80-5.40) m/uL Hgb 7.9 L D (11.4-16.0) gm/dL Hct 25.0 L (34.0-46.0) % MCHC (31.0-37.0) g/dL Neutrophils # (Manual) 13.30 H (1.3-7.7) k/uL Lymphocytes # (Manual) 0.74 L (1.0-4.8) k/uL Metamyelocytes # (Man) 0.15 H (0) k/uL Myelocytes # (Manual) 0.15 H (0) k/uL Nucleated RBCs (0-0) /100 WBC PT 14.4 H (9.0-12.0) sec INR 1.4 H (<1.2) Sodium (137-145) mmol/L Potassium (3.5-5.1) mmol/L Chloride (98-107) mmol/L Carbon Dioxide (22-30) mmol/L BUN (7-17) mg/dL Creatinine (0.52-1.04) mg/dL Glucose (74-99) mg/dL POC Glucose (mg/dL) (70-110) mg/dL Plasma Lactic Acid Julio Cesar (0.7-2.0) mmol/L Calcium (8.4-10.2) mg/dL Delta Bilirubin (0.0-0.2) mg/dL AST (14-36) U/L ALT (4-34) U/L Alkaline Phosphatase (38-126) U/L Troponin I (0.000-0.034) ng/mL Total Protein (6.3-8.2) g/dL Albumin (3.5-5.0) g/dL Urine Appearance (Clear) Urine Protein (Negative) Urine Glucose (UA) (Negative) Urine Ketones (Negative) Urine Blood (Negative) Ur Leukocyte Esterase (Negative) Urine RBC (0-5) /hpf Urine WBC (0-5) /hpf Calcium Oxalate Crystal (None) /hpf Amorphous Sediment (None) /hpf Urine Bacteria (None) /hpf Urine Mucus (None) /hpf Urine Opiates Screen Detected H (NotDetected) Ur Oxycodone Screen Detected H (NotDetected) U Tricyclic Antidepress Detected H (NotDetected) U Benzodiazepines Scrn Detected H (NotDetected) 11/24/21 11/24/21 11/24/21 Range/Units 11:37 11:37 11:37 WBC (3.8-10.6) k/uL RBC (3.80-5.40) m/uL Hgb (11.4-16.0) gm/dL Hct (34.0-46.0) % MCHC (31.0-37.0) g/dL Neutrophils # (Manual) (1.3-7.7) k/uL Lymphocytes # (Manual) (1.0-4.8) k/uL Metamyelocytes # (Man) (0) k/uL Myelocytes # (Manual) (0) k/uL Nucleated RBCs (0-0) /100 WBC PT (9.0-12.0) sec INR (<1.2) Sodium 132 L (137-145) mmol/L Potassium (3.5-5.1) mmol/L Chloride 96 L (98-107) mmol/L Carbon Dioxide (22-30) mmol/L BUN 33 H (7-17) mg/dL Creatinine 2.77 H (0.52-1.04) mg/dL Glucose (74-99) mg/dL POC Glucose (mg/dL) (70-110) mg/dL Plasma Lactic Acid Julio Cesar (0.7-2.0) mmol/L Calcium 12.2 H (8.4-10.2) mg/dL Delta Bilirubin 0.4 H (0.0-0.2) mg/dL AST 620 H (14-36) U/L ALT 131 H (4-34) U/L Alkaline Phosphatase (38-126) U/L Troponin I 1.150 H* (0.000-0.034) ng/mL Total Protein 4.3 L (6.3-8.2) g/dL Albumin 2.1 L (3.5-5.0) g/dL Urine Appearance Turbid H (Clear) Urine Protein 2+ H (Negative) Urine Glucose (UA) Trace H (Negative) Urine Ketones Trace H (Negative) Urine Blood Small H (Negative) Ur Leukocyte Esterase Trace H (Negative) Urine RBC 8 H (0-5) /hpf Urine WBC 90 H (0-5) /hpf Calcium Oxalate Crystal Rare H (None) /hpf Amorphous Sediment Rare H (None) /hpf Urine Bacteria Rare H (None) /hpf Urine Mucus Occasional H (None) /hpf Urine Opiates Screen (NotDetected) Ur Oxycodone Screen (NotDetected) U Tricyclic Antidepress (NotDetected) U Benzodiazepines Scrn (NotDetected) 11/24/21 11/24/21 11/24/21 Range/Units 11:37 17:21 19:51 WBC (3.8-10.6) k/uL RBC (3.80-5.40) m/uL Hgb (11.4-16.0) gm/dL Hct (34.0-46.0) % MCHC (31.0-37.0) g/dL Neutrophils # (Manual) (1.3-7.7) k/uL Lymphocytes # (Manual) (1.0-4.8) k/uL Metamyelocytes # (Man) (0) k/uL Myelocytes # (Manual) (0) k/uL Nucleated RBCs (0-0) /100 WBC PT (9.0-12.0) sec INR (<1.2) Sodium (137-145) mmol/L Potassium (3.5-5.1) mmol/L Chloride (98-107) mmol/L Carbon Dioxide (22-30) mmol/L BUN (7-17) mg/dL Creatinine (0.52-1.04) mg/dL Glucose (74-99) mg/dL POC Glucose (mg/dL) 58 L (70-110) mg/dL Plasma Lactic Acid Julio Cesar 5.7 H* 4.1 H* (0.7-2.0) mmol/L Calcium (8.4-10.2) mg/dL Delta Bilirubin (0.0-0.2) mg/dL AST (14-36) U/L ALT (4-34) U/L Alkaline Phosphatase (38-126) U/L Troponin I (0.000-0.034) ng/mL Total Protein (6.3-8.2) g/dL Albumin (3.5-5.0) g/dL Urine Appearance (Clear) Urine Protein (Negative) Urine Glucose (UA) (Negative) Urine Ketones (Negative) Urine Blood (Negative) Ur Leukocyte Esterase (Negative) Urine RBC (0-5) /hpf Urine WBC (0-5) /hpf Calcium Oxalate Crystal (None) /hpf Amorphous Sediment (None) /hpf Urine Bacteria (None) /hpf Urine Mucus (None) /hpf Urine Opiates Screen (NotDetected) Ur Oxycodone Screen (NotDetected) U Tricyclic Antidepress (NotDetected) U Benzodiazepines Scrn (NotDetected) 11/24/21 11/24/21 11/24/21 Range/Units 20:17 22:11 23:37 WBC (3.8-10.6) k/uL RBC (3.80-5.40) m/uL Hgb (11.4-16.0) gm/dL Hct (34.0-46.0) % MCHC (31.0-37.0) g/dL Neutrophils # (Manual) (1.3-7.7) k/uL Lymphocytes # (Manual) (1.0-4.8) k/uL Metamyelocytes # (Man) (0) k/uL Myelocytes # (Manual) (0) k/uL Nucleated RBCs (0-0) /100 WBC PT (9.0-12.0) sec INR (<1.2) Sodium 134 L (137-145) mmol/L Potassium (3.5-5.1) mmol/L Chloride (98-107) mmol/L Carbon Dioxide 21 L (22-30) mmol/L BUN 32 H (7-17) mg/dL Creatinine 3.14 H (0.52-1.04) mg/dL Glucose (74-99) mg/dL POC Glucose (mg/dL) (70-110) mg/dL Plasma Lactic Acid Julio Cesar 4.6 H* 3.7 H* (0.7-2.0) mmol/L Calcium 12.1 H (8.4-10.2) mg/dL Delta Bilirubin (0.0-0.2) mg/dL AST 503 H (14-36) U/L ALT 120 H (4-34) U/L Alkaline Phosphatase 141 H (38-126) U/L Troponin I (0.000-0.034) ng/mL Total Protein 4.6 L (6.3-8.2) g/dL Albumin 2.4 L (3.5-5.0) g/dL Urine Appearance (Clear) Urine Protein (Negative) Urine Glucose (UA) (Negative) Urine Ketones (Negative) Urine Blood (Negative) Ur Leukocyte Esterase (Negative) Urine RBC (0-5) /hpf Urine WBC (0-5) /hpf Calcium Oxalate Crystal (None) /hpf Amorphous Sediment (None) /hpf Urine Bacteria (None) /hpf Urine Mucus (None) /hpf Urine Opiates Screen (NotDetected) Ur Oxycodone Screen (NotDetected) U Tricyclic Antidepress (NotDetected) U Benzodiazepines Scrn (NotDetected) 11/25/21 11/25/21 11/25/21 Range/Units 03:01 03:01 03:01 WBC 17.9 H (3.8-10.6) k/uL RBC 2.86 L (3.80-5.40) m/uL Hgb 8.3 L (11.4-16.0) gm/dL Hct 26.9 L (34.0-46.0) % MCHC 30.8 L (31.0-37.0) g/dL Neutrophils # (Manual) 14.40 H (1.3-7.7) k/uL Lymphocytes # (Manual) (1.0-4.8) k/uL Metamyelocytes # (Man) 0.72 H (0) k/uL Myelocytes # (Manual) 0.36 H (0) k/uL Nucleated RBCs 6 H (0-0) /100 WBC PT (9.0-12.0) sec INR (<1.2) Sodium 134 L (137-145) mmol/L Potassium 5.5 H (3.5-5.1) mmol/L Chloride (98-107) mmol/L Carbon Dioxide (22-30) mmol/L BUN 35 H (7-17) mg/dL Creatinine 2.75 H (0.52-1.04) mg/dL Glucose 66 L (74-99) mg/dL POC Glucose (mg/dL) (70-110) mg/dL Plasma Lactic Acid Julio Cesar 3.3 H* (0.7-2.0) mmol/L Calcium 11.7 H (8.4-10.2) mg/dL Delta Bilirubin (0.0-0.2) mg/dL AST 432 H (14-36) U/L ALT 111 H (4-34) U/L Alkaline Phosphatase (38-126) U/L Troponin I (0.000-0.034) ng/mL Total Protein 4.4 L (6.3-8.2) g/dL Albumin 2.2 L (3.5-5.0) g/dL Urine Appearance (Clear) Urine Protein (Negative) Urine Glucose (UA) (Negative) Urine Ketones (Negative) Urine Blood (Negative) Ur Leukocyte Esterase (Negative) Urine RBC (0-5) /hpf Urine WBC (0-5) /hpf Calcium Oxalate Crystal (None) /hpf Amorphous Sediment (None) /hpf Urine Bacteria (None) /hpf Urine Mucus (None) /hpf Urine Opiates Screen (NotDetected) Ur Oxycodone Screen (NotDetected) U Tricyclic Antidepress (NotDetected) U Benzodiazepines Scrn (NotDetected) 07/11/25/21 11/25/21 Range/Units 04:59 05:15 07:27 WBC (3.8-10.6) k/uL RBC (3.80-5.40) m/uL Hgb (11.4-16.0) gm/dL Hct (34.0-46.0) % MCHC (31.0-37.0) g/dL Neutrophils # (Manual) (1.3-7.7) k/uL Lymphocytes # (Manual) (1.0-4.8) k/uL Metamyelocytes # (Man) (0) k/uL Myelocytes # (Manual) (0) k/uL Nucleated RBCs (0-0) /100 WBC PT (9.0-12.0) sec INR (<1.2) Sodium (137-145) mmol/L Potassium (3.5-5.1) mmol/L Chloride (98-107) mmol/L Carbon Dioxide (22-30) mmol/L BUN (7-17) mg/dL Creatinine (0.52-1.04) mg/dL Glucose (74-99) mg/dL POC Glucose (mg/dL) 63 L 115 H (70-110) mg/dL Plasma Lactic Acid Julio Cesar 4.3 H* (0.7-2.0) mmol/L Calcium (8.4-10.2) mg/dL Delta Bilirubin (0.0-0.2) mg/dL AST (14-36) U/L ALT (4-34) U/L Alkaline Phosphatase (38-126) U/L Troponin I (0.000-0.034) ng/mL Total Protein (6.3-8.2) g/dL Albumin (3.5-5.0) g/dL Urine Appearance (Clear) Urine Protein (Negative) Urine Glucose (UA) (Negative) Urine Ketones (Negative) Urine Blood (Negative) Ur Leukocyte Esterase (Negative) Urine RBC (0-5) /hpf Urine WBC (0-5) /hpf Calcium Oxalate Crystal (None) /hpf Amorphous Sediment (None) /hpf Urine Bacteria (None) /hpf Urine Mucus (None) /hpf Urine Opiates Screen (NotDetected) Ur Oxycodone Screen (NotDetected) U Tricyclic Antidepress (NotDetected) U Benzodiazepines Scrn (NotDetected) Microbiology - Last 24 Hours (Table) 11/24/21 11:37 Urine Culture - Preliminary Urine,Voided Assessment and Plan Plan: 1patient presented to hospital with sepsis in this patient who did have fever elevated white count elevated lactic acid in this patient with recent diagnosis of metastatic adenocarcinoma did have abnormality of the CT abdominal pelvis concerning for colitis and a question of pneumonitis and will need to cover for the enteric gram-negative to the likely pathogen. 2patient to continue with Zosyn 3.375 g every 8 hours. 3IV fluid and pressor support. We will follow on clinical condition and cultures to further adjust medication if needed Thank you for this consultation will follow this patient along with you Time with Patient: Greater than 30
[2021-11-26] MEDS: HEPARIN SODIUM,PORCINE/PF 5,000 UNIT/0.5 ML SYRINGE SQ SCH ×4 (00:45→23:46)
[2021-11-26 01:26] LABS: Glucose,Whole Blood 133 mg/dL (70-110)
[2021-11-26] MEDS: DEXTROSE 5%-0.9% NACL 1,000 ML IV SCH ×4 (03:30→19:52)
[2021-11-26] MEDS: HYDROmorphone 0.5 MG/0.5 ML SYRINGE IVP PRN (04:46)
[2021-11-26 04:51] LABS: Glucose,Whole Blood 124 mg/dL (70-110)
[2021-11-26 06:28] LABS: Potassium 4.1 mmol/L (3.5-5.1)
[2021-11-26 06:38] LABS: Glucose,Whole Blood 154 mg/dL (70-110)
[2021-11-26 06:53] LABS: HGB 10.4 gm/dL (11.4-16.0); Hypochromasia Marked; MCH 28.6 pg (25.0-35.0); MCHC 29.8 g/dL (31.0-37.0); MCV 95.9 fL (80.0-100.0); Mean Platelet Volume 10.4; Platelet Count 463 k/uL (150-450); RBC 3.65 m/uL (3.80-5.40)
[2021-11-26 07:57] LABS: Glucose,Whole Blood 159 mg/dL (70-110)
[2021-11-26] MEDS: PANTOPRAZOLE 40 MG/10 ML VIAL IVP SCH (08:11)
[2021-11-26] MEDS: PIPERACILLIN-TAZOBACTAM 3.375 GM in SODIUM CHLORIDE 0.9% 100 ML IVPB SCH ×2 (08:11→20:40)
[2021-11-26 09:22] LABS: Free Lambda Lt Chain Qnt, Seru 2.92 mg/dL (0.57-2.63)
[2021-11-26 09:53] LABS: Band Neutrophils % 9 %; Eosinophils # (M) 0.76 k/uL (0-0.7); Lymphocytes # (M) 0.76 k/uL (1.0-4.8); Metamyelocytes # (M) 1.91 k/uL (0); Metamyelocytes % 5 %; Monocytes # (M) 2.67 k/uL (0-1.0); Myelocytes # (M) 1.53 k/uL (0); Myelocytes % 4 %; Neutrophils % (M) 72 %; Nucleated Red Blood Cells 5 /100 WBC (0-0); Total Cells Counted 200; WBC 38.2 k/uL (3.8-10.6)
[2021-11-26 09:54] LABS: Polychromasia Present
[2021-11-26 09:55] LABS: Poikilocytosis (M) Present
[2021-11-26 09:56] LABS: Dohle Bodies Present
[2021-11-26] MEDS ORDERED: CALCITONIN INJ 200 UNIT/ML (MDV) VIAL IM ONE (09:56)
[2021-11-26] MEDS ORDERED: FUROSEMIDE 10 MG/ML 4 ML VIAL IV STA (09:56)
--- NOTE | 2021-11-26 09:56 | P.PN ---
Subjective Patient is seen in follow for acute kidney injury and hypercalcemia. Renal function improving. Nonoliguric. Calcium level 11.0. Maintained on normal saline at 1 50 mL an hour. Not responding much to verbal commands. Only moaning. On low-dose Levophed. Vital signs are stable. On Levophed. General: Resting in bed. HEENT: Head exam is unremarkable. On nasal cannula. LUNGS: Breath sounds decreased. HEART: Rate and Rhythm are regular. ABDOMEN: Soft, no distention. EXTREMITITES: Trace edema. Objective - Vital Signs Vital signs: Vital Signs Temp 98.6 F 11/26/21 08:00 Pulse 87 11/26/21 09:00 Resp 26 H 11/26/21 09:00 BP 97/45 11/26/21 09:00 Pulse Ox 90 L 11/26/21 09:00 FiO2 Intake & Output 11/25/21 11/26/21 11/26/21 18:59 06:59 18:59 Intake Total 2190.328 1800 523.525 Output Total 853 935 90 Balance 1337.328 865 433.525 Weight 82 kg Intake: IV 1410 1650 500 Dextrose 5% in Water 1, 75 000 ml @ 75 mls/hr IV . [id number] [facility] Rx#:[id number] Dextrose 5%-0.9% NaCl 1, 1650 450 000 ml @ 150 mls/hr IV . Q6H40M [facility] Rx#:[id number] Piperacillin-Tazobactam 3 100 50 .375 gm In Sodium Chloride 0.9% 100 ml @ 25 mls/hr IVPB Q12HR [facility] Rx #:[id number] Sodium Chloride 0.9% 1, 125 000 ml @ 125 mls/hr IV . Q8H [facility] Rx#:[id number] Sodium Chloride 0.9% 1, 1110 000 ml @ 130 mls/hr IV . Q7H42M [facility] Rx#:[id number] Intake, IV Titration 780.328 150 23.525 Amount Dextrose 5% in Water 1, 150 000 ml @ 75 mls/hr IV . [id number] [facility] Rx#:[id number] Dextrose 5%-0.9% NaCl 1, 600 150 000 ml @ 150 mls/hr IV . Q6H40M [facility] Rx#:[id number] Norepinephrine 32 mg In 29.292 Sodium Chloride 0.9% 218 ml @ 0.05 MCG/KG/MIN 1. 799 mls/hr IV .Q24H [facility] Rx#:[id number] Norepinephrine 32 mg In 1.036 23.525 Sodium Chloride 0.9% 218 ml @ 0.05 MCG/KG/MIN 1. 884 mls/hr IV .Q24H [facility] Rx#:[id number] Output: Urine 853 935 90 Other: Voiding Method Indwelling Catheter Indwelling Catheter Indwelling Catheter - Labs CBC & Chem 7: 11/26/21 05:59 11/26/21 05:59 Labs: Abnormal Lab Results - Last 24 Hours (Table) 11/25/21 11/25/21 11/25/21 Range/Units 11:41 14:10 14:10 WBC 26.3 H (3.8-10.6) k/uL RBC 3.25 L (3.80-5.40) m/uL Hgb 9.0 L (11.4-16.0) gm/dL Hct 30.7 L (34.0-46.0) % MCHC 29.3 L (31.0-37.0) g/dL Plt Count 523 H (150-450) k/uL Neutrophils # (Manual) 19.40 H (1.3-7.7) k/uL Monocytes # (Manual) 1.58 H (0-1.0) k/uL Metamyelocytes # (Man) 2.37 H (0) k/uL Myelocytes # (Manual) 0.79 H (0) k/uL Nucleated RBCs 2 H (0-0) /100 WBC Sodium 136 L (137-145) mmol/L Chloride (98-107) mmol/L Carbon Dioxide (22-30) mmol/L BUN 35 H (7-17) mg/dL Creatinine 2.88 H (0.52-1.04) mg/dL Glucose 101 H (74-99) mg/dL POC Glucose (mg/dL) 65 L (70-110) mg/dL Plasma Lactic Acid Julio Cesar (0.7-2.0) mmol/L Calcium 11.3 H (8.4-10.2) mg/dL Total Bilirubin 0.1 L (0.2-1.3) mg/dL AST 248 H (14-36) U/L ALT 95 H (4-34) U/L Alkaline Phosphatase 176 H (38-126) U/L Total Protein 4.0 L (6.3-8.2) g/dL Total Protein (PEP) (6.2-8.2) g/dL Albumin 2.0 L (3.5-5.0) g/dL Vitamin D 25-Hydroxy 19.9 L (30.0-100.0) ng/mL PTH Intact (14.0-72.0) pg/mL Free [place] LC, Quant (0.33-1.94) mg/dL Free Lambda LC, Quant (0.57-2.63) mg/dL 11/25/21 11/25/21 11/25/21 Range/Units 14:10 14:10 14:10 WBC (3.8-10.6) k/uL RBC (3.80-5.40) m/uL Hgb (11.4-16.0) gm/dL Hct (34.0-46.0) % MCHC (31.0-37.0) g/dL Plt Count (150-450) k/uL Neutrophils # (Manual) (1.3-7.7) k/uL Monocytes # (Manual) (0-1.0) k/uL Metamyelocytes # (Man) (0) k/uL Myelocytes # (Manual) (0) k/uL Nucleated RBCs (0-0) /100 WBC Sodium (137-145) mmol/L Chloride (98-107) mmol/L Carbon Dioxide (22-30) mmol/L BUN (7-17) mg/dL Creatinine (0.52-1.04) mg/dL Glucose (74-99) mg/dL POC Glucose (mg/dL) (70-110) mg/dL Plasma Lactic Acid Julio Cesar 3.6 H* (0.7-2.0) mmol/L Calcium (8.4-10.2) mg/dL Total Bilirubin (0.2-1.3) mg/dL AST (14-36) U/L ALT (4-34) U/L Alkaline Phosphatase (38-126) U/L Total Protein (6.3-8.2) g/dL Total Protein (PEP) 4.0 L (6.2-8.2) g/dL Albumin (3.5-5.0) g/dL Vitamin D 25-Hydroxy (30.0-100.0) ng/mL PTH Intact 8.1 L (14.0-72.0) pg/mL Free [place] LC, Quant 2.40 H (0.33-1.94) mg/dL Free Lambda LC, Quant 2.92 H (0.57-2.63) mg/dL 11/25/21 11/25/21 11/26/21 Range/Units 19:17 21:15 01:24 WBC (3.8-10.6) k/uL RBC (3.80-5.40) m/uL Hgb (11.4-16.0) gm/dL Hct (34.0-46.0) % MCHC (31.0-37.0) g/dL Plt Count (150-450) k/uL Neutrophils # (Manual) (1.3-7.7) k/uL Monocytes # (Manual) (0-1.0) k/uL Metamyelocytes # (Man) (0) k/uL Myelocytes # (Manual) (0) k/uL Nucleated RBCs (0-0) /100 WBC Sodium (137-145) mmol/L Chloride (98-107) mmol/L Carbon Dioxide (22-30) mmol/L BUN (7-17) mg/dL Creatinine (0.52-1.04) mg/dL Glucose (74-99) mg/dL POC Glucose (mg/dL) 119 H 133 H (70-110) mg/dL Plasma Lactic Acid Julio Cesar 3.5 H* (0.7-2.0) mmol/L Calcium (8.4-10.2) mg/dL Total Bilirubin (0.2-1.3) mg/dL AST (14-36) U/L ALT (4-34) U/L Alkaline Phosphatase (38-126) U/L Total Protein (6.3-8.2) g/dL Total Protein (PEP) (6.2-8.2) g/dL Albumin (3.5-5.0) g/dL Vitamin D 25-Hydroxy (30.0-100.0) ng/mL PTH Intact (14.0-72.0) pg/mL Free [place] LC, Quant (0.33-1.94) mg/dL Free Lambda LC, Quant (0.57-2.63) mg/dL 11/26/21 11/26/21 11/26/21 Range/Units 04:49 05:59 05:59 WBC 40.1 H (3.8-10.6) k/uL RBC 3.65 L (3.80-5.40) m/uL Hgb 10.4 L (11.4-16.0) gm/dL Hct (34.0-46.0) % MCHC 29.8 L (31.0-37.0) g/dL Plt Count 463 H (150-450) k/uL Neutrophils # (Manual) (1.3-7.7) k/uL Monocytes # (Manual) (0-1.0) k/uL Metamyelocytes # (Man) (0) k/uL Myelocytes # (Manual) (0) k/uL Nucleated RBCs (0-0) /100 WBC Sodium 136 L (137-145) mmol/L Chloride 110 H (98-107) mmol/L Carbon Dioxide 19 L (22-30) mmol/L BUN 37 H (7-17) mg/dL Creatinine 2.31 H (0.52-1.04) mg/dL Glucose 143 H (74-99) mg/dL POC Glucose (mg/dL) 124 H (70-110) mg/dL Plasma Lactic Acid [place] (0.7-2.0) mmol/L Calcium 11.0 H (8.4-10.2) mg/dL Total Bilirubin (0.2-1.3) mg/dL AST (14-36) U/L ALT (4-34) U/L Alkaline Phosphatase (38-126) U/L Total Protein (6.3-8.2) g/dL Total Protein (PEP) (6.2-8.2) g/dL Albumin (3.5-5.0) g/dL Vitamin D 25-Hydroxy (30.0-100.0) ng/mL PTH Intact (14.0-72.0) pg/mL Free [place] LC, Quant (0.33-1.94) mg/dL Free [place]ambda LC, Quant (0.57-2.63) mg/dL 11/26/21 11/26/21 Range/Units 06:37 07:56 WBC (3.8-10.6) k/uL RBC (3.80-5.40) m/uL Hgb (11.4-16.0) gm/dL Hct (34.0-46.0) % MCHC (31.0-37.0) g/dL Plt Count (150-450) k/uL Neutrophils # (Manual) (1.3-7.7) k/uL Monocytes # (Manual) (0-1.0) k/uL Metamyelocytes # (Man) (0) k/uL Myelocytes # (Manual) (0) k/uL Nucleated RBCs (0-0) /100 WBC Sodium (137-145) mmol/L Chloride (98-107) mmol/L Carbon Dioxide (22-30) mmol/L BUN (7-17) mg/dL Creatinine (0.52-1.04) mg/dL Glucose (74-99) mg/dL POC Glucose (mg/dL) 154 H 159 H (70-110) mg/dL Plasma Lactic Acid [place] (0.7-2.0) mmol/L Calcium (8.4-10.2) mg/dL Total Bilirubin (0.2-1.3) mg/dL AST (14-36) U/L ALT (4-34) U/L Alkaline Phosphatase (38-126) U/L Total Protein (6.3-8.2) g/dL Total Protein (PEP) (6.2-8.2) g/dL Albumin (3.5-5.0) g/dL Vitamin D 25-Hydroxy (30.0-100.0) ng/mL PTH Intact (14.0-72.0) pg/mL Free [place] LC, Quant (0.33-1.94) mg/dL Free [place]ambda LC, Quant (0.57-2.63) mg/dL Microbiology - Last 24 Hours (Table) 11/24/21 11:37 Urine Culture - Final Urine,Voided 11/24/21 14:31 Blood Culture - Preliminary Blood No Growth after 24 hours Assessment and Plan Plan: Assessment: 1. Acute kidney injury secondary to ATN secondary to hypotension/sepsis and hypercalcemia. Creatinine peaked at 3.1 for this admission and is 2.31 today. Baseline creatinine 0.6-0.8 from November 2021. No hydronephrosis noted on CAT scan. 2. Hypercalcemia secondary to underlying malignancy and volume contraction. Calcium 12.1 on admission and is 11.0 today. PTH low at 8.1. Vitamin D level 19.9. 3. Septic shock on antibiotics and Levophed. 4. Metastatic adenocarcinoma with unclear primary. Oncology following. 5. Hyperkalemia secondary to acute kidney injury. Improved. 6. Edema partially related to third spacing. 7. Metabolic acidosis secondary to acute kidney injury and IV fluids. Plan: Decrease rate of fluids to 100 mL an hour. Repeat Lasix 40 mg IV once today. I will also give her a dose of IM calcitonin. Status post IV albumin given 11/24/2021. Status post IV pamidronate given 11/25/2021. Follow up pending workup for hypercalcemia. Follow-up cultures. Wean FiO2 and vasopressors. Continue to monitor renal function and urine output. Prognosis guarded. Family meeting today.
[2021-11-26] MEDS ORDERED: HYDROmorphone 1 MG/ML 1 ML SYRINGE ONE (09:58)
[2021-11-26] MEDS ORDERED: IOPAMIDOL CONTRAST (ORAL USE) VIAL PO PRN (10:00)
[2021-11-26 10:25] LABS: Glucose,Whole Blood 139 mg/dL (70-110)
[2021-11-26 10:27] LABS: Angiotensin-1 Converting Enz. 24 U/L (8-52)
[2021-11-26 12:02] LABS: Glucose,Whole Blood 140 mg/dL (70-110)
--- NOTE | 2021-11-26 12:46 | P.PN ---
Subjective Progress Note Date: 11/26/21 71-year-old female patient who currently has a diagnosis of metastatic adenocarcinoma, who was recently in the hospital after the patient was found to have tumor involving the L3 vertebral body and a destructive left iliac mass as well as a couple of lytic rib lesions. At that time, the patient was seen by the spine surgeon and the patient underwent kyphoplasty and a biopsy of the L3. The pathology was adenocarcinoma consistent with upper GI cancer versus lung primary. The patient was supposed to start radiation therapy on outpatient basis. The patient was discharged home and the patient within a week of being discharged, came into the hospital with a worsening condition as the patient became more lethargic, weak, unable to eat or drink, low urine output almost absent over the past 24 hours, altered mentation, generalized weakness, increased edema and third spacing all 4 extremities. At that point, the patient came into the emergency and the patient was given a total of 3 L of IV fluids. The patient remained hypotensive with a systolic blood pressure ranging between 70 and 80 and she was started on Levofed which is running at 0.05 mg/kg/m. Her T-max is 99.1F. Mild tachypnea. No significant tachycardia. The white cell count 14.7 with hemoglobin of 7.9. BNP is a 33 with a creatinine of 2.7 consistent with an acute kidney injury in the sodium level is at 132 and a serum bicarbonate of 26. Regulation profile is within normal. Urine drug screen is positive for opiates, oxycodone, tricyclic antidepressant and benzodiazepine. The patient also had an ALT of 131 with an AST of 620 and alkaline phosphatase of 117. Bilirubin is at 0.4. Troponin was at 1.1. UA showed +2 protein. At the same time, a repeat CAT scan of the abdomen and pelvis was done that showed bilateral pleural effusions and enlarged gallbladder without evidence of any biliary obstruction. There was stable sigmoid colon colitis suspected. There was redemonstration of the osseous lesions in the left iliac bone and adjacent left sacroiliac joint and iliac crest with invasion. The gallbladder was hydropic. I saw the patient emergency care I was unable to communicate with her. Her mental status was altered. She was moving all 4 extremities without limitation. CAT scan of the brain was done showing no acute process. A triple lumen catheter was also inserted in the emergency that showed adequate positioning of the right IJ triple THERAPY of this pulmonary asked congestion and pleural effusion lung base bilaterally. Jean catheter in place. no significant urine output. On today's evaluation of 11/25/2021, the patient's condition essentially unchanged. She is still very encephalopathic and lethargic. The patient was severely dehydrated and the patient received a total of 4 L of IV fluid in the form of normal saline, 2 doses of 25% albumin and she was maintained on normal s darien at the rate of 130 mL an hour. On today's evaluation, I noted some improvement in urine output. The patient is producing approximately 25 mL an hour of urine output. I also noted that the patient is membranes are still dry. On today's evaluation, the BUN is at 35 with a creatinine of 2.7. Sodium is at 134. White cell count of 75, hemoglobin 8.3. The calcium level still elevated although slight improvement compared to yesterday and the patient's abdomen continues to be somewhat tender to palpation. The lactic acid level has been fluctuating. After peaking at around 5.0 and improving, the most recent level is down to 4.3. The calcium level is at 11.7. At the same time, the patient has improvement in the LFTs and AST is down to 432 and ALT is down to 111 with an alkaline phosphatase of 122. Bilirubin is 0.4. Flat film of the abdomen was done today showed a nonobstructive gas pattern and the patient also had a chest x-ray that shows small bilateral pleural effusion and some mild pulmonary vascular congestion. The patient remains on oxygen at 4 L per minute nasal cannula. She remains on empiric antibiotic coverage with IV Zosyn. On 11/26/2021, the patient is still in the intensive care unit. Her condition remains critical. Overall mentation is still unchanged and the patient remains encephalopathic and lethargic and somnolent and not able to follow commands on hold a conversation. she continues to have diffuse abdominal tenderness. No nausea. No emesis. She remains on by mouth. She remains on IV Zosyn. Afebrile. She is receiving IV fluids and the patient is receiving D5 0.9 at 150 mL an hour in addition to low-dose norepinephrine infusion running at 0.05 mcg/kg per minute. The lactic acid level remains elevated and the level from today is at 4.4. Also, the patient has a component of non-anion gap metabolic acidosis and the serum bicarb is down to 19 . Flat film of the abdomen from yesterday showed no evidence of any free air. The white cell count is up to 38. Also, as the patient is being resuscitated IV fluids, they renal function continues to improve in the creatinine is down to 2.3 with a BUN of 37 and the sodium level is at 136. Calcium down to 11 and the patient received a dose of Aredia 60 mg IV 1. Objective - Vital Signs Vital signs: Vital Signs Temp 98.6 F 11/26/21 08:00 Pulse 87 11/26/21 09:00 Resp 26 H 11/26/21 09:00 BP 97/45 11/26/21 09:00 Pulse Ox 90 L 11/26/21 09:00 FiO2 Intake & Output 11/25/21 11/26/21 11/26/21 18:59 06:59 18:59 Intake Total 2190.328 1800 523.525 Output Total 853 935 90 Balance 1337.328 865 433.525 Weight 82 kg Intake: IV 1410 1650 500 Dextrose 5% in Water 1, 75 000 ml @ 75 mls/hr IV . [id number] [facility] Rx#:[id number] Dextrose 5%-0.9% NaCl 1, 1650 450 000 ml @ 150 mls/hr IV . Q6H40M [facility] Rx#:[id number] Piperacillin-Tazobactam 3 100 50 .375 gm In Sodium Chloride 0.9% 100 ml @ 25 mls/hr IVPB Q12HR [facility] Rx #:[id number] Sodium Chloride 0.9% 1, 125 000 ml @ 125 mls/hr IV . Q8H [facility] Rx#:[id number] Sodium Chloride 0.9% 1, 1110 000 ml @ 130 mls/hr IV . Q7H42M [facility] Rx#:[id number] Intake, IV Titration 780.328 150 23.525 Amount Dextrose 5% in Water 1, 150 000 ml @ 75 mls/hr IV . [id number] [facility] Rx#:[id number] Dextrose 5%-0.9% NaCl 1, 600 150 000 ml @ 150 mls/hr IV . Q6H40M [facility] Rx#:[id number] Norepinephrine 32 mg In 29.292 Sodium Chloride 0.9% 218 ml @ 0.05 MCG/KG/MIN 1. 799 mls/hr IV .Q24H [facility] Rx#:[id number] Norepinephrine 32 mg In 1.036 23.525 Sodium Chloride 0.9% 218 ml @ 0.05 MCG/KG/MIN 1. 884 mls/hr IV .Q24H [facility] Rx#:[id number] Output: Urine 853 935 90 Other: Voiding Method Indwelling Catheter Indwelling Catheter Indwelling Catheter - Exam GENERAL EXAM: Alert, very pleasant 71-year-old white female, on 8 liters with pulse ox of 93% comfortable in no apparent distress. Patient continues to demonstrate mucosal membrane dryness and the patient is currently on 8 L of oxygen by nasal cannula. Breathing does not seem to be labored at all. HEAD: Normocephalic/atraumatic. EYES: Normal reaction of pupils, equal size. Conjunctiva pink, sclera white. NOSE: Clear with pink turbinates. THROAT: No erythema or exudates. NECK: No masses, no JVD, no thyroid enlargement, no adenopathy. CHEST: No chest wall deformity. Symmetrical expansion. LUNGS: Equal air entry with no crackles, wheeze, rhonchi or dullness.diminished breath on the lung bases bilaterally CVS: Regular rate and rhythm, normal S1 and S2, no gallops, no murmurs, no rubs ABDOMEN: Soft, direct tenderness on examination. No rebound tenderness. No guarding.. No hepatosplenomegaly, normal bowel sounds, no guarding or rigidity. EXTREMITIES: No clubbing,trace edema lower extremity is bilaterally, no cyanosis, 2+ pulses and upper and lower extremities. MUSCULOSKELETAL: Muscle strength and tone normal. SPINE: No scoliosis or deformity SKIN: No rashes CENTRAL NERVOUS SYSTEM: the patient is encephalopathic,she was also painful stimulation extremities. Pupils are equal and reactive to light. Reflexes are diminished. Motor function sensitive function cannot be accurately assessed. No facial asymmetry. PSYCHIATRIC: Unable to perform due to above - Labs CBC & Chem 7: 11/26/21 05:59 11/26/21 05:59 Labs: Abnormal Lab Results - Last 24 Hours (Table) 11/25/21 11/25/21 11/25/21 Range/Units 11:41 14:10 14:10 WBC 26.3 H (3.8-10.6) k/uL RBC 3.25 L (3.80-5.40) m/uL Hgb 9.0 L (11.4-16.0) gm/dL Hct 30.7 L (34.0-46.0) % MCHC 29.3 L (31.0-37.0) g/dL Plt Count 523 H (150-450) k/uL Neutrophils # (Manual) 19.40 H (1.3-7.7) k/uL Monocytes # (Manual) 1.58 H (0-1.0) k/uL Metamyelocytes # (Man) 2.37 H (0) k/uL Myelocytes # (Manual) 0.79 H (0) k/uL Nucleated RBCs 2 H (0-0) /100 WBC Sodium 136 L (137-145) mmol/L Chloride (98-107) mmol/L Carbon Dioxide (22-30) mmol/L BUN 35 H (7-17) mg/dL Creatinine 2.88 H (0.52-1.04) mg/dL Glucose 101 H (74-99) mg/dL POC Glucose (mg/dL) 65 L (70-110) mg/dL Plasma Lactic Acid Julio [place]esar (0.7-2.0) mmol/L Calcium 11.3 H (8.4-10.2) mg/dL Total Bilirubin 0.1 L (0.2-1.3) mg/dL AST 248 H (14-36) U/L ALT 95 H (4-34) U/L Alkaline Phosphatase 176 H (38-126) U/L Total Protein 4.0 L (6.3-8.2) g/dL Total Protein (PEP) (6.2-8.2) g/dL Albumin 2.0 L (3.5-5.0) g/dL Vitamin D 25-Hydroxy 19.9 L (30.0-100.0) ng/mL PTH Intact (14.0-72.0) pg/mL Free [place] LC, Quant (0.33-1.94) mg/dL Free Lambda LC, Quant (0.57-2.63) mg/dL 11/25/21 11/25/21 11/25/21 Range/Units 14:10 14:10 14:10 WBC (3.8-10.6) k/uL RBC (3.80-5.40) m/uL Hgb (11.4-16.0) gm/dL Hct (34.0-46.0) % MCHC (31.0-37.0) g/dL Plt Count (150-450) k/uL Neutrophils # (Manual) (1.3-7.7) k/uL Monocytes # (Manual) (0-1.0) k/uL Metamyelocytes # (Man) (0) k/uL Myelocytes # (Manual) (0) k/uL Nucleated RBCs (0-0) /100 WBC Sodium (137-145) mmol/L Chloride (98-107) mmol/L Carbon Dioxide (22-30) mmol/L BUN (7-17) mg/dL Creatinine (0.52-1.04) mg/dL Glucose (74-99) mg/dL POC Glucose (mg/dL) (70-110) mg/dL Plasma Lactic Acid Jul[place]esar 3.6 H* (0.7-2.0) mmol/L Calcium (8.4-10.2) mg/dL Total Bilirubin (0.2-1.3) mg/dL AST (14-36) U/L ALT (4-34) U/L Alkaline Phosphatase (38-126) U/L Total Protein (6.3-8.2) g/dL Total Protein (PEP) 4.0 L (6.2-8.2) g/dL Albumin (3.5-5.0) g/dL Vitamin D 25-Hydroxy (30.0-100.0) ng/mL PTH Intact 8.1 L (14.0-72.0) pg/mL Free [place] LC, Quant 2.40 H (0.33-1.94) mg/dL Free Lambda LC, Quant 2.92 H (0.57-2.63) mg/dL 11/25/21 11/25/21 11/26/21 Range/Units 19:17 21:15 01:24 WBC (3.8-10.6) k/uL RBC (3.80-5.40) m/uL Hgb (11.4-16.0) gm/dL Hct (34.0-46.0) % MCHC (31.0-37.0) g/dL Plt Count (150-450) k/uL Neutrophils # (Manual) (1.3-7.7) k/uL Monocytes # (Manual) (0-1.0) k/uL Metamyelocytes # (Man) (0) k/uL Myelocytes # (Manual) (0) k/uL Nucleated RBCs (0-0) /100 WBC Sodium (137-145) mmol/L Chloride (98-107) mmol/L Carbon Dioxide (22-30) mmol/L BUN (7-17) mg/dL Creatinine (0.52-1.04) mg/dL Glucose (74-99) mg/dL POC Glucose (mg/dL) 119 H 133 H (70-110) mg/dL Plasma Lactic Acid [place] 3.5 H* (0.7-2.0) mmol/L Calcium (8.4-10.2) mg/dL Total Bilirubin (0.2-1.3) mg/dL AST (14-36) U/L ALT (4-34) U/L Alkaline Phosphatase (38-126) U/L Total Protein (6.3-8.2) g/dL Total Protein (PEP) (6.2-8.2) g/dL Albumin (3.5-5.0) g/dL Vitamin D 25-Hydroxy (30.0-100.0) ng/mL PTH Intact (14.0-72.0) pg/mL Free [place] LC, Quant (0.33-1.94) mg/dL Free Lambda LC, Quant (0.57-2.63) mg/dL 11/26/21 11/26/21 11/26/21 Range/Units 04:49 05:59 05:59 WBC 40.1 H (3.8-10.6) k/uL RBC 3.65 L (3.80-5.40) m/uL Hgb 10.4 L (11.4-16.0) gm/dL Hct (34.0-46.0) % MCHC 29.8 L (31.0-37.0) g/dL Plt Count 463 H (150-450) k/uL Neutrophils # (Manual) (1.3-7.7) k/uL Monocytes # (Manual) (0-1.0) k/uL Metamyelocytes # (Man) (0) k/uL Myelocytes # (Manual) (0) k/uL Nucleated RBCs (0-0) /100 WBC Sodium 136 L (137-145) mmol/L Chloride 110 H (98-107) mmol/L Carbon Dioxide 19 L (22-30) mmol/L BUN 37 H (7-17) mg/dL Creatinine 2.31 H (0.52-1.04) mg/dL Glucose 143 H (74-99) mg/dL POC Glucose (mg/dL) 124 H (70-110) mg/dL Plasma Lactic Acid [place] (0.7-2.0) mmol/L Calcium 11.0 H (8.4-10.2) mg/dL Total Bilirubin (0.2-1.3) mg/dL AST (14-36) U/L ALT (4-34) U/L Alkaline Phosphatase (38-126) U/L Total Protein (6.3-8.2) g/dL Total Protein (PEP) (6.2-8.2) g/dL Albumin (3.5-5.0) g/dL Vitamin D 25-Hydroxy (30.0-100.0) ng/mL PTH Intact (14.0-72.0) pg/mL Free [place] LC, Quant (0.33-1.94) mg/dL Free Lambda LC, Quant (0.57-2.63) mg/dL 11/26/21 11/26/21 Range/Units 06:37 07:56 WBC (3.8-10.6) k/uL RBC (3.80-5.40) m/uL Hgb (11.4-16.0) gm/dL Hct (34.0-46.0) % MCHC (31.0-37.0) g/dL Plt Count (150-450) k/uL Neutrophils # (Manual) (1.3-7.7) k/uL Monocytes # (Manual) (0-1.0) k/uL Metamyelocytes # (Man) (0) k/uL Myelocytes # (Manual) (0) k/uL Nucleated RBCs (0-0) /100 WBC Sodium (137-145) mmol/L Chloride (98-107) mmol/L Carbon Dioxide (22-30) mmol/L BUN (7-17) mg/dL Creatinine (0.52-1.04) mg/dL Glucose (74-99) mg/dL POC Glucose (mg/dL) 154 H 159 H (70-110) mg/dL Plasma Lactic Acid [place] (0.7-2.0) mmol/L Calcium (8.4-10.2) mg/dL Total Bilirubin (0.2-1.3) mg/dL AST (14-36) U/L ALT (4-34) U/L Alkaline Phosphatase (38-126) U/L Total Protein (6.3-8.2) g/dL Total Protein (PEP) (6.2-8.2) g/dL Albumin (3.5-5.0) g/dL Vitamin D 25-Hydroxy (30.0-100.0) ng/mL PTH Intact (14.0-72.0) pg/mL Free [place] LC, Quant (0.33-1.94) mg/dL Free Lambda LC, Quant (0.57-2.63) mg/dL Microbiology - Last 24 Hours (Table) 11/24/21 11:37 Urine Culture - Final Urine,Voided 11/24/21 14:31 Blood Culture - Preliminary Blood No Growth after 24 hours Assessment and Plan Plan: metastatic adenocarcinoma of an unknown primary, likely of a gastrointestinal source. I reviewed the CAT scan of the chest and the patient has a tiny right middle lobe pulmonary spiculated lesion in addition based on lymphadenopathy. As such, the possibility of a primary lung cancer which is visiting at this point cannot be completely excluded although other possibilities such as a GI source of a malignancy cannot be also excluded. Skeletal metastases involving the L3 spine in addition to the sacrum particularly the left iliac Acute hypovolemic/septic shock, currently on low-dose pressors and IV fluids Acute leukocytosis secondary to underlying infection/sepsis Diverticulitis and there is involving the left colon and sigmoid. The patient continues to have diffuse abdominal tenderness. White cell count is elevated and the patient remains on IV Zosyn. Lactic acid levels remain elevated. Acute hypercalcemia, could be related to skeletal metastases versus intravascular volume depletion/dehydration, slightly improved with a calcium level is down to 11.7 Altered mentation related to metabolic encephalopathy, unchanged acute kidney injury secondary to intravascular volume depletion improving and th e creatinine is down to 2.75 in the urine output is also improving Abdominal pain/tenderness with questionable evidence of sigmoid colitis/diverticulitis and currently the patient on IV Zosyn. On today's evaluation, the abdomen remains quite tender and the patient remains nothing by mouth for now on IV Zosyn. Anemia of chronic disease, normocytic Acute lactic acidosis, secondary to above Abnormal LFTs with a hydropic gallbladder. This is not a cholestatic picture and the patient has normal bilirubin and normal alkaline phosphatase, improved Abnormal troponin secondary to above, doubt any acute coronary event Bilateral pleural effusion and increased edema in the legs and third spacing Plan The patient remains critically ill Case was discussed with the family at the bedside and the patient's CODE STATUS is been switched a DNR/DNI We'll repeat a CAT scan of the abdomen and pelvis with by mouth contrast if possible. For that purpose, we'll insert an NG tube. Continue IV Zosyn IV Dilaudid for pain control Keep the Jean catheter in place norepinephrine is currently running at 0.05 mcg kilogram per minute Monitor the calcium level, Levels are improving Monitor urine output Keep the Jean catheter in place Monitor lactic acid level, Level still elevated at 4.0 Oncology consultation Appreciated, and the patient is not a candidate for any further treatment at this point in time based on his underlying and ongoing comorbidities. She is still critically ill and extremely debilitated. Very poor prognosis based of metastatic adenocarcinoma Heparin subcu 40 prophylaxis We'll continue to follow
--- NOTE | 2021-11-26 13:24 | XR ---
EXAMINATION TYPE: XR chest 1V portable DATE OF EXAM: 11/26/2021 COMPARISON: Chest x-ray 11/25/2021 HISTORY: Shortness of breath, NG tube placement TECHNIQUE: Single frontal view of the chest is obtained. FINDINGS: There is been interval placement of an NG tube which is coiled within the stomach. Patient is rotated. No other interval change. IMPRESSION: NG tube in appropriate position
[2021-11-26] MEDS: HYDROmorphone 1 MG/ML 1 ML SYRINGE IVP PRN ×2 (13:34→22:05)
[2021-11-26 15:39] LABS: Albumin 1.62 g/dL (3.80-4.90); Gamma Globulin 0.36 g/dL (0.70-1.50)
[2021-11-26 16:35] LABS: Glucose,Whole Blood 160 mg/dL (70-110)
[2021-11-26] MEDS: NOREPINEPHRINE 32 MG in SODIUM CHLORIDE 0.9% 218 ML IV SCH (16:40)
[2021-11-26 18:18] LABS: Glucose,Whole Blood 149 mg/dL (70-110)
[2021-11-26 18:42] LABS: Calcium 10.4 mg/dL (8.4-10.2); Potassium 3.9 mmol/L (3.5-5.1)
[2021-11-26 19:08] LABS: Vitamin D, 1, 25-Dihydroxy <5 pg/mL (20 - 79)
[2021-11-26 20:10] LABS: Glucose,Whole Blood 152 mg/dL (70-110)
[2021-11-26] MEDS ORDERED: FUROSEMIDE 10 MG/ML 10 ML VIAL IV ONE (22:00)
[2021-11-27 00:10] LABS: Glucose,Whole Blood 138 mg/dL (70-110)
[2021-11-27] MEDS: HYDROmorphone 1 MG/ML 1 ML SYRINGE IVP PRN ×4 (03:29→15:37)
[2021-11-27 06:31] LABS: HCT 37.9 % (34.0-46.0); HGB 10.6 gm/dL (11.4-16.0); Hypochromasia Marked; MCH 28.5 pg (25.0-35.0); MCHC 27.9 g/dL (31.0-37.0); Macrocytosis Slight; Mean Platelet Volume 10.3; Platelet Count 430 k/uL (150-450); RBC 3.71 m/uL (3.80-5.40); RDW 14.3 % (11.5-15.5)
[2021-11-27 06:34] LABS: MCV 102.2 fL (80.0-100.0)
[2021-11-27 07:00] LABS: Band Neutrophils % 44 %; Metamyelocytes % 11 %; Myelocytes % 7 %; Neutrophils % (M) 34 %; Nucleated Red Blood Cells 10 /100 WBC (0-0); Promyelocytes % 2 %; Total Cells Counted 200
[2021-11-27 07:03] LABS: Metamyelocytes # (M) 6.22 k/uL (0); Monocytes # (M) 1.13 k/uL (0-1.0); Myelocytes # (M) 3.96 k/uL (0); Promyelocytes # (M) 1.13 k/uL (0); Toxic Granulation Present; WBC 56.5 k/uL (3.8-10.6)
[2021-11-27 07:12] LABS: Albumin 1.7 g/dL (3.5-5.0); Calcium 10.1 mg/dL (8.4-10.2); Potassium 4.3 mmol/L (3.5-5.1); Total Bilirubin 0.1 mg/dL (0.2-1.3); Total Protein 3.7 g/dL (6.3-8.2)
--- NOTE | 2021-11-27 07:45 | P.PN ---
Subjective Progress Note Date: 11/26/21 Principal diagnosis: Sepsis/leukocytosis Patient is a 71-year-old female with recent diagnosis of metastatic adenocarcinoma presenting to the hospital with weakness and mental status changes did have a significantly elevated white count and concern for possible diverticulitis/colitis. On today's evaluation that is 11/26/2021, the patient remains to be afebrile, the patient is hypotensive requiring pressor support, remains to be encephalopathic and unable to answer any questions no vomiting or diarrhea has been reported by the nursing staff Objective - Vital Signs Vital signs: Vital Signs Temp 98.6 F 11/26/21 08:00 Pulse 89 11/26/21 11:30 Resp 22 11/26/21 11:30 BP 102/48 11/26/21 11:30 Pulse Ox 91 L 11/26/21 12:26 FiO2 Intake & Output 11/25/21 11/26/21 11/26/21 18:59 06:59 18:59 Intake Total 2190.328 1800 1423.525 Output Total 853 935 125 Balance 1337.952 095 7859.525 Weight 82 kg Intake: IV 1410 1650 800 Dextrose 5% in Water 1, 75 000 ml @ 75 mls/hr IV . [id number] [facility] Rx#:[id number] Dextrose 5%-0.9% NaCl 1, 1650 700 000 ml @ 100 mls/hr IV . Q10H [facility] Rx#:[id number] Piperacillin-Tazobactam 3 100 100 .375 gm In Sodium Chloride 0.9% 100 ml @ 25 mls/hr IVPB Q12HR [facility] Rx #:[id number] Sodium Chloride 0.9% 1, 125 000 ml @ 125 mls/hr IV . Q8H [facility] Rx#:[id number] Sodium Chloride 0.9% 1, 1110 000 ml @ 130 mls/hr IV . Q7H42M [facility] Rx#:[id number] Intake, IV Titration 780.328 150 23.525 Amount Dextrose 5% in Water 1, 150 000 ml @ 75 mls/hr IV . [id number] [facility] Rx#:[id number] Dextrose 5%-0.9% NaCl 1, 600 150 000 ml @ 100 mls/hr IV . Q10H [facility] Rx#:[id number] Norepinephrine 32 mg In 29.292 Sodium Chloride 0.9% 218 ml @ 0.05 MCG/KG/MIN 1. 799 mls/hr IV .Q24H [facility] Rx#:[id number] Norepinephrine 32 mg In 1.036 23.525 Sodium Chloride 0.9% 218 ml @ 0.05 MCG/KG/MIN 1. 884 mls/hr IV .Q24H [facility] Rx#:[id number] Other 600 Output: Urine 853 935 125 Other: Voiding Method Indwelling Catheter Indwelling Catheter Indwelling Catheter - Exam GENERAL DESCRIPTION: An elderly female lying in bed in no distress RESPIRATORY SYSTEM: Unlabored breathing , decreased breath sounds at bases HEART: S1 S2 regular rate and rhythm , ABDOMEN: Soft , left lower quadrant tenderness EXTREMITIES: No edema feet - Labs CBC & Chem 7: 11/27/21 05:46 11/27/21 05:56 Labs: Abnormal Lab Results - Last 24 Hours (Table) 11/25/21 11/25/21 11/25/21 Range/Units 14:10 14:10 14:10 WBC 26.3 H (3.8-10.6) k/uL RBC 3.25 L (3.80-5.40) m/uL Hgb 9.0 L (11.4-16.0) gm/dL Hct 30.7 L (34.0-46.0) % MCHC 29.3 L (31.0-37.0) g/dL Plt Count 523 H (150-450) k/uL Neutrophils # (Manual) 19.40 H (1.3-7.7) k/uL Lymphocytes # (Manual) (1.0-4.8) k/uL Monocytes # (Manual) 1.58 H (0-1.0) k/uL Eosinophils # (Manual) (0-0.7) k/uL Metamyelocytes # (Man) 2.37 H (0) k/uL Myelocytes # (Manual) 0.79 H (0) k/uL Nucleated RBCs 2 H (0-0) /100 WBC Sodium 136 L (137-145) mmol/L Chloride (98-107) mmol/L Carbon Dioxide (22-30) mmol/L BUN 35 H (7-17) mg/dL Creatinine 2.88 H (0.52-1.04) mg/dL Glucose 101 H (74-99) mg/dL POC Glucose (mg/dL) (70-110) mg/dL Plasma Lactic Acid Julio Cesar 3.6 H* (0.7-2.0) mmol/L Calcium 11.3 H (8.4-10.2) mg/dL Total Bilirubin 0.1 L (0.2-1.3) mg/dL AST 248 H (14-36) U/L ALT 95 H (4-34) U/L Alkaline Phosphatase 176 H (38-126) U/L Total Protein 4.0 L (6.3-8.2) g/dL Total Protein (PEP) (6.2-8.2) g/dL Albumin 2.0 L (3.5-5.0) g/dL Vitamin D 25-Hydroxy 19.9 L (30.0-100.0) ng/mL PTH Intact (14.0-72.0) pg/mL Free Delight LC, Quant (0.33-1.94) mg/dL Free Lambda LC, Quant (0.57-2.63) mg/dL 11/25/21 11/25/21 11/25/21 Range/Units 14:10 14:10 19:17 WBC (3.8-10.6) k/uL RBC (3.80-5.40) m/uL Hgb (11.4-16.0) gm/dL Hct (34.0-46.0) % MCHC (31.0-37.0) g/dL Plt Count (150-450) k/uL Neutrophils # (Manual) (1.3-7.7) k/uL Lymphocytes # (Manual) (1.0-4.8) k/uL Monocytes # (Manual) (0-1.0) k/uL Eosinophils # (Manual) (0-0.7) k/uL Metamyelocytes # (Man) (0) k/uL Myelocytes # (Manual) (0) k/uL Nucleated RBCs (0-0) /100 WBC Sodium (137-145) mmol/L Chloride (98-107) mmol/L Carbon Dioxide (22-30) mmol/L BUN (7-17) mg/dL Creatinine (0.52-1.04) mg/dL Glucose (74-99) mg/dL POC Glucose (mg/dL) (70-110) mg/dL Plasma Lactic Acid Julio Cesar 3.5 H* (0.7-2.0) mmol/L Calcium (8.4-10.2) mg/dL Total Bilirubin (0.2-1.3) mg/dL AST (14-36) U/L ALT (4-34) U/L Alkaline Phosphatase (38-126) U/L Total Protein (6.3-8.2) g/dL Total Protein (PEP) 4.0 L (6.2-8.2) g/dL Albumin (3.5-5.0) g/dL Vitamin D 25-Hydroxy (30.0-100.0) ng/mL PTH Intact 8.1 L (14.0-72.0) pg/mL Free Delight LC, Quant 2.40 H (0.33-1.94) mg/dL Free Lambda LC, Quant 2.92 H (0.57-2.63) mg/dL 11/25/21 11/26/21 11/26/21 Range/Units 21:15 01:24 04:49 WBC (3.8-10.6) k/uL RBC (3.80-5.40) m/uL Hgb (11.4-16.0) gm/dL Hct (34.0-46.0) % MCHC (31.0-37.0) g/dL Plt Count (150-450) k/uL Neutrophils # (Manual) (1.3-7.7) k/uL Lymphocytes # (Manual) (1.0-4.8) k/uL Monocytes # (Manual) (0-1.0) k/uL Eosinophils # (Manual) (0-0.7) k/uL Metamyelocytes # (Man) (0) k/uL Myelocytes # (Manual) (0) k/uL Nucleated RBCs (0-0) /100 WBC Sodium (137-145) mmol/L Chloride (98-107) mmol/L Carbon Dioxide (22-30) mmol/L BUN (7-17) mg/dL Creatinine (0.52-1.04) mg/dL Glucose (74-99) mg/dL POC Glucose (mg/dL) 119 H 133 H 124 H (70-110) mg/dL Plasma Lactic Acid Julio Cesar (0.7-2.0) mmol/L Calcium (8.4-10.2) mg/dL Total Bilirubin (0.2-1.3) mg/dL AST (14-36) U/L ALT (4-34) U/L Alkaline Phosphatase (38-126) U/L Total Protein (6.3-8.2) g/dL Total Protein (PEP) (6.2-8.2) g/dL Albumin (3.5-5.0) g/dL Vitamin D 25-Hydroxy (30.0-100.0) ng/mL PTH Intact (14.0-72.0) pg/mL Free Delight LC, Quant (0.33-1.94) mg/dL Free Lambda LC, Quant (0.57-2.63) mg/dL 11/26/21 11/26/21 11/26/21 Range/Units 05:59 05:59 06:37 WBC 38.2 H (3.8-10.6) k/uL RBC 3.65 L (3.80-5.40) m/uL Hgb 10.4 L (11.4-16.0) gm/dL Hct (34.0-46.0) % MCHC 29.8 L (31.0-37.0) g/dL Plt Count 463 H (150-450) k/uL Neutrophils # (Manual) 30.90 H (1.3-7.7) k/uL Lymphocytes # (Manual) 0.76 L (1.0-4.8) k/uL Monocytes # (Manual) 2.67 H (0-1.0) k/uL Eosinophils # (Manual) 0.76 H (0-0.7) k/uL Metamyelocytes # (Man) 1.91 H (0) k/uL Myelocytes # (Manual) 1.53 H (0) k/uL Nucleated RBCs 5 H (0-0) /100 WBC Sodium 136 L (137-145) mmol/L Chloride 110 H (98-107) mmol/L Carbon Dioxide 19 L (22-30) mmol/L BUN 37 H (7-17) mg/dL Creatinine 2.31 H (0.52-1.04) mg/dL Glucose 143 H (74-99) mg/dL POC Glucose (mg/dL) 154 H (70-110) mg/dL Plasma Lactic Acid Julio Cesar (0.7-2.0) mmol/L Calcium 11.0 H (8.4-10.2) mg/dL Total Bilirubin (0.2-1.3) mg/dL AST (14-36) U/L ALT (4-34) U/L Alkaline Phosphatase (38-126) U/L Total Protein (6.3-8.2) g/dL Total Protein (PEP) (6.2-8.2) g/dL Albumin (3.5-5.0) g/dL Vitamin D 25-Hydroxy (30.0-100.0) ng/mL PTH Intact (14.0-72.0) pg/mL Free Delight LC, Quant (0.33-1.94) mg/dL Free Lambda LC, Quant (0.57-2.63) mg/dL 11/26/21 11/26/21 11/26/21 Range/Units 07:56 10:22 10:25 WBC (3.8-10.6) k/uL RBC (3.80-5.40) m/uL Hgb (11.4-16.0) gm/dL Hct (34.0-46.0) % MCHC (31.0-37.0) g/dL Plt Count (150-450) k/uL Neutrophils # (Manual) (1.3-7.7) k/uL Lymphocytes # (Manual) (1.0-4.8) k/uL Monocytes # (Manual) (0-1.0) k/uL Eosinophils # (Manual) (0-0.7) k/uL Metamyelocytes # (Man) (0) k/uL Myelocytes # (Manual) (0) k/uL Nucleated RBCs (0-0) /100 WBC Sodium (137-145) mmol/L Chloride (98-107) mmol/L Carbon Dioxide (22-30) mmol/L BUN (7-17) mg/dL Creatinine (0.52-1.04) mg/dL Glucose (74-99) mg/dL POC Glucose (mg/dL) 159 H 139 H (70-110) mg/dL Plasma Lactic Acid Julio Cesar 4.4 H* (0.7-2.0) mmol/L Calcium (8.4-10.2) mg/dL Total Bilirubin (0.2-1.3) mg/dL AST (14-36) U/L ALT (4-34) U/L Alkaline Phosphatase (38-126) U/L Total Protein (6.3-8.2) g/dL Total Protein (PEP) (6.2-8.2) g/dL Albumin (3.5-5.0) g/dL Vitamin D 25-Hydroxy (30.0-100.0) ng/mL PTH Intact (14.0-72.0) pg/mL Free Delight LC, Quant (0.33-1.94) mg/dL Free Lambda LC, Quant (0.57-2.63) mg/dL 11/26/21 Range/Units 12:01 WBC (3.8-10.6) k/uL RBC (3.80-5.40) m/uL Hgb (11.4-16.0) gm/dL Hct (34.0-46.0) % MCHC (31.0-37.0) g/dL Plt Count (150-450) k/uL Neutrophils # (Manual) (1.3-7.7) k/uL Lymphocytes # (Manual) (1.0-4.8) k/uL Monocytes # (Manual) (0-1.0) k/uL Eosinophils # (Manual) (0-0.7) k/uL Metamyelocytes # (Man) (0) k/uL Myelocytes # (Manual) (0) k/uL Nucleated RBCs (0-0) /100 WBC Sodium (137-145) mmol/L Chloride (98-107) mmol/L Carbon Dioxide (22-30) mmol/L BUN (7-17) mg/dL Creatinine (0.52-1.04) mg/dL Glucose (74-99) mg/dL POC Glucose (mg/dL) 140 H (70-110) mg/dL Plasma Lactic Acid Julio Cesar (0.7-2.0) mmol/L Calcium (8.4-10.2) mg/dL Total Bilirubin (0.2-1.3) mg/dL AST (14-36) U/L ALT (4-34) U/L Alkaline Phosphatase (38-126) U/L Total Protein (6.3-8.2) g/dL Total Protein (PEP) (6.2-8.2) g/dL Albumin (3.5-5.0) g/dL Vitamin D 25-Hydroxy (30.0-100.0) ng/mL PTH Intact (14.0-72.0) pg/mL Free Delight LC, Quant (0.33-1.94) mg/dL Free Lambda LC, Quant (0.57-2.63) mg/dL Microbiology - Last 24 Hours (Table) 11/24/21 11:37 Urine Culture - Final Urine,Voided 11/24/21 14:31 Blood Culture - Preliminary Blood No Growth after 24 hours Assessment and Plan (1) Leukocytosis Current Visit: Yes Status: Acute Code(s): D72.829 - ELEVATED WHITE BLOOD CELL COUNT, UNSPECIFIED SNOMED Code(s): 294956298 Plan: 1patient presented to hospital with sepsis in this patient who did have fever elevated white count elevated lactic acid in this patient with recent diagnosis of metastatic adenocarcinoma did have abnormality of the CT abdominal pelvis concerning for colitis and a question of pneumonitis and will need to cover for the enteric gram-negative to the likely pathogen. 2patient is currently covered with Zosyn which will be continued 3IV fluid and pressor support, we will continue stool studies if the patient did have a loose stool Time with Patient: Less than 30
--- NOTE | 2021-11-27 08:08 | XR ---
EXAMINATION TYPE: XR chest 1V portable DATE OF EXAM: 11/27/2021 Comparison: 11/26/2021 Clinical History: 71-year-old female high oxygen demands Findings: NG tube courses below the diaphragm. Right CVC tip at the expected brachiocephalic vein confluence. H eart upper limits of normal in size. Mild interstitial prominence. Hazy bibasilar opacities, left gre ater than right. Some retrocardiac opacity persists at the cephalic arch calcifications. There is art ears to be focal osteolysis involving the second posterolateral left rib. Possibly the left lateral e ighth rib as well. Impression: 1. Semiupright exam with small layering left greater than right pleural effusions with adjacent atele ctasis and/or consolidation. Similar to slightly increased. 2. There appears to be a destructive osseous lesion involving the left posterolateral second rib. Pos sibly the left lateral eighth rib as well. Appropriate oncologic evaluation and management recommende maye
[2021-11-27] MEDS: PANTOPRAZOLE 40 MG/10 ML VIAL IVP SCH (08:45)
[2021-11-27] MEDS: HEPARIN SODIUM,PORCINE/PF 5,000 UNIT/0.5 ML SYRINGE SQ SCH ×2 (08:46→15:42)
[2021-11-27] MEDS: PIPERACILLIN-TAZOBACTAM 3.375 GM in SODIUM CHLORIDE 0.9% 100 ML IVPB SCH (08:46)
[2021-11-27] MEDS ORDERED: SODIUM CHLORIDE 0.45% 1,000 ML with SODIUM BICARB (1 MEQ/ML) 100 ML IV SCH ×2 (10:15)
--- NOTE | 2021-11-27 11:04 | CT ---
EXAMINATION TYPE: CT abdomen pelvis wo con DATE OF EXAM: 11/27/2021 COMPARISON: 11/24/2021 HISTORY: 71-year-old female Abdominal pain. CT DLP: 1030.4 mGycm. Automated exposure control for dose reduction was used. TECHNIQUE: Contiguous axial scanning of the abdomen and pelvis without IV contrast. Coronal and sagit aubrey reconstructions performed. FINDINGS: Heart normal size with new small to moderate anterior pericardial effusion measuring 1.6 cm thick. Continued now moderate bilateral pleural effusions with prominent adjacent atelectasis. Possible cons olidation in the basilar. NG tube is present. There is progression in diffuse anasarca change and interval development of mild to moderate abdomino pelvic ascites. Markedly diminished attenuation of the hepatic parenchyma with mild splenomegaly at 18.5 cm. Redemonstrated hydropic gallbladder measuring 11.3 x 4.6 cm Kidneys, adrenal glands, spleen, and atrophic pancreas show no gross abnormality by noncontrast CT. Moderate atherosclerotic calcifications abdominal aorta and iliac arteries. No dilated small bowel or free air is seen. Moderate stool in the right-sided the abdomen. Redemonstrated is sigmoid diverticulosis. There are se gments of wall thickening. Extensive mesenteric and pericolonic edema along with the ascites fluid in segments of thickened sigmoid colonic wall makes it very difficult to exclude acute diverticulitis. Moderate presacral edema has increased in the interval. Some nondependent intraluminal air within the bladder. Jean catheter is in place. Air likely due to instrumentation. Uterus not seen, likely surgically absent. Moderate pelvic ascites. Anasarca change continues along the visualized upper thighs. Bones: Redemonstrated lytic osseous lesions. These involve both sides of the pelvis with a dominant 6 .2 cm lesion posterior left iliac bone adjacent to the SI joint. There is also an intramedullary lesi on at the right subtrochanteric level with violation of the posterior cortex, axial image 94. This pl aces the patient at risk for impending pathologic fracture. Lesions within the left sacrum and throughout the visualized spine are redemonstrated. Previous verte broplasty at L3 level. Degenerative grade 1 anterolisthesis L4-L5 with severe focal spinal canal sten osis. IMPRESSION: 1. Known lytic metastatic disease. Note that there is an intramedullary lesion within the subtrochan teric proximal right femur which violates the posterior cortex. This places the patient at risk for i mpending pathologic fracture. The patient should be made nonweightbearing and see orthopedics. 2. Progression to severe generalized anasarca change. Increased, now moderate bilateral pleural effu sions and new/increased mild to moderate abdominopelvic ascites. New small to moderate anterior peric ardial effusion measuring 1.6 cm thick. Correlate for fluid overload state/third spacing. 3. Increasing basilar lower lobe opacities could represent atelectasis versus infiltrates. Clinicall y correlate. 4. Sigmoid diverticulosis. There are segments of wall thickening and prominent adjacent mesenteric e marcin and stranding that may relate to the background anasarca change. Unable to exclude ongoing acute diverticulitis. Correlate with patient's symptoms. 5. Similarly hydropic gallbladder may relate to fasting state. If concern for early acute cholecysti tis, HIDA scan can be performed. 6. Severe hepatic steatosis redemonstrated.
--- NOTE | 2021-11-27 11:48 | P.PN ---
Subjective Progress Note Date: 11/27/21 71-year-old female patient who currently has a diagnosis of metastatic adenocarcinoma, who was recently in the hospital after the patient was found to have tumor involving the L3 vertebral body and a destructive left iliac mass as well as a couple of lytic rib lesions. At that time, the patient was seen by the spine surgeon and the patient underwent kyphoplasty and a biopsy of the L3. The pathology was adenocarcinoma consistent with upper GI cancer versus lung primary. The patient was supposed to start radiation therapy on outpatient basis. The patient was discharged home and the patient within a week of being discharged, came into the hospital with a worsening condition as the patient became more lethargic, weak, unable to eat or drink, low urine output almost absent over the past 24 hours, altered mentation, generalized weakness, increased edema and third spacing all 4 extremities. At that point, the patient came into the emergency and the patient was given a total of 3 L of IV fluids. The patient remained hypotensive with a systolic blood pressure ranging between 70 and 80 and she was started on Levofed which is running at 0.05 mg/kg/m. Her T-max is 99.1F. Mild tachypnea. No significant tachycardia. The white cell count 14.7 with hemoglobin of 7.9. BNP is a 33 with a creatinine of 2.7 consistent with an acute kidney injury in the sodium level is at 132 and a serum bicarbonate of 26. Regulation profile is within normal. Urine drug screen is positive for opiates, oxycodone, tricyclic antidepressant and benzodiazepine. The patient also had an ALT of 131 with an AST of 620 and alkaline phosphatase of 117. Bilirubin is at 0.4. Troponin was at 1.1. UA showed +2 protein. At the same time, a repeat CAT scan of the abdomen and pelvis was done that showed bilateral pleural effusions and enlarged gallbladder without evidence of any biliary obstruction. There was stable sigmoid colon colitis suspected. There was redemonstration of the osseous lesions in the left iliac bone and adjacent left sacroiliac joint and iliac crest with invasion. The gallbladder was hydropic. I saw the patient emergency care I was unable to communicate with her. Her mental status was altered. She was moving all 4 extremities without limitation. CAT scan of the brain was done showing no acute process. A triple lumen catheter was also inserted in the emergency that showed adequate positioning of the right IJ triple THERAPY of this pulmonary asked congestion and pleural effusion lung base bilaterally. Jean catheter in place. no significant urine output. On today's evaluation of 11/25/2021, the patient's condition essentially unchanged. She is still very encephalopathic and lethargic. The patient was severely dehydrated and the patient received a total of 4 L of IV fluid in the form of normal saline, 2 doses of 25% albumin and she was maintained on normal s darien at the rate of 130 mL an hour. On today's evaluation, I noted some improvement in urine output. The patient is producing approximately 25 mL an hour of urine output. I also noted that the patient is membranes are still dry. On today's evaluation, the BUN is at 35 with a creatinine of 2.7. Sodium is at 134. White cell count of 75, hemoglobin 8.3. The calcium level still elevated although slight improvement compared to yesterday and the patient's abdomen continues to be somewhat tender to palpation. The lactic acid level has been fluctuating. After peaking at around 5.0 and improving, the most recent level is down to 4.3. The calcium level is at 11.7. At the same time, the patient has improvement in the LFTs and AST is down to 432 and ALT is down to 111 with an alkaline phosphatase of 122. Bilirubin is 0.4. Flat film of the abdomen was done today showed a nonobstructive gas pattern and the patient also had a chest x-ray that shows small bilateral pleural effusion and some mild pulmonary vascular congestion. The patient remains on oxygen at 4 L per minute nasal cannula. She remains on empiric antibiotic coverage with IV Zosyn. On 11/26/2021, the patient is still in the intensive care unit. Her condition remains critical. Overall mentation is still unchanged and the patient remains encephalopathic and lethargic and somnolent and not able to follow commands on hold a conversation. she continues to have diffuse abdominal tenderness. No nausea. No emesis. She remains on by mouth. She remains on IV Zosyn. Afebrile. She is receiving IV fluids and the patient is receiving D5 0.9 at 150 mL an hour in addition to low-dose norepinephrine infusion running at 0.05 mcg/kg per minute. The lactic acid level remains elevated and the level from today is at 4.4. Also, the patient has a component of non-anion gap metabolic acidosis and the serum bicarb is down to 19 . Flat film of the abdomen from yesterday showed no evidence of any free air. The white cell count is up to 38. Also, as the patient is being resuscitated IV fluids, they renal function continues to improve in the creatinine is down to 2.3 with a BUN of 37 and the sodium level is at 136. Calcium down to 11 and the patient received a dose of Aredia 60 mg IV 1. 11/27/2021, the patient is still doing very poor. Lethargic, encephalopathic, unable to follow any commands. Noted the patient's abdomen remains quite tender. The patient was supposed to undergo a CAT scan of the abdomen yesterday. She was unable to undergo the test as the patient while receiving her oral contraceptive with NG, the patient became short of breath and hypoxic. There was no indication for an aspiration. She was placed on on observing the facemask and she was weaned down to 9 L nasal cannula. Based on that, the CAT scan of the abdomen was performed this morning. The CAT scan findings showed known metastatic disease and lytic bony lesions. It was noted that the intramedullary lesion within the subtrochanteric proximal right femur bilateral the posterior cortex. This was very suspicious for an underlying impending pathologic fracture. The patient has progressed and developed into generalized anasarca. There was also monitored by the pleural effusion and mild to moderate amount of abdominal pelvic ascites. No small to moderate anterior pericardial effusion was also seen measuring 1.6 cm in size. There was increased basilar lower lobe opacities and atelectatic changes bilaterally. There was evidence of sigmoid diverticulosis. There are segments of the ones were thickened and there was adjacent mesenteric ischemia is trending this could be related to anasarca. Possibility of an acute diverticulitis cannot be completely excluded. The gallbladder was still hydropic. There was severe hepatic steatosis noted. The patient meanwhile has a white cell count of 56. Hemoglobin is at 10. Sodium is 138 with a BUN of 43 and a creatinine of 3.09 which is higher compared to yesterday and serum bicarbs at 17. Lactic acid level remains elevated at 4.2. Calcium level is down to 10. LFTs abnormal with a bilirubin of 0.1, ALT of 79, AST of 46 and the alkaline phosphatase at 199. Serum albumin is at 1.7. The patient is currently on 9 L about 2 by nasal cannula. The patient is on D5 normal saline at the rate of 100 mL an hour. Urine output is troponins in the order of 0-5 mL an hour. Lasix was given 280 mg IV without a significant improvement in the urine output. Objective - Vital Signs Vital signs: Vital Signs Temp 97.7 F 11/27/21 08:00 Pulse 95 11/27/21 09:00 Resp 18 11/27/21 09:00 BP 119/64 11/27/21 09:00 Pulse Ox 97 11/27/21 09:00 FiO2 100 11/26/21 19:00 Intake & Output 11/26/21 11/27/21 11/27/21 18:59 06:59 18:59 Intake Total 2132.931 1408.049 238.145 Output Total 555 65 0 Balance 9352.670 0811.049 238.145 Weight 83.6 kg Intake: IV 1500 1400 225 Dextrose 5%-0.9% NaCl 1, 1400 1300 200 000 ml @ 100 mls/hr IV . Q10H [facility]ANDA Rx#:[id number] Piperacillin-Tazobactam 3 100 100 25 .375 gm In Sodium Chloride 0.9% 100 ml @ 25 mls/hr IVPB Q12HR [facility]ANDA Rx #:[id number] Intake, IV Titration 32.931 8.049 13.145 Amount Norepinephrine 32 mg In 32.931 8.049 13.145 Sodium Chloride 0.9% 218 ml @ 0.05 MCG/KG/MIN 1. 884 mls/hr IV .Q24H [facility]ANDA Rx#:[id number] Other 600 Output: Gastric Drainage 400 Urine 155 65 0 Other: Voiding Method Indwelling Catheter Indwelling Catheter Indwelling Catheter - Exam GENERAL EXAM: Alert, very pleasant 71-year-old white female, on 9 liters with pulse ox of 93% comfortable in no apparent distress. Patient continues to de monstrate mucosal membrane dryness and the patient is currently on 9 L of oxygen by nasal cannula. Breathing does not seem to be labored at all. HEAD: Normocephalic/atraumatic. EYES: Normal reaction of pupils, equal size. Conjunctiva pink, sclera white. NOSE: Clear with pink turbinates. THROAT: No erythema or exudates. NECK: No masses, no JVD, no thyroid enlargement, no adenopathy. CHEST: No chest wall deformity. Symmetrical expansion. LUNGS: Equal air entry with no crackles, wheeze, rhonchi or dullness.diminished breath on the lung bases bilaterally CVS: Regular rate and rhythm, normal S1 and S2, no gallops, no murmurs, no rubs ABDOMEN: Soft, direct tenderness on examination. No rebound tenderness. No guarding.. No hepatosplenomegaly, normal bowel sounds, no guarding or rigidity. EXTREMITIES: No clubbing,trace edema lower extremity is bilaterally, no cyanosis, 2+ pulses and upper and lower extremities. MUSCULOSKELETAL: Muscle strength and tone normal. SPINE: No scoliosis or deformity SKIN: No rashes CENTRAL NERVOUS SYSTEM: the patient is encephalopathic,she was also painful stimulation extremities. Pupils are equal and reactive to light. Reflexes are diminished. Motor function sensitive function cannot be accurately assessed. No facial asymmetry. PSYCHIATRIC: Unable to perform due to above - Labs CBC & Chem 7: 11/27/21 05:46 11/27/21 05:56 Labs: Abnormal Lab Results - Last 24 Hours (Table) 11/25/21 11/25/21 11/26/21 Range/Units 14:10 14:10 10:25 WBC (3.8-10.6) k/uL RBC (3.80-5.40) m/uL Hgb (11.4-16.0) gm/dL MCV (80.0-100.0) fL MCHC (31.0-37.0) g/dL Neutrophils # (Manual) (1.3-7.7) k/uL Monocytes # (Manual) (0-1.0) k/uL Metamyelocytes # (Man) (0) k/uL Myelocytes # (Manual) (0) k/uL Promyelocytes # (Man) (0) k/uL Nucleated RBCs (0-0) /100 WBC Chloride (98-107) mmol/L Carbon Dioxide (22-30) mmol/L BUN (7-17) mg/dL Creatinine (0.52-1.04) mg/dL Glucose (74-99) mg/dL POC Glucose (mg/dL) (70-110) mg/dL Plasma Lactic Acid Julio Cesar 4.4 H* (0.7-2.0) mmol/L Calcium (8.4-10.2) mg/dL Total Bilirubin (0.2-1.3) mg/dL AST (14-36) U/L ALT (4-34) U/L Alkaline Phosphatase (38-126) U/L Total Protein (6.3-8.2) g/dL Albumin (3.5-5.0) g/dL Albumin (PEP) 1.62 L (3.80-4.90) g/dL Jqkrg-9-Jxtllcyld 0.59 H (0.10-0.40) g/dL Beta Globulins 0.51 L (0.60-1.30) g/dL Gamma Globulins 0.36 L (0.70-1.50) g/dL Vit D 1,25-Dihydroxy <5 L (20 - 79) pg/mL 11/26/21 11/26/21 11/26/21 Range/Units 12:01 15:28 16:33 WBC (3.8-10.6) k/uL RBC (3.80-5.40) m/uL Hgb (11.4-16.0) gm/dL MCV (80.0-100.0) fL MCHC (31.0-37.0) g/dL Neutrophils # (Manual) (1.3-7.7) k/uL Monocytes # (Manual) (0-1.0) k/uL Metamyelocytes # (Man) (0) k/uL Myelocytes # (Manual) (0) k/uL Promyelocytes # (Man) (0) k/uL Nucleated RBCs (0-0) /100 WBC Chloride (98-107) mmol/L Carbon Dioxide (22-30) mmol/L BUN (7-17) mg/dL Creatinine (0.52-1.04) mg/dL Glucose (74-99) mg/dL POC Glucose (mg/dL) 140 H 160 H (70-110) mg/dL Plasma Lactic Acid Julio Cesar 4.0 H* (0.7-2.0) mmol/L Calcium (8.4-10.2) mg/dL Total Bilirubin (0.2-1.3) mg/dL AST (14-36) U/L ALT (4-34) U/L Alkaline Phosphatase (38-126) U/L Total Protein (6.3-8.2) g/dL Albumin (3.5-5.0) g/dL Albumin (PEP) (3.80-4.90) g/dL Gitxm-6-Cvjqawgrx (0.10-0.40) g/dL Beta Globulins (0.60-1.30) g/dL Gamma Globulins (0.70-1.50) g/dL Vit D 1,25-Dihydroxy (20 - 79) pg/mL 11/26/21 11/26/21 11/26/21 Range/Units 18:02 18:02 18:16 WBC (3.8-10.6) k/uL RBC (3.80-5.40) m/uL Hgb (11.4-16.0) gm/dL MCV (80.0-100.0) fL MCHC (31.0-37.0) g/dL Neutrophils # (Manual) (1.3-7.7) k/uL Monocytes # (Manual) (0-1.0) k/uL Metamyelocytes # (Man) (0) k/uL Myelocytes # (Manual) (0) k/uL Promyelocytes # (Man) (0) k/uL Nucleated RBCs (0-0) /100 WBC Chloride 111 H (98-107) mmol/L Carbon Dioxide 20 L (22-30) mmol/L BUN 39 H (7-17) mg/dL Creatinine 2.90 H (0.52-1.04) mg/dL Glucose 155 H (74-99) mg/dL POC Glucose (mg/dL) 149 H (70-110) mg/dL Plasma Lactic Acid Julio Cesar 4.0 H* (0.7-2.0) mmol/L Calcium 10.4 H (8.4-10.2) mg/dL Total Bilirubin (0.2-1.3) mg/dL AST (14-36) U/L ALT (4-34) U/L Alkaline Phosphatase (38-126) U/L Total Protein (6.3-8.2) g/dL Albumin (3.5-5.0) g/dL Albumin (PEP) (3.80-4.90) g/dL Emnyj-7-Wrcqwnzgh (0.10-0.40) g/dL Beta Globulins (0.60-1.30) g/dL Gamma Globulins (0.70-1.50) g/dL Vit D 1,25-Dihydroxy (20 - 79) pg/mL 11/26/21 11/26/21 11/27/21 Range/Units 20:08 20:49 00:08 WBC (3.8-10.6) k/uL RBC (3.80-5.40) m/uL Hgb (11.4-16.0) gm/dL MCV (80.0-100.0) fL MCHC (31.0-37.0) g/dL Neutrophils # (Manual) (1.3-7.7) k/uL Monocytes # (Manual) (0-1.0) k/uL Metamyelocytes # (Man) (0) k/uL Myelocytes # (Manual) (0) k/uL Promyelocytes # (Man) (0) k/uL Nucleated RBCs (0-0) /100 WBC Chloride (98-107) mmol/L Carbon Dioxide (22-30) mmol/L BUN (7-17) mg/dL Creatinine (0.52-1.04) mg/dL Glucose (74-99) mg/dL POC Glucose (mg/dL) 152 H 138 H (70-110) mg/dL Plasma Lactic Acid Julio Cesar 4.1 H* (0.7-2.0) mmol/L Calcium (8.4-10.2) mg/dL Total Bilirubin (0.2-1.3) mg/dL AST (14-36) U/L ALT (4-34) U/L Alkaline Phosphatase (38-126) U/L Total Protein (6.3-8.2) g/dL Albumin (3.5-5.0) g/dL Albumin (PEP) (3.80-4.90) g/dL Ptvlt-2-Igsptykve (0.10-0.40) g/dL Beta Globulins (0.60-1.30) g/dL Gamma Globulins (0.70-1.50) g/dL Vit D 1,25-Dihydroxy (20 - 79) pg/mL 11/27/21 11/27/21 11/27/21 Range/Units 00:53 05:46 05:46 WBC 56.5 H* (3.8-10.6) k/uL RBC 3.71 L (3.80-5.40) m/uL Hgb 10.6 L (11.4-16.0) gm/dL MCV 102.2 H D (80.0-100.0) fL MCHC 27.9 L (31.0-37.0) g/dL Neutrophils # (Manual) 44.00 H (1.3-7.7) k/uL Monocytes # (Manual) 1.13 H (0-1.0) k/uL Metamyelocytes # (Man) 6.22 H (0) k/uL Myelocytes # (Manual) 3.96 H (0) k/uL Promyelocytes # (Man) 1.13 H (0) k/uL Nucleated RBCs 10 H (0-0) /100 WBC Chloride (98-107) mmol/L Carbon Dioxide (22-30) mmol/L BUN (7-17) mg/dL Creatinine (0.52-1.04) mg/dL Glucose (74-99) mg/dL POC Glucose (mg/dL) (70-110) mg/dL Plasma Lactic Acid Julio Cesar 4.1 H* 4.2 H* (0.7-2.0) mmol/L Calcium (8.4-10.2) mg/dL Total Bilirubin (0.2-1.3) mg/dL AST (14-36) U/L ALT (4-34) U/L Alkaline Phosphatase (38-126) U/L Total Protein (6.3-8.2) g/dL Albumin (3.5-5.0) g/dL Albumin (PEP) (3.80-4.90) g/dL Vytgq-3-Rkeswuczx (0.10-0.40) g/dL Beta Globulins (0.60-1.30) g/dL Gamma Globulins (0.70-1.50) g/dL Vit D 1,25-Dihydroxy (20 - 79) pg/mL 11/27/21 11/27/21 Range/Units 05:56 10:51 WBC (3.8-10.6) k/uL RBC (3.80-5.40) m/uL Hgb (11.4-16.0) gm/dL MCV (80.0-100.0) fL MCHC (31.0-37.0) g/dL Neutrophils # (Manual) (1.3-7.7) k/uL Monocytes # (Manual) (0-1.0) k/uL Metamyelocytes # (Man) (0) k/uL Myelocytes # (Manual) (0) k/uL Promyelocytes # (Man) (0) k/uL Nucleated RBCs (0-0) /100 WBC Chloride 111 H (98-107) mmol/L Carbon Dioxide 17 L (22-30) mmol/L BUN 43 H (7-17) mg/dL Creatinine 3.09 H (0.52-1.04) mg/dL Glucose 134 H (74-99) mg/dL POC Glucose (mg/dL) (70-110) mg/dL Plasma Lactic Acid Julio Cesar 6.1 H* (0.7-2.0) mmol/L Calcium (8.4-10.2) mg/dL Total Bilirubin 0.1 L (0.2-1.3) mg/dL AST 79 H (14-36) U/L ALT 46 H (4-34) U/L Alkaline Phosphatase 199 H (38-126) U/L Total Protein 3.7 L (6.3-8.2) g/dL Albumin 1.7 L (3.5-5.0) g/dL Albumin (PEP) (3.80-4.90) g/dL Dtlnq-4-Xdcuvosif (0.10-0.40) g/dL Beta Globulins (0.60-1.30) g/dL Gamma Globulins (0.70-1.50) g/dL Vit D 1,25-Dihydroxy (20 - 79) pg/mL Microbiology - Last 24 Hours (Table) 11/24/21 14:31 Blood Culture - Preliminary Blood No Growth after 48 hours Assessment and Plan Plan: metastatic adenocarcinoma of an unknown primary, likely of a gastrointestinal source. I reviewed the CAT scan of the chest and the patient has a tiny right middle lobe pulmonary spiculated lesion in addition based on lymphadenopathy. As such, the possibility of a primary lung cancer which is visiting at this point cannot be completely excluded although other possibilities such as a GI source of a malignancy cannot be also excluded. Skeletal metastases involving the L3 spine in addition to the sacrum particularly the left iliac, in addition to that the patient has a subtrochanteric proximal right femur intramedullary lesion with impending pathologic fracture. Generalized anasarca Bilateral pleural effusions and presence of moderate amount of abdominal pelvic ascites Small pericardial effusion Acute hypoxic respiratory failure currently on 9 L about 2 by nasal cannula with development of atelectatic changes and bilateral pleural effusions. Acute hypovolemic/septic shock, currently IV fluids and the patient is currently off pressors Acute leukocytosis secondary to underlying infection/sepsis, white secondary is on the rise and the patient is still having diffuse abdominal tenderness. There is evidence of diverticulitis on CAT scan of the abdomen. Rule out intra- abdominal source of sepsis. Lactic acid levels remain quite elevated. Diverticulitis and there is involving the left colon and sigmoid. The patient continues to have diffuse abdominal tenderness. White cell count is elevated and the patient remains on IV Zosyn. Lactic acid levels remain elevated. Acute hypercalcemia, could be related to skeletal metastases versus intravascular volume depletion/dehydration, slightly improved with a calcium level is down to 11.7 Altered mentation related to metabolic encephalopathy, unchanged acute kidney injury secondary to creatinine is on the rise and the patient is oliguric at this point in time. Patient is producing much of urine output this morning. Creatinine is higher. Calcium level is improved. Abdominal pain/tenderness with questionable evidence of sigmoid colitis/diverti culitis and currently the patient on IV Zosyn. On today's evaluation, the abdomen remains quite tender and the patient remains nothing by mouth for now on IV Zosyn. Anemia of chronic disease, normocytic Acute lactic acidosis, secondary to above, lactic acid level remains elevated Abnormal LFTs with a hydropic gallbladder. This is not a cholestatic picture and the patient has normal bilirubin and normal alkaline phosphatase, improved Abnormal troponin secondary to above, doubt any acute coronary event Bilateral pleural effusion and increased edema in the legs and third spacing Plan The patient remains critically ill Condition is not showing any improvement in patient's shows some further signs of interval decompensation On today's evaluation, the patient has been found to be oliguric and the creatinine is on the right leg yesterday's elevated and the patient has developed significant leukocytosis. Continue IV Zosyn IV Dilaudid for pain control Monitor urine output Keep the Jean catheter in place Monitor lactic acid level, Level still elevated Not much can be added to this patient's condition. Her condition obviously is progressively declining. The patient has developed worsening leukocytosis, lactic acidosis, underlying abdominal tenderness probably related to sigmoid diverticulitis and the patient remains on IV Zosyn. At the same time, she has progressed into oligoria and worsening renal function. Obviously, all his comorbid conditions was brought to the thyroid, family. CODE STATUS is DNR/DNI. CAT scan of the abdomen was noted. Nephrology is on the case. Medications at for any neurosurgical abdominal exploration and the family wanted to proceed only with medical management. Oncology consultation Appreciated, and the patient is not a candidate for any further treatment at this point in time based on his underlying and ongoing comorbidities. She is still critically ill and extremely debilitated. Very poor prognosis based of metastatic adenocarcinoma We'll continue to follow, I'm going to recommend comfort care measures/hospice to the family on today's meeting. Prognosis extremely poor. She will very likely pass away from his metastatic adenocarcinoma.
[2021-11-27 12:16] LABS: Glucose,Whole Blood 127 mg/dL (70-110)
--- NOTE | 2021-11-27 12:38 | P.PN ---
Subjective Patient is seen for follow-up for acute kidney injury and hypercalcemia. Calcium level has improved. Function remains fairly impaired with serum c reatinine at 3.0 today which is worse from 2.3 yesterday. Patient has had no significant urine output with 0-5 mL per hour over the last 24 hours. Patient is going down for repeat CT of the abdomen. She is not following commands. Patient does withdraw to pain. Levo fed doses further decreased today. Maintained on D5 0.9 at 100 mL an hour. Objective - Vital Signs Vital signs: Vital Signs Temp 97.3 F L 11/27/21 12:00 Pulse 89 11/27/21 12:00 Resp 17 11/27/21 12:00 BP 102/55 11/27/21 12:00 Pulse Ox 95 11/27/21 12:00 FiO2 100 11/26/21 19:00 Intake & Output 11/26/21 11/27/21 11/27/21 18:59 06:59 18:59 Intake Total 2132.931 1408.049 463.145 Output Total 555 65 0 Balance 5151.467 8867.049 463.145 Weight 83.6 kg Intake: IV 1500 1400 450 Dextrose 5%-0.9% NaCl 1, 1400 1300 300 000 ml @ 100 mls/hr IV . Q10H AMANDA Rx#:[id number] Piperacillin-Tazobactam 3 100 100 100 .375 gm In Sodium Chloride 0.9% 100 ml @ 25 mls/hr IVPB Q12HR AMANDA Rx #:[id number] Sodium Chloride 0.45% 1, 50 000 ml @ 50 mls/hr IV . Q22H AMANDA with Sodium Bicarb (1 Meq/ml) 100 ml Rx#:[id number] Intake, IV Titration 32.931 8.049 13.145 Amount Norepinephrine 32 mg In 32.931 8.049 13.145 Sodium Chloride 0.9% 218 ml @ 0.05 MCG/KG/MIN 1. 884 mls/hr IV .Q24H AMANDA Rx#:[id number] Other 600 Output: Gastric Drainage 400 Urine 155 65 0 Other: Voiding Method Indwelling Catheter Indwelling Catheter Indwelling Catheter - Exam Awake, comfortable, not in any acute distress Confused and not following commands Moving all 4 extremities Examination of the heart S1 and S2 Examination of the lungs shows decreased breath sounds at the bases Abdomen is soft distended Examination of the lower extremities shows no edema Patient is moving all 4 extremities but does not follow commands - Labs CBC & Chem 7: 11/27/21 05:46 11/27/21 05:56 Labs: Abnormal Lab Results - Last 24 Hours (Table) 11/25/21 11/25/21 11/26/21 Range/Units 14:10 14:10 15:28 WBC (3.8-10.6) k/uL RBC (3.80-5.40) m/uL Hgb (11.4-16.0) gm/dL MCV (80.0-100.0) fL MCHC (31.0-37.0) g/dL Neutrophils # (Manual) (1.3-7.7) k/uL Monocytes # (Manual) (0-1.0) k/uL Metamyelocytes # (Man) (0) k/uL Myelocytes # (Manual) (0) k/uL Promyelocytes # (Man) (0) k/uL Nucleated RBCs (0-0) /100 WBC Chloride (98-107) mmol/L Carbon Dioxide (22-30) mmol/L BUN (7-17) mg/dL Creatinine (0.52-1.04) mg/dL Glucose (74-99) mg/dL POC Glucose (mg/dL) (70-110) mg/dL Plasma Lactic Acid Julio Cesar 4.0 H* (0.7-2.0) mmol/L Calcium (8.4-10.2) mg/dL Total Bilirubin (0.2-1.3) mg/dL AST (14-36) U/L ALT (4-34) U/L Alkaline Phosphatase (38-126) U/L Total Protein (6.3-8.2) g/dL Albumin (3.5-5.0) g/dL Albumin (PEP) 1.62 L (3.80-4.90) g/dL Adekk-7-Uetfszimu 0.59 H (0.10-0.40) g/dL Beta Globulins 0.51 L (0.60-1.30) g/dL Gamma Globulins 0.36 L (0.70-1.50) g/dL Vit D 1,25-Dihydroxy <5 L (20 - 79) pg/mL 11/26/21 11/26/21 11/26/21 Range/Units 16:33 18:02 18:02 WBC (3.8-10.6) k/uL RBC (3.80-5.40) m/uL Hgb (11.4-16.0) gm/dL MCV (80.0-100.0) fL MCHC (31.0-37.0) g/dL Neutrophils # (Manual) (1.3-7.7) k/uL Monocytes # (Manual) (0-1.0) k/uL Metamyelocytes # (Man) (0) k/uL Myelocytes # (Manual) (0) k/uL Promyelocytes # (Man) (0) k/uL Nucleated RBCs (0-0) /100 WBC Chloride 111 H (98-107) mmol/L Carbon Dioxide 20 L (22-30) mmol/L BUN 39 H (7-17) mg/dL Creatinine 2.90 H (0.52-1.04) mg/dL Glucose 155 H (74-99) mg/dL POC Glucose (mg/dL) 160 H (70-110) mg/dL Plasma Lactic Acid Julio Cesar 4.0 H* (0.7-2.0) mmol/L Calcium 10.4 H (8.4-10.2) mg/dL Total Bilirubin (0.2-1.3) mg/dL AST (14-36) U/L ALT (4-34) U/L Alkaline Phosphatase (38-126) U/L Total Protein (6.3-8.2) g/dL Albumin (3.5-5.0) g/dL Albumin (PEP) (3.80-4.90) g/dL Hixzy-0-Dtwojqmvs (0.10-0.40) g/dL Beta Globulins (0.60-1.30) g/dL Gamma Globulins (0.70-1.50) g/dL Vit D 1,25-Dihydroxy (20 - 79) pg/mL 11/26/21 11/26/21 11/26/21 Range/Units 18:16 20:08 20:49 WBC (3.8-10.6) k/uL RBC (3.80-5.40) m/uL Hgb (11.4-16.0) gm/dL MCV (80.0-100.0) fL MCHC (31.0-37.0) g/dL Neutrophils # (Manual) (1.3-7.7) k/uL Monocytes # (Manual) (0-1.0) k/uL Metamyelocytes # (Man) (0) k/uL Myelocytes # (Manual) (0) k/uL Promyelocytes # (Man) (0) k/uL Nucleated RBCs (0-0) /100 WBC Chloride (98-107) mmol/L Carbon Dioxide (22-30) mmol/L BUN (7-17) mg/dL Creatinine (0.52-1.04) mg/dL Glucose (74-99) mg/dL POC Glucose (mg/dL) 149 H 152 H (70-110) mg/dL Plasma Lactic Acid Julio Cesar 4.1 H* (0.7-2.0) mmol/L Calcium (8.4-10.2) mg/dL Total Bilirubin (0.2-1.3) mg/dL AST (14-36) U/L ALT (4-34) U/L Alkaline Phosphatase (38-126) U/L Total Protein (6.3-8.2) g/dL Albumin (3.5-5.0) g/dL Albumin (PEP) (3.80-4.90) g/dL Ajcbu-9-Etlssdbpe (0.10-0.40) g/dL Beta Globulins (0.60-1.30) g/dL Gamma Globulins (0.70-1.50) g/dL Vit D 1,25-Dihydroxy (20 - 79) pg/mL 11/27/21 11/27/21 11/27/21 Range/Units 00:08 00:53 05:46 WBC 56.5 H* (3.8-10.6) k/uL RBC 3.71 L (3.80-5.40) m/uL Hgb 10.6 L (11.4-16.0) gm/dL MCV 102.2 H D (80.0-100.0) fL MCHC 27.9 L (31.0-37.0) g/dL Neutrophils # (Manual) 44.00 H (1.3-7.7) k/uL Monocytes # (Manual) 1.13 H (0-1.0) k/uL Metamyelocytes # (Man) 6.22 H (0) k/uL Myelocytes # (Manual) 3.96 H (0) k/uL Promyelocytes # (Man) 1.13 H (0) k/uL Nucleated RBCs 10 H (0-0) /100 WBC Chloride (98-107) mmol/L Carbon Dioxide (22-30) mmol/L BUN (7-17) mg/dL Creatinine (0.52-1.04) mg/dL Glucose (74-99) mg/dL POC Glucose (mg/dL) 138 H (70-110) mg/dL Plasma Lactic Acid Julio Cesar 4.1 H* (0.7-2.0) mmol/L Calcium (8.4-10.2) mg/dL Total Bilirubin (0.2-1.3) mg/dL AST (14-36) U/L ALT (4-34) U/L Alkaline Phosphatase (38-126) U/L Total Protein (6.3-8.2) g/dL Albumin (3.5-5.0) g/dL Albumin (PEP) (3.80-4.90) g/dL Txoyn-3-Xaeztyqtf (0.10-0.40) g/dL Beta Globulins (0.60-1.30) g/dL Gamma Globulins (0.70-1.50) g/dL Vit D 1,25-Dihydroxy (20 - 79) pg/mL 11/27/21 11/27/21 11/27/21 Range/Units 05:46 05:56 10:51 WBC (3.8-10.6) k/uL RBC (3.80-5.40) m/uL Hgb (11.4-16.0) gm/dL MCV (80.0-100.0) fL MCHC (31.0-37.0) g/dL Neutrophils # (Manual) (1.3-7.7) k/uL Monocytes # (Manual) (0-1.0) k/uL Metamyelocytes # (Man) (0) k/uL Myelocytes # (Manual) (0) k/uL Promyelocytes # (Man) (0) k/uL Nucleated RBCs (0-0) /100 WBC Chloride 111 H (98-107) mmol/L Carbon Dioxide 17 L (22-30) mmol/L BUN 43 H (7-17) mg/dL Creatinine 3.09 H (0.52-1.04) mg/dL Glucose 134 H (74-99) mg/dL POC Glucose (mg/dL) (70-110) mg/dL Plasma Lactic Acid Julio Cesar 4.2 H* 6.1 H* (0.7-2.0) mmol/L Calcium (8.4-10.2) mg/dL Total Bilirubin 0.1 L (0.2-1.3) mg/dL AST 79 H (14-36) U/L ALT 46 H (4-34) U/L Alkaline Phosphatase 199 H (38-126) U/L Total Protein 3.7 L (6.3-8.2) g/dL Albumin 1.7 L (3.5-5.0) g/dL Albumin (PEP) (3.80-4.90) g/dL Sfldp-7-Sytfeqimx (0.10-0.40) g/dL Beta Globulins (0.60-1.30) g/dL Gamma Globulins (0.70-1.50) g/dL Vit D 1,25-Dihydroxy (20 - 79) pg/mL // Range/Units 12:14 WBC (3.8-10.6) k/uL RBC (3.80-5.40) m/uL Hgb (11.4-16.0) gm/dL MCV (80.0-100.0) fL MCHC (31.0-37.0) g/dL Neutrophils # (Manual) (1.3-7.7) k/uL Monocytes # (Manual) (0-1.0) k/uL Metamyelocytes # (Man) (0) k/uL Myelocytes # (Manual) (0) k/uL Promyelocytes # (Man) (0) k/uL Nucleated RBCs (0-0) /100 WBC Chloride (98-107) mmol/L Carbon Dioxide (22-30) mmol/L BUN (7-17) mg/dL Creatinine (0.52-1.04) mg/dL Glucose (74-99) mg/dL POC Glucose (mg/dL) 127 H (70-110) mg/dL Plasma Lactic Acid Julio Cesar (0.7-2.0) mmol/L Calcium (8.4-10.2) mg/dL Total Bilirubin (0.2-1.3) mg/dL AST (14-36) U/L ALT (4-34) U/L Alkaline Phosphatase (38-126) U/L Total Protein (6.3-8.2) g/dL Albumin (3.5-5.0) g/dL Albumin (PEP) (3.80-4.90) g/dL Zjzdn-6-Sizxwbrpm (0.10-0.40) g/dL Beta Globulins (0.60-1.30) g/dL Gamma Globulins (0.70-1.50) g/dL Vit D 1,25-Dihydroxy (20 - 79) pg/mL Microbiology - Last 24 Hours (Table) 11/24/21 14:31 Blood Culture - Preliminary Blood No Growth after 48 hours Assessment and Plan Assessment: 1. Acute kidney injury ATN currently oliguric. No response to IV Lasix yesterday. If patient remains oliguric she will need to start renal replacement therapy if aggressive medical care is desired. No evidence of obstruction on CAT scan. 2. Hypercalcemia associated with underlying malignancy and volume contraction currently improved [place] at PTH is appropriately low 3. Septic shock maintained on antibiotics. Levo fed been decreased 4. Metastatic adenocarcinoma with unclear primary being followed by oncology 5. Hyperkalemia associated with acute kidney injury currently improved 6. Metabolic acidosis secondary to acute kidney injury and IV fluids Plan: Switch IV fluids to IV bicarb and decrease rate If patient remains oliguric with worsening renal function she will need to be considered for renal replacement therapy however that may not be an ideal option given her underlying malignancy. Repeat labs in a.m.
[2021-11-27] MEDS ORDERED: LORazepam 2 MG/ML INJ IV PRN (17:09)
[2021-11-27] MEDS ORDERED: ATROPINE OPHTH SOLN 1% 5ML BTL SUBLINGUAL PRN (17:09)
[2021-11-27] MEDS ORDERED: ONDANSETRON 4 MG/2 ML VIAL IVP PRN (17:09)
[2021-11-27 17:12] VITALS: TEMP 97.1
[2021-11-27] MEDS ORDERED: MORPHINE SULFATE (100 MG/2 ML) 100 MG in SODIUM CHLORIDE 0.9% 100 ML IV SCH (17:15)
[2021-11-27] MEDS: MORPHINE SULFATE 4 MG/ML SYRINGE IV PRN ×2 (17:17→17:50)
--- NOTE | 2021-11-27 18:12 | P.PN ---
Subjective Progress Note Date: 11/26/21 Amy Loaiza, he is a 71-year-old female who was recently discharged from [facility] after a new diagnosis of metastatic adenocarcinoma, at that time patient presented with back pain she had evidence of L3 vertebral body abnormality biopsy revealed evidence of metastatic adenocarcinoma patient was [place] eyes 10 was discharged home, with plan to follow-up with oncology and radiation oncology as outpatient however her general medical condition worsen significantly over the last few days she started having severe weakness and poor oral intake she was evaluated in the emergency room and had evidence of hypotension she received IV fluid bolus without significant improvement, she had a central line placed in the emergency room, she was started on levofed and was admitted to intensive care unit critical care consultation was requested. Vital examination on presentation reveals a temperature of 99.1 pulse 95 respiration 20 blood pressure 80/38 pulse ox 93% on 2 L nasal cannula. Laboratory data revealed a white blood count of 14.7 hemoglobin 7.9 platelet count 412 sodium 132 potassium 4.5 chloride 96 CO2 26 BUN 33 creatinine 2.77 lactic acid was 5.7 troponin 1.150 urine analysis revealed evidence of urinary tract infection with 90 white blood cells in high power field. On 11/25/2021 patient was seen and examined in the intensive care unit she is somnolent, responsive in no apparent distress, vital exam reveals a temperature of 99.6 pulse 91 respiration 30 blood pressure 130/49 pulse ox 93% on 6 L nasal cannula, white blood count is 26.3 hemoglobin 9.0 platelet count 523 BUN 35 creatinine 2.88 lactic acid 3.6, she is receiving IV fluids , IV levo fed , IV antibiotics , she also received IV albumin, patient is receiving for medical care by pulmonary critical care, nephrology, infectious disease, and oncology, prognosis remains very guarded, will follow closely. On 11/26/2021, patient was seen and examined in the intensive care unit she is somnolent, responsive in no apparent distress, vital exam reveals a temperature of 96.8 pulse 90 respiration 30 blood pressure 91/55 pulse ox 96% on 6 L nasal cannula, white blood count is 38.2 hemoglobin 10.6 platelet count 463 BUN 39 creatinine 2.9 lactic acid 4.1, she is receiving IV fluids , IV levofed , IV ant ibiotics , she also received IV albumin, patient is receiving for medical care by pulmonary critical care, nephrology, infectious disease, and oncology, prognosis remains very guarded, will follow closely. Objective - Vital Signs Vital signs: Vital Signs Temp 98.3 F 11/26/21 12:00 Pulse 108 H 11/26/21 13:00 Resp 31 H 11/26/21 13:00 BP 106/64 11/26/21 12:30 Pulse Ox 90 L 11/26/21 13:00 FiO2 100 11/26/21 13:00 Intake & Output 11/25/21 11/26/21 11/26/21 18:59 06:59 18:59 Intake Total 2190.328 1800 1623.525 Output Total 853 935 545 Balance 1337.142 307 6780.525 Weight 82 kg Intake: IV 1410 1650 1000 Dextrose 5% in Water 1, 75 000 ml @ 75 mls/hr IV . [id number] AMANDA Rx#:[id number] Dextrose 5%-0.9% NaCl 1, 1650 900 000 ml @ 100 mls/hr IV . Q10H AMANDA Rx#:[id number] Piperacillin-Tazobactam 3 100 100 .375 gm In Sodium Chloride 0.9% 100 ml @ 25 mls/hr IVPB Q12HR AMANDA Rx #:[id number] Sodium Chloride 0.9% 1, 125 000 ml @ 125 mls/hr IV . Q8H AMANDA Rx#:[id number] Sodium Chloride 0.9% 1, 1110 000 ml @ 130 mls/hr IV . [id number] STA Rx#:[id number] Intake, IV Titration 780.328 150 23.525 Amount Dextrose 5% in Water 1, 150 000 ml @ 75 mls/hr IV . [id number] AMANDA Rx#:[id number] Dextrose 5%-0.9% NaCl 1, 600 150 000 ml @ 100 mls/hr IV . Q10H AMANDA Rx#:[id number] Norepinephrine 32 mg In 29.292 Sodium Chloride 0.9% 218 ml @ 0.05 MCG/KG/MIN 1. 799 mls/hr IV .Q24H ONE Rx#:[id number] Norepinephrine 32 mg In 1.036 23.525 Sodium Chloride 0.9% 218 ml @ 0.05 MCG/KG/MIN 1. 884 mls/hr IV .Q24H AMANDA Rx#:[id number] Other 600 Output: Gastric Drainage 400 Urine 853 935 145 Other: Voiding Method Indwelling Catheter Indwelling Catheter Indwelling Catheter - Exam Patient is somnolent, responsive in no apparent distress HEENT head normocephalic and atraumatic Neck is supple no JVD no goiter no lymphadenopathy Chest exam reveals clear respiratory sounds no crackles no wheezing Cardiac exam reveals regular heart sounds S1 and S2 no gallops no murmurs Abdomen is soft nontender no organomegaly with normal bowel sounds Extremity exam reveals minimal edema no cyanosis or clubbing with normal pulses Neurological examination reveals no gross focal deficit - Labs CBC & Chem 7: 11/27/21 05:46 11/27/21 05:56 Labs: Abnormal Lab Results - Last 24 Hours (Table) 11/25/21 11/25/21 11/25/21 Range/Units 14:10 14:10 14:10 WBC 26.3 H (3.8-10.6) k/uL RBC (3.80-5.40) m/uL Hgb (11.4-16.0) gm/dL MCHC (31.0-37.0) g/dL Plt Count (150-450) k/uL Neutrophils # (Manual) 19.40 H (1.3-7.7) k/uL Lymphocytes # (Manual) (1.0-4.8) k/uL Monocytes # (Manual) 1.58 H (0-1.0) k/uL Eosinophils # (Manual) (0-0.7) k/uL Metamyelocytes # (Man) 2.37 H (0) k/uL Myelocytes # (Manual) 0.79 H (0) k/uL Nucleated RBCs 2 H (0-0) /100 WBC Sodium 136 L (137-145) mmol/L Chloride (98-107) mmol/L Carbon Dioxide (22-30) mmol/L BUN 35 H (7-17) mg/dL Creatinine 2.88 H (0.52-1.04) mg/dL Glucose 101 H (74-99) mg/dL POC Glucose (mg/dL) (70-110) mg/dL Plasma Lactic Acid Julio Cesar (0.7-2.0) mmol/L Calcium 11.3 H (8.4-10.2) mg/dL Total Bilirubin 0.1 L (0.2-1.3) mg/dL AST 248 H (14-36) U/L ALT 95 H (4-34) U/L Alkaline Phosphatase 176 H (38-126) U/L Total Protein 4.0 L (6.3-8.2) g/dL Total Protein (PEP) 4.0 L (6.2-8.2) g/dL Albumin 2.0 L (3.5-5.0) g/dL Vitamin D 25-Hydroxy 19.9 L (30.0-100.0) ng/mL PTH Intact (14.0-72.0) pg/mL Free [place] LC, Quant 2.40 H (0.33-1.94) mg/dL Free Lambda LC, Quant 2.92 H (0.57-2.63) mg/dL 11/25/21 11/25/21 11/25/21 Range/Units 14:10 19:17 21:15 WBC (3.8-10.6) k/uL RBC (3.80-5.40) m/uL Hgb (11.4-16.0) gm/dL MCHC (31.0-37.0) g/dL Plt Count (150-450) k/uL Neutrophils # (Manual) (1.3-7.7) k/uL Lymphocytes # (Manual) (1.0-4.8) k/uL Monocytes # (Manual) (0-1.0) k/uL Eosinophils # (Manual) (0-0.7) k/uL Metamyelocytes # (Man) (0) k/uL Myelocytes # (Manual) (0) k/uL Nucleated RBCs (0-0) /100 WBC Sodium (137-145) mmol/L Chloride (98-107) mmol/L Carbon Dioxide (22-30) mmol/L BUN (7-17) mg/dL Creatinine (0.52-1.04) mg/dL Glucose (74-99) mg/dL POC Glucose (mg/dL) 119 H (70-110) mg/dL Plasma Lactic Acid Julio Cesar 3.5 H* (0.7-2.0) mmol/L Calcium (8.4-10.2) mg/dL Total Bilirubin (0.2-1.3) mg/dL AST (14-36) U/L ALT (4-34) U/L Alkaline Phosphatase (38-126) U/L Total Protein (6.3-8.2) g/dL Total Protein (PEP) (6.2-8.2) g/dL Albumin (3.5-5.0) g/dL Vitamin D 25-Hydroxy (30.0-100.0) ng/mL PTH Intact 8.1 L (14.0-72.0) pg/mL Free [place] LC, Quant (0.33-1.94) mg/dL Free Lambda LC, Quant (0.57-2.63) mg/dL 11/26/21 11/26/21 11/26/21 Range/Units 01:24 04:49 05:59 WBC 38.2 H (3.8-10.6) k/uL RBC 3.65 L (3.80-5.40) m/uL Hgb 10.4 L (11.4-16.0) gm/dL MCHC 29.8 L (31.0-37.0) g/dL Plt Count 463 H (150-450) k/uL Neutrophils # (Manual) 30.90 H (1.3-7.7) k/uL Lymphocytes # (Manual) 0.76 L (1.0-4.8) k/uL Monocytes # (Manual) 2.67 H (0-1.0) k/uL Eosinophils # (Manual) 0.76 H (0-0.7) k/uL Metamyelocytes # (Man) 1.91 H (0) k/uL Myelocytes # (Manual) 1.53 H (0) k/uL Nucleated RBCs 5 H (0-0) /100 WBC Sodium (137-145) mmol/L Chloride (98-107) mmol/L Carbon Dioxide (22-30) mmol/L BUN (7-17) mg/dL Creatinine (0.52-1.04) mg/dL Glucose (74-99) mg/dL POC Glucose (mg/dL) 133 H 124 H (70-110) mg/dL Plasma Lactic Acid Julio Cesar (0.7-2.0) mmol/L Calcium (8.4-10.2) mg/dL Total Bilirubin (0.2-1.3) mg/dL AST (14-36) U/L ALT (4-34) U/L Alkaline Phosphatase (38-126) U/L Total Protein (6.3-8.2) g/dL Total Protein (PEP) (6.2-8.2) g/dL Albumin (3.5-5.0) g/dL Vitamin D 25-Hydroxy (30.0-100.0) ng/mL PTH Intact (14.0-72.0) pg/mL Free [place] LC, Quant (0.33-1.94) mg/dL Free Lambda LC, Quant (0.57-2.63) mg/dL 11/26/21 11/26/21 11/26/21 Range/Units 05:59 06:37 07:56 WBC (3.8-10.6) k/uL RBC (3.80-5.40) m/uL Hgb (11.4-16.0) gm/dL MCHC (31.0-37.0) g/dL Plt Count (150-450) k/uL Neutrophils # (Manual) (1.3-7.7) k/uL Lymphocytes # (Manual) (1.0-4.8) k/uL Monocytes # (Manual) (0-1.0) k/uL Eosinophils # (Manual) (0-0.7) k/uL Metamyelocytes # (Man) (0) k/uL Myelocytes # (Manual) (0) k/uL Nucleated RBCs (0-0) /100 WBC Sodium 136 L (137-145) mmol/L Chloride 110 H (98-107) mmol/L Carbon Dioxide 19 L (22-30) mmol/L BUN 37 H (7-17) mg/dL Creatinine 2.31 H (0.52-1.04) mg/dL Glucose 143 H (74-99) mg/dL POC Glucose (mg/dL) 154 H 159 H (70-110) mg/dL Plasma Lactic Acid Julio Cesar (0.7-2.0) mmol/L Calcium 11.0 H (8.4-10.2) mg/dL Total Bilirubin (0.2-1.3) mg/dL AST (14-36) U/L ALT (4-34) U/L Alkaline Phosphatase (38-126) U/L Total Protein (6.3-8.2) g/dL Total Protein (PEP) (6.2-8.2) g/dL Albumin (3.5-5.0) g/dL Vitamin D 25-Hydroxy (30.0-100.0) ng/mL PTH Intact (14.0-72.0) pg/mL Free [place] LC, Quant (0.33-1.94) mg/dL Free Lambda LC, Quant (0.57-2.63) mg/dL 11/26/21 11/26/21 11/26/21 Range/Units 10:22 10:25 12:01 WBC (3.8-10.6) k/uL RBC (3.80-5.40) m/uL Hgb (11.4-16.0) gm/dL MCHC (31.0-37.0) g/dL Plt Count (150-450) k/uL Neutrophils # (Manual) (1.3-7.7) k/uL Lymphocytes # (Manual) (1.0-4.8) k/uL Monocytes # (Manual) (0-1.0) k/uL Eosinophils # (Manual) (0-0.7) k/uL Metamyelocytes # (Man) (0) k/uL Myelocytes # (Manual) (0) k/uL Nucleated RBCs (0-0) /100 WBC Sodium (137-145) mmol/L Chloride (98-107) mmol/L Carbon Dioxide (22-30) mmol/L BUN (7-17) mg/dL Creatinine (0.52-1.04) mg/dL Glucose (74-99) mg/dL POC Glucose (mg/dL) 139 H 140 H (70-110) mg/dL Plasma Lactic Acid Julio Cesar 4.4 H* (0.7-2.0) mmol/L Calcium (8.4-10.2) mg/dL Total Bilirubin (0.2-1.3) mg/dL AST (14-36) U/L ALT (4-34) U/L Alkaline Phosphatase (38-126) U/L Total Protein (6.3-8.2) g/dL Total Protein (PEP) (6.2-8.2) g/dL Albumin (3.5-5.0) g/dL Vitamin D 25-Hydroxy (30.0-100.0) ng/mL PTH Intact (14.0-72.0) pg/mL Free [place] LC, Quant (0.33-1.94) mg/dL Free Lambda LC, Quant (0.57-2.63) mg/dL Microbiology - Last 24 Hours (Table) 11/24/21 11:37 Urine Culture - Final Urine,Voided 11/24/21 14:31 Blood Culture - Preliminary Blood No Growth after 24 hours Assessment and Plan Plan: Acute shock, likely related to acute hypovolemic shock and acute septic shock Sepsis as evidenced by low grade fever on presentation, elevated white blood count at 14.7, elevated lactic acid at 5.7 and evidence of urinary tract infection, also possible source of infection is in the sigmoid colon as computed tomography scan is revealing evidence of colitis with possible superimposed diverticulitis, findings are new as compared to computed tomography scan from 0 11/10/2021 Acute renal failure likely related to prerenal azotemia Recent diagnosis of metastatic adenocarcinoma, with metastatic disease to the L3 vertebrae and to the left iliac area Elevated troponin level, patient denies chest pain, doubt cardiac ischemia Will monitor closely Evidence of bilateral pleural effusion Elevated liver enzymes AST and ALT likely related to hypotension At this time patient was admitted to intensive care unit She was started on IV fluid and IV levofed in the emergency room She was also started on IV Zosyn For DVT prophylaxis subcu heparin for GI prophylaxis IV Protonix At this time will add consultation for infectious disease and oncology Patient is improving gradually however prognosis remains very guarded Will follow closely
--- NOTE | 2021-11-27 18:15 | P.PN ---
Subjective Progress Note Date: 11/27/21 Amy Loaiza, he is a 71-year-old female who was recently discharged from [facility] after a new diagnosis of metastatic adenocarcinoma, at that time patient presented with back pain she had evidence of L3 vertebral body abnormality biopsy revealed evidence of metastatic adenocarcinoma patient was [facility] 10 was discharged home, with plan to follow-up with oncology and radiation oncology as outpatient however her general medical condition worsen significantly over the last few days she started having severe weakness and poor oral intake she was evaluated in the emergency room and had evidence of hypotension she received IV fluid bolus without significant improvement, she had a central line placed in the emergency room, she was started on levofed and was admitted to intensive care unit critical care consultation was requested. Vital examination on presentation reveals a temperature of 99.1 pulse 95 respiration 20 blood pressure 80/38 pulse ox 93% on 2 L nasal cannula. Laboratory data revealed a white blood count of 14.7 hemoglobin 7.9 platelet count 412 sodium 132 potassium 4.5 chloride 96 CO2 26 BUN 33 creatinine 2.77 lactic acid was 5.7 troponin 1.150 urine analysis revealed evidence of urinary tract infection with 90 white blood cells in high power field. On 11/25/2021 patient was seen and examined in the intensive care unit she is somnolent, responsive in no apparent distress, vital exam reveals a temperature of 99.6 pulse 91 respiration 30 blood pressure 130/49 pulse ox 93% on 6 L nasal cannula, white blood count is 26.3 hemoglobin 9.0 platelet count 523 BUN 35 creatinine 2.88 lactic acid 3.6, she is receiving IV fluids , IV levo fed , IV antibiotics , she also received IV albumin, patient is receiving for medical care by pulmonary critical care, nephrology, infectious disease, and oncology, prognosis remains very guarded, will follow closely. On 11/26/2021, patient was seen and examined in the intensive care unit she is somnolent, responsive in no apparent distress, vital exam reveals a temperature of 96.8 pulse 90 respiration 30 blood pressure 91/55 pulse ox 96% on 6 L nasal cannula, white blood count is 38.2 hemoglobin 10.6 platelet count 463 BUN 39 creatinine 2.9 lactic acid 4.1, she is receiving IV fluids , IV levofed , IV antibiotics , she also received IV albumin, patient is receiving for medical care by pulmonary critical care, nephrology, infectious disease, and oncology, prognosis remains very guarded, will follow closely. On 11/27/2021 patient was seen and examined in the ICU, she is lethargic, unresponsive, vital exam reveals a temperature of 98.6 pulse 87 respiration 26 pressure 97/45 white blood count is up to 56.5 hemoglobin 10.6 platelet count 430 sodium 138 potassium 4.3 chloride 111 CO2 17 BUN 43 creatinine 3.09 lactic acid 6.1 condition remains extremely poor, she is followed very closely by pulmonary critical care, infectious disease, nephrology and oncology, prognosis remains very guarded will follow closely Objective - Vital Signs Vital signs: Vital Signs Temp 97.1 F L 11/27/21 16:00 Pulse 98 11/27/21 17:00 Resp 26 H 11/27/21 17:00 BP 107/93 11/27/21 17:00 Pulse Ox 87 L 11/27/21 17:00 FiO2 100 11/26/21 19:00 Intake & Output 11/26/21 11/27/21 11/27/21 18:59 06:59 18:59 Intake Total 2132.931 1408.049 653.145 Output Total 555 65 5 Balance 4851.538 3193.049 648.145 Weight 83.6 kg Intake: IV 1500 1400 640 Dextrose 5%-0.9% NaCl 1, 1400 1300 300 000 ml @ 100 mls/hr IV . Q10H AMANDA Rx#:[id number] Piperacillin-Tazobactam 3 100 100 100 .375 gm In Sodium Chloride 0.9% 100 ml @ 25 mls/hr IVPB Q12HR AMANDA Rx #:[id number] Sodium Chloride 0.45% 1, 240 000 ml @ 20 mls/hr IV . Q24H AMANDA with Sodium Bicarb (1 Meq/ml) 100 ml Rx#:[id number] Intake, IV Titration 32.931 8.049 13.145 Amount Norepinephrine 32 mg In 32.931 8.049 13.145 Sodium Chloride 0.9% 218 ml @ 0.05 MCG/KG/MIN 1. 884 mls/hr IV .Q24H AMANDA Rx#:[id number] Other 600 Output: Gastric Drainage 400 Urine 155 65 5 Other: Voiding Method Indwelling Catheter Indwelling Catheter Indwelling Catheter - Exam Patient is somnolent, responsive in no apparent distress HEENT head normocephalic and atraumatic Neck is supple no JVD no goiter no lymphadenopathy Chest exam reveals clear respiratory sounds no crackles no wheezing Cardiac exam reveals regular heart sounds S1 and S2 no gallops no murmurs Abdomen is soft nontender no organomegaly with normal bowel sounds Extremity exam reveals minimal edema no cyanosis or clubbing with normal pulses Neurological examination reveals no gross focal deficit - Labs CBC & Chem 7: 11/27/21 05:46 11/27/21 05:56 Labs: Abnormal Lab Results - Last 24 Hours (Table) 11/25/21 11/26/21 11/26/21 Range/Units 14:10 18:02 18:02 WBC (3.8-10.6) k/uL RBC (3.80-5.40) m/uL Hgb (11.4-16.0) gm/dL MCV (80.0-100.0) fL MCHC (31.0-37.0) g/dL Neutrophils # (Manual) (1.3-7.7) k/uL Monocytes # (Manual) (0-1.0) k/uL Metamyelocytes # (Man) (0) k/uL Myelocytes # (Manual) (0) k/uL Promyelocytes # (Man) (0) k/uL Nucleated RBCs (0-0) /100 WBC Chloride 111 H (98-107) mmol/L Carbon Dioxide 20 L (22-30) mmol/L BUN 39 H (7-17) mg/dL Creatinine 2.90 H (0.52-1.04) mg/dL Glucose 155 H (74-99) mg/dL POC Glucose (mg/dL) (70-110) mg/dL Plasma Lactic Acid Julio Cesar 4.0 H* (0.7-2.0) mmol/L Calcium 10.4 H (8.4-10.2) mg/dL Total Bilirubin (0.2-1.3) mg/dL AST (14-36) U/L ALT (4-34) U/L Alkaline Phosphatase (38-126) U/L Total Protein (6.3-8.2) g/dL Albumin (3.5-5.0) g/dL Vit D 1,25-Dihydroxy <5 L (20 - 79) pg/mL 11/26/21 11/26/21 11/26/21 Range/Units 18:16 20:08 20:49 WBC (3.8-10.6) k/uL RBC (3.80-5.40) m/uL Hgb (11.4-16.0) gm/dL MCV (80.0-100.0) fL MCHC (31.0-37.0) g/dL Neutrophils # (Manual) (1.3-7.7) k/uL Monocytes # (Manual) (0-1.0) k/uL Metamyelocytes # (Man) (0) k/uL Myelocytes # (Manual) (0) k/uL Promyelocytes # (Man) (0) k/uL Nucleated RBCs (0-0) /100 WBC Chloride (98-107) mmol/L Carbon Dioxide (22-30) mmol/L BUN (7-17) mg/dL Creatinine (0.52-1.04) mg/dL Glucose (74-99) mg/dL POC Glucose (mg/dL) 149 H 152 H (70-110) mg/dL Plasma Lactic Acid Julio Cesar 4.1 H* (0.7-2.0) mmol/L Calcium (8.4-10.2) mg/dL Total Bilirubin (0.2-1.3) mg/dL AST (14-36) U/L ALT (4-34) U/L Alkaline Phosphatase (38-126) U/L Total Protein (6.3-8.2) g/dL Albumin (3.5-5.0) g/dL Vit D 1,25-Dihydroxy (20 - 79) pg/mL 11/27/21 11/27/21 11/27/21 Range/Units 00:08 00:53 05:46 WBC 56.5 H* (3.8-10.6) k/uL RBC 3.71 L (3.80-5.40) m/uL Hgb 10.6 L (11.4-16.0) gm/dL MCV 102.2 H D (80.0-100.0) fL MCHC 27.9 L (31.0-37.0) g/dL Neutrophils # (Manual) 44.00 H (1.3-7.7) k/uL Monocytes # (Manual) 1.13 H (0-1.0) k/uL Metamyelocytes # (Man) 6.22 H (0) k/uL Myelocytes # (Manual) 3.96 H (0) k/uL Promyelocytes # (Man) 1.13 H (0) k/uL Nucleated RBCs 10 H (0-0) /100 WBC Chloride (98-107) mmol/L Carbon Dioxide (22-30) mmol/L BUN (7-17) mg/dL Creatinine (0.52-1.04) mg/dL Glucose (74-99) mg/dL POC Glucose (mg/dL) 138 H (70-110) mg/dL Plasma Lactic Acid Julio Cesar 4.1 H* (0.7-2.0) mmol/L Calcium (8.4-10.2) mg/dL Total Bilirubin (0.2-1.3) mg/dL AST (14-36) U/L ALT (4-34) U/L Alkaline Phosphatase (38-126) U/L Total Protein (6.3-8.2) g/dL Albumin (3.5-5.0) g/dL Vit D 1,25-Dihydroxy (20 - 79) pg/mL 11/27/21 11/27/21 11/27/21 Range/Units 05:46 05:56 10:51 WBC (3.8-10.6) k/uL RBC (3.80-5.40) m/uL Hgb (11.4-16.0) gm/dL MCV (80.0-100.0) fL MCHC (31.0-37.0) g/dL Neutrophils # (Manual) (1.3-7.7) k/uL Monocytes # (Manual) (0-1.0) k/uL Metamyelocytes # (Man) (0) k/uL Myelocytes # (Manual) (0) k/uL Promyelocytes # (Man) (0) k/uL Nucleated RBCs (0-0) /100 WBC Chloride 111 H (98-107) mmol/L Carbon Dioxide 17 L (22-30) mmol/L BUN 43 H (7-17) mg/dL Creatinine 3.09 H (0.52-1.04) mg/dL Glucose 134 H (74-99) mg/dL POC Glucose (mg/dL) (70-110) mg/dL Plasma Lactic Acid Julio Cesar 4.2 H* 6.1 H* (0.7-2.0) mmol/L Calcium (8.4-10.2) mg/dL Total Bilirubin 0.1 L (0.2-1.3) mg/dL AST 79 H (14-36) U/L ALT 46 H (4-34) U/L Alkaline Phosphatase 199 H (38-126) U/L Total Protein 3.7 L (6.3-8.2) g/dL Albumin 1.7 L (3.5-5.0) g/dL Vit D 1,25-Dihydroxy (20 - 79) pg/mL 11/27/21 Range/Units 12:14 WBC (3.8-10.6) k/uL RBC (3.80-5.40) m/uL Hgb (11.4-16.0) gm/dL MCV (80.0-100.0) fL MCHC (31.0-37.0) g/dL Neutrophils # (Manual) (1.3-7.7) k/uL Monocytes # (Manual) (0-1.0) k/uL Metamyelocytes # (Man) (0) k/uL Myelocytes # (Manual) (0) k/uL Promyelocytes # (Man) (0) k/uL Nucleated RBCs (0-0) /100 WBC Chloride (98-107) mmol/L Carbon Dioxide (22-30) mmol/L BUN (7-17) mg/dL Creatinine (0.52-1.04) mg/dL Glucose (74-99) mg/dL POC Glucose (mg/dL) 127 H (70-110) mg/dL Plasma Lactic Acid Julio Cesar (0.7-2.0) mmol/L Calcium (8.4-10.2) mg/dL Total Bilirubin (0.2-1.3) mg/dL AST (14-36) U/L ALT (4-34) U/L Alkaline Phosphatase (38-126) U/L Total Protein (6.3-8.2) g/dL Albumin (3.5-5.0) g/dL Vit D 1,25-Dihydroxy (20 - 79) pg/mL Microbiology - Last 24 Hours (Table) 11/24/21 14:31 Blood Culture - Preliminary Blood No Growth after 72 hours Assessment and Plan Plan: Acute shock, likely related to acute hypovolemic shock and acute septic shock Sepsis as evidenced by low grade fever on presentation, elevated white blood count at 14.7, elevated lactic acid at 5.7 and evidence of urinary tract infection, also possible source of infection is in the sigmoid colon as computed tomography scan is revealing evidence of colitis with possible superimposed diverticulitis, findings are new as compared to computed tomography scan from 11/10/2021 Acute renal failure likely related to prerenal azotemia Recent diagnosis of metastatic adenocarcinoma, with metastatic disease to the L3 vertebrae and to the left iliac area Elevated troponin level, patient denies chest pain, doubt cardiac ischemia Will monitor closely Evidence of bilateral pleural effusion Elevated liver enzymes AST and ALT likely related to hypotension At this time patient was admitted to intensive care unit She was started on IV fluid and IV levofed in the emergency room She was also started on IV Zosyn For DVT prophylaxis subcu heparin for GI prophylaxis IV Protonix At this time will add consultation for infectious disease and oncology Patient is improving gradually however prognosis remains very guarded Will follow closely
[2021-11-27] MEDS: NOREPINEPHRINE 32 MG in SODIUM CHLORIDE 0.9% 218 ML IV SCH (18:20)
[2021-11-27 18:38] VITALS: BP 101/90; PULSE 105
[2021-11-27 19:06] VITALS: RESP 18
== END 2021-11-27 20:05 | disposition expired | DRG 871 ==
LOC: EC 10:31 → 2SICU 14:59
PROVIDERS: ADMIT Internal Medicine; ATTEND Internal Medicine
PROC: 3E043XZ Introduction of Vasopressor into Central Vein, Percutaneous Approach (ICD-10-PCS; principal; 2021-11-24)
PROC: 02HV33Z Insertion of Infusion Device into Superior Vena Cava, Percutaneous Approach (ICD-10-PCS; principal; 2021-11-24)
DX: A41.9 Sepsis, unspecified organism (principal); G93.41 Metabolic encephalopathy; N17.0 Acute kidney failure with tubular necrosis; R65.21 Severe sepsis with septic shock; J96.01 Acute respiratory failure with hypoxia; C79.51 Secondary malignant neoplasm of bone; E87.2 Acidosis; N39.0 Urinary tract infection, site not specified; M84.40XA Pathological fracture, unspecified site, initial encounter for fracture; R18.8 Other ascites; J90 Pleural effusion, not elsewhere classified; K55.9 Vascular disorder of intestine, unspecified; K57.32 Diverticulitis of large intestine without perforation or abscess without bleeding; I31.3 Pericardial effusion (noninflammatory); R57.1 Hypovolemic shock; C80.1 Malignant (primary) neoplasm, unspecified; R77.8 Other specified abnormalities of plasma proteins; K76.0 Fatty (change of) liver, not elsewhere classified; R53.81 Other malaise; D63.8 Anemia in other chronic diseases classified elsewhere; Z66 Do not resuscitate; Z51.5 Encounter for palliative care; K52.9 Noninfective gastroenteritis and colitis, unspecified; E83.52 Hypercalcemia; E86.0 Dehydration; E87.5 Hyperkalemia; M51.26 Other intervertebral disc displacement, lumbar region; K82.8 Other specified diseases of gallbladder; K57.30 Diverticulosis of large intestine without perforation or abscess without bleeding; Z79.899 Other long term (current) drug therapy; Z87.891 Personal history of nicotine dependence
CPT/HCPCS: 36415; 36556; 51702; 70450; 71045; 71046; 74018; 74176; 80048; 80053; 80306; 81001; 82140; 82164; 82248; 82306; 82652; 83605; 83735; 83883; 83970; 84132; 84165; 84484; 85025; 85610; 85730; 86334; 86335; 87040; 87086; 93005; 96361; 96365; 96366; 96368; 96372; 96375; 99291